=== PATIENT | male | born 1935 | race African-American/Black ===

== ENCOUNTER → 2022-08-26 | Outpatient (REF) | payer MEDICARE, MEDICAID, SELFPAY ==
[2022-08-26 10:24] LABS: Vitamin B12 > 2000 pg/mL (211-911); Vitamin D,25 Hydroxy 68.3 ng/mL
[2022-08-26 11:04] LABS: ALB/GLOB Ratio 0.7 RATIO (0.9-2.4); AST(SGOT) 34 U/L (15-37); Alanine Aminotransfer ALT/SGPT 33 U/L (16-61); Albumin, Serum 2.6 g/dL (3.2-5.0); Alkaline Phosphatase 76 U/L (45-117); Anion Gap 6 (5-15); BUN 31 mg/dL (7-18); BUN/Creat Ratio 28.4 RATIO (10-20); Chloride 106 mmol/L (98-107); Creatinine, Serum 1.09 mg/dL (0.70-1.30); EST Glomerular Filtration Rate 68 mL/min (>60); Est Glom Filt Rate - Afr Amer 83 mL/min (>60); Globulin 3.9 g/dL (2.2-4.2); Glucose 78 mg/dL (74-106); Potassium 4.2 mmol/L (3.5-5.1); Protein, Total 6.5 g/dL (6.4-8.2); Sodium Level 137 mmol/L (136-145); Thyroid Stim Hormone (TSH) 1.82 uIU/mL (0.358-3.74)
[2022-08-26 15:49] LABS: Hematocrit 36.8 % (40-54); Hemoglobin 11.5 g/dL (13.0-16.5); Mean Corp Hgb Conc 31.3 g/dL (32-36); Mean Corpuscular Hgb 27.1 pg (27.0-32.0); Mean Corpuscular Volume 86.6 fL (80-94); Platelet Count 177 K/mm3 (150-450); RBC Distribution Width CV 17.4 % (11.6-14.6); RBC Distribution Width SD 54.8 fl (35.1-43.9); Red Blood Count 4.25 M/mm3 (4.6-6.2); White Blood Count 6.6 K/mm3 (4.4-11.0)
== END ==
LOC: OLS.SANC 06:30
PROVIDERS: Visit Provider Internal Medicine
DX: D64.9 Anemia, unspecified (principal); N18.9 Chronic kidney disease, unspecified; E55.9 Vitamin D deficiency, unspecified
CPT/HCPCS: 36415; 80053; 82306; 82607; 82746; 84443; 85027

== ENCOUNTER → 2022-10-28 | Outpatient (REF) | payer MEDICARE, MEDICAID, SELFPAY ==
[2022-10-28 08:28] LABS: Hematocrit 37.6 % (40-54); Mean Corp Hgb Conc 31.9 g/dL (32-36); Mean Corpuscular Hgb 27.6 pg (27.0-32.0); Mean Corpuscular Volume 86.4 fL (80-94); Mean Platelet Vol. 11.9 fl (6.2-12.0); Platelet Count 219 K/mm3 (150-450); RBC Distribution Width CV 16.5 % (11.6-14.6); RBC Distribution Width SD 51.8 fl (35.1-43.9); Red Blood Count 4.35 M/mm3 (4.6-6.2); White Blood Count 7.5 K/mm3 (4.4-11.0)
[2022-10-28 08:39] LABS: Anion Gap 4 (5-15); BUN 36 mg/dL (7-18); BUN/Creat Ratio 33.6 RATIO (10-20); Calcium,Total 9.3 mg/dL (8.5-10.1); Chloride 105 mmol/L (98-107); Creatinine, Serum 1.07 mg/dL (0.70-1.30); EST Glomerular Filtration Rate 70 mL/min (>60); Est Glom Filt Rate - Afr Amer 84 mL/min (>60); Glucose 113 mg/dL (74-106); Potassium 4.5 mmol/L (3.5-5.1); Sodium Level 136 mmol/L (136-145)
== END ==
LOC: OLS.SANC 05:00
PROVIDERS: Visit Provider Internal Medicine
DX: D64.9 Anemia, unspecified (principal); F03.90 Unspecified dementia, unspecified severity, without behavioral disturbance, psychotic disturbance, mood disturbance, and anxiety; N18.9 Chronic kidney disease, unspecified; C16.9 Malignant neoplasm of stomach, unspecified; E44.0 Moderate protein-calorie malnutrition
CPT/HCPCS: 36415; 80048; 85027

== ENCOUNTER → 2022-11-22 | Outpatient (REF) | payer MEDICARE, MEDICAID, SELFPAY ==
[2022-11-22 08:10] LABS: Hematocrit 26.1 % (40-54); Hemoglobin 7.9 g/dL (13.0-16.5); Mean Corp Hgb Conc 30.3 g/dL (32-36); Mean Corpuscular Hgb 27.5 pg (27.0-32.0); Mean Corpuscular Volume 90.9 fL (80-94); Mean Platelet Vol. 10.8 fl (6.2-12.0); Platelet Count 281 K/mm3 (150-450); RBC Distribution Width CV 16.2 % (11.6-14.6); RBC Distribution Width SD 54.1 fl (35.1-43.9); Red Blood Count 2.87 M/mm3 (4.6-6.2); White Blood Count 6.3 K/mm3 (4.4-11.0)
[2022-11-22 08:18] LABS: Anion Gap 7 (5-15); BUN 44 mg/dL (7-18); BUN/Creat Ratio 40.4 RATIO (10-20); Calcium,Total 8.8 mg/dL (8.5-10.1); Chloride 107 mmol/L (98-107); Creatinine, Serum 1.09 mg/dL (0.70-1.30); EST Glomerular Filtration Rate 68 mL/min (>60); Est Glom Filt Rate - Afr Amer 83 mL/min (>60); Glucose 113 mg/dL (74-106); Potassium 4.4 mmol/L (3.5-5.1); Sodium Level 141 mmol/L (136-145)
== END ==
LOC: OLS.SANC 05:00
PROVIDERS: Visit Provider Internal Medicine
DX: D64.9 Anemia, unspecified (principal); I10 Essential (primary) hypertension
CPT/HCPCS: 36415; 80048; 85027

== ENCOUNTER → 2022-11-25 | Outpatient (REF) | payer MEDICARE, MEDICAID, SELFPAY ==
[2022-11-25 08:44] LABS: Hematocrit 24.4 % (40-54); Hemoglobin 7.5 g/dL (13.0-16.5); Mean Corp Hgb Conc 30.7 g/dL (32-36); Mean Corpuscular Hgb 27.9 pg (27.0-32.0); Mean Corpuscular Volume 90.7 fL (80-94); Mean Platelet Vol. 11.5 fl (6.2-12.0); Platelet Count 295 K/mm3 (150-450); RBC Distribution Width SD 53.1 fl (35.1-43.9); Red Blood Count 2.69 M/mm3 (4.6-6.2); White Blood Count 8.9 K/mm3 (4.4-11.0)
[2022-11-25 09:02] LABS: ALB/GLOB Ratio 0.6 RATIO (0.9-2.4); AST(SGOT) 23 U/L (15-37); Alanine Aminotransfer ALT/SGPT 23 U/L (16-61); Albumin, Serum 2.4 g/dL (3.2-5.0); Alkaline Phosphatase 72 U/L (45-117); Anion Gap 6 (5-15); BUN 40 mg/dL (7-18); BUN/Creat Ratio 33.6 RATIO (10-20); Chloride 105 mmol/L (98-107); Creatinine, Serum 1.19 mg/dL (0.70-1.30); EST Glomerular Filtration Rate 62 mL/min (>60); Est Glom Filt Rate - Afr Amer 75 mL/min (>60); Globulin 3.7 g/dL (2.2-4.2); Glucose 139 mg/dL (74-106); Potassium 4.5 mmol/L (3.5-5.1); Protein, Total 6.1 g/dL (6.4-8.2); Sodium Level 137 mmol/L (136-145)
== END ==
LOC: OLS.SANC 04:00
PROVIDERS: Referring Provider Internal Medicine; Visit Provider Internal Medicine
DX: D64.9 Anemia, unspecified (principal); I10 Essential (primary) hypertension
CPT/HCPCS: 36415; 80053; 85027

== ENCOUNTER → 2022-11-28 | Outpatient (REF) | payer MEDICARE, MEDICAID, SELFPAY ==
[2022-11-28 08:35] LABS: Hematocrit 26.4 % (40-54); Mean Corp Hgb Conc 30.3 g/dL (32-36); Mean Corpuscular Hgb 27.2 pg (27.0-32.0); Mean Corpuscular Volume 89.8 fL (80-94); Mean Platelet Vol. 10.7 fl (6.2-12.0); Platelet Count 328 K/mm3 (150-450); RBC Distribution Width CV 15.8 % (11.6-14.6); RBC Distribution Width SD 51.1 fl (35.1-43.9); Red Blood Count 2.94 M/mm3 (4.6-6.2); White Blood Count 7.7 K/mm3 (4.4-11.0)
[2022-11-28 08:54] LABS: Vitamin B12 > 2000 pg/mL (211-911)
[2022-11-28 09:25] LABS: Anion Gap 7 (5-15); BUN 37 mg/dL (7-18); BUN/Creat Ratio 33.9 RATIO (10-20); Calcium,Total 9.3 mg/dL (8.5-10.1); Chloride 104 mmol/L (98-107); Creatinine, Serum 1.09 mg/dL (0.70-1.30); EST Glomerular Filtration Rate 68 mL/min (>60); Est Glom Filt Rate - Afr Amer 83 mL/min (>60); Glucose 120 mg/dL (74-106); Iron 29 ug/dL (65-175); Iron Binding Capacity,Total 287 ug/dL (250-450); PERCENT IRON SATURATION 10.1 % (15.0-55.0); Potassium 4.5 mmol/L (3.5-5.1); Sodium Level 139 mmol/L (136-145)
== END ==
LOC: OLS.SANC 05:00
PROVIDERS: Visit Provider Internal Medicine
DX: D64.9 Anemia, unspecified (principal); I10 Essential (primary) hypertension
CPT/HCPCS: 36415; 80048; 82274; 82607; 82746; 83540; 83550; 85027

== ENCOUNTER → 2022-12-06 | Outpatient (REF) | payer MEDICARE, MEDICAID, SELFPAY ==
[2022-12-06 09:31] LABS: Hematocrit 27.2 % (40-54); Hemoglobin 8.5 g/dL (13.0-16.5); Mean Corp Hgb Conc 31.3 g/dL (32-36); Mean Corpuscular Hgb 27.3 pg (27.0-32.0); Mean Corpuscular Volume 87.5 fL (80-94); Mean Platelet Vol. 11.3 fl (6.2-12.0); Platelet Count 260 K/mm3 (150-450); RBC Distribution Width CV 15.9 % (11.6-14.6); RBC Distribution Width SD 50.4 fl (35.1-43.9); Red Blood Count 3.11 M/mm3 (4.6-6.2); White Blood Count 6.9 K/mm3 (4.4-11.0)
[2022-12-06 09:51] LABS: Anion Gap 6 (5-15); BUN 40 mg/dL (7-18); BUN/Creat Ratio 39.6 RATIO (10-20); Calcium,Total 9.1 mg/dL (8.5-10.1); Chloride 107 mmol/L (98-107); Creatinine, Serum 1.01 mg/dL (0.70-1.30); EST Glomerular Filtration Rate 75 mL/min (>60); Est Glom Filt Rate - Afr Amer 90 mL/min (>60); Glucose 123 mg/dL (74-106); Potassium 4.6 mmol/L (3.5-5.1); Sodium Level 140 mmol/L (136-145)
== END ==
LOC: OLS.SANC 05:00
PROVIDERS: Visit Provider Internal Medicine
DX: F03.90 Unspecified dementia, unspecified severity, without behavioral disturbance, psychotic disturbance, mood disturbance, and anxiety (principal); E86.0 Dehydration; D64.9 Anemia, unspecified; I10 Essential (primary) hypertension
CPT/HCPCS: 36415; 80048; 85027

== ENCOUNTER → 2022-12-13 | Outpatient (REF) | payer MEDICARE, MEDICAID, SELFPAY ==
[2022-12-13 07:54] LABS: Hematocrit 30.5 % (40-54); Hemoglobin 9.1 g/dL (13.0-16.5); Mean Corp Hgb Conc 29.8 g/dL (32-36); Mean Corpuscular Hgb 26.8 pg (27.0-32.0); Mean Platelet Vol. 11.8 fl (6.2-12.0); Platelet Count 226 K/mm3 (150-450); RBC Distribution Width CV 16.7 % (11.6-14.6); RBC Distribution Width SD 53.2 fl (35.1-43.9); Red Blood Count 3.39 M/mm3 (4.6-6.2); White Blood Count 7.2 K/mm3 (4.4-11.0)
[2022-12-13 08:05] LABS: Anion Gap 3 (5-15); BUN 38 mg/dL (7-18); BUN/Creat Ratio 35.2 RATIO (10-20); Calcium,Total 9.1 mg/dL (8.5-10.1); Chloride 108 mmol/L (98-107); Creatinine, Serum 1.08 mg/dL (0.70-1.30); EST Glomerular Filtration Rate 69 mL/min (>60); Est Glom Filt Rate - Afr Amer 83 mL/min (>60); Glucose 109 mg/dL (74-106); Potassium 4.5 mmol/L (3.5-5.1); Sodium Level 139 mmol/L (136-145)
== END ==
LOC: OLS.SANC 05:00
PROVIDERS: Visit Provider Internal Medicine
DX: F03.90 Unspecified dementia, unspecified severity, without behavioral disturbance, psychotic disturbance, mood disturbance, and anxiety (principal); E86.0 Dehydration; Z79.899 Other long term (current) drug therapy
CPT/HCPCS: 36415; 80048; 85027

== ENCOUNTER → 2022-12-20 | Outpatient (REF) | payer MEDICARE, MEDICAID, SELFPAY ==
[2022-12-20 08:10] LABS: Hematocrit 30.1 % (40-54); Hemoglobin 9.1 g/dL (13.0-16.5); Mean Corp Hgb Conc 30.2 g/dL (32-36); Mean Corpuscular Hgb 27.2 pg (27.0-32.0); Mean Corpuscular Volume 89.9 fL (80-94); Platelet Count 205 K/mm3 (150-450); RBC Distribution Width CV 17.2 % (11.6-14.6); RBC Distribution Width SD 55.3 fl (35.1-43.9); Red Blood Count 3.35 M/mm3 (4.6-6.2); White Blood Count 5.7 K/mm3 (4.4-11.0)
[2022-12-20 08:22] LABS: Anion Gap 5 (5-15); BUN 37 mg/dL (7-18); BUN/Creat Ratio 37.6 RATIO (10-20); Calcium,Total 8.8 mg/dL (8.5-10.1); Chloride 109 mmol/L (98-107); Creatinine, Serum 0.98 mg/dL (0.70-1.30); EST Glomerular Filtration Rate 77 mL/min (>60); Est Glom Filt Rate - Afr Amer 93 mL/min (>60); Glucose 125 mg/dL (74-106); Potassium 4.3 mmol/L (3.5-5.1); Sodium Level 139 mmol/L (136-145)
== END ==
LOC: OLS.SANC 05:00
PROVIDERS: Visit Provider Internal Medicine
DX: D64.9 Anemia, unspecified (principal); F03.90 Unspecified dementia, unspecified severity, without behavioral disturbance, psychotic disturbance, mood disturbance, and anxiety; I10 Essential (primary) hypertension
CPT/HCPCS: 36415; 80048; 85027

== ENCOUNTER → 2023-01-03 | Outpatient (REF) | payer MEDICARE, MEDICAID, SELFPAY ==
[2023-01-03 08:01] LABS: Hematocrit 29.6 % (40-54); Hemoglobin 9.3 g/dL (13.0-16.5); Mean Corp Hgb Conc 31.4 g/dL (32-36); Mean Corpuscular Hgb 27.8 pg (27.0-32.0); Mean Corpuscular Volume 88.6 fL (80-94); Mean Platelet Vol. 12.2 fl (6.2-12.0); Platelet Count 222 K/mm3 (150-450); RBC Distribution Width CV 18.1 % (11.6-14.6); RBC Distribution Width SD 58.4 fl (35.1-43.9); Red Blood Count 3.34 M/mm3 (4.6-6.2); White Blood Count 7.8 K/mm3 (4.4-11.0)
[2023-01-03 08:19] LABS: Anion Gap 4 (5-15); BUN 34 mg/dL (7-18); BUN/Creat Ratio 32.4 RATIO (10-20); Calcium,Total 9.3 mg/dL (8.5-10.1); Chloride 105 mmol/L (98-107); Creatinine, Serum 1.05 mg/dL (0.70-1.30); EST Glomerular Filtration Rate 71 mL/min (>60); Est Glom Filt Rate - Afr Amer 86 mL/min (>60); Glucose 119 mg/dL (74-106); Potassium 4.1 mmol/L (3.5-5.1); Sodium Level 136 mmol/L (136-145)
== END ==
LOC: OLS.SANC 05:00
PROVIDERS: Visit Provider Internal Medicine
DX: I10 Essential (primary) hypertension (principal)
CPT/HCPCS: 36415; 80048; 85027

== ENCOUNTER → 2023-02-17 05:00 | Outpatient (REF) | payer MEDICARE, MEDICAID, SELFPAY ==
[2023-02-17 09:48] LABS: Hemoglobin 10.9 g/dL (13.0-16.5); Mean Corp Hgb Conc 31.1 g/dL (32-36); Mean Corpuscular Hgb 27.6 pg (27.0-32.0); Mean Corpuscular Volume 88.6 fL (80-94); Mean Platelet Vol. 10.9 fl (6.2-12.0); Platelet Count 220 K/mm3 (150-450); RBC Distribution Width SD 54.7 fl (35.1-43.9); Red Blood Count 3.95 M/mm3 (4.6-6.2); White Blood Count 7.4 K/mm3 (4.4-11.0)
[2023-02-17 09:57] LABS: ALB/GLOB Ratio 0.7 RATIO (0.9-2.4); AST(SGOT) 28 U/L (15-37); Alanine Aminotransfer ALT/SGPT 32 U/L (16-61); Albumin, Serum 2.7 g/dL (3.2-5.0); Alkaline Phosphatase 91 U/L (45-117); Anion Gap 2 (5-15); BUN 30 mg/dL (7-18); BUN/Creat Ratio 30.8 RATIO (10-20); Calcium,Total 9.2 mg/dL (8.5-10.1); Chloride 106 mmol/L (98-107); Creatinine, Serum 0.97 mg/dL (0.70-1.30); EST Glomerular Filtration Rate 78 mL/min (>60); Est Glom Filt Rate - Afr Amer 94 mL/min (>60); Globulin 4.1 g/dL (2.2-4.2); Glucose 123 mg/dL (74-106); Potassium 4.5 mmol/L (3.5-5.1); Protein, Total 6.8 g/dL (6.4-8.2); Sodium Level 135 mmol/L (136-145)
== END ==
LOC: OLS.SANC 05:00
PROVIDERS: Visit Provider Internal Medicine
DX: I12.9 Hypertensive chronic kidney disease with stage 1 through stage 4 chronic kidney disease, or unspecified chronic kidney disease (principal); N18.9 Chronic kidney disease, unspecified; D63.1 Anemia in chronic kidney disease
CPT/HCPCS: 36415; 80053; 85027

== ENCOUNTER → 2023-03-03 | Outpatient (REF) | payer MEDICARE, MEDICAID, SELFPAY ==
[2023-03-03 09:39] LABS: Hematocrit 36.8 % (40-54); Hemoglobin 11.6 g/dL (13.0-16.5); Mean Corp Hgb Conc 31.5 g/dL (32-36); Mean Corpuscular Hgb 27.3 pg (27.0-32.0); Mean Corpuscular Volume 86.6 fL (80-94); Mean Platelet Vol. 11.5 fl (6.2-12.0); Platelet Count 217 K/mm3 (150-450); RBC Distribution Width CV 16.9 % (11.6-14.6); RBC Distribution Width SD 52.8 fl (35.1-43.9); Red Blood Count 4.25 M/mm3 (4.6-6.2); White Blood Count 5.8 K/mm3 (4.4-11.0)
[2023-03-03 10:15] LABS: Anion Gap 7 (5-15); BUN 32 mg/dL (7-18); BUN/Creat Ratio 30.2 RATIO (10-20); Calcium,Total 9.3 mg/dL (8.5-10.1); Chloride 107 mmol/L (98-107); Creatinine, Serum 1.06 mg/dL (0.70-1.30); EST Glomerular Filtration Rate 70 mL/min (>60); Est Glom Filt Rate - Afr Amer 85 mL/min (>60); Glucose 102 mg/dL (74-106); Potassium 4.4 mmol/L (3.5-5.1); Sodium Level 138 mmol/L (136-145)
[2023-03-04 09:00] LABS: Cholesterol 106 mg/dL (200); High Density Lipoprotein 48 mg/dL; Triglycerides 58 mg/dL; Very Low Density Lipoprotein 12 mg/dL (5-40)
== END ==
LOC: OLS.SANC 05:00
PROVIDERS: Visit Provider Internal Medicine
DX: I10 Essential (primary) hypertension (principal); D64.9 Anemia, unspecified
CPT/HCPCS: 36415; 80048; 80061; 85027

== ENCOUNTER → 2023-03-10 | Outpatient (REF) | payer MEDICARE, MEDICAID, SELFPAY ==
[2023-03-10 09:36] LABS: Cholesterol 121 mg/dL (200); High Density Lipoprotein 58 mg/dL; Triglycerides 63 mg/dL; Very Low Density Lipoprotein 13 mg/dL (5-40)
== END ==
LOC: OLS.SANC 04:00
PROVIDERS: Referring Provider Internal Medicine; Visit Provider Internal Medicine
DX: E11.9 Type 2 diabetes mellitus without complications (principal)
CPT/HCPCS: 36415; 80061

== ENCOUNTER → 2023-04-14 | Outpatient (REF) | payer MEDICARE, MEDICAID, SELFPAY ==
[2023-04-14 09:18] LABS: Hematocrit 36.7 % (40-54); Hemoglobin 11.6 g/dL (13.0-16.5); Mean Corp Hgb Conc 31.6 g/dL (32-36); Mean Corpuscular Hgb 27.4 pg (27.0-32.0); Mean Corpuscular Volume 86.6 fL (80-94); Mean Platelet Vol. 10.8 fl (6.2-12.0); Platelet Count 242 K/mm3 (150-450); RBC Distribution Width CV 16.6 % (11.6-14.6); RBC Distribution Width SD 51.8 fl (35.1-43.9); Red Blood Count 4.24 M/mm3 (4.6-6.2); White Blood Count 6.5 K/mm3 (4.4-11.0)
[2023-04-14 09:43] LABS: Anion Gap 4 (5-15); BUN 35 mg/dL (7-18); BUN/Creat Ratio 29.9 RATIO (10-20); Calcium,Total 9.2 mg/dL (8.5-10.1); Chloride 104 mmol/L (98-107); Creatinine, Serum 1.17 mg/dL (0.70-1.30); EST Glomerular Filtration Rate 63 mL/min (>60); Est Glom Filt Rate - Afr Amer 76 mL/min (>60); Glucose 101 mg/dL (74-106); Potassium 4.5 mmol/L (3.5-5.1); Sodium Level 136 mmol/L (136-145)
== END ==
LOC: OLS.SANC 04:00
PROVIDERS: Referring Provider Internal Medicine; Visit Provider Internal Medicine
DX: I10 Essential (primary) hypertension (principal); E78.5 Hyperlipidemia, unspecified; D64.9 Anemia, unspecified
CPT/HCPCS: 36415; 80048; 85027

== ENCOUNTER → 2023-07-07 | Outpatient (REF) | payer MEDICARE, MEDICAID, SELFPAY ==
[2023-07-07 09:01] LABS: Hematocrit 34.2 % (40-54); Hemoglobin 10.8 g/dL (13.0-16.5); Mean Corp Hgb Conc 31.6 g/dL (32-36); Mean Corpuscular Hgb 26.6 pg (27.0-32.0); Mean Corpuscular Volume 84.2 fL (80-94); Mean Platelet Vol. 11.6 fl (6.2-12.0); Platelet Count 249 K/mm3 (150-450); RBC Distribution Width CV 16.8 % (11.6-14.6); RBC Distribution Width SD 51.2 fl (35.1-43.9); Red Blood Count 4.06 M/mm3 (4.6-6.2); White Blood Count 7.5 K/mm3 (4.4-11.0)
[2023-07-07 09:12] LABS: Anion Gap 5 (5-15); BUN 38 mg/dL (7-18); BUN/Creat Ratio 34.5 RATIO (10-20); Chloride 107 mmol/L (98-107); EST Glomerular Filtration Rate 67 mL/min (>60); Est Glom Filt Rate - Afr Amer 82 mL/min (>60); Glucose 95 mg/dL (74-106); Potassium 4.1 mmol/L (3.5-5.1); Sodium Level 138 mmol/L (136-145)
== END ==
LOC: OLS.SANC 05:00
PROVIDERS: Visit Provider Internal Medicine
DX: D64.9 Anemia, unspecified (principal); I11.0 Hypertensive heart disease with heart failure; I50.9 Heart failure, unspecified; E78.5 Hyperlipidemia, unspecified
CPT/HCPCS: 36415; 80048; 85027

== ENCOUNTER → 2023-09-03 | Outpatient (REF) | payer MEDICARE, MEDICAID, SELFPAY ==
[2023-09-03 08:11] LABS: Hematocrit 30.5 % (40-54); Hemoglobin 9.3 g/dL (13.0-16.5); Mean Corp Hgb Conc 30.5 g/dL (32-36); Mean Corpuscular Hgb 25.2 pg (27.0-32.0); Mean Corpuscular Volume 82.7 fL (80-94); Mean Platelet Vol. 10.5 fl (6.2-12.0); Platelet Count 242 K/mm3 (150-450); RBC Distribution Width CV 16.9 % (11.6-14.6); RBC Distribution Width SD 51.2 fl (35.1-43.9); Red Blood Count 3.69 M/mm3 (4.6-6.2); White Blood Count 6.1 K/mm3 (4.4-11.0)
[2023-09-03 08:22] LABS: ALB/GLOB Ratio 0.7 RATIO (0.9-2.4); AST(SGOT) 22 U/L (15-37); Alanine Aminotransfer ALT/SGPT 21 U/L (16-61); Albumin, Serum 2.8 g/dL (3.2-5.0); Alkaline Phosphatase 75 U/L (45-117); Anion Gap 3 (5-15); BUN 36 mg/dL (7-18); Calcium,Total 9.1 mg/dL (8.5-10.1); Chloride 107 mmol/L (98-107); Cholesterol 103 mg/dL (200); Creatinine, Serum 1.16 mg/dL (0.70-1.30); EST Glomerular Filtration Rate 63 mL/min (>60); Est Glom Filt Rate - Afr Amer 77 mL/min (>60); Globulin 4.1 g/dL (2.2-4.2); Glucose 115 mg/dL (74-106); High Density Lipoprotein 53 mg/dL; Potassium 4.5 mmol/L (3.5-5.1); Protein, Total 6.9 g/dL (6.4-8.2); Sodium Level 137 mmol/L (136-145); Triglycerides 47 mg/dL; Very Low Density Lipoprotein 9 mg/dL (5-40)
== END ==
LOC: OLS.SANC 04:00
PROVIDERS: Referring Provider Internal Medicine; Visit Provider Internal Medicine
DX: D64.9 Anemia, unspecified (principal); I12.9 Hypertensive chronic kidney disease with stage 1 through stage 4 chronic kidney disease, or unspecified chronic kidney disease; E78.5 Hyperlipidemia, unspecified; N18.9 Chronic kidney disease, unspecified; C16.9 Malignant neoplasm of stomach, unspecified
CPT/HCPCS: 36415; 80053; 80061; 85027

== ENCOUNTER → 2023-10-08 | Outpatient (REF) | payer MEDICARE, MEDICAID, SELFPAY ==
--- OUTSIDE RECORDS SUMMARY | 2023-10-08 04:38 | XMS RPT_ITS | CCD ---
Author Name Unknown Address [address] [place] [address] Organization [facility] Care Team Providers Care Pallet Stone Inserter Name Role Phone System, Provider Not In Primary Care Provider 1( [phone] DENIS LOGAN Consulting Unavailable DOMINICK ROSALES Admitting Unavailable CHA MONTEMAYOR Attending Unavailable DARIUS BARROSO Admitting Unavailable THOMAS JOSE Consulting Unavailable JON LOPEZ Attending Unavailable DE GAMINO Admitting Unavailable LUPILLO VIZCARRA Attending Unavailable KELLY CABEZAS Consulting Unavailable EMILIO ALVAREZ Attending Unavailable EMILIO ALVAREZ Admitting Unavailable EMILIO ALVAREZ Attending Unavailable Medications Current Medications Medication Drug Class(es) Dates Sig (Normalized) Sig (Original) acetaminophen 21.7 mg/ml / HYDROcodone bitartrate 0.5 mg/ml oral solution (2 sources) Opioid Agonist Start: 05-13-2023 HYDROcodone-acetamin ophen (Hycet) 7.5-325 MG/15ML solution Indications: Contracture, left hand Take 10 mL (5 mg of hydrocodone) by mouth every 6 hours as needed for severe pain (7-10) for up to 20 doses. 120 mL 0 05/13/2023 Active albuterol 0.833 mg/ml / ipratropium bromide 0.167 mg/ml inhalation solution (5 sources) Anticholinergic, beta2-Adrenergic Agonist Start: 11-20-2022 End: 11-20-2023 ipratropium-albutero l (Duo-Neb) 0.5-2.5 mg/3 mL nebulizer solution Take 3 mL by nebulization in the morning and 3 mL at noon and 3 mL in the evening. 180 mL 11 11/20/2022 11/20/2023 Active bisacodyl (Dulcolax) 5 mg split suppository (5 sources) take 10 mg rectal route every twenty-four hours as needed bisacodyl (Dulcolax) 5 mg split suppository Insert 10 mg into the rectum Daily as needed. 0 Active ergocalciferol 1.25 mg oral capsule (2 sources) Provitamin D2 Compound take 1 capsule by mouth every week ergocalciferol (Vitamin D-2) 1.25 MG (92605 UT) capsule Take 1.25 mg by mouth 1 (one) time per week. On Mondays 0 Active ferrous sulfate 325 mg oral tablet (5 sources) take 1 tablet by mouth once daily at breakfast ferrous sulfate 325 (65 Fe) MG tablet Take 325 mg by mouth daily (with breakfast). 0 Active gabapentin 300 mg oral capsule (5 sources) Anti-epileptic Agent gabapentin (Neurontin) 300 MG capsule 300 mg by Per G Tube route 2 times daily. 0 Active hyoscyamine sulfate 0.125 mg/ml oral solution (5 sources) hyoscyamine (Lev sin) 0.125 MG/ML solution Take by mouth every 4 hours as needed (increased secretions). SUBLINGUALLY 0 Active Completed/Discontinued Medications Medication Drug Class(es) Dates Sig (Normalized) Sig (Original) Acetaminophen (7 sources) Start: 12-26-2022 End: 12-28-2022 take 1 tablet by mouth every six hours as needed for pain and fever acetaminophen (Tylenol) tablet 650 mg Problems Active Problems Problem Classification Problem Date Documented Da te Episodic/Chronic Chronic ulcer of skin (4 sources) Pressure ulcer of unspecified site, unspecified stage; Translations: [Pressure ulcer, unspecified site] Onset: 05-13-2023 05-13-2023 Chronic Other acquired deformities (3 sources) Contracture of joint of left hand; Translations: [Contracture, left hand] Onset: 05-13-2023 05-13-2023 Chronic Other acquired deformities (1 source) Contracture, left hand; Translations: [Contracture, left hand] Onset: 05-13-2023 Chronic Past or Other Problems Problem Classification Problem Date Documented Da te Episodic/Chronic Complications of surgical procedures or medical care (5 sources) Disorder of stoma; Translations: [Other complications of gastrostomy] Onset: 3 Episodic Gastrointestinal hemorrhage (5 sources) Gastrointestinal hemorrhage; Translations: [Gastrointestinal hemorrhage, unspecified] Onset: 3 02-01-2023 Episodic Other gastrointestinal disorders (9 sources) Constipation; Translations: [Constipation, unspecified] Onset: 3 Episodic Other gastrointestinal disorders (2 sources) Constipation, unspecified; Translations: [Constipation, unspecified] Onset: 3 Episodic Respiratory failure; insufficiency; arrest (adult) (7 sources) Acute hypoxemic respiratory failure; Translations: [Acute respiratory failure with hypoxia] Onset: 3 11-14-2022 Episodic Results Test Name Value Interpretation Reference Range Facil ity Vital Signs Date Time Vital Sign Value Performing Clinician Faci lity 05-13-2023 19:30-0400 Diastolic blood pressure 78 mm[Hg] Emilio Alvarez MD Work Phone: [employer] [facility] 05-13-2023 19:30-0400 Heart rate 59 /min Emilio Alvarez MD Work Phone: [employer] [facility] 05-13-2023 19:30-0400 Respiratory rate 21 /min Emilio Alvarez MD Work Phone: [employer] [facility] 05-13-2023 19:30-0400 SaO2% (BldA) [Mass fraction] 98 % Emilio Alvarez MD Work Phone: [employer] [facility] 05-13-2023 19:30-0400 Systolic blood pressure 160 mm[Hg] Emilio Alvarez MD Work Phone: [employer] [facility] 05-13-2023 15:03-0400 Body temperature 97 [degF] Emilio Alvarez MD Work Phone: [employer] [facility] 05-13-2023 09:57-0400 Body height 165.1 cm Emilio Alvarez MD Work Phone: [employer] [facility] 05-13-2023 09:57-0400 Body mass index (BMI) [Ratio] 26.96 kg/m2 Emilio Alvarez MD Work Phone: [employer] [facility] 05-13-2023 09:57-0400 Body weight 73.48 kg Emilio Alvarez MD Work Phone: [facility] 12-28-2022 14:41-0400 Body temperature 98.6 [degF] Anyi Murphyffey DO Work Phone: [facility] 12-28-2022 14:41-0400 Diastolic blood pressure 73 mm[Hg] [facility]ffe[facility] 12-28-2022 14:41-0400 Heart rate 64 /min [employer] [facility] 12-28-2022 14:41-0400 Respiratory rate 17 /min [employer] Work Phone: [facility] 12-28-2022 14:41-0400 SaO2% (BldA) [Mass fraction] 98 % [employer] Work Phone: [facility] 12-28-2022 14:41-0400 Systolic blood pressure 147 mm[Hg] Anyi Calderon DO Work Phone: [facility] 12-27-2022 14:40-0400 Body height 182.9 cm [employer] Work Phone: [facility] Encounters Encounter Date Encounter Type Care Provider Facility Start: 05-13-2023 End: 05-13-2023 ambulatory [facility] Start: 05-13-2023 End: 05-13-2023 Anesthesia consultation Isiah Sanchez MD Work Phone: [facility] Start: 05-13-2023 End: 05-13-2023 Subsequent hospital visit by physician Emilio Alvarez MD Work Phone: [facility] Procedures Date Procedure Procedure Detail Performing Clinician Start: 05-13-2023 Injection aa&/strd suprascapular nerve Tito Harrison FIBERGLASS AUTOBODY REPAIRER - BOWLING TEACHER Work Phone: Start: 05-13-2023 Ecg routine ecg w/le ast 12 lds trcg only w/o i&r Cody Simcox [employer]ERGLASS AUTOBODY REPAIRER - BOWLING TEACHER Work Phone: Start: 12-28-2022 SARS-CoV-2 (COVID-19 ) Ag [Presence] in Respiratory specimen by Rapid immunoassay Cha Montemayor FIBERGLASS AUTOBODY REPAIRER - CYBER THREAT ANALYST Work Phone: Start: 12-28-2022 End: 12-28-2022 SARS-CoV-2 (COVID-19) Ag [Presence] in Respiratory specimen by Rapid immunoassay Cha Montemayor [employer]IBERGLASS AUTOBODY REPAIRER - CYBER THREAT ANALYST Work Phone: Start: 12-26-2022 Basic metabolic pane l calcium total Medina Gray F[employer]ERGLASS AUTOBODY REPAIRER - CYBER THREAT ANALYST Work Phone: Start: 12-26-2022 Basic metabolic pane l calcium total Dominick Rosales MD Work Phone: Start: 12-26-2022 Comprehensive metabo lic panel Dominick Rosales MD Work Phone: Start: 12-25-2022 Urinalysis complete panel - Urine Flavio Meneses DO Work Phone: Start: 12-25-2022 Urnls dip stick/tabl et rgnt auto w/o microscopy Flavio Meneses DO Work Phone: Start: 12-25-2022 Ct abdomen & pelvis w/contrast material Flavio Meneses DO Work Phone: Start: 12-25-2022 Ecg routine ecg w/le ast 12 lds trcg only w/o i&r Flavio Meneses DO Work Phone: Start: 12-25-2022 C-reactive protein Jon Rosales MD Work Phone: Start: 12-25-2022 End: 12-25-2022 Comprehensive metabolic panel Flavio Meneses DO Work Phone: Plan of Treatment Date Care Activity Detail Author Start: 05-16-2026 DTaP/Tdap/Td Vaccine s (2 - Td or Tdap) DTaP/Tdap/Td Vaccines (2 - Td or Tdap) [facility] Start: 05-16-2023 Influenza vaccination [facility] Start: 06-15-2013 Pneumococcal Vaccine : 65+ Years (2 - PCV) Pneumococcal Vaccine: 65+ Years (2 - PCV) [facility] Start: 1987 Zoster Vaccines (1 of 2) Zoster Vacc judith (1 of 2) [facility] Start: 1949 Depression Screening Depression Scre ening [facility] Start: 1935 Hepatitis B Vaccines (1 of 3 - 3-dose series) Hepatitis B Vaccines (1 of 3 - 3-dose series) [facility] Start: 1935 Lipid panel Lipid Panel [facility] ECG 12 lead ECG 12 lead CV E CG Routine 05/13/2023 11:03 AM EDT [facility] Work Phone: Tissue exam Tissue exam Path ology and Cytology Timed Pressure ulcer of unspecified site, unspecified stage Contracture, left hand Release Upon Ordering for 1 Occurrences starting 05/13/2023 [facility] Work Phone: Immunizations Immunization Date Immunization Notes Care Provider Suraj oliveira 06-23-2015 influenza virus vacc ine, unspecified formulation Anyi Calderon DO Work Phone: [facility] Payers Date Payer Category Payer Medicaid [employer] [employer] [place] [id number] 2022-Present [phone] [address] [place] [address] Medicaid HMO [id number] 2018 Medicaid [id number] 2018 Medicare [id number] 2018 Medicare [id number] Social History Date Type Detail Facility Start: 12-25-2022 Tobacco smoking status NHIS To bacco smoking consumption unknown [facility] Start: 11-14-2022 History SDOH Alcohol Std Drinks 0 [facility] Start: 1935 Sex Assigned At Not on file [facility] Start: 12-15-2022 End: 12-25-2022 Exposure to SARS-CoV-2 (event) Unable to assess [facility] Start: 02-01-2023 History of Social function [facility] Start: 02-01-2023 Humiliation, Afraid, Rape, and Kick questionnaire [HARK] [facility] Within the last year , have you been afraid of your partner or ex-partner? No [facility] Are you now , , , , never or living with a partner? [facility] How often to you hav e a drink containing alcohol? Never [facility] How many standard dr inks containing alcohol do you have on a typical day? Patient does not drink [facility] (I/We) worried whe er (my/our) food would run out before (I/we) got money to buy more. Never true [facility] Start: 05-03-2023 End: 05-13-2023 Exposure to SARS-CoV-2 (event) Not sure [facility] Clinical Notes 03-07-2021 to 05-13-2023 Perioperative Nursing Note - Marie Mancini RN - 05/13/2023 8:59 PM EDTPerioperative Nursing Note - Marie Mancini RN - 05/13/2023 8:59 PM EDTOp Note - Emilio Alvarez MD - 05/13/2023 11:19 AM EDT Note Date & Type Note Facility 05-13-2023 Note Formatting of this n ote might be different from the original. 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 Patient changed and cleaned due to incontinence. Guest dinner tray delivered to room for patients daughter. Patients daughter is OK waiting on [employer] transportation for est pickling tank operator time of 1944. Recliner brought to room for her to rest in. Patient denies pain and is comfortable at this time. Guest tray ordered for patiens daughter. [place] instructions gone over with patients daughter, all questions answered at this time. Written script given to daughter so that she can have [facility] according to their policy. After reaching out to all of our transportation companies with zero availability secure chat message sent to doctor for admission order. However, [employer] called back with avail. For patient and his wheelchair. Spoke with social service manager Solange and she is aware of current circumstances Patient arrived on unit. Name and date verified. Attached to monitors. Vital signs stable. 1520 - paged Dr. Packer for orders 1530 - messaged Dr. Alvarez for discharge order 1535 - Dr. Packer called back and gave verbal order for [facility] order set [id number] - report given to Swathi in 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 He is unable to maintain hygiene and has a high risk of infection as his caregivers are unable to open his hand and monitor the status of his wounds. Furthermore, patient is minimally verbal communicative, thus making him unable to notify his caregivers of any additional changes including pain, drainage, discomfort in the hand. This procedure was necessary to be done as patient presented to clinic with wounds of the fingers already, and the need of further delay would have increased his risk for infection. Procedures All for the left upper extremity 1) FDS to FDP transfer x4 2) Sharp tenolysis and tenosynovectomy of FDS tendons x4 3) Sharp tenolysis and tenosynovitis me of FDP x4 4) neurolysis of median in the forearm 5) neurolysis ulnar nerve in the forearm 6) carpal tunnel release 7) Guyon's canal release 8) neurectomy of ulnar motor nerve 9) manipulation of index long ring and small finger joints under anesthesia. The MCP, PIP, DIP joints of all fingers 10) Debridement of ring finger DIP joint wound skin and subcutaneous tissue 1 x 2 cm Surgeons * Emilio Alvarez - Primary Procedure Summary Anesthesia: Monitor Anesthesia Care ASA: IV Estimated Blood Loss: Less than 10 cc Drains: Gastrostomy/Enterostomy LUQ (Active) Surrounding Skin Dry;Intact 05/13/23 1002 Drain Status Clamped 05/13/23 1002 Site Description Dry 05/13/23 1002 Dressing Status Clean, dry & intact 05/13/23 1002 Gastrostomy/Enterostomy LUQ (Active) [REMOVED] Gastrostomy/Enterostomy Umbilicus (Removed) Specimens ID Source Type Tests Collected By Collected At Frozen? Priority Lab ID 1 Hand, Left Tissue TISSUE EXAM Emilio Alvarez MD 05/13/23 1329 Routine Description: NERVE Staff: Customer Success Intern: De Alarcon RN Relief Customer Success Intern: Mike Rueda RN Scrub Person: Carmina Lucas LPN; Herrera Hagen Procedure Details: The patient was seen in the preoperative area. The site of surgery was properly noted/marked if necessary per policy. The patient has been actively warmed in preoperative area. Preoperative antibiotics have been ordered and given within 1 hours of incision. Initial attention was turned towards the left volar forearm. Patient also had spasticity in his shoulder and contracture of the pectoralis, thus the arm could only be extended and AB ducted approximately 30 degrees from his side. A longitudinal incision was made from the volar palm, a Jessica style zigzag was made in the wrist flexion crease to avoid future contractures, and then the incision was extended into the middle of the volar forearm. Once this was done, blunt dissection was taken until the palmaris longus was seen and then retracted for protection. Further dissection was taken until the FCR was also seen and retractor protection. Then, the volar muscular fascia was sharply incised and access to the volar compartment was made. It was noted that there was significant amount of tenosynovium and adhesions for all of the FDS as tendons immediately. Sharp tenolysis and tenosynovectomy was performed using a combination of the Littler scissors and #15 blade to allow for appropriate mobilization of all of the superficial flexor tendons. Once was done, each tendon was again checked to ensure that they function to have a distal pole in the fingers and this was noted. A vessel loop was placed around the sinus tract protection. Next, it was noted that the median nerve had significant adhesions around it as well in the forearm and a sharp neurolysis was performed using it again a combination of the #15 blade and Littler scissors. Once was done, the nerve was able to be adequately mobilized and fracture protection as well. Please note that during this dissection, it was noted that the patient had 2 slips of the FDS to the long finger. Next, attention was turned towards FDP. Sharp Tinel lysis of 10 7 ectomy was performed because again there was significant amounts of adhesions and tenosynovium to the FDP tendons for the index long ring and small finger. Once this was done and the tendons were adequately mobilized, they were again individually checked and sure that they powered finger motion and indeed this was seen. Next, a carpal tunnel release was performed. This was then able to visualize the most distal portions of the FDS as tendons. Within this region, the FDS tendons were all sutured together and the distal edge of this was marked with a marking pen. This was then sharply transected using the #15 blade. The FDS tendons were then able to be reflected and revealed FDP tendons. Next, the same procedure was applied to the proximal portion of all 4 FDP tendons where they were sutured together. Please note that the symptoms worsen together using 2-0 FiberWire. The FDP tendons were then transected at the musculotendinous junctions. This was then able to be reflected distally. The ulnar nerve was then also directly visualized along with the neurovascular bundle. There is also significant lesions of the ulnar nerve and a sharp neurolysis with the Littler scissors also performed to allow for adequate mobilization of the wrist and forearm. Manipulation of all the fingers was then performed to passively range all the fingers into maximal extension along with the wrist. And the maximum tension of the wrist and fingers, the FDS and FDP DP tendons were sutured together with FiberWire. Good passive range of motion was then able to be achieved. At this point, attention was turned towards the Guyon's canal. From the palmar incision, the hypothenar flap was elevated until these volar carpal ligament was seen. This was then sharply transected using the Littler scissors. Once the neurovascular bundle was visualized, this was retracted ulnarly for protection. The muscles from the hyperthenar were then swept away from the hook of hamate revealing the osseous bands overlying the motor branch of the ulnar nerve. These bands were then sharply released using a #15 blade under direct visualization. The ulnar motor branch was then able to be isolated and a sharp excisional neurectomy of 1 cm was then performed at this level. The purpose of this was to prevent future spasticity and hand contractures from the ulnar nerve and the intrinsics of the hand. At this point, attention was turned towards the ulceration on the ring finger DIP joint. Superficial tangential excision of subcutaneous tissue was performed and there is noted to be significant mount of good bleeding punctate granulation tissue, without any obvious exposure of bone. Thus, further debridement was deferred and patient will have wound care with the hopes that he can heal all of his ulcerations without amputation of the fingers. The tourniquet which was insufflated 250 mmHg. The case was then released after 90 minutes. The deep dermal layer was closed using 4-0 Monocryl suture. The skin was then closed using 4-0 Monocryl for subcuticular suture as well. The patient was then splinted with wrist in mild extension and fingers in extension as well. Findings: full passive range of motion after procedure Full mobilization of the wrist and fingers after tenolysis, tenosynovectomy, neurolysis and tendon transfers Disposition: PACU - hemodynamically stable. Condition: stable Spoke with Anne at [facility] to verify meds and NPO status documented in this encounter [facility] 05-13-2023 Note Formatting of this n ote might be different from the original. Report called to Pat at the [place], [place] instructions gone over and all questions answered at this time. Patient changed and cleaned due to incontinence. [facility] 05-13-2023 Note Formatting of this n ote might be different from the original. Report called to Pat at the [place], [place] instructions gone over and all questions answered at this time. Patient changed and cleaned due to incontinence. [facility] 05-13-2023 Note Formatting of this n ote might be different from the original. Guest dinner tray delivered to room for patients daughter. [facility] 05-13-2023 Note Formatting of this n ote might be different from the original. Guest dinner tray delivered to room for patients daughter. [facility] 05-13-2023 Note Formatting of this n ote might be different from the original. Patients daughter is OK waiting on [employer] for est pickling tank operator time of 1944. Recliner brought to room for her to rest in. Patient denies pain and is comfortable at this time. Guest tray ordered for patiens daughter. DC instructions gone over with patients daughter, all questions answered at this time. Written script given to daughter so that she can have [facility] [place] [facility] according to their policy. [facility] 05-13-2023 Note Formatting of this n ote might be different from the original. Patients daughter is OK waiting on [employer] transportation for est pickling tank operator time of 1944. Recliner brought to room for her to rest in. Patient denies pain and is comfortable at this time. Guest tray ordered for patiens daughter. DC instructions gone over with patients daughter, all questions answered at this time. Written script given to daughter so that she can have [facility] [place] [facility] according to their policy. [facility] 05-13-2023 Note Formatting of this n ote might be different from the original. After reaching out to all of our transportation companies with zero availability secure chat message sent to doctor for admission order. However, [employer] called back with avail. For patient and his wheelchair. Spoke with social service manager Solange and she is aware of current circumstances [facility] 05-13-2023 Note Formatting of this n ote might be different from the original. After reaching out to all of our transportation companies with zero availability secure chat message sent to doctor for admission order. However, [employer] called back with avail. For patient and his wheelchair. Spoke with social service manager Solange and she is aware of current circumstances [facility] 05-13-2023 Note Patient: Berto Ray Procedure Summary Date: 05/13/23 Room / Location: [facility] OR [address] [place] [address] Operating Room Anesthesia Start: 1119 Anesthesia Stop: 1511 Procedures: FLEXOR TENDON TRANSFER X4, NEUROLYSIS FOREARM NERVE X2, NEURECTOMY ULNAR NERVE AT THE WRIST LEFT, DEBRIDEMENT SKIN SUBCUTANEOUS MUSCLE LEFT HAND (Wrist) DEBRIDEMENT SKIN/MUSCLE, OPEN FRACTURE (Wrist) Diagnosis: Pressure ulcer of unspecified site, unspecified stage Contracture, left hand (Pressure ulcer of unspecified site, unspecified stage [L89.90]) (Contracture, left hand [M24.542]) Surgeons: Emilio Alvarez MD Responsible Provider: Isiah Sanchez MD Anesthesia Type: MAC, regional ASA Status: 4 Anesthesia Type: MAC, regional Vitals Value Taken Time BP 127/73 05/13/23 1513 Temp 97.0f 05/13/23 1513 Pulse 46 05/13/23 1512 Resp 20 05/13/23 1512 SpO2 100 % 05/13/23 151 Vitals shown include unvalidated device data. Anesthesia Post Evaluation Patient location during evaluation: PACU Patient participation: complete - patient participated Level of consciousness: awake and alert Pain management: satisfactory to patient Airway patency: patent Dental Injury: no Cardiovascular status: acceptable, blood pressure returned to baseline and hemodynamically stable Respiratory status: acceptable and spontaneous ventilation Hydration status: euvolemic Nausea/Vomiting: controlled No notable events documented. Patient can be discharged once all PACU criteria has been met. [facility] 05-13-2023 Note Patient: Berto Ray Procedure Summary Date: 05/13/23 Room / Location: [address] Operating Room Anesthesia Start: 1119 Anesthesia Stop: 1511 Procedures: FLEXOR TENDON TRANSFER X4, NEUROLYSIS FOREARM NERVE X2, NEURECTOMY ULNAR NERVE AT THE WRIST LEFT, DEBRIDEMENT SKIN SUBCUTANEOUS MUSCLE LEFT HAND (Wrist) DEBRIDEMENT SKIN/MUSCLE, OPEN FRACTURE (Wrist) Diagnosis: Pressure ulcer of unspecified site, unspecified stage Contracture, left hand (Pressure ulcer of unspecified site, unspecified stage [L89.90]) (Contracture, left hand [M24.542]) Surgeons: Emilio Alvarez MD Responsible Provider: Isiah Sanchez MD Anesthesia Type: MAC, regional ASA Status: 4 Anesthesia Type: MAC, regional Vitals Value Taken Time BP 127/73 05/13/23 1504 Temp 97.0f 05/13/23 1511 Pulse 47 05/13/23 1511 Resp 16 05/13/23 1511 SpO2 100 % 05/13/23 1511 Vitals shown include unvalidated device data. Anesthesia Post Evaluation Patient location during evaluation: PACU Patient participation: complete - patient participated Level of consciousness: awake and alert Pain management: satisfactory to patient Multimodal analgesia pain management approach Airway patency: patent Two or more strategies used to mitigate risk of obstructive sleep apnea Cardiovascular status: acceptable and hemodynamically stable Respiratory status: acceptable Hydration status: acceptable No notable events documented. MIPS #430 PONV Patient did not receive an inhalational anesthetic (XX430) MIPS # 424 Perioperative Temperature Management Anesthesia time was 60 minutes or longer (4255F) Anesthesai administered was General (inhalational or TIVA) or Neuraxial block (X0424) At least one body temperature greater than 95.8F/35.5C achieved within the 30 mins immediately prior to or the 15 minutes immediately following anesthesia end time (G9771) MIPS #477 Multimodal Pain Management Not emergent case Patient was not administered multimodal pain management (G2149) Patient reports no pain in PACU (G2149) MIPS #404 Anesthesiology Smoking Abstinence The patient is not a current smoker (e.g. cigarette, cigar, pipe, e-cigarette/vaping/marijuana) If no stop here (G9644) I completed my handoff to the receiving clinician during which we: 1. Identified the patient 2. Identified the responsible provider 3. Reviewed the pertinent medical history 4. Discussed the surgical course 5. Reviewed intra-op anesthesia management and issues during anesthesia 6. Set expectations for post-procedure period 7. Allowed opportunity for questions and acknowledgement of understanding. [facility] 05-13-2023 Hospital Discharg e instructions Jose R Royal MD - 05/13/2023 3:14 PM EDT Ortho Discharge Instructions: -Nonweightbearing to left upper extremity. -Keep splint/dressing on, clean, and dry until follow up appointment. -Ice to affected area. This will help with pain. -Elevate left upper extremity. This will help with swelling. -Take your medications as prescribed. -Follow-up outpatient with Dr. Alvarez in 2 week(s). documented in this encounter [facility] 05-13-2023 Note Formatting of this n ote is different from the original. Patient: Berto Ray Procedure Summary Date: 05/13/23 Room / Location: [facility] OR [address] [place] [address] Operating Room Anesthesia Start: 1118 Anesthesia Stop: 1510 Procedures: FLEXOR TENDON TRANSFER X4, NEUROLYSIS FOREARM NERVE X2, NEURECTOMY ULNAR NERVE AT THE WRIST LEFT, DEBRIDEMENT SKIN SUBCUTANEOUS MUSCLE LEFT HAND (Wrist) DEBRIDEMENT SKIN/MUSCLE, OPEN FRACTURE (Wrist) Diagnosis: Pressure ulcer of unspecified site, unspecified stage Contracture, left hand (Pressure ulcer of unspecified site, unspecified stage [L89.90]) (Contracture, left hand [M24.542]) Surgeons: Emilio Alvarez MD Responsible Provider: Isiah Sanchez MD Anesthesia Type: MAC, regional ASA Status: 4 Anesthesia Type: MAC, regional Vitals Value Taken Time BP 127/73 05/13/23 1513 Temp 97.0f 05/13/23 1513 Pulse 46 05/13/23 1512 Resp 20 05/13/23 1512 SpO2 100 % 05/13/23 151 Vitals shown include unvalidated device data. Anesthesia Post Evaluation Patient location during evaluation: PACU Patient participation: complete - patient participated Level of consciousness: awake and alert Pain management: satisfactory to patient Airway patency: patent Dental Injury: no Cardiovascular status: acceptable, blood pressure returned to baseline and hemodynamically stable Respiratory status: acceptable and spontaneous ventilation Hydration status: euvolemic Nausea/Vomiting: controlled No notable events documented. Patient can be discharged once all PACU criteria has been met. [facility] 05-13-2023 Miscellaneous Notes Patient: Berto Ray Procedure Summary Date: 05/13/23 Room / Location: [facility] OR [address] [place] [address] Operating Room Anesthesia Start: 1118 Anesthesia Stop: 1510 Procedures: FLEXOR TENDON TRANSFER X4, NEUROLYSIS FOREARM NERVE X2, NEURECTOMY ULNAR NERVE AT THE WRIST LEFT, DEBRIDEMENT SKIN SUBCUTANEOUS MUSCLE LEFT HAND (Wrist) DEBRIDEMENT SKIN/MUSCLE, OPEN FRACTURE (Wrist) Diagnosis: Pressure ulcer of unspecified site, unspecified stage Contracture, left hand (Pressure ulcer of unspecified site, unspecified stage [L89.90]) (Contracture, left hand [M24.542]) Surgeons: Emilio Alvarez MD Responsible Provider: Isiah Sanchez MD Anesthesia Type: MAC, regional ASA Status: 4 Anesthesia Type: MAC, regional Vitals Value Taken Time BP 127/73 05/13/23 1513 Temp 97.0f 05/13/23 1513 Pulse 46 05/13/23 1512 Resp 20 05/13/23 1512 SpO2 100 % 05/13/23 1512 Vitals shown include unvalidated device data. Anesthesia Post Evaluation Patient location during evaluation: PACU Patient participation: complete - patient participated Level of consciousness: awake and alert Pain management: satisfactory to patient Airway patency: patent Dental Injury: no Cardiovascular status: acceptable, blood pressure returned to baseline and hemodynamically stable Respiratory status: acceptable and spontaneous ventilation Hydration status: euvolemic Nausea/Vomiting: controlled No notable events documented. Patient can be discharged once all PACU criteria has been met. documented in this encounter [facility] 05-13-2023 Anesthesiology Postoperative evaluation and management note Patient: Berto Parkinson Procedure Summary Date: 05/13/23 Room / Location: [address] Operating Room Anesthesia Start: 1119 Anesthesia Stop: 1511 Procedures: FLEXOR TENDON TRANSFER X4, NEUROLYSIS FOREARM NERVE X2, NEURECTOMY ULNAR NERVE AT THE WRIST LEFT, DEBRIDEMENT SKIN SUBCUTANEOUS MUSCLE LEFT HAND (Wrist) DEBRIDEMENT SKIN/MUSCLE, OPEN FRACTURE (Wrist) Diagnosis: Pressure ulcer of unspecified site, unspecified stage Contracture, left hand (Pressure ulcer of unspecified site, unspecified stage [L89.90]) (Contracture, left hand [M24.542]) Surgeons: Emilio Alvarez MD Responsible Provider: Isiah Sanchez MD Anesthesia Type: MAC, regional ASA Status: 4 Anesthesia Type: MAC, regional Vitals Value Taken Time BP 127/73 05/13/23 1504 Temp 97.0f 05/13/23 1511 Pulse 47 05/13/23 1511 Resp 16 05/13/23 1511 SpO2 100 % 05/13/23 1511 Vitals shown include unvalidated device data. Anesthesia Post Evaluation Patient location during evaluation: PACU Patient participation: complete - patient participated Level of consciousness: awake and alert Pain management: satisfactory to patient Multimodal analgesia pain management approach Airway patency: patent Two or more strategies used to mitigate risk of obstructive sleep apnea Cardiovascular status: acceptable and hemodynamically stable Respiratory status: acceptable Hydration status: acceptable No notable events documented. MIPS #430 PONV Patient did not receive an inhalational anesthetic (XX430) MIPS # 424 Perioperative Temperature Management Anesthesia time was 60 minutes or longer (4255F) Anesthesai administered was General (inhalational or TIVA) or Neuraxial block (X0424) At least one body temperature greater than 95.8F/35.5C achieved within the 30 mins immediately prior to or the 15 minutes immediately following anesthesia end time (G9771) MIPS #477 Multimodal Pain Management Not emergent case Patient was not administered multimodal pain management (G2149) Patient reports no pain in PACU (G2149) MIPS #404 Anesthesiology Smoking Abstinence The patient is not a current smoker (e.g. cigarette, cigar, pipe, e-cigarette/vaping/marijuana) If no stop here (G9644) I completed my handoff to the receiving clinician during which we: 1. Identified the patient 2. Identified the responsible provider 3. Reviewed the pertinent medical history 4. Discussed the surgical course 5. Reviewed intra-op anesthesia management and issues during anesthesia 6. Set expectations for post-procedure period 7. Allowed opportunity for questions and acknowledgement of understanding. [place] Phone: 05-13-2023 Surgical operatio n note Patient: Berto Ray Procedure Summary Date: 05/13/23 Room / Location: [facility] Operating Room Anesthesia Start: 1119 Anesthesia Stop: 1511 Procedures: FLEXOR TENDON TRANSFER X4, NEUROLYSIS FOREARM NERVE X2, NEURECTOMY ULNAR NERVE AT THE WRIST LEFT, DEBRIDEMENT SKIN SUBCUTANEOUS MUSCLE LEFT HAND (Wrist) DEBRIDEMENT SKIN/MUSCLE, OPEN FRACTURE (Wrist) Diagnosis: Pressure ulcer of unspecified site, unspecified stage Contracture, left hand (Pressure ulcer of unspecified site, unspecified stage [L89.90]) (Contracture, left hand [M24.542]) Surgeons: Emilio Alvarez MD Responsible Provider: Isiah Sanchez MD Anesthesia Type: MAC, regional ASA Status: 4 Anesthesia Type: MAC, regional Vitals Value Taken Time BP 127/73 05/13/23 1504 Temp 97.0f 05/13/23 1511 Pulse 47 05/13/23 1511 Resp 16 05/13/23 1511 SpO2 100 % 05/13/23 1511 Vitals shown include unvalidated device data. Anesthesia Post Evaluation Patient location during evaluation: PACU Patient participation: complete - patient participated Level of consciousness: awake and alert Pain management: satisfactory to patient Multimodal analgesia pain management approach Airway patency: patent Two or more strategies used to mitigate risk of obstructive sleep apnea Cardiovascular status: acceptable and hemodynamically stable Respiratory status: acceptable Hydration status: acceptable No notable events documented. MIPS #430 PONV Patient did not receive an inhalational anesthetic (XX430) MIPS # 424 Perioperative Temperature Management Anesthesia time was 60 minutes or longer (4255F) Anesthesai administered was General (inhalational or TIVA) or Neuraxial block (X0424) At least one body temperature greater than 95.8F/35.5C achieved within the 30 mins immediately prior to or the 15 minutes immediately following anesthesia end time (G9771) MIPS #477 Multimodal Pain Management Not emergent case Patient was not administered multimodal pain management (G2149) Patient reports no pain in PACU (G2149) MIPS #404 Anesthesiology Smoking Abstinence The patient is not a current smoker (e.g. cigarette, cigar, pipe, e-cigarette/vaping/marijuana) If no stop here (G9644) I completed my handoff to the receiving clinician during which we: 1. Identified the patient 2. Identified the responsible provider 3. Reviewed the pertinent medical history 4. Discussed the surgical course 5. Reviewed intra-op anesthesia management and issues during anesthesia 6. Set expectations for post-procedure period 7. Allowed opportunity for questions and acknowledgement of understanding. Associated Order(s): Peripheral Block Peripheral Block Time Out: 05/13/2023 11:09 AM Patient location during procedure: Procedural Start time: 05/13/2023 11:10 AM End time: 05/13/2023 11:15 AM Reason for block: at surgeon's request and post-op pain management Staffing Performed: BOWLING TEACHER Resident/BOWLING TEACHER: Tito Harrison APRN - RIZWANA Preanesthetic Checklist Completed: patient identified, IV checked, site marked, risks and benefits discussed, surgical consent and timeout performed Region: Upper Extremities Primary: Supraclavicular Peripheral Block Patient position: supine Prep: ChloraPrep Patient monitoring: continuous pulse ox and heart rate O2: Nasal cannula Laterality: left Injection technique: single-shot Guidance: ultrasound guided -image retained in chart, tip of the needle identified by ultraound during injection. Local infiltration: lidocaine 2% Dose: 3 mL Needle Needle: 22G X 80 mm Additional Notes Patient Position - Supine w/head elevated Post Procedure - Patient tolerated procedure well. No complications noted05/13/2023 11:10 AM Assessment Injection assessment: negative aspiration for heme, no paresthesia on injection, incremental injection, local visualized surrounding nerve on ultrasound and transient paresthesias Heart rate change: no Slow fractionated injection: yes Required Documentation: Relevant anatomy identified (Nerves, Vessels, Muscles), Negative for blood on aspiration, Local anesthetic injected incrementally with intermittent aspiration every 5 mL, Normal resistance with injection, Local anesthetic spread visualized around nerves or plane., No EKG changes noted, No symptoms of toxicity and No paresthesias reported by patient during injectionMedications lccERQEZpadys-knogqimabyt-lxkuzdi rine (TAP) syringe - Injection 20 mL - 05/13/2023 11:10:00 AM lidocaine PF (Xylocaine) 2 % injection - Injection 200 mg - 05/13/2023 11:10:00 AM Patient: Berto Parkinson Procedure Information Date/Time: 05/13/23 1100 Procedures: FLEXOR TENDON TRANSFER X4, NEUROLYSIS FOREARM NERVE X2, NEURECTOMY ULNAR NERVE AT THE WRIST LEFT, DEBRIDEMENT SKIN SUBCUTANEOUS MUSCLE LEFT HAND (Wrist) - x4 DEBRIDEMENT SKIN/MUSCLE, OPEN FRACTURE (Wrist) Location: [facility] OR Operating Room Surgeons: Emilio Alvarez MD Relevant Problems No relevant active problems Past Medical History: Past Medical History: 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 No date: Alcohol abuse No date: Anemia No date: Anxiety No date: Cancer (CMS/HCC) (HCC) No date: Chronic kidney disease No date: Dementia (HCC) No date: Depression No date: Dysphagia No date: 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[facility]) Comment: Peg Tube No date: GERD (gastroesophageal reflux disease) No date: Hyperlipidemia No date: Hypertension No date: Muscle weakness No date: Personal history of COVID-19 No date: PVD (peripheral vascular disease) ([facility]) No date: Vitamin B deficiency Past Surgical History: Past Surgical History: No date: GASTROSTOMY TUBE PLACEMENT No date: OTHER SURGICAL HISTORY Comment: stomach surgery for cancer No date: OTHER SURGICAL HISTORY Comment: lung surgery for cancer Social History: TOBACCO: has no history on file for tobacco use. ETOH: has no history on file for alcohol use. Social History Substance and Sexual Activity Drug Use Not on file Family History: No family history on file. Screening: unknown Clinical information reviewed: Tobacco Allergies Meds Med Hx Surg Hx Fam Hx Soc Hx Physical Exam Airway Mallampati: unable to assess Cardiovascular Dental Comments: Per daughter pt has no teeth Unable to examine Pulmonary Abdominal Anesthesia Plan patient is NPO (per senior care pt had meds through peg tube this morning 0700 gabapentin, amlodipine, baclofen) appropriate Any family history or previous problems with anesthesia no ASA 4 MAC and regional Any family history or previous problems with anesthesia no (Dr sanchez cleared pt for regional/mac. ) The patient is not a current smoker. Anesthetic plan and risks discussed with patient and healthcare power of civil preparedness coordinator (i personally had conversation with POA/ daughter. discussed with pt and daughter risks of surgery. also made them aware that dnr status is rescinded during the anesthetic phase. Both still agree to proceed). Use of blood products discussed with who consented to blood products. [facility] Screening Labs: Lab Results Component Value Date WBC 6.1 02/06/2023 HGB 10.9 (L) 02/06/2023 HCT 33.9 (L) 02/06/2023 MCV 85.5 02/06/2023 PLT 206 02/06/2023 Lab Results Component Value Date NA 143 02/06/2023 K 3.9 02/06/2023 CL 112 (H) 02/06/2023 CO2 27 02/06/2023 BUN 34 (H) 02/06/2023 CREATININE 0.94 02/06/2023 GLUCOSE 136 (H) 02/06/2023 CALCIUM 8.6 02/06/2023 PROT 7.1 12/26/2022 ALKPHOS 111 12/26/2022 AST 43 12/26/2022 ALT 25 12/26/2022 EGFR 78.9 02/06/2023 No echocardiogram results found for the past 14 days 12/25/22 ECG 12-LEAD 12/26/2022 4:30 AM (Final) Impression SINUS RHYTHM LEFT ANTERIOR FASCICULAR BLOCK BASELINE WANDER IN LEAD(S) V6 Electronically Signed On 12-26-2022 4:30:50 EDT by Jose R Salomon Signed by: Jose R Salomon DO on 12/26/2022 4:30 AM documented in this encounter [facility] 05-13-2023 Note Formatting of this n ote might be different from the original. Patient arrived on unit. Name and date verified. Attached to monitors. Vital signs stable. 1520 - paged Dr. Packer for orders 1530 - messaged Dr. Alvarez for discharge order 1535 - Dr. Packer called back and gave verbal order for SDS order set 1620 - report given to Swathi in [facility] 05-13-2023 Note Formatting of this n ote might be different from the original. Patient arrived on unit. Name and date verified. Attached to monitors. Vital signs stable. 1520 - paged Dr. Packer for orders 1530 - messaged Dr. Alvarez for discharge order 1535 - Dr. Packer called back and gave verbal order for SDS order set 1620 - report given to Swathi in [facility] 05-13-2023 Note Peripheral Block Time Out: 05/13/2023 11:09 AM Patient location during procedure: Procedural Start time: 05/13/2023 11:10 AM End time: 05/13/2023 11:15 AM Reason for block: at surgeon's request and post-op pain management Staffing Performed: BOWLING TEACHER Resident/BOWLING TEACHER: JACINTO Song CRNA Preanesthetic Checklist Completed: patient identified, IV checked, site marked, risks and benefits discussed, surgical consent and timeout performed Region: Upper Extremities Primary: Supraclavicular Peripheral Block Patient position: supine Prep: ChloraPrep Patient monitoring: continuous pulse ox and heart rate O2: Nasal cannula Laterality: left Injection technique: single-shot Guidance: ultrasound guided -image retained in chart, tip of the needle identified by ultraound during injection. Local infiltration: lidocaine 2% Dose: 3 mL Needle Needle: 22G X 80 mm Additional Notes Patient Position - Supine w/head elevated Post Procedure - Patient tolerated procedure well. No complications noted05/13/2023 11:10 AM Assessment Injection assessment: negative aspiration for heme, no paresthesia on injection, incremental injection, local visualized surrounding nerve on ultrasound and transient paresthesias Heart rate change: no Slow fractionated injection: yes Required Documentation: Relevant anatomy identified (Nerves, Vessels, Muscles), Negative for blood on aspiration, Local anesthetic injected incrementally with intermittent aspiration every 5 mL, Normal resistance with injection, Local anesthetic spread visualized around nerves or plane., No EKG changes noted, No symptoms of toxicity and No paresthesias reported by patient during injectionMedications wucFLUMQvieoq-ngfkasbsqiv-riftodu rine (TAP) syringe - Injection 20 mL - 05/13/2023 11:10:00 AM lidocaine PF (Xylocaine) 2 % injection - Injection 200 mg - 05/13/2023 11:10:00 AM [facility] Events Date Time Event Comment 05/13/2023 0951 AN Preop Started 1054 1119 In Room 1119 An Start 1119 An Start Data 1131 An Induction The patient was reevaluated immediately before moderate or deep sedation use and before anesthesia induction. 1132 Anesthesia Ready 1158 Proc Start 1200 An Tourn Inflated 1331 An Tourn Deflated 1449 Proc Fin 1501 an stop data 1502 Out of Room 1511 An Stop Meds * Agents Name O2 Air * Blood No blood administrations on file. Lines, Drains, and Airways Type Details Placement Removal Gastrostomy/Enterostom y (pt arrived to facility with Gtube); LUQ 02/02/23 1009 by Leandra Payne RN Wound/Incision 11/16/22; 0745; Y; Traumatic (abrasion); Pretibial; Left; 6x2 open abrasion with small amounts red drainage 11/16/22 0745 by Juliana Miller RN Wound/Incision 11/16/22; 0745; Heel ; Right; soft pink but intact heel, heel protector intact 11/16/22 0745 by Juliana Miller RN Gastrostomy/Enterostom y (UKN); (UKN); 12/25/22; LUQ 12/25/22 0000 by Juan Ramon Ventura RN Wound/Incision 05/13/23; 1024; Y; Incision; Hand; left hand wound unable to visualize. gauze on palm and between fingers 05/13/23 1024 by Madelaine Still RN Wound/Incision 05/13/23; 1441; Incision; Forearm; Anterior, Left 05/13/23 1441 by De Alarcon RN Peripheral IV Placement Date: 05/13/23; Placement Time: 1003; Catheter Size: 20 G; Orientation: Right; Location: Hand; Site Prep: Alcohol; Inserted by: Kiki; Insertion Attempts: 1; Patient Tolerance: Tolerated well; Removal Date: 05/13/23; Removal Time: 2300 05/13/23 1003 by Madelaine Still RN 05/13/23 2300 by Automatic Discharge Provider documented [facility] this encounter [id number] NoteSubjective Patient is a 88 y.o. male with history of left spastic hemiplegia. Has had a clenched fist with deformity of the fingers, pressure wounds of the fingers and palm and unable to maintain hygiene. 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[facility]) Peg Tube GERD (gastroesophageal reflux disease) Hyperlipidemia Hypertension Muscle weakness Personal history of COVID-19 PVD (peripheral vascular disease) ([facility]) Vitamin B deficiency Past Surgical History: Procedure Laterality Date GASTROSTOMY TUBE PLACEMENT OTHER SURGICAL HISTORY stomach surgery for cancer OTHER SURGICAL HISTORY lung surgery for cancer sodium chloride 0.9%, 5-40 mL, IntraVENous, q12h lactated Ringer's, 50 mL/hr PRN medications: sodium chloride, sodium chloride 0.9% No Known Allergies Social History Socioeconomic History Marital status: Single Spouse name: Not on file Number of children: Not on file Years of education: Not on file Highest education level: Not on file Occupational History Not on file Tobacco Use Smoking status: Unknown Smokeless tobacco: Not on file Substance and Sexual Activity Alcohol use: Not on file Drug use: Not on file Sexual activity: Not on file Other Topics Concern Not on file Social History Narrative Not on file Social Determinants of Health Financial Resource Strain: Not on file Food Insecurity: No Food Insecurity (02/01/2023) Hunger Vital Sign Worried About Running Out of Food in the Last Year: Never true Ran Out of Food in the Last Year: Never true Transportation Needs: No Transportation Needs (02/01/2023) PRAPARE - Transportation Lack of Transportation (Medical): No Lack of Transportation (Non-Medical): No Physical Activity: Inactive (02/01/2023) Exercise Vital Sign Days of Exercise per Week: 0 days Minutes of Exercise per Session: 0 min Stress: Not on file Social Connections: Socially Isolated (02/01/2023) Social Connection and Isolation Panel [NHANES] Frequency of Communication with Friends and Family: Never Frequency of Social Gatherings with Friends and Family: Never Attends Sabianism Services: Never Active Member of Clubs or Organizations: No Attends Club or Organization Meetings: Never Marital Status: Intimate Partner Violence: Not At Risk (02/01/2023) Humiliation, Afraid, Rape, and Kick questionnaire Fear of Current or Ex-Partner: No Emotionally Abused: No Physically Abused: No Sexually Abused: No Housing Stability: Unknown (02/01/2023) Housing Stability Vital Sign Unable to Pay for Housing in the Last Year: No Number of Places Lived in the Last Year: Not on file Unstable Housing in the Last Year: No Fam hx Non contributory Objective Temp: [36.3 ?C (97.4 ?F)] 36.3 ?C (97.4 ?F) Heart Rate: [87] 87 Resp: [20] 20 BP: (132)/(67) 132/67 No intake/output data recorded. No intake/output data recorded. Physical Exam HENT: Head: Normocephalic. Nose: Nose normal. Mouth/Throat: Mouth: Mucous membranes are moist. Eyes: Conjunctiva/sclera: Conjunctivae normal. Cardiovascular: Rate and Rhythm: Normal rate and regular rhythm. Pulmonary: Effort: Pulmonary effort is normal. Breath sounds: Normal breath sounds. Abdominal: Palpations: Abdomen is soft. Musculoskeletal: Cervical back: Neck supple. Skin: Maceration of fingertips with ulceration on multiple digits as well as the palm. Obvious deformity with significant angulation at multiple DIP joints Assessment/Plan Patient is a 88-year-old male with left spastic hemiplegia and clenched fist with pressure wounds and inability to maintain hygiene. Multiple other medical comorbidities Plan *To the operating room for left FDS to FDP tendon transfer along with neurolysis of median ulnar nerve in the forearm. Possible tenolysis of all flexor tendons within the forearm. Ulnar motor neurectomy at the wrist to prevent future clawing. Debridement of hand and finger wounds skin subcutaneous tissue and possibly muscle and any other indicated procedures. *There is benefits alternatives discussed with the patient should and family as in clinic *Plan to follow-up in clinic in 1 to 2 weeks *For the facility, postoperatively maintain clean and dry dressings to the left upper extremity, okay to change if saturated or becomes soiled.[facility] [id number] NotePatient: Berto Ray Procedure Information Date/Time: 05/13/23 1100 Procedures: FLEXOR TENDON TRANSFER X4, NEUROLYSIS FOREARM NERVE X2, NEURECTOMY ULNAR NERVE AT THE WRIST LEFT, DEBRIDEMENT SKIN SUBCUTANEOUS MUSCLE LEFT HAND (Wrist) - x4 DEBRIDEMENT SKIN/MUSCLE, OPEN FRACTURE (Wrist) Location: [facility] OR [address] [place] [address] Operating Room Surgeons: Emilio Alvarez MD Relevant Problems No relevant active problems Past Medical History: Past Medical History: 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 No date: Alcohol abuse No date: Anemia No date: Anxiety No date: Cancer ([facility]) ([facility]) No date: Chronic kidney disease No date: Dementia ([facility]) No date: Depression No date: Dysphagia No date: 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[facility]) Comment: Peg Tube No date: GERD (gastroesophageal reflux disease) No date: Hyperlipidemia No date: Hypertension No date: Muscle weakness No date: Personal history of COVID-19 No date: PVD (peripheral vascular disease) ([facility]) No date: Vitamin B deficiency Past Surgical History: Past Surgical History: No date: GASTROSTOMY TUBE PLACEMENT No date: OTHER SURGICAL HISTORY Comment: stomach surgery for cancer No date: OTHER SURGICAL HISTORY Comment: lung surgery for cancer Social History: TOBACCO: has no history on file for tobacco use. ETOH: has no history on file for alcohol use. Social History Substance and Sexual Activity Drug Use Not on file Family History: No family history on file. Screening: unknown Clinical information reviewed: Tobacco Allergies Meds Med Hx Surg Hx Fam Hx Soc Hx Physical Exam Airway Mallampati: unable to assess Cardiovascular Dental Comments: Per daughter pt has no teeth Unable to examine Pulmonary Abdominal Anesthesia Plan patient is NPO (per senior care pt had meds through peg tube this morning 0700 gabapentin, amlodipine, baclofen) appropriate Any family history or previous problems with anesthesia no ASA 4 MAC and regional Any family history or previous problems with anesthesia no (Dr sanchez cleared pt for regional/mac. ) The patient is not a current smoker. Anesthetic plan and risks discussed with patient and healthcare power of civil preparedness coordinator (i personally had conversation with POA/ daughter. discussed with pt and daughter risks of surgery. also made them aware that dnr status is rescinded during the anesthetic phase. Both still agree to proceed). Use of blood products discussed with who consented to blood products. AMY Screening Labs: Lab Results Component Value Date WBC 6.1 02/06/2023 HGB 10.9 (L) 02/06/2023 HCT 33.9 (L) 02/06/2023 MCV 85.5 02/06/2023 PLT 206 02/06/2023 Lab Results Component Value Date NA 143 02/06/2023 K 3.9 02/06/2023 CL 112 (H) 02/06/2023 CO2 27 02/06/2023 BUN 34 (H) 02/06/2023 CREATININE 0.94 02/06/2023 GLUCOSE 136 (H) 02/06/2023 CALCIUM 8.6 02/06/2023 PROT 7.1 12/26/2022 ALKPHOS 111 12/26/2022 AST 43 12/26/2022 ALT 25 12/26/2022 EGFR 78.9 02/06/2023 No echocardiogram results found for the past 14 days 12/25/22 ECG 12-LEAD 12/26/2022 4:30 AM (Final) Impression SINUS RHYTHM LEFT ANTERIOR FASCICULAR BLOCK BASELINE WANDER IN LEAD(S) V6 Electronically Signed On 12-26-2022 4:30:50 EDT by Jose R Salomon Signed by: Jose R Salomon DO on 12/26/2022 4:30 [facility]08-29-2023 Anesthesiology procedure note* Anesthesia Procedure Notes - Tito Harrison APRN - BOWLING TEACHER - 05/13/2023 11:44 AM EDTAssociated Order(s): Peripheral Block Peripheral Block Time Out: 05/13/2023 11:09 AM Patient location during procedure: Procedural Start time: 05/13/2023 11:10 AM End time: 05/13/2023 11:15 AM Reason for block: at surgeon's request and post-op pain management Staffing Performed: BOWLING TEACHER Resident/BOWLING TEACHER: JACINTO Song CRNA Preanesthetic Checklist Completed: patient identified, IV checked, site marked, risks and benefits discussed, surgical consent and timeout performed Region: Upper Extremities Primary: Supraclavicular Peripheral Block Patient position: supine Prep: ChloraPrep Patient monitoring: continuous pulse ox and heart rate O2: Nasal cannula Laterality: left Injection technique: single-shot Guidance: ultrasound guided -image retained in chart, tip of the needle identified by ultraound during injection. Local infiltration: lidocaine 2% Dose: 3 mL Needle Needle: 22G X 80 mm Additional Notes Patient Position - Supine w/head elevated Post Procedure - Patient tolerated procedure well. No complications noted05/13/2023 11:10 AM Assessment Injection assessment: negative aspiration for heme, no paresthesia on injection, incremental injection, local visualized surrounding nerve on ultrasound and transient paresthesias Heart rate change: no Slow fractionated injection: yes Required Documentation: Relevant anatomy identified (Nerves, Vessels, Muscles), Negative for blood on aspiration, Local anesthetic injected incrementally with intermittent aspiration every 5 mL, Normal resistance with injection, Local anesthetic spread visualized around nerves or plane., No EKG changes noted, No symptoms of toxicity and No paresthesias reported by patient during injectionMedications yhaDYFKVxxlpo-rifbonetxdl-gnbvkfzbjww (TAP) syringe - Injection 20 mL - 05/13/2023 11:10:00 AM lidocaine PF (Xylocaine) 2 % injection - Injection 200 mg - 05/13/2023 11:10:00 AM [place] Phone: [phone] Note* Op Note - Emilio Alvarez MD - 05/13/2023 11:19 AM EDT +\Date: 05/13/2023 Location: [facility] OR Name: Berto Parkinson, : 1935, Diagnosis Pre-op Diagnosis * Pressure ulcer of unspecified site, unspecified stage [L89.90] * Contracture, left hand [M24.542] Post-op Diagnosis * Pressure ulcer of unspecified site, unspecified stage [L89.90] * Contracture, left hand [M24.542] *tendon adhesions of the FDS and FDP tendons *adhesions of the median and ulnar nerve int he forearm *tight joints of the hand (MCPJ, PIPJ, DIPJ) Indications for procedure Patient has a history of spastic contracture of the left hand. He has developed pressure necrosis use and ulcerations of his fingertips multiple times in the past. He is unable to maintain hygiene and has a high risk of infection as his caregivers are unable to open his hand and monitor the status of his wounds. Furthermore, patient is minimally verbal communicative, thus making him unable to notify his caregivers of any additional changes including pain, drainage, discomfort in the hand. This procedure was necessary to be done as patient presented to clinic with wounds of the fingers already, and the need of further delay would have increased his risk for infection. Procedures All for the left upper extremity 1) FDS to FDP transfer x4 2) Sharp tenolysis and tenosynovectomy of FDS tendons x4 3) Sharp tenolysis and tenosynovitis me of FDP x4 4) neurolysis of median in the forearm 5) neurolysis ulnar nerve in the forearm 6) carpal tunnel release 7) Guyon's canal release 8) neurectomy of ulnar motor nerve 9) manipulation of index long ring and small finger joints under anesthesia. The MCP, PIP, DIP joints of all fingers 10) Debridement of ring finger DIP joint wound skin and subcutaneous tissue 1 x 2 cm Surgeons * Emilio Alvarez - Primary Procedure Summary Anesthesia: Monitor Anesthesia Care ASA: IV Estimated Blood Loss: Less than 10 cc Drains: Gastrostomy/Enterostomy LUQ (Active) Surrounding Skin Dry;Intact 05/13/23 1002 Drain Status Clamped 05/13/23 1002 Site Description Dry 05/13/23 1002 Dressing Status Clean, dry & intact 05/13/23 1002 Gastrostomy/Enterostomy LUQ (Active) [REMOVED] Gastrostomy/Enterostomy Umbilicus (Removed) Specimens ID Source Type Tests Collected By Collected At Frozen? Priority Lab ID 1 Hand, Left Tissue TISSUE EXAM Emilio Alvarez MD 05/13/23 1789 Routine Description: NERVE Staff: Customer Success Intern: De Alarcon RN Relief Customer Success Intern: Mike Rueda RN Scrub Person: Carmina Lucas LPN; Herrera Hagen Procedure Details: The patient was seen in the preoperative area. The site of surgery was properly noted/marked if necessary per policy. The patient has been actively warmed in preoperative area. Preoperative antibiotics have been ordered and given within 1 hours of incision. Initial attention was turned towards the left volar forearm. Patient also had spasticity in his shoulder and contracture of the pectoralis, thus the arm could only be extended and AB ducted approximately 30 degrees from his side. A longitudinal incision was made from the volar palm, a Jessica style zigzag was made in the wrist flexion crease to avoid future contractures, and then the incision was extended into the middle of the volar forearm. Once this was done, blunt dissection was taken until the palmaris longus was seen and then retracted for protection. Further dissection was taken until the FCR was also seen and retractor protection. Then, the volar muscular fascia was sharply incised and access to the volar compartment was made. It was noted that there was significant amount of tenosynovium and adhesions for all of the FDS as tendons immediately. Sharp tenolysis and tenosynovectomywas performed using a combination of the Littler scissors and #15 blade to allow for appropriate mob ilization of all of the superficial flexor tendons. Once was done, each tendon was again checked toensure that they function to have a distal pole in the fingers and this was noted. A vessel loop was placed around the sinus tract protection. Next, it was noted that the median nerve had significantadhesions around it as well in the forearm and a sharp neurolysis was performed using it again a combination of the #15 blade and Littler scissors. Once was done, the nerve was able to be adequately mobilized and fracture protection as well. Please note that during this dissection, it was noted that the patient had 2 slips of the FDS to the long finger. Next, attention was turned towards FDP. Sharp Tinel lysis of 10 7 ectomy was performed because again there was significant amounts of adhesionsand tenosynovium to the FDP tendons for the index long ring and small finger. Once this was done and the tendons were adequately mobilized, they were again individually checked and sure that they powered finger motion and indeed this was seen. Next, a carpal tunnel release was performed. This was then able to visualize the most distal portions of the FDS as tendons. Within this region, the FDS tendons were all sutured together and the distal edge of this was marked with a marking pen. This was then sharply transected using the #15 blade. The FDS tendons were then able to be reflected and revealed FDP tendons. Next, the same procedure was applied to the proximal portion of all 4 FDP tendons where they were sutured together. Please note that the symptoms worsen together using 2-0 FiberWire.The FDP tendons were then transected at the musculotendinous junctions. This was then able to be reflected distally. The ulnar nerve was then also directly visualized along with the neurovascular bundle. There is also significant lesions of the ulnar nerve and a sharp neurolysis with the Littler scissors also performed to allow for adequate mobilization of the wrist and forearm. Manipulation of all the fingers was then performed to passively range all the fingers into maximal extension along with the wrist. And the maximum tension of the wrist and fingers, the FDS and FDP DP tendons were sutured together with FiberWire. Good passive range of motion was then able to be achieved. At this point, attention was turned towards the Guyon's canal. From the palmar incision, the hypothenar flap waselevated until these volar carpal ligament was seen. This was then sharply transected using the Littler scissors. Once the neurovascular bundle was visualized, this was retracted ulnarly for protection. The muscles from the hyperthenar were then swept away from the hook of hamate revealing the osseous bands overlying the motor branch of the ulnar nerve. These bands were then sharply released using a #15 blade under direct visualization. The ulnar motor branch was then able to be isolated and a sharp excisional neurectomy of 1 cm was then performed at this level. The purpose of this was to prevent future spasticity and hand contractures from the ulnar nerve and the intrinsics of the hand. Atthis point, attention was turned towards the ulceration on the ring finger DIP joint. Superficial tangential excision of subcutaneous tissue was performed and there is noted to be significant mount of good bleeding punctate granulation tissue, without any obvious exposure of bone. Thus, further debridement was deferred and patient will have wound care with the hopes that he can heal all of his ulc erations without amputation of the fingers. The tourniquet which was insufflated 250 mmHg. The casewas then released after 90 minutes. The deep dermal layer was closed using 4-0 Monocryl suture. Theskin was then closed using 4-0 Monocryl for subcuticular suture as well. The patient was then splinted with wrist in mild extension and fingers in extension as well. Findings: full passive range of motion after procedure Full mobilization of the wrist and fingers after tenolysis, tenosynovectomy, neurolysis and tendon transfers Disposition: PACU - hemodynamically stable. Condition: [id number]* Op Note - Emilio Alvarez MD - 05/13/2023 11:19 AM EDT +\Date: 05/13/2023 Location: [facility] OR Name: Berto Parkinson, : 1935, Diagnosis Pre-op Diagnosis * Pressure ulcer of unspecified site, unspecified stage [L89.90] * Contracture, left hand [M24.542] Post-op Diagnosis * Pressure ulcer of unspecified site, unspecified stage [L89.90] * Contracture, left hand [M24.542] *tendon adhesions of the FDS and FDP tendons *adhesions of the median and ulnar nerve int he forearm *tight joints of the hand (MCPJ, PIPJ, DIPJ) Indications for procedure Patient has a history of spastic contracture of the left hand. He has developed pressure necrosis use and ulcerations of his fingertips multiple times in the past. He is unable to maintain hygiene and has a high risk of infection as his caregivers are unable to open his hand and monitor the status of his wounds. Furthermore, patient is minimally verbal communicative, thus making him unable to notify his caregivers of any additional changes including pain, drainage, discomfort in the hand. This procedure was necessary to be done as patient presented to clinic with wounds of the fingers already, and the need of further delay would have increased his risk for infection. Procedures All for the left upper extremity 1) FDS to FDP transfer x4 2) Sharp tenolysis and tenosynovectomy of FDS tendons x4 3) Sharp tenolysis and tenosynovitis me of FDP x4 4) neurolysis of median in the forearm 5) neurolysis ulnar nerve in the forearm 6) carpal tunnel release 7) Guyon's canal release 8) neurectomy of ulnar motor nerve 9) manipulation of index long ring and small finger joints under anesthesia. The MCP, PIP, DIP joints of all fingers 10) Debridement of ring finger DIP joint wound skin and subcutaneous tissue 1 x 2 cm Surgeons * Emilio Alvarez - Primary Procedure Summary Anesthesia: Monitor Anesthesia Care ASA: IV Estimated Blood Loss: Less than 10 cc Drains: Gastrostomy/Enterostomy LUQ (Active) Surrounding Skin Dry;Intact 05/13/23 1002 Drain Status Clamped 05/13/23 1002 Site Description Dry 05/13/23 1002 Dressing Status Clean, dry & intact 05/13/23 1002 Gastrostomy/Enterostomy LUQ (Active) [REMOVED] Gastrostomy/Enterostomy Umbilicus (Removed) Specimens ID Source Type Tests Collected By Collected At Frozen? Priority Lab ID 1 Hand, Left Tissue TISSUE EXAM Emilio Alvarez MD 05/13/23 1329 Routine Description: NERVE Staff: Customer Success Intern: De Alarcon RN Relief Customer Success Intern: Mike Rueda RN Scrub Person: Carmina Lucas LPN; Herrera [facility] Procedure Details: The patient was seen in the preoperative area. The site of surgery was properly noted/marked if necessary per policy. The patient has been actively warmed in preoperative area. Preoperative antibiotics have been ordered and given within 1 hours of incision. Initial attention was turned towards the left volar forearm. Patient also had spasticity in his shoulder and contracture of the pectoralis, thus the arm could only be extended and AB ducted approximately 30 degrees from his side. A longitudinal incision was made from the volar palm, a Jessica style zigzag was made in the wrist flexion crease to avoid future contractures, and then the incision was extended into the middle of the volar forearm. Once this was done, blunt dissection was taken until the palmaris longus was seen and then retracted for protection. Further dissection was taken until the FCR was also seen and retractor protection. Then, the volar muscular fascia was sharply incised and access to the volar compartment was made. It was noted that there was significant amount of tenosynovium and adhesions for all of the FDS as tendons immediately. Sharp tenolysis and tenosynovectomywas performed using a combination of the Littler scissors and #15 blade to allow for appropriate mob ilization of all of the superficial flexor tendons. Once was done, each tendon was again checked toensure that they function to have a distal pole in the fingers and this was noted. A vessel loop was placed around the sinus tract protection. Next, it was noted that the median nerve had significantadhesions around it as well in the forearm and a sharp neurolysis was performed using it again a combination of the #15 blade and Littler scissors. Once was done, the nerve was able to be adequately mobilized and fracture protection as well. Please note that during this dissection, it was noted that the patient had 2 slips of the FDS to the long finger. Next, attention was turned towards FDP. Sharp Tinel lysis of 10 7 ectomy was performed because again there was significant amounts of adhesionsand tenosynovium to the FDP tendons for the index long ring and small finger. Once this was done and the tendons were adequately mobilized, they were again individually checked and sure that they powered finger motion and indeed this was seen. Next, a carpal tunnel release was performed. This was then able to visualize the most distal portions of the FDS as tendons. Within this region, the FDS tendons were all sutured together and the distal edge of this was marked with a marking pen. This was then sharply transected using the #15 blade. The FDS tendons were then able to be reflected and revealed FDP tendons. Next, the same procedure was applied to the proximal portion of all 4 FDP tendons where they were sutured together. Please note that the symptoms worsen together using 2-0 FiberWire.The FDP tendons were then transected at the musculotendinous junctions. This was then able to be reflected distally. The ulnar nerve was then also directly visualized along with the neurovascular bundle. There is also significant lesions of the ulnar nerve and a sharp neurolysis with the Littler scissors also performed to allow for adequate mobilization of the wrist and forearm. Manipulation of all the fingers was then performed to passively range all the fingers into maximal extension along with the wrist. And the maximum tension of the wrist and fingers, the FDS and FDP DP tendons were sutured together with FiberWire. Good passive range of motion was then able to be achieved. At this point, attention was turned towards the Guyon's canal. From the palmar incision, the hypothenar flap waselevated until these volar carpal ligament was seen. This was then sharply transected using the Littler scissors. Once the neurovascular bundle was visualized, this was retracted ulnarly for protection. The muscles from the hyperthenar were then swept away from the hook of hamate revealing the osseous bands overlying the motor branch of the ulnar nerve. These bands were then sharply released using a #15 blade under direct visualization. The ulnar motor branch was then able to be isolated and a sharp excisional neurectomy of 1 cm was then performed at this level. The purpose of this was to prevent future spasticity and hand contractures from the ulnar nerve and the intrinsics of the hand. Atthis point, attention was turned towards the ulceration on the ring finger DIP joint. Superficial tangential excision of subcutaneous tissue was performed and there is noted to be significant mount of good bleeding punctate granulation tissue, without any obvious exposure of bone. Thus, further debridement was deferred and patient will have wound care with the hopes that he can heal all of his ulc erations without amputation of the fingers. The tourniquet which was insufflated 250 mmHg. The casewas then released after 90 minutes. The deep dermal layer was closed using 4-0 Monocryl suture. Theskin was then closed using 4-0 Monocryl for subcuticular suture as well. The patient was then splinted with wrist in mild extension and fingers in extension as well. Findings: full passive range of motion after procedure Full mobilization of the wrist and fingers after tenolysis, tenosynovectomy, neurolysis and tendon transfers Disposition: PACU - hemodynamically stable. Condition: [id number] History and physical note* Emilio Alvarez MD - 05/13/2023 10:55 AM EDT Subjective Patient is a 88 y.o. male with history of left spastic hemiplegia. Has had a clenched fist with deformity of the fingers, pressure wounds of the fingers and palm and unable to maintain hygiene. Review of Systems Unable to obtain full review of system as patient is nonverbal communicative Past Medical History: Diagnosis Date Achalasia of cardia Alcohol abuse Anemia Anxiety Cancer (CMS/HCC) (HCC) Chronic kidney disease Dementia (HCC) Depression Dysphagia 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[facility]) Peg Tube GERD (gastroesophageal reflux disease) Hyperlipidemia Hypertension Muscle weakness Personal history of COVID-19 PVD (peripheral vascular disease) ([facility]) Vitamin B deficiency Past Surgical History: Procedure Laterality Date GASTROSTOMY TUBE PLACEMENT OTHER SURGICAL HISTORY stomach surgery for cancer OTHER SURGICAL HISTORY lung surgery for cancer sodium chloride 0.9%, 5-40 mL, IntraVENous, q12h lactated Ringer's, 50 mL/hr PRN medications: sodium chloride, sodium chloride 0.9% No Known Allergies Social History Socioeconomic History Marital status: Single Spouse name: Not on file Number of children: Not on file Years of education: Not on file Highest education level: Not on file Occupational History Not on file Tobacco Use Smoking status: Unknown Smokeless tobacco: Not on file Substance and Sexual Activity Alcohol use: Not on file Drug use: Not on file Sexual activity: Not on file Other Topics Concern Not on file Social History Narrative Not on file Social Determinants of Health Financial Resource Strain: Not on file Food Insecurity: No Food Insecurity (02/01/2023) Hunger Vital Sign Worried About Running Out of Food in the Last Year: Never true Ran Out of Food in the Last Year: Never true Transportation Needs: No Transportation Needs (02/01/2023) PRAPARE - Transportation Lack of Transportation (Medical): No Lack of Transportation (Non-Medical): No Physical Activity: Inactive (02/01/2023) Exercise Vital Sign Days of Exercise per Week: 0 days Minutes of Exercise per Session: 0 min Stress: Not on file Social Connections: Socially Isolated (02/01/2023) Social Connection and Isolation Panel [NHANES] Frequency of Communication with Friends and Family: Never Frequency of Social Gatherings with Friends and Family: Never Attends Sabianism Services: Never Active Member of Clubs or Organizations: No Attends Club or Organization Meetings: Never Marital Status: Intimate Partner Violence: Not At Risk (02/01/2023) Humiliation, Afraid, Rape, and Kick questionnaire Fear of Current or Ex-Partner: No Emotionally Abused: No Physically Abused: No Sexually Abused: No Housing Stability: Unknown (02/01/2023) Housing Stability Vital Sign Unable to Pay for Housing in the Last Year: No Number of Places Lived in the Last Year: Not on file Unstable Housing in the Last Year: No Fam hx Non contributory Objective Temp: [36.3 C (97.4 F)] 36.3 C (97.4 F) Heart Rate: [87] 87 Resp: [20] 20 BP: (132)/(67) 132/67 No intake/output data recorded. No intake/output data recorded. Physical Exam HENT: Head: Normocephalic. Nose: Nose normal. Mouth/Throat: Mouth: Mucous membranes are moist. Eyes: Conjunctiva/sclera: Conjunctivae normal. Cardiovascular: Rate and Rhythm: Normal rate and regular rhythm. Pulmonary: Effort: Pulmonary effort is normal. Breath sounds: Normal breath sounds. Abdominal: Palpations: Abdomen is soft. Musculoskeletal: Cervical back: Neck supple. Skin: Maceration of fingertips with ulceration on multiple digits as well as the palm. Obvious deformity with significant angulation at multiple DIP joints Assessment/Plan Patient is a 88-year-old male with left spastic hemiplegia and clenched fist with pressure wounds and inability to maintain hygiene. Multiple other medical comorbidities Plan *To the operating room for left FDS to FDP tendon transfer along with neurolysis of median ulnar nerve in the forearm. Possible tenolysis of all flexor tendons within the forearm. Ulnar motor neurectomy at the wrist to prevent future clawing. Debridement of hand and finger wounds skin subcutaneous tissue and possibly muscle and any other indicated procedures. *There is benefits alternatives discussed with the patient should and family as in clinic *Plan to follow-up in clinic in 1 to 2 weeks *For the facility, postoperatively maintain clean and dry dressings to the left upper extremity, okay to change if saturated or becomes soiled. [place] Phone: [phone]) 299-148308-29-2023 History and physical note* Emilio Alvarez MD - 05/13/2023 10:55 AM EDT Subjective Patient is a 88 y.o. male with history of left spastic hemiplegia. Has had a clenched fist with deformity of the fingers, pressure wounds of the fingers and palm and unable to maintain hygiene. Review of Systems Unable to obtain full review of system as patient is nonverbal communicative Past Medical History: Diagnosis Date Achalasia of cardia Alcohol abuse Anemia Anxiety Cancer (CMS/HCC) (HCC) Chronic kidney disease Dementia (HCC) Depression Dysphagia 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HCC) Peg Tube GERD (gastroesophageal reflux disease) Hyperlipidemia Hypertension Muscle weakness Personal history of COVID-19 PVD (peripheral vascular disease) (HCC) Vitamin B deficiency Past Surgical History: Procedure Laterality Date GASTROSTOMY TUBE PLACEMENT OTHER SURGICAL HISTORY stomach surgery for cancer OTHER SURGICAL HISTORY lung surgery for cancer sodium chloride 0.9%, 5-40 mL, IntraVENous, q12h lactated Ringer's, 50 mL/hr PRN medications: sodium chloride, sodium chloride 0.9% No Known Allergies Social History Socioeconomic History Marital status: Single Spouse name: Not on file Number of children: Not on file Years of education: Not on file Highest education level: Not on file Occupational History Not on file Tobacco Use Smoking status: Unknown Smokeless tobacco: Not on file Substance and Sexual Activity Alcohol use: Not on file Drug use: Not on file Sexual activity: Not on file Other Topics Concern Not on file Social History Narrative Not on file Social Determinants of Health Financial Resource Strain: Not on file Food Insecurity: No Food Insecurity (02/01/2023) Hunger Vital Sign Worried About Running Out of Food in the Last Year: Never true Ran Out of Food in the Last Year: Never true Transportation Needs: No Transportation Needs (02/01/2023) PRAPARE - Transportation Lack of Transportation (Medical): No Lack of Transportation (Non-Medical): No Physical Activity: Inactive (02/01/2023) Exercise Vital Sign Days of Exercise per Week: 0 days Minutes of Exercise per Session: 0 min Stress: Not on file Social Connections: Socially Isolated (02/01/2023) Social Connection and Isolation Panel [NHANES] Frequency of Communication with Friends and Family: Never Frequency of Social Gatherings with Friends and Family: Never Attends Sabianism Services: Never Active Member of Clubs or Organizations: No Attends Club or Organization Meetings: Never Marital Status: Intimate Partner Violence: Not At Risk (02/01/2023) Humiliation, Afraid, Rape, and Kick questionnaire Fear of Current or Ex-Partner: No Emotionally Abused: No Physically Abused: No Sexually Abused: No Housing Stability: Unknown (02/01/2023) Housing Stability Vital Sign Unable to Pay for Housing in the Last Year: No Number of Places Lived in the Last Year: Not on file Unstable Housing in the Last Year: No Fam hx Non contributory Objective Temp: [36.3 C (97.4 F)] 36.3 C (97.4 F) Heart Rate: [87] 87 Resp: [20] 20 BP: (132)/(67) 132/67 No intake/output data recorded. No intake/output data recorded. Physical Exam HENT: Head: Normocephalic. Nose: Nose normal. Mouth/Throat: Mouth: Mucous membranes are moist. Eyes: Conjunctiva/sclera: Conjunctivae normal. Cardiovascular: Rate and Rhythm: Normal rate and regular rhythm. Pulmonary: Effort: Pulmonary effort is normal. Breath sounds: Normal breath sounds. Abdominal: Palpations: Abdomen is soft. Musculoskeletal: Cervical back: Neck supple. Skin: Maceration of fingertips with ulceration on multiple digits as well as the palm. Obvious deformity with significant angulation at multiple DIP joints Assessment/Plan Patient is a 88-year-old male with left spastic hemiplegia and clenched fist with pressure wounds and inability to maintain hygiene. Multiple other medical comorbidities Plan *To the operating room for left FDS to FDP tendon transfer along with neurolysis of median ulnar nerve in the forearm. Possible tenolysis of all flexor tendons within the forearm. Ulnar motor neurectomy at the wrist to prevent future clawing. Debridement of hand and finger wounds skin subcutaneous tissue and possibly muscle and any other indicated procedures. *There is benefits alternatives discussed with the patient should and family as in clinic *Plan to follow-up in clinic in 1 to 2 weeks *For the facility, postoperatively maintain clean and dry dressings to the left upper extremity, okay to change if saturated or becomes soiled. documented in this [facility]08-29-2023 Anesthesiology Preoperative evaluation and management note* Anesthesia Preprocedure Evaluation - Cody Rivera APRN - BOWLING TEACHER - 05/13/2023 10:42 AM EDT Patient: Berto Parkinson Procedure Information Date/Time: 05/13/23 1100 Procedures: FLEXOR TENDON TRANSFER X4, NEUROLYSIS FOREARM NERVE X2, NEURECTOMY ULNAR NERVE AT THE WRIST LEFT, DEBRIDEMENT SKIN SUBCUTANEOUS MUSCLE LEFT HAND (Wrist) - x4 DEBRIDEMENT SKIN/MUSCLE, OPEN FRACTURE (Wrist) Location: [facility] Operating Room Surgeons: Emilio Alvarez MD Relevant Problems No relevant active problems Past Medical History: Past Medical History: 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 No date: Alcohol abuse No date: Anemia No date: Anxiety No date: Cancer (CMS/HCC) (FORM[facility]LY [facility]) No date: Chronic kidney disease No date: Dementia ([facility]) No date: Depression No date: Dysphagia No date: 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[facility]) Comment: Peg Tube No date: GERD (gastroesophageal reflux disease) No date: Hyperlipidemia No date: Hypertension No date: Muscle weakness No date: Personal history of COVID-19 No date: PVD (peripheral vascular disease) ([facility]) No date: Vitamin B deficiency Past Surgical History: Past Surgical History: No date: GASTROSTOMY TUBE PLACEMENT No date: OTHER SURGICAL HISTORY Comment: stomach surgery for cancer No date: OTHER SURGICAL HISTORY Comment: lung surgery for cancer Social History: TOBACCO: has no history on file for tobacco use. ETOH: has no history on file for alcohol use. Social History Substance and Sexual Activity Drug Use Not on file Family History: No family history on file. Screening: unknown Clinical information reviewed: Tobacco Allergies Meds Med Hx Surg Hx Fam Hx Soc Hx Physical Exam Airway Mallampati: unable to assess Cardiovascular Dental Comments: Per daughter pt has no teeth Unable to examine Pulmonary Abdominal Anesthesia Plan patient is NPO (per senior care pt had meds through peg tube this morning 0700 gabapentin, amlodipine, baclofen) appropriate Any family history or previous problems with anesthesia no ASA 4 MAC and regional Any family history or previous problems with anesthesia no (Dr sanchez cleared pt for regional/mac. ) The patient is not a current smoker. Anesthetic plan and risks discussed with patient and healthcare power of civil preparedness coordinator (i personally hadconversation with POA/ daughter. discussed with pt and daughter risks of surgery. also made them aware that dnr status is rescinded during the anesthetic phase. Both still agree to proceed). Use of blood products discussed with who consented to blood products. AMY Screening Labs: Lab Results Component Value Date WBC 6.1 02/06/2023 HGB 10.9 (L) 02/06/2023 HCT 33.9 (L) 02/06/2023 MCV 85.5 02/06/2023 PLT 206 02/06/2023 Lab Results Component Value Date NA 143 02/06/2023 K 3.9 02/06/2023 CL 112 (H) 02/06/2023 CO2 27 02/06/2023 BUN 34 (H) 02/06/2023 CREATININE 0.94 02/06/2023 GLUCOSE 136 (H) 02/06/2023 CALCIUM 8.6 02/06/2023 PROT 7.1 12/26/2022 ALKPHOS 111 12/26/2022 AST 43 12/26/2022 ALT 25 12/26/2022 EGFR 78.9 02/06/2023 No echocardiogram results found for the past 14 days 12/25/22 ECG 12-LEAD 12/26/2022 4:30 AM (Final) Impression SINUS RHYTHM LEFT ANTERIOR FASCICULAR BLOCK BASELINE WANDER IN LEAD(S) V6 Electronically Signed On 12-26-2022 4:30:50 EDT by Jose R Salomon Signed by: Jose R Salomon DO on 12/26/2022 4:30 AM [facility] Work Phone: [phone]) 847-757908-29-2023 Note* Perioperative Nursing Note - Madelaine Still RN - 05/13/2023 10:23 AM EDT Spoke with Anne at [facility] to verify meds and NPO status [id number] Note* Perioperative Nursing Note - Madelaine Still RN - 05/13/2023 10:23 AM EDT Spoke with Anne at [facility] to verify meds and NPO status [facility] [id number] NotePatient: Berto Ray Procedure Information Date/Time: 05/12/23 0900 Scheduled providers: Patience Hassan RN Procedure: PAT OPTIMIZATION CALL Location: [facility] Pre-Admit Testing Relevant Problems No relevant active problems Past Medical History: Past Medical History: No date: Alcohol abuse No date: Anxiety No date: Cancer (CMS/HCC) (HCC) No date: Chronic kidney disease No date: Dementia (HCC) No date: Depression No date: Dysphagia No date: Hypertension Past Surgical History: No past surgical history on file. Social History: TOBACCO: has no history on file for tobacco use. ETOH: has no history on file for alcohol use. Social History Substance and Sexual Activity Drug Use Not on file Family History: No family history on file. Screening: unknown Clinical information reviewed: Meds Physical Exam Airway Mallampati: unable to assess Cardiovascular Dental Pulmonary Abdominal Anesthesia Plan Any family history or previous problems with anesthesia ASA 4 general (Patient resides in nursing facility) ERAS Type ERAS not ordered. pepcid IV ordered Patient has PEG tube, pureed diet AMY Screening Labs: Lab Results Component Value Date WBC 6.1 02/06/2023 HGB 10.9 (L) 02/06/2023 HCT 33.9 (L) 02/06/2023 MCV 85.5 02/06/2023 PLT 206 02/06/2023 Lab Results Component Value Date NA 143 02/06/2023 K 3.9 02/06/2023 CL 112 (H) 02/06/2023 CO2 27 02/06/2023 BUN 34 (H) 02/06/2023 CREATININE 0.94 02/06/2023 GLUCOSE 136 (H) 02/06/2023 CALCIUM 8.6 02/06/2023 PROT 7.1 12/26/2022 ALKPHOS 111 12/26/2022 AST 43 12/26/2022 ALT 25 12/26/2022 EGFR 78.9 02/06/2023 No echocardiogram results found for the past 14 days 12/25/22 ECG 12-LEAD 12/26/2022 4:30 AM (Final) Impression SINUS RHYTHM LEFT ANTERIOR FASCICULAR BLOCK BASELINE WANDER IN LEAD(S) V6 Electronically Signed On 12-26-2022 4:30:50 EDT by Jose R Salomon Signed by: Jose R Salomon DO on 12/26/2022 4:30 [facility]05-25-2023 NoteHospitalist Discharge Summary Berto Parkinson : 1935 Admit date: 02/01/2023 Discharge date: 02/07/2023 Admitting Physician: Darius Barroso MD Primary Care Physician: Provider Not In System Visit Status: Inpatient Code Status: Prior Acute, acute on chronic, unstable/uncontrolled chronic problems/discharge diagnoses: Aspiration pneumonia-on IV unasyn for the last 4 days, afebrile, discussed with ID stewardship recommended to stop IV antibiotics hypernatremia- ?? From TF. 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#: [id number] Exam Date/Time: 02/03/2023 11:08 Procedure: FL MODIFIED BARIUM WITH VIDEO AND SPEECH Ordering Provider: KAHN VAMSI Reason For Exam: DYSPHAGIA MODIFIED BARIUM SWALLOW ( COOKIE SWALLOW): INDICATION: Dysphagia FLUOROSCOPY TIME: 1.51 minutes. Fluoroscopy dose: Ka,r = 32.8 mGy Barium mixtures of various consistencies were given under fluoroscopy with the patient sitting in the lateral position. FINDINGS: Preparatory phase showed decreased mastication and poor bolus formation. Oral phase showed no oral residue. There was no posterior bolus loss. Pharyngeal phase showed no residue in the valleculae and moderate in the pyriform sinuses. There was no laryngeal penetration. There was no airway aspiration. 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 Impression: No laryngeal penetration. No airway aspiration. Please refer to the speech pathologist's report for additional comments and recommendations. Report Dictated on Electronically Signed By: Yemi Campos Electronically Signed Date/Time: 02/03/2023 1:11 PM EDT XR abdomen 1 view Narrative: [facility] 1935 [id number] Exam Date/Time: 02/03/2023 10:30 Procedure: XR ABDOMEN 1 VIEW Ordering Provider: KAHN VAMSI Reason For Exam: PAIN INDICATION: Pain. VIEWS: Abdomen AP-2 images COMPARISON: CT abdomen and pelvis 02/01/2023 Impression: FINDINGS AND IMPRESSION: Gastric pull-through procedure with surgical clips. Contrast was placed per the patient's percutaneous gastric tube and is visualized within the stomach and proximal jejunum. Residual IV contrast is present in the region of the bladder. Fecal retention noted. Report Dictated on Electronically Signed By: Dai Chaves Electronically Signed Date/Time: 02/03/2023 12:33 PM EDT === 02/01/23 === CT ABDOMEN PELVIS ANGIOGRAM W AND/OR WO IV CONTRAST - Impression - 1. Possible mass involving the distal stomach versus collapsed adjacent small bowel from anastomosis. Follow-up endoscopy recommended. 2. Rectal impaction. 3. No evidence of active GI hemorrhage in the abdomen or pelvis. Given history of gastric pull-through procedure, and large amount of fluid and debris in the intrathoracic portion of the stomach on accompanying CT of the chest, more proximal source of hemorrhage in the stomach is a consideration. This area was scanned without IV contrast. Again, endoscopy recommended. Report Dictated on Electronically Signed By: Levon Mcqueen Electronically Signed Date/Time: 02/01/2023 6:11 PM EDT No results found for this or any previous visit from the past 365 days. Hospital Course: See discharge diagnoses list above and medication adjustments below in med rec.The patient is discharged in improved and stable condition. Admitted with concern for aspiration pneumonia, started on Unasyn and awaiting cultures. Modified barium swallow did not suggest any dysphagia or signs of aspiration and patient was cleared for pur?ed diet. General surgery was consulted and they cleared the patient to start and resume tube feeds and home meds per PEG tube -am labs, replace lytes prn 02/05-sodium was seen to be at 146 added more free water and recheck BMP in a.m. possible discharge plans in a.m. Consults: IP CONSULT TO PALLIATIVE CARE IP CONSULT TO GENERAL SURGERY Discharge Instructions: Diet: Regular diet but otherwise PEG tube feeding Activity: as tolerated Recommended Outpatient Tests: CBC and BMP in 3 days Disposition: Patient [facility] . Greater than 30 minutes s (more content not included)...[facility]05-25-2023 NoteCare Management Progress Note BMP pending for today. Anticipate probable return to [facility] today if medically stable. Discharge Milestones and Delays Expected Date/Time: 02/05/2023 Disposition: Shelter Facility Transport status: No current request Discharge Milestones Place discharge order Complete med reconciliation Case mgmt discharge readiness Clinical Stability Diagnsotic Workup Expected Discharge History Expected Date/Time Set By Reviewed At 02/05/2023 Jon Lopez MD 02/05/2023 3:15 PM 02/05/2023 Anyi Bartlett RN 02/05/2023 10:03 AM 02/05/2023 Anyi Bartlett RN 02/04/2023 10:17 AM 02/04/2023 JAMES Craig 02/03/2023 10:15 AM 02/03/2023 Amairani Mancini MD 02/01/2023 10:14 PM 02/03/2023 Amairani Mancini MD 02/01/2023 6:55 PM Length of Stay (Days): 5 GMLOS: 3.6 .. [facility]05-24-2023 Note.pd Hospitalist Progress Note 02/05/[id number]: Please page me ([phone]) for patient care issues. [phone]: Please page [facility] Hospitalist for any issues. Subjective: Admit Date: 02/01/2023 PCP: Provider Not In System Room#: B2-250/B2-250 B Interval History: Lying in bed, no acute complaints, not very verbal seems to be tolerating tube feeds okay Sodium seems to be at 146, will add more free water Denies chest pain, sob, abdominal pain, nausea, vomiting, diarrhea, constipation, fevers, or chills. Reviewed chart and his tube feeds have been initiated along with pleasure feeds Diet, tube feeding no tray PEG; Jevity 1.5 Ben; Continuous; Yes; 10; Q 8 Hours; 25; 55; 200; Q 4 Hours @[id number]@ 24HR INTAKE/OUTPUT: Intake/Output Summary (Last 24 hours) at 02/05/2023 1447 Last data filed at 02/05/2023 1300 Gross per 24 hour Intake 30 ml Output 300 ml Net -270 ml Past Medical History: Past Medical History: Diagnosis Date Alcohol abuse Anxiety Cancer (CMS/HCC) (HCC) Chronic kidney disease Dementia (HCC) Depression Dysphagia Hypertension LABS: CBC: Recent Labs 02/05/23 0815 WBC 7.8 RBC 3.70* HGB 10.5* HCT 31.4* MCV 84.7 RDW 19.0* PLT 200 BMP: Recent Labs 02/05/23 0815 NA 146* K 3.8 CL 114* CO2 27 BUN 47* CREATININE 1.12 GLUCOSE 109* CALCIUM 8.7 ANIONGAP 5 LIVER PROFILE:No results for input(s): AST, ALT, BILITOT, ALKPHOS, PROT in the last 72 hours. No lab exists for component: LABALBU PT/INR: No results for input(s): PROTIME, INR in the last 72 hours. CARDIAC ENZYMES: No results for input(s): TROPONINI in the last 72 hours. Procalcitonin: No results found for: PROCAL COVID-19 PCR: No results for input(s): COVID19 in the last 72 hours. Objective: Vitals: BP 114/69 (BP Location: Right arm, Patient Position: Lying) Pulse 69 Temp 36.3 ?C (97.4 ?F) (Temporal) Resp 17 Ht 5' 10.87 (1.8 m) Wt 155 lb 8 oz (70.5 kg) SpO2 99% BMI 21.77 kg/m? Pulse Ox: SpO2 Av.8 % Min: 94 % Max: 99 % Supplemental O2: General appearance: Appears calm, no distress, appears stated age and cooperative with exam HEENT: Normal cephalic, atraumatic without obvious deformity. Pupils equal, round, and reactive to light. Extra ocular muscles intact. Neck: Supple, with full range of motion. No jugular venous distention. Trachea midline. Respiratory: Diminished breath sounds, bilaterally with scattered wheeze and rhonchi cardiovascular: Regular rate and rhythm with normal S1/S2 without murmurs, rubs or gallops. Abdomen: Soft, positive PEG site without erythema .non-tender, non-distended with normal bowel sounds. No rebound or guarding. Musculoskeletal: No clubbing, cyanosis or edema bilaterally. Decreased range of motion in both bilateral lower extremities Skin: Skin color, texture, turgor normal. No rashes or lesions. Neurologic: Neurovascularly intact without any focal sensory/motor deficits. Cranial nerves: II-XII intact, grossly non-focal. Medications: amLODIPine, 2.5 mg, Per G Tube, Daily ampicillin-sulbactam, 3,000 mg, IntraVENous, q6h aspirin, 81 mg, Oral, Daily atorvastatin, 40 mg, Per G Tube, Daily baclofen, 10 mg, Per G Tube, BID diatrizoate meglumine-sodium, 30 mL, Oral, Once docusate, 100 mg, Oral, BID enoxaparin, 40 mg, SubCUTAneous, Daily gabapentin, 300 mg, Per G Tube, BID isosorbide dinitrate, 10 mg, Per G Tube, TID metoclopramide, 5 mg, Per G Tube, 4x daily pantoprazole, 40 mg, IntraVENous, Nightly Assessment Aspiration pneumonia-on IV unasyn for the last 4 days, afebrile, will transition to PO Augmentin at discharge for 5 more days Hypernatremia- ?? From TF. Will increase free water to 300 [place] 6 hrs Chronic PEG tube because of achalasia/dysphagia History of gastric cancer stage IIb status post antrectomy in 2013 Hypertension Hyperlipidemia Mild CKD stage II-avoid nephrotoxins and hypotension Medical Decision Making Admitted with concern for aspiration pneumonia, started on Unasyn and awaiting cultures. Modified barium swallow did not suggest any dysphagia or signs of aspiration and patient was cleared for pur?ed diet. General surgery was consulted and they cleared the patient to start and resume tube feeds and home meds per PEG tube -am labs, replace lytes prn 02/05-sodium was seen to be at 146 added more free water and recheck BMP in a.m. possible discharge plans in a.m. -increase activity -DVT prophylaxis: [x] Lovenox [] Heparin [] SCDs [x] Encourage ambulation [] Already on Anticoagulation Anticipated Discharge - Date - 02/06/2023 - Location - Skilled Facility, [facility] - Pending the following - Total time spent (which include face to face and non face to face encounters) : minutes Toxic drug monitoring/narrow therapeutic index drug monitoring : # Drug name : Unasyn and Lovenox # Route administered : Intravenous and subcutaneous # (more content not included)...[facility] [id number] NotePalliative Care Progress Note Chief Complaint: Berto Parkinson is a 88 y.o. male with chief complaint of PEG drainage, GIB, rhonchi. Palliative Care will follow peripherally, please contact on-call provider for urgent needs Assessment/Plan Goals of Care - Code status: DNR CCA, okay for intubation - NOK/HCPOA: Legal guardian is daughter Teresa ([phone] or [phone]) - Own decision maker: no - GOC conversation: Goals are focused on continuing current medical management and patient stabilizing and being able to return to facility. - daughter not currently ready for hospice care at this time -Messaged social work, recommend palliative care referral at facility for ongoing goals of care discussions GIB -Hgb 12.4 on admission --> 10.5 today -Bleed from PEG tube -General surgery consulted -per previous conversation, Daughter does not currently wish for scope evaluation; would consider if patient became unstable or symptomatic Dysphagia Aspiration Risk -Chronic PEG -concern for aspiration pneumonia; atbx: Unasyn -MBS 02/03: Swallow and oral holding, functional airway protection --> pur?ed/thin for pleasure -Daughter reports patient states. Day at facility; however, does not eat pur?ed foods due to oral holding -Previously discussed concern of ongoing aspiration and recurrent aspiration pneumonia Dementia -Non verbal -Bedbound at facility, occasionally gets up to chair with Megan lift Debility -Bedbound/chair bound -Resides at facility -Dependent for all ADLs Palliative Care Encounter -Consulted for goals of care - will continue to follow for ongoing monitoring of progression of Dyspnea and Pain as well as for appropriateness for hospice care due to Dysphagia - Ongoing counseling of patient and family regarding diagnoses of Dysphagia, Determining prognosis in serious illness of Dysphagia - will continue treatment including n/a Total of 25 minutes spent on this encounter including Chart review, Patient visit and exam, Documentation in EHR, Care coordination, Communicating with primary attending or other consultants, and Counseling and educating patient/family/caregiver. Discharge planning: Ready for discharge from Palliative Care perspective, outpatient/home/ECF follow-up arranged Patient meets criteria for general inpatient hospice care including the following: N/A - Palliative Care Patient Referrals to: Home/ECF Palliative Care Discussed patient and the plan of care with the other interdisciplinary team (IDT) members of Palliative Care Team, and with Patient and Floor Nurse I have discussed the patient's case and plan of care with my collaborating physician Dr. Pizano Subjective: Subjective/Events - No significant events overnight. Tube feeds restarted -Patient spitting up phlegm during visit today -Patient nonverbal, answers yes/no by nodding head - Patient denied pain, nausea, vomiting, diarrhea, constipation, SOB. GOC conversation: Unable to reach daughter today Historically: Mr Parkinson is a 88 yo M with PMH severe dysphagia and achalasia with PEG, dementia, gastric cancer s/p resection who presented to [place] [facility] 02/01/2023 from facility with concerns of bleeding/discharge around G-tube, bilateral rhonchi. PEG tube flushed in ED with bright red blood output that cleared to the point of clear fluid on flush. Concern for aspiration pneumonia vs aspiration pneumonitis (due to normal WBC). Patient admitted for endoscopic evaluation for GI bleed. Patient with debility, bed bound at baseline. Speech therapy evaluated patient and recommended MBS. MBS with oral holding --> recommended pur?ed diet palliative care consulted for goals of care discussion Goals of care:Live Longer and Continue Current Management Advance Directives: DNR-CCA Surrogate: Child and Guardian Prognosis: depends upon goals Spiritual assessment: No spiritual distress identified Bereavement and grief: Grief Issues Not Identified Review of Systems Respiratory: Negative for cough and shortness of breath. Cardiovascular: Negative for chest pain. Gastrointestinal: Negative for abdominal pain, constipation, diarrhea, nausea and vomiting. Musculoskeletal: Negative for back pain and neck pain. Neurological: Negative for headaches. ROS: See palliative care ROS/ESAS below; limited due to mental status Mcclave Symptom Assessment Score Mcclave Score Pain Score 0 Tiredness Score 5 Nausea Score 0 Depression Score 0 Anxiety Score 0 Drowsiness Score 0 Anorexia Score (0= eating well, 10= not eating) 9 Wellbeing Score (10= worst sense of well-being) 5 Constipation 0 Dyspnea Score (0= no shortness of breath) 0 FLACC Scale (For Pain Assessment of the Non-Verbal Patient) Patient denied pain Assessed by: patient and provider. Social history: status: no Marital status: single Living status: senior care Work history: n/a Family Meeting: (if discussi (more content not included)...[facility]05-23-2023 NoteHospitalist Progress Note 02/04/[id number]: Please page ma ([phone]) for patient care issues. [phone]: Please page [facility] Hospitalist for any issues. Subjective: Admit Date: 02/01/2023 PCP: Provider Not In System Room#: B2-250/B2-250 B Interval History: Patient was seen at bedside, alert holding a cup to spit into, he was cooperative but could not initiate any verbal responses, shook his head yes or no Denies chest pain, sob, abdominal pain, nausea, vomiting, diarrhea, constipation, fevers, or chills. Reviewed chart and his tube feeds have been initiated along with pleasure feeds Diet, tube feeding no tray PEG; Jevity 1.5 Ben; Continuous; Yes; 10; Q 8 Hours; 25; 55; 200; Q 4 Hours @[id number]@ 24HR INTAKE/OUTPUT: Intake/Output Summary (Last 24 hours) at 02/04/2023 1215 Last data filed at 02/04/2023 1156 Gross per 24 hour Intake 130 ml Output 700 ml Net -570 ml Past Medical History: Past Medical History: Diagnosis Date Alcohol abuse Anxiety Cancer (CMS/HCC) (HCC) Chronic kidney disease Dementia (HCC) Depression Dysphagia Hypertension LABS: CBC: Recent Labs 02/01/23 1536 WBC 8.9 RBC 4.53 HGB 12.4* HCT 37.9* MCV 83.5 RDW 19.0* PLT 253 BMP: Recent Labs 02/01/23 1536 NA 137 K 4.4 CL 102 CO2 25 BUN 36* CREATININE 1.08 GLUCOSE 93 CALCIUM 9.4 ANIONGAP 9 LIVER PROFILE:No results for input(s): AST, ALT, BILITOT, ALKPHOS, PROT in the last 72 hours. No lab exists for component: LABALBU PT/INR: Recent Labs 02/01/23 1536 PROTIME 10.9 INR 1.0 CARDIAC ENZYMES: No results for input(s): TROPONINI in the last 72 hours. Procalcitonin: No results found for: PROCAL COVID-19 PCR: No results for input(s): COVID19 in the last 72 hours. Objective: Vitals: BP (!) 158/86 (BP Location: Right arm, Patient Position: Sitting) Pulse 85 Temp (!) 35.9 ?C (96.7 ?F) (Temporal) Resp 16 Ht 5' 10.87 (1.8 m) Wt 155 lb 8 oz (70.5 kg) SpO2 99% BMI 21.77 kg/m? Pulse Ox: SpO2 Av.2 % Min: 96 % Max: 99 % Supplemental O2: General appearance: Appears agitated appears stated age and cooperative with exam HEENT: Normal cephalic, atraumatic without obvious deformity. Pupils equal, round, and reactive to light. Extra ocular muscles intact. Conjunctivae/corneas clear. Neck: Supple, with full range of motion. No jugular venous distention. Trachea midline. No lymphadenopathy. Respiratory: Diminished breath sounds, bilaterally with scattered wheeze and rhonchi cardiovascular: Regular rate and rhythm with normal S1/S2 without murmurs, rubs or gallops. Abdomen: Soft, positive PEG site without erythema .non-tender, non-distended with normal bowel sounds. No rebound or guarding. Musculoskeletal: No clubbing, cyanosis or edema bilaterally. Decreased range of motion in both bilateral lower extremities Skin: Skin color, texture, turgor normal. No rashes or lesions. Neurologic: Neurovascularly intact without any focal sensory/motor deficits. Cranial nerves: II-XII intact, grossly non-focal. Medications: amLODIPine, 2.5 mg, Per G Tube, Daily ampicillin-sulbactam, 3,000 mg, IntraVENous, q6h aspirin, 81 mg, Oral, Daily atorvastatin, 40 mg, Per G Tube, Daily baclofen, 10 mg, Per G Tube, BID diatrizoate meglumine-sodium, 30 mL, Oral, Once docusate, 100 mg, Oral, BID enoxaparin, 40 mg, SubCUTAneous, Daily gabapentin, 300 mg, Per G Tube, BID isosorbide dinitrate, 10 mg, Per G Tube, TID metoclopramide, 5 mg, Per G Tube, 4x daily pantoprazole, 40 mg, IntraVENous, Nightly Assessment Aspiration pneumonia-continue Unasyn Chronic PEG tube because of achalasia/dysphagia History of gastric cancer stage IIb status post antrectomy in 2012 Hypertension Hyperlipidemia Mild CKD stage II-avoid nephrotoxins and hypotension Medical Decision Making Admitted with concern for aspiration pneumonia, started on Unasyn and awaiting cultures. Modified barium swallow did not suggest any dysphagia or signs of aspiration and patient was cleared for pur?ed diet. General surgery was consulted and they cleared the patient to start and resume tube feeds and home meds per PEG tube -am labs, replace lytes prn -increase activity -DVT prophylaxis: [x] Lovenox [] Heparin [] SCDs [x] Encourage ambulation [] Already on Anticoagulation Anticipated Discharge - Date - 02/05/2023 - Location - Skilled Facility - Pending the following -improvement with pneumonia and clearance from the cultures Total time spent (which include face to face and non face to face encounters) : minutes Toxic drug monitoring/narrow therapeutic index drug monitoring : # Drug name : Unasyn and Lovenox # Route administered : Intravenous and subcutaneous # Method of monitoring : Daily labs Extended Emergency Contact Information Primary Emergency Contact: Teresa Olea Mobile Relation: Child Padm (more content not included)...[facility]05-23-2023 NoteGENERAL SURGERY Progress Note PATIENT NAME: Berto Parkinson TODAY'S DATE: 02/04/2023 SUBJECTIVE: Follow up on leaking PEG. NO acute events overnight. NO significant drainage from nursing around G-tube. TF's have not been initiated yet. No Emesis. Pain controlled Yes Other Complaints No Flatus/BM/or Ostomy function {Yes OBJECTIVE: VITALS: BP (!) 153/77 (BP Location: Right arm, Patient Position: Sitting) Pulse 74 Temp (!) 35.6 ?C (96 ?F) (Temporal) Resp 16 Ht 5' 10.87 (1.8 m) Wt 155 lb 8 oz (70.5 kg) SpO2 99% BMI 21.77 kg/m? INTAKE/OUTPUT: I/O last 3 completed shifts: In: 730 (10.3 mL/kg) [NG/GT:130; IV Piggyback:600] Out: - (0 mL/kg) Weight: 70.5 kg No intake/output data recorded. REVIEW OF SYSTEMS: Pertinent positives and negatives as per interval history section PHYSICAL EXAM: CONSTITUTIONAL: A&O x 1, difficult to assess as patient with minimal speech. LUNGS: Resp effort easy and unlabored, breath sounds normal CARDIOVASCULAR: RRR ABDOMEN: soft non tender. G-tube LUQ, scant drainage on gauze. Bilious. MUSCULOSKELETAL: Normal range of motion NEUROLOGIC: Level of Alertness: alert PSYCHIATRIC: Speech is normal SKIN: Warm, dry, and intact Data: CBC: Recent Labs 02/01/23 1536 WBC 8.9 HGB 12.4* HCT 37.9* PLT 253 BMP: Recent Labs 02/01/23 1536 NA 137 K 4.4 CL 102 CO2 25 BUN 36* CREATININE 1.08 GLUCOSE 93 Hepatic: No results for input(s): AST, ALT, BILITOT, ALKPHOS in the last 72 hours. No lab exists for component: ALB ASSESSMENT AND PLAN: 88 y.o. male with leaking around PEG tube Labs, notes and imaging reviewed CT scan with questionable changes in the stomach, possible mass PEG study demonstrates proper positioning without distal obstruction Okay to resume tube feedings via the PEG- RD recommendations noted and ordered The patient is not interested in endoscopy for further evaluation at this time No surgical intervention anticipated as long as he tolerates tube feeds Continue local wound care for small amount of leakage present Will evaluate this afternoon if tolerates TF's, General Surgery will sign off. Patient counseled on risks, benefits, and alternatives of treatment plan today. Patient states an understanding and willingness to proceed with plan. Emeka Ellis APRN - [facility] [id number] NoteCare Management Progress Note From [facility] with Gi bleed and concern for aspiration. On iv antibiotics. MBS yesterday and recommending dysphagia diet. Oxygen saturation is 99% on room air. No cultures ordered. Patient is fpc at [facility] and can return when medically stable. Discharge Milestones and Delays Expected Date/Time: 02/05/[address] discharge order Complete med reconciliation Case mgmt discharge readiness Clinical Stability Diagnsotic Workup Expected Discharge History Expected Date/Time Set By Reviewed At 02/05/2023 Anyi Bartlett RN 02/04/2023 10:17 AM 02/04/2023 JAMES Craig 02/03/2023 10:15 AM 02/03/2023 Amairani Mancini MD 02/01/2023 10:14 PM 02/03/2023 Amairani Mancini MD 02/01/2023 6:55 PM Length of Stay (Days): 3 GMLOS: 3.6 .. [facility]05-23-2023 NoteProblem: Potential for Compromised Skin Integrity Goal: Skin Integrity is Maintained or Improved Outcome: [facility]05-22-2023 NoteHospitalist Progress Note 02/03/2023 [id number]: Please secure chat me for patient care issues. [phone]: Please secure chat [facility] Hospitalist for any issues. Subjective: Admit Date: 02/01/2023 PCP: Provider Not In System Room#: B2-250/B2-250 B Interval History: Patient is lying on the bed, alert, hard to communicate. half-way resident, bedridden at his baseline. Today patient was a slightly more alert, nodding yes or no to my questions appropriately. Asking for ice cream. Diet, tube feeding no tray PEG; Glucerna 1.5 Ben; 100; Q 4 Hours @[id number]@ 24HR INTAKE/OUTPUT: Intake/Output Summary (Last 24 hours) at 02/03/2023 1542 Last data filed at 02/03/2023 0854 Gross per 24 hour Intake 600 ml Output -- Net 600 ml Past Medical History: Past Medical History: Diagnosis Date Alcohol abuse Anxiety Cancer (CMS/HCC) (HCC) Chronic kidney disease Dementia (HCC) Depression Dysphagia Hypertension LABS: CBC: Recent Labs 02/01/23 1536 WBC 8.9 RBC 4.53 HGB 12.4* HCT 37.9* MCV 83.5 RDW 19.0* PLT 253 BMP: Recent Labs 02/01/23 1536 NA 137 K 4.4 CL 102 CO2 25 BUN 36* CREATININE 1.08 GLUCOSE 93 CALCIUM 9.4 ANIONGAP 9 LIVER PROFILE:No results for input(s): AST, ALT, BILITOT, ALKPHOS, PROT in the last 72 hours. No lab exists for component: LABALBU PT/INR: Recent Labs 02/01/23 1536 PROTIME 10.9 INR 1.0 CARDIAC ENZYMES: No results for input(s): TROPONINI in the last 72 hours. Procalcitonin: No results found for: PROCAL COVID-19 PCR: No results for input(s): COVID19 in the last 72 hours. Objective: Vitals: BP 135/67 (BP Location: Right arm, Patient Position: Sitting) Pulse 76 Temp (!) 35.9 ?C (96.6 ?F) (Temporal) Resp 17 Ht 1.8 m (5' 10.87 ) Wt 70.5 kg (155 lb 8 oz) SpO2 97% BMI 21.77 kg/m? Pulse Ox: SpO2 Av.5 % Min: 97 % Max: 98 % Physical Exam Constitutional: Appearance: He is not ill-appearing, toxic-appearing or diaphoretic. HENT: Head: Normocephalic and atraumatic. Mouth/Throat: Mouth: Mucous membranes are moist. Pharynx: No oropharyngeal exudate or posterior oropharyngeal erythema. Eyes: Conjunctiva/sclera: Conjunctivae normal. Pupils: Pupils are equal, round, and reactive to light. Cardiovascular: Rate and Rhythm: Normal rate and regular rhythm. Pulses: Normal pulses. Heart sounds: Normal heart sounds. Pulmonary: Breath sounds: Rhonchi present. No wheezing. Abdominal: General: Abdomen is flat. Palpations: Abdomen is soft. Comments: PEG in place Skin: General: Skin is warm. Findings: No rash. Neurological: Mental Status: He is alert. At baseline patient is bedbound. Heart communicate, only answers yes or no. Medications: amLODIPine, 2.5 mg, Per G Tube, Daily ampicillin-sulbactam, 3,000 mg, IntraVENous, q6h aspirin, 81 mg, Oral, Daily atorvastatin, 40 mg, Per G Tube, Daily baclofen, 10 mg, Per G Tube, BID diatrizoate meglumine-sodium, 30 mL, Oral, Once docusate, 100 mg, Oral, BID enoxaparin, 40 mg, SubCUTAneous, Daily gabapentin, 300 mg, Per G Tube, BID isosorbide dinitrate, 10 mg, Per G Tube, TID metoclopramide, 5 mg, Per G Tube, 4x daily pantoprazole, 40 mg, IntraVENous, Nightly Assessment Aspiration pneumonia. Chronic PEG tube secondary to dysphagia/achalasia. Nutrition. History of: Stage IIb gastric cancer s/p antrectomy in 2013. Bedridden at his baseline. Hypertension. Hyperlipidemia. Neuropathy. Medical Decision Making As there is concern for aspiration, started on antibiotics with Unasyn. Awaiting cultures. Speech therapy evaluated the patient, patient had MBS-no signs of aspiration, as per speech therapy patient can have pur?ed diet. KUB reviewed, no signs of PEG tube malfunction, general surgery evaluated no leaking. Recommended to resume tube feeds and home medications per PEG tube. -am labs, replace lytes prn -increase activity -DVT prophylaxis: [x] Lovenox [] Heparin [] SCDs [] Encourage ambulation [] Already on Anticoagulation Anticipated Discharge - Date -2 to 3 days - Location - Skilled Facility - Pending the following -clinical improvement Total time spent (which include face to face and non face to face encounters) : 25 minutes Toxic drug monitoring/narrow therapeutic index drug monitoring : # Drug name : # Route administered : # Method of monitoring : Extended Emergency Contact Information Primary Emergency Contact: Teresa Olea Mobile Relation: Child Benja Kahn MD Division of Hospitalist Medicine Acute care [facility] PAGER: [facility]05-22-2023 NoteSPEECH LANGUAGE PATHOLOGY MODIFIED BARIUM SWALLOW STUDY Patient Name: Berto Parkinson : 1935 Today's Date: 02/03/2023 Visit Info / [facility] ADMISSION DATE: 02/01/2023 ADMITTING DIAGNOSIS: has Acute hypoxemic respiratory failure (HCC); Irritation around percutaneous endoscopic gastrostomy (PEG) tube site (HCC); Constipation, unspecified constipation type; and GI bleed on their problem list. General Information Radiologist: Dr. Yemi Campos Type of Study: Initial MBS Results of Prior Study: No h/o MBS in [facility]. Current Diet Solid Consistency: NPO Current Diet Liquid Consistency: NPO (Free water) Patient complaints: History of aspritation pneumonia. Concern for achalasia noted on chart. Pt has chronic PEG. Xray for placment piror to evaluation. H/o gastic CA Referring Diagnosis: Dysphagia, aspriation Consistencies Administered: Dysphagia Soft and Bite-Sized (Dysphagia III), Dysphagia Pureed (Dysphagia I), [place] teaspoon, [place] cup, Thin cup, Thin teaspoon, Thin straw Procedure Method: Feed by clinician, Cup, Straw, Spoon Patient Position: Lateral Patient was referred for a to assess the efficiency of his swallow function, rule out aspiration and make recommendations regarding safe dietary consistencies, effective compensatory strategies, and safe eating environment. Past Medical History: Diagnosis Date Alcohol abuse Anxiety Cancer (CMS/HCC) (HCC) Chronic kidney disease Dementia (HCC) Depression Dysphagia Hypertension History reviewed. No pertinent surgical history. Subjective General Chart Reviewed: Yes Subjective Subjective: Pt was alert. Limited conversation. Gesturing to mouth that he needs to spit. Spit out stingy thick mucous. Behavior/Cognition Behavior/Cognition: Alert, Cooperative Assessment Oral Preparation / Oral Phase: Oral Phase Oral Phase: Moderate oral holding after mastication of cracker. Delay in oral transit with lingual rocking with pudding and spillage to valleculae with nectar, pudding; thin of smaller bolus spill to vallecula and to piriform with larger bolus (cup or straw). Clearing is functional. Pharyngeal Phase: Pharyngeal Phase Pharyngeal: +functional laryngeal elevation and pharyngeal transit. Sluggish and delay in swallowing initiation. Mild to moderate piriform residuals after larger bolus of thin liquids that clear with a second swallow. No reisduals with controlled smaller bolus. Trace transient penetration without true laryngeal vestiuble staining. No airway compromise at all; good airway protection. Compensatory Swallowing Strategies Attempted: Small bites/sips, Upright as possible for all oral intake, Remain upright for 30-45 minutes after meals, Eat/Feed slowly (Cue reswallow as on occasion. Slow rate.) Cervical Esophageal Phase: Upper Esophageal Screen Esophageal Screen: Impaired Upper Esophageal Screen Upper Esophageal Screen: CP hypertrophy. +paltulous esophagus noted. No visualized below the UES and directly below. Large osteophytes throughout. (larger at 2-3, 4-5, 5-6) Slight anterior protrusion without contribution to deficits. Impression Delayed swallow and some oral holding. Functional airway protection for all textures tested. Suggest Puree/thin for pleasure. Pt is history of aspiration and achalasia. Oral pharyngeal functional swallow. REFLUX Precautions. Advanced trials with BOARDINGHOUSE KEEPER of soft bite sized as appropriate. Plan & Recommendations Recommendations/Treatment: Recommendations/Treat Requires BOARDINGHOUSE KEEPER Intervention: Yes Recommendations comment: Further investigation of GI function. concern for h/o of achalasia D/C Recommendations: Ongoing speech therapy is recommended during this hospitalization Solid consistency: Dysphagia Pureed (Dysphagia I) (pleasure feeds) Liquid consistency: Thin Liquid administration via: Cup Medication administration: Via NG/PEG Supervision: 1:1 Compensatory Swallowing Strategies : Alternate solids and liquids, Small bites/sips, Upright as possible for all oral intake, Remain upright for 30-45 minutes after meals Therapeutic Interventions: Patient/Family education, Therapeutic PO trials with BOARDINGHOUSE KEEPER Education Response: Needs reinforcement Prognosis: Prognosis Prognosis for safe diet advancement: fair Barriers to reach goals: cognitive deficits Barriers/Prognosis Comment: Delayed response. Individuals consulted Consulted and agree with results and recommendations: Patient The patient was educated regarding the general results and recommendations of this evaluation. Encounter Problems Encounter Problems (Active) Swallowing Patient will participate in instrumental assessment of swallowing as appropriate Start: 02/02/23 Therapy Time BOARDINGHOUSE KEEPER Individual Minutes Time In: 1021 Time Out: 1105 Minutes: 44 Ashly Castelan, [facility]05-21-2023 NoteReferral placed [facility]. . [facility]05-21-2023 NoteHospitalist Progress Note 02/02/2023 [phone]: Please secure chat ma for patient care issues. [phone]: Please secure chat [facility] Hospitalist for any issues. Subjective: Admit Date: 02/01/2023 PCP: Provider Not In System Room#: B2-110/B2-991 B Interval History: Patient is lying on the bed, alert, hard to communicate. half-way resident, bedridden at his baseline. Was sent from the senior care as there was concern for aspiration. No other significant overnight issues NPO diet @[id number]@ 24HR INTAKE/OUTPUT: Intake/Output Summary (Last 24 hours) at 02/02/2023 1357 Last data filed at 02/02/2023 1000 Gross per 24 hour Intake 100 ml Output -- Net 100 ml Past Medical History: Past Medical History: Diagnosis Date Alcohol abuse Anxiety Cancer (CMS/HCC) (HCC) Chronic kidney disease Dementia (HCC) Depression Dysphagia Hypertension LABS: CBC: Recent Labs 02/01/23 1536 WBC 8.9 RBC 4.53 HGB 12.4* HCT 37.9* MCV 83.5 RDW 19.0* PLT 253 BMP: Recent Labs 02/01/23 1536 NA 137 K 4.4 CL 102 CO2 25 BUN 36* CREATININE 1.08 GLUCOSE 93 CALCIUM 9.4 ANIONGAP 9 LIVER PROFILE:No results for input(s): AST, ALT, BILITOT, ALKPHOS, PROT in the last 72 hours. No lab exists for component: LABALBU PT/INR: Recent Labs 02/01/23 1536 PROTIME 10.9 INR 1.0 CARDIAC ENZYMES: No results for input(s): TROPONINI in the last 72 hours. Procalcitonin: No results found for: PROCAL COVID-19 PCR: No results for input(s): COVID19 in the last 72 hours. Objective: Vitals: BP 104/57 (BP Location: Left arm, Patient Position: Lying) Pulse 80 Temp 37.2 ?C (99 ?F) (Temporal) Resp 18 Ht 1.8 m (5' 10.87 ) Wt 70.5 kg (155 lb 8 oz) SpO2 96% BMI 21.77 kg/m? Pulse Ox: SpO2 Av.3 % Min: 95 % Max: 100 % Physical Exam Constitutional: Appearance: He is not ill-appearing, toxic-appearing or diaphoretic. HENT: Head: Normocephalic and atraumatic. Mouth/Throat: Mouth: Mucous membranes are moist. Pharynx: No oropharyngeal exudate or posterior oropharyngeal erythema. Eyes: Conjunctiva/sclera: Conjunctivae normal. Pupils: Pupils are equal, round, and reactive to light. Cardiovascular: Rate and Rhythm: Normal rate and regular rhythm. Pulses: Normal pulses. Heart sounds: Normal heart sounds. Pulmonary: Breath sounds: Rhonchi present. No wheezing. Abdominal: General: Abdomen is flat. Palpations: Abdomen is soft. Comments: PEG in place Skin: General: Skin is warm. Findings: No rash. Neurological: Mental Status: He is alert. At baseline patient is bedbound. Heart communicate, only answers yes or no. Medications: amLODIPine, 2.5 mg, Per G Tube, Daily ampicillin-sulbactam, 3,000 mg, IntraVENous, q6h aspirin, 81 mg, Oral, Daily atorvastatin, 40 mg, Per G Tube, Daily baclofen, 10 mg, Per G Tube, BID docusate, 100 mg, Oral, BID enoxaparin, 40 mg, SubCUTAneous, Daily gabapentin, 300 mg, Per G Tube, BID isosorbide dinitrate, 10 mg, Per G Tube, TID metoclopramide, 5 mg, Per G Tube, 4x daily pantoprazole, 40 mg, IntraVENous, Nightly Assessment Aspiration pneumonia. Chronic PEG tube secondary to dysphagia/achalasia. Nutrition. History of: Stage IIb gastric cancer s/p antrectomy in 2012. Bedridden at his baseline. Hypertension. Hyperlipidemia. Neuropathy. Medical Decision Making As there is concern for aspiration, started on antibiotics with Unasyn. Awaiting cultures. Patient has chronic dysphagia, speech therapy evaluated the patient, MBS ordered. Continue medications through PEG tube, will consider starting tube feeds tomorrow. Blood pressure fairly well controlled with current regimen. Mental status is close to baseline. -am labs, replace lytes prn -increase activity -DVT prophylaxis: [] Lovenox [] Heparin [] SCDs [x] Encourage ambulation [] Already on Anticoagulation Anticipated Discharge - Date -2 to 3 days - Location - Skilled Facility - Pending the following -clinical improvement Total time spent (which include face to face and non face to face encounters) : 25 minutes Toxic drug monitoring/narrow therapeutic index drug monitoring : # Drug name : # Route administered : # Method of monitoring : Extended Emergency Contact Information Primary Emergency Contact: Teresa Olea Mobile Relation: Child Benja Kahn MD Division of Hospitalist Medicine [facility] [employer] PAGER: Derceto [id number] NoteAttending History and Physical Admit Date: 02/01/2023 PCP: Provider Not In System CHIEF COMPLAINT: Concern for Aspiration Reason for Admission: Treatment of Aspiration History Obtained From: Family at bedside HISTORY OF PRESENT ILLNESS: Berto is a 88 y.o. male with past medical history gastric cancer post resection, achalasia, dysphagia with chronic PEG, hx aspiration PNA, Dementia who resides at a half-way and is bedbound at baseline presents with chief complaint that staff was concerned he aspirated. Lungs sound wet, he is nonverbal, has been suctioned multiple times in ED. Cannot perform ROS with patient due to baseline state. Past Medical History: Past Medical History: Diagnosis Date Alcohol abuse Anxiety Cancer (CMS/HCC) (HCC) Chronic kidney disease Dementia (HCC) Depression Dysphagia Hypertension Past Surgical History: History reviewed. No pertinent surgical history. Social History: Social History Socioeconomic History Marital status: Single Spouse name: Not on file Number of children: Not on file Years of education: Not on file Highest education level: Not on file Occupational History Not on file Tobacco Use Smoking status: Unknown Smokeless tobacco: Not on file Substance and Sexual Activity Alcohol use: Not on file Drug use: Not on file Sexual activity: Not on file Other Topics Concern Not on file Social History Narrative Not on file Social Determinants of Health Financial Resource Strain: Not on file Food Insecurity: Not on file Transportation Needs: Not on file Physical Activity: Not on file Stress: Not on file Social Connections: Not on file Intimate Partner Violence: Not on file Housing Stability: Not on file Family History: No family history on file. Medications Prior to Admission: No current facility-administered medications on file prior to encounter. Current Outpatient Medications on File Prior to Encounter Medication Sig Dispense Refill acetaminophen (Tylenol) 325 MG tablet 650 mg by Per G Tube route every 6 hours as needed for mild pain (1-3). amLODIPine (Norvasc) 2.5 MG tablet 2.5 mg by Per G Tube route daily. aspirin 81 MG chewable tablet 81 mg daily. atorvastatin (Lipitor) 40 MG tablet 40 mg by Per G Tube route daily. baclofen (Lioresal) 10 MG tablet 10 mg by Per G Tube route 2 times daily. bisacodyl (Dulcolax) 5 MG EC tablet Take 5 mg by mouth Daily as needed for constipation. Do not crush, chew, or split. bisacodyl (Dulcolax) 5 mg split suppository Insert 10 mg into the rectum Daily as needed. cyanocobalamin (Vitamin B-12) 1000 MCG tablet 1,000 mcg by Per G Tube route daily. docusate (Colace) 50 MG/5ML liquid Take 100 mg by mouth 2 times daily. ergocalciferol (Vitamin D-2) 1.25 MG (75659 UT) capsule Take 1.25 mg by mouth 1 (one) time per week. On Mondays ferrous sulfate 325 (65 Fe) MG tablet Take 325 mg by mouth daily (with breakfast). gabapentin (Neurontin) 300 MG capsule 300 mg by Per G Tube route 2 times daily. hyoscyamine (Levsin) 0.125 MG/ML solution by Per G Tube route every 4 hours as needed (increased secretions). ipratropium-albuterol (Duo-Neb) 0.5-2.5 mg/3 mL nebulizer solution Take 3 mL by nebulization in the morning and 3 mL at noon and 3 mL in the evening. 180 mL 11 isosorbide dinitrate (Isordil) 10 MG tablet 10 mg by Per G Tube route 3 times daily. magnesium hydroxide (Milk of Magnesia) 400 MG/5ML suspension 30 mL by Per G Tube route Nightly as needed for constipation. metoclopramide (Reglan) 5 MG/5ML solution 5 mg by Per G Tube route in the morning and 5 mg at noon and 5 mg in the evening and 5 mg before bedtime. nitroglycerin (Nitrostat) 0.[address] 0.4 mg under the tongue every 5 minutes as needed for chest pain. pantoprazole (ProtoNix) 40 MG EC tablet Take 1 tablet (40 mg) by mouth 2 times daily. Do not crush, chew, or split. 60 tablet 1 pyridoxine (B-6) 100 MG tablet 100 mg by Per G Tube route daily. sennosides (Senokot) 8.6 MG tablet 2 tablets by Per G Tube route daily. sertraline (Zoloft) 50 MG tablet 75 mg by Per G Tube route daily. Allergies: No Known Allergies REVIEW OF SYSTEMS: Constitutional: Negative for fever, chills, activity change and unexpected weight change. HEENT: Negative for congestion, postnasal drip and sneezing. Eyes: Negative for itching and visual disturbance. Respiratory: Negative for apnea, cough, choking, chest tightness, shortness of breath, wheezing and stridor. Cardiovascular: Negative for chest pain. Gastrointestinal: Negative for nausea, vomiting, abdominal pain, diarrhea and blood in stool. Genitourinary: Negative for dysuria, frequency and flank pain. Musculoskeletal: Negative for myalgias and joint swelling. Skin: Negative for rash. Neurological: Negative for dizziness, tremors, seizures, syncope, facial asymmetry, speech difficulty, weakness, numbness and headaches. Hematological: Negative for adeno (more content not included)...[facility]04-15-2023 History of Present illness Narrative* Leanna Prasad RN - 12/28/2022 6:00 PM EDT Second Attempt to call report to [facility]. No answer, left voicemail. * Leanna Prasad RN - 12/28/2022 5:50 PM EDT Attempted to call report at [facility]. Placed on hold for 16 minutes. Will try again later. * Leanna Prasad RN - 12/28/2022 4:57 PM EDT Attempted to call Daughter, Teresa Olea #[phone]. No answer, Voice mailbox is full. Wanted tonotify of discharge this evening back to [facility]. Teresa returned call. Daughter notified of discharge to facility tonight. * Cha Montemayor APRN - CYBER THREAT ANALYST - 12/28/2022 9:36 AM EDT Images from the original note were not included. Hospitalist Progress Note 12/28/2022 [phone]: Please page me ([phone]) for patient care issues. [phone]: Please page [facility] night Hospitalist for any issues. Subjective: Admit Date: 12/25/2022 PCP: Provider Not In System Room#: B1-152/B1-152 A Interval History: No overnight issues. Bowel regimen was held this morning as patient had 7-8 BM overnight. He he feels good and is not having any abdominal pain. He is tolerating TF and is taking PO with no issues. Denies chest pain, sob, abdominal pain, nausea, vomiting, diarrhea, constipation,fevers, or chills. Adult diet Dysphagia - Pureed; Mildly Thick ([place]) @[id number]@ 24HR INTAKE/OUTPUT: No intake or output data in the 24 hours ending 12/28/22 0936 Past Medical History: Past Medical History: Diagnosis Date Alcohol abuse Anxiety Cancer (CMS/HCC) (HCC) Chronic kidney disease Dementia (HCC) Depression Dysphagia Hypertension LABS: CBC: Recent Labs 12/25/22 1342 12/26/22 0651 WBC 6.6 5.9 RBC 4.19* 3.67* HGB 11.3* 10.0* HCT 35.2* 30.7* MCV 84.0 83.5 RDW 18.5* 18.5* PLT 240 201 BMP: Recent Labs 12/26/22 0432 12/26/22 0651 12/26/22 2320 NA 137 138 138 K 4.8 4.9 4.1 CL 106 109* 110* CO2 27 27 25 BUN 28* 27* 22* CREATININE 1.12 1.10 1.05 GLUCOSE 75 75 94 CALCIUM 9.0 9.0 9.0 ANIONGAP 4 1* 3 LIVER PROFILE: Recent Labs 12/25/22 1342 12/26/22 0432 AST 58* 43 ALT 26 25 BILITOT 0.8 0.6 ALKPHOS 107 111 PROT 8.3* 7.1 PT/INR: No results for input(s): PROTIME, INR in the last 72 hours. CARDIAC ENZYMES: No results for input(s): TROPONINI in the last 72 hours. Procalcitonin: Lab Results Component Value Date PROCAL 0.05 12/26/2022 COVID-19 PCR: No results for input(s): COVID19 in the last 72 hours. Objective: Vitals: BP 134/77 (BP Location: Left arm, Patient Position: Lying) Pulse 70 Temp 36.4 C (97.5 F) (Temporal) Resp 17 Ht 6' (1.829 m) SpO2 97% BMI 25.43 kg/m Pulse Ox: SpO2 Av.5 % Min: 97 % Max: 98 % Supplemental O2: General appearance: alert male patient lying in bed in NAD, cooperative HEENT: Normal cephalic, atraumatic without obvious deformity. Pupils equal, round, and reactive to light. Extra ocular muscles intact. Conjunctivae/corneas clear. Neck: Supple, with full range of motion. Trachea midline. No lymphadenopathy. Respiratory: Normal respiratory effort at rest . Mild scattered rhonchi throughout Cardiovascular: Regular rate and rhythm with normal S1/S2 without murmurs, rubs or gallops. Abdomen: Soft, non-tender, non-distended with normal bowel sounds. No rebound or guarding. PEG sitepatent without s/s of infection, no drainage no erythema around site Musculoskeletal: LIMA, weakness in BUE and BLE equal Skin: Skin color, texture, turgor normal. No rashes or lesions. Neurologic:patient with global weakness, grossly intact and non focal Medications: dextrose 5 % and sodium chloride 0.9 %, 75 mL/hr, Last Rate: 75 mL/hr (12/28/22 0414) amLODIPine, 2.5 mg, Per G Tube, Daily aspirin, 81 mg, Oral, Daily atorvastatin, 40 mg, Per G Tube, Daily baclofen, 10 mg, Per G Tube, BID docusate, 100 mg, Oral, BID enoxaparin, 30 mg, SubCUTAneous, Daily famotidine, 20 mg, Oral, Daily isosorbide dinitrate, 10 mg, Per G Tube, TID lactulose, 20 g, Per G Tube, Daily sennosides, 2 tablet, Per G Tube, Daily sertraline, 75 mg, Per G Tube, Daily Assessment Constipation- resolved PEG- CT confirmed in correct placement, ok to use , Isosource 55/hr w/ 200 ml free water Q4 Hx of stomach Ca- s/p antrectomy and PEG CKD ll- baseline Dementia - appears baseline Dysphagia- pureed /nectar thick HTN- continue amlodipine 2.5 daily, Medical Decision Making Patient having Bms, tolerating TF and PO, no complaints, surgery has signed off, patient is stable for discharge back to SNF -am labs, replace lytes prn -increase activity -DVT prophylaxis: [] Lovenox [] Heparin [] SCDs [x] Encourage ambulation [] Already on Anticoagulation Anticipated Discharge - Date - 12/28 - Location - Skilled Facility - Pending the following - stable for discharge Total time spent (which include face to face and non face to face encounters) : 35 minutes Orderingtreatments and interventions, ordering and review of laboratory studies, ordering and review of radiographic studies, pulse oximetry, re-evaluation of patient's condition, review of old charts, development of treatment plan with patient or surrogate, discussions with consultants, evaluation of patient's response to treatment and examination of patient Toxic drug monitoring/narrow therapeutic index drug monitoring : # Drug name : # Route administered : # Method of monitoring : Extended Emergency Contact Information Primary Emergency Contact: Teresa Olea Mobile Relation: Child JACINTO OLIVAS CNP [facility] In[facility] Services/[facility] PAGER: Kast chat * Nichole Coughlin RD - 12/27/2022 2:58 PM EDT Nutrition Assessment Type and Reason for Visit: Initial, RD Nutrition Re-Screen/LOS (Received call from RN regarding TF substitution (ordered Isosource)) Nutrition Recommendations/Plan: Pt on Adult diet Dysphagia - Pureed; Mildly Thick ([place]). Mostly for pleasure feeds. Pt will receive most of his nutrition via PEG tube feedings. Isosource is not available on the [employer] formulary. Recommended to substitute with Jevity 1.5 as alternative formula. Initiate TF Jevity 1.5 goal rate of 55 ml/hr. Would provide total of 1980 kcals, 84g protein, and 1003 ml free water. (~24 kcals, 1.04g protein per kg IBW of 81kg). Flush with 200 ml q 4 hrs. Monitor tube feed tolerance, weights, labs. RD will follow. Malnutrition Assessment: Malnutrition Status: At risk for malnutrition (Comment) (PEG tube feeds) Context: Chronic Illness Findings of the 6 clinical characteristics of malnutrition: Energy Intake: No significant decrease in energy intake (Pt meets calculated needs via PEG tube feedings) Weight Loss: No significant weight loss Body Fat Loss: Unable to assess Muscle Mass Loss: Unable to assess Fluid Accumulation: No significant fluid accumulation Wrist Liner Strength: Not Performed Nutrition Assessment: Pt was admitted from [facility] with complaints of constipation and bilious leakage around PEG site. CT abdomen/pelvis without acute abnormality. Mention of constipation, rectal fecal impaction- pt had large BM per nursing staff. General surgery cleared for PEG tube use, resumption of tube feeds. Provider ordered Isosource 1.5 start at 20m/hr, advance 10 ml q 4 hrs to goal of 55ml/hr per facility regimen. Received call from nurse regarding TF order. Isosource is not available on [employer]s formularly. RD recommended to substitute with Jevity 1.5. RN modified tube feed orders to provide Jevity 1.5 and initiated TF at this time. RD tried to weight the pt via bed scale, but was not working. Pt is on a Pureed diet with mildly thick liquids. RN reported that pt is a feed and PO intakes are negligible and expect to provide majority of pt's nutrient needs via PEG tube feeding. Pt remained asleep during RD visit, but reportedly mostly non verbal at baseline. Estimated Daily Nutrient Needs: Energy Requirements Based On: Kcal/kg Weight Used for Energy Requirements: [place] Weight for Energy Calculation (kg): 81 kg Total Energy Requirements (kcals/day): 3604-3911 kcals (25-30 kcals/kg) Weight Used for Protein Requirements: [place] Weight in Kg Used for Protein Requirements: 81 kg Estimated Total Protein (g/day): 81-97 (1-1.2 g/kg) Estimated Daily Total Fluid (ml/day): 2025 ml/day or per MD Nutrition Related Findings: no edema; Cl 110, BUN 22, Hgb 10, Hct 30.7 Wound Type: (BLE abrasions) Current Nutrition Therapies: Adult diet Dysphagia - Pureed; Mildly Thick ([place]) Current Oral Intake Average Meal Intake: (PO intakes negligible) Average Supplements Intake: None Ordered Additional Calorie Sources Additional Calorie Sources: PEG tube feeding Enteral Nutrition Feeding Route: PEG EN Formula: Jevity 1.5 Ben EN Schedule: Continuous EN Feeding Regimen: Start at 20 ml/hr, advance 10 ml q 4 hrs up to goal of 55 ml/hr Additives/Modulars: None Water Flushes: 200 ml q 4 hrs Current EN & Flush Order Provides: TF just initiated, at 20 ml/hr would provide 720 kcals, 30.5g protein, 364.5 ml free water from tube feeds. Additional 1200 ml free water from flushes Goal EN & Flush Order Provides: 1980 kcals, 84g protein, and 1003 ml free water plus 1200 ml free water flushes (total 2203 ml free water/day) Anthropometric Measures: Height: 182.9 cm (6') Current Body Weight: 84.8 kg (187 lb) Weight Source: Not Specified Admission Body Weight: 84.8 kg (187 lb) Usual Body Weight: 74.8 kg (165 lb) (previously noted baseline weight) % Weight Change (Calculated): 13.3 [place] Body Weight (lbs) (Calculated): 178 lbs [place] Body Weight (Kg) (Calculated): 81 kg % [place] Body Weight (Calculated): 105.1 % BMI (kg/m2) (Calculated): 25.4 Weight Adjustment For: No Adjustment BMI Categories: Overweight (BMI 25.0-29.9) Nutrition Diagnosis: Swallowing difficulty related to altered GI function as evidenced by nutrition support - enteral nutrition Nutrition Interventions: Nutrition Education/Counseling: No recommendation at this time Coordination of Nutrition Care: Continue to monitor while inpatient Plan of Care discussed with: RN Goals: Goals: Meet at least 75% of estimated needs, Initiate nutrition support, by next RD assessment Nutrition Monitoring and Evaluation: Behavioral-Environmental Outcomes: None Identified Food/Nutrient Intake Outcomes: Diet Advancement/Tolerance, Enteral Nutrition Intake/Tolerance, Foodand Nutrient Intake Physical Signs/Symptoms Outcomes: Biochemical Data, Chewing or Swallowing, GI Status, Nausea or Vomiting, Fluid Status or Edema, Nutrition Focused Physical Findings, Skin, Weight Discharge Planning: Continue current diet, Enteral Nutrition Nichole Coughlin RD Contact: *[phone] or via Secure Chat * Tia Crump PT - 12/27/2022 11:08 AM EDT Physical Therapy Facility/Department: [facility] 1E Physical Therapy Initial Evaluation NAME: Berto Parkinson : 1935 Date of Service: 12/27/2022 Discharge Recommendations: ECF without PT PT Equipment Recommendations Equipment Needed: No Assessment Assessment: Pt admitted 12/25 with PEG leaking and abdominal pain. Pt also found to have fecal impaction. On evaluation patient requires MaxA x2 for supine <> sit and MaxA x1-2 for rolling to R and L. Pt is limited by increased tone in LEs and LUE and poor cognition. Pt is bedbound at baselineand uses a megan to transfer to w/c. Pt is at baseline LOF and has no acute PT needs. Rec return to ECF without PT. Decision Making: Medium Complexity Exam: AM-PAC Requires PT Follow-Up: No No Skilled PT: At baseline function No Skilled PT: At baseline function Activity Tolerance Activity Tolerance: Patient limited by endurance, Patient limited by fatigue Patient Diagnosis(es): The encounter diagnosis was Constipation, unspecified constipation type. has a past medical history of Alcohol abuse, Anxiety, Cancer (CMS/HCC) ([facility]), Chronic kidney disease, Dementia (HCC), Depression, Dysphagia, and Hypertension. has no past surgical history on file. Restrictions Restrictions/Precautions Restrictions/Precautions: General Precautions, Fall Risk Required Braces or Orthoses?: No Vision/Hearing Vision: Within Functional Limits Hearing: Functional/adequate for paticipation in therapy Cognition/Orientation Overall Cognitive Status: Exceptions Arousal/Alertness: Delayed responses to stimuli Following Commands: Follows one step commands with repetition, Follows one step commands with increased time Attention Span: Attends with cues to redirect Memory: Decreased recall of recent events, Decreased short term memory, Decreased alf memory Safety Judgement: Decreased awareness of need for assistance, Decreased awareness of need for safety Problem Solving: Assistance required to implement solutions, Assistance required to generate solutions, Assistance required to identify errors made, Assistance required to correct errors made, Decreased awareness of errors Insights: Decreased awareness of deficits Initiation: Requires cues for all Sequencing: Requires cues for all Cognition Comment: h/o dementia Overall Orientation Status: Impaired Orientation Level: Disoriented to situation, Oriented to person, Disoriented to place, Disoriented to time Subjective General Chart Reviewed: Yes Patient Assessed for Rehabilitation Services: Yes Family / Caregiver Present: No Follows Commands: Impaired General Comment Comments: Per RN patient okay for therapy Subjective Subjective: Pt lying in bed and agreeable to therapy Social/Functional History Social/Functional History Lives With: Other (comment) Type of Home: Facility ([facility]) Home Layout: One level Home Access: Level entry Bathroom Shower/Tub: Shower chair with back, Walk-in shower Bathroom Toilet: Handicap height Bathroom Equipment: Grab bars in shower, Shower chair, Grab bars around toilet Bathroom Accessibility: Wheelchair accessible Receives Help From: Other (comment) ADL Assistance: Needs assistance Homemaking Responsibilities: No Ambulation Assistance: Non-ambulatory Transfer Assistance: Needs assistance (pt is a megan lift) Additional Comments: Spoke to pt, per pt ambulates with a fww independently, and is independent in ADLs. Spoke to dtr after eval, pt requires total A for ADLs, is mostly bed bound and is megan lift for transfers to/from chair. Objective Observation/Palpation Posture: Poor Observation: PIV intact, contractures to LUE and BLE; PEG sit clean, dry and intact Gross Assessment Gross Assessment: Yes AROM: Grossly decreased, non-functional PROM: Grossly decreased, non-functional Strength: Grossly decreased, non-functional Coordination: Grossly decreased, non-functional Tone: Abnormal (increased tone BLEs and LUE) Sensation: Intact Gross Assessment: Yes AROM: Grossly decreased, non-functional PROM: Grossly decreased, non-functional Strength: Grossly decreased, non-functional Coordination: Grossly decreased, non-functional Tone: Abnormal (increased tone BLEs and LUE) Sensation: Intact Bed mobility Rolling to Left: Maximum assistance Rolling to Right: Maximum assistance, 2 Person assistance Supine to Sit: Maximum assistance, 2 Person assistance Sit to Supine: Maximum assistance, 2 Person assistance Scooting: Maximal assistance, 2 Person assistance Comment: Pt required significant assist for all aspects of bed mobility with increased time and useof bed features. Pt completed rolling to L 2x with max and rolling to R 1x with max A x2 for doffing soiled brief/donning fresh brief and pericare. Pt required max A x2 for sup<>sit in regards to BLE and trunk management. Pt tolerated sitting ~2 min with max A for balance. Transfers Sit to Stand: Unable to assess Stand to sit: Unable to assess Comment: unable to attempt. Pt is bedbound at baseline Ambulation Ambulation: No (N/a) Balance Posture: Poor Sitting - Static: Poor Sitting - Dynamic: Poor, - Plan Times per Week: eval only Safety Safety Devices Safety Devices in Place: Yes Type of Devices: All fall risk precautions in place, Call light within reach, Left in bed, Nurse notified AM-PAC Score AM-PAC Inpatient Mobility Raw Score: 6 Mobility Inpatient CMS G-Code Modifier: CN Goals eval only Education Education Given To: Patient Education Provided: PT Role, Plan of Care Education Method: Verbal Barriers to Learning: Cognition Education Outcome: Unable to verbalize Therapy Time Individual Co-treatment Time In 0854 Time Out 0915 Minutes 21 Tia Crump PT * Mee Pizarro OT - 12/27/2022 10:23 AM EDT Occupational Therapy Facility/Department: Occupational Therapy Initial Evaluation NAME: Berto Parkinson : 1935 Date of Service: 12/27/2022 Discharge Recommendations: ECF without OT Assessment Performance deficits / Impairments: Decreased functional mobility , Decreased ADL status, Decreasedendurance, Decreased ROM, Decreased strength, Decreased cognition, Decreased safe awareness, Decreased balance, Decreased high-level IADLs, Decreased coordination, Decreased fine motor control, Decreased posture Assessment: Pt reports independence in ADLs, functional transfers and mobility with fww, however, after calling dtr, pt is total A for ADLs, is mostly bed bed and requires a megan lift for transfers.Pt continues to be at baseline and has no acute OT needs. Will complete current orders. Prognosis: Guarded Decision Making: Medium Complexity History: Pt admitted with abdominal pain and PEG tube leakage, found to have fecal impaction. PMH is listed above. Exam: [facility] Assistance / Modification: max-total A REQUIRES OT FOLLOW-UP: No Activity Tolerance Activity Tolerance: Patient limited by fatigue Patient Diagnosis(es): The encounter diagnosis was Constipation, unspecified constipation type. has a past medical history of Alcohol abuse, Anxiety, Cancer (CMS/HCC) (HCC), Chronic kidney disease, Dementia (HCC), Depression, Dysphagia, and Hypertension. has no past surgical history on file. Restrictions Restrictions/Precautions Restrictions/Precautions: General Precautions, Fall Risk Required Braces or Orthoses?: No Vision/Hearing Vision: Within Functional Limits Hearing: Functional/adequate for paticipation in therapy Cognition/Orientation Overall Cognitive Status: Exceptions Arousal/Alertness: Delayed responses to stimuli Following Commands: Follows one step commands with repetition, Follows one step commands with increased time Attention Span: Attends with cues to redirect Memory: Decreased recall of recent events, Decreased short term memory, Decreased alf memory Safety Judgement: Decreased awareness of need for assistance, Decreased awareness of need for safety Problem Solving: Assistance required to implement solutions, Assistance required to generate solutions, Assistance required to identify errors made, Assistance required to correct errors made, Decreased awareness of errors Insights: Decreased awareness of deficits Initiation: Requires cues for all Sequencing: Requires cues for all Cognition Comment: h/o dementia Overall Orientation Status: Impaired Orientation Level: Disoriented to situation, Oriented to person, Disoriented to place, Disoriented to time Subjective General Chart Reviewed: Yes Patient Assessed for Rehabilitation Services: Yes Family / Caregiver Present: No Subjective Subjective: Pt pleasantly confused. Mostly non-verbal. General Comments Comments: Per RN, ok for pt to participate in OT eval. Co-eval with PT as pt is 2-person assist to safely mobilize. Pain Assessment Pain Assessment: No/denies pain Social/Functional History Social/Functional History Lives With: Other (comment) Type of Home: Facility ([facility]) Home Layout: One level Home Access: Level entry Bathroom Shower/Tub: Shower chair with back, Walk-in shower Bathroom Toilet: Handicap height Bathroom Equipment: Grab bars in shower, Shower chair, Grab bars around toilet Bathroom Accessibility: Wheelchair accessible Receives Help From: Other (comment) ADL Assistance: Needs assistance Homemaking Responsibilities: No Ambulation Assistance: Non-ambulatory Transfer Assistance: Needs assistance (pt is a megan lift) Additional Comments: Spoke to pt, per pt pt ambulates with a fww independently, and is independent in ADLs. Spoke to dtr after eval, pt requires total A for ADLs, is mostly bed bound and is megan lift for transfers to/from chair. Objective Gross Assessment: Yes AROM: (Pt able to initiate L shld shrugs, no flex/ext, no AROM of distal LUE. R shld ~80, distal with slight flex/ext deficits) PROM: (R shld ~90) Strength: (R <3/5, LUE 2/5 at shld, distal 0/5) Tone: Abnormal (LUE contractures) Observation/Palpation Posture: Poor Observation: PIV intact, contractures to LUE and BLE Balance Sitting Balance: Maximum assistance (Pt with significant retrograde/R lateral lean- tolerated sitting at EOB ~2 min.) ADL Feeding: Maximum assistance Grooming: Maximum assistance (Pt able to initiate washing face/mouth, required significant assist for thoroughness.) UE Bathing: Dependent/Total LE Bathing: Dependent/Total UE Dressing: Dependent/Total LE Dressing: Dependent/Total (Pt required total A to doff soiled brief and don fresh brief.) Toileting: Dependent/Total (Total A to complete bladder hygiene/pericare.) Bed mobility Rolling to Left: Maximum assistance Rolling to Right: Maximum assistance, 2 Person assistance Supine to Sit: Maximum assistance, 2 Person assistance Sit to Supine: Maximum assistance, 2 Person assistance Scooting: Maximal assistance, 2 Person assistance Comment: Pt required significant assist for all aspects of bed mobility with increased time and useof bed features. Pt completed rolling to L 2x with max and rolling to R 1x with max A x2 for doffing soiled brief/donning fresh brief and pericare. Pt required max A x2 for sup<>sit in regards to BLE and trunk management. Pt tolerated sitting ~2 min with max A for balance. Plan Times per Week: eval only Plan Comment: POC was made in collaboration with the pt. Safety Safety Devices in place: Yes Type of devices: All fall risk precautions in place, Call light within reach, Patient at risk for falls, Left in bed, Nurse notified, No alarms engaged upon entry into room AM-PAC Score AM-PAC Inpatient Daily Activity Raw Score: 8 ADL Inpatient CMS G-Code Modifier: CM Education Education Given To: Patient Education Provided: OT Role, Plan of Care Education Method: Verbal Barriers to Learning: Cognition Education Outcome: Verbalized understanding, Continued education needed Therapy Time Individual Co-treatment Time In 0854 Time Out 0915 Minutes 21 Mee Pizarro OT * Denis Logan MD - 12/27/2022 9:30 AM EDT [facility] - Surgery [facility] Surgery Patient Name: Berto Parkinson Date: 12/27/2022 Patient seen and examined by myself and I agree with GINGER note below Patient resting in bed and appears comfortable he is nonverbal which is essentially baseline for him Abdomen soft nontender nondistended Rectal exam soft stool in vault Labs and imaging reviewed Assessment /Plan: Constipation resolving, continue with stool softeners and enemas PEG tube okay to use as CT confirms in proper location No acute surgical issues and none anticipated. Surgery will sign off, available if needed. Thanks Patient counseled on risks,benefits, and alternatives of treatement plan at length. Patient states an understanding and willingness to proceed with plan. I personally supervised my GINGER and/or resident in the evaluation and management of Berto Parkinson in thedevelopment of a treatment plan for this patient. I personally interviewed the patient and performed an individual physical examination. In addition, I discussed the patient's condition and treatment options with them. I have also reviewed and agree with the past medical, family and social history and care plan unless otherwise noted. All of the patient's questions were answered. This case represents moderate level care including chart review, care coordination and face to faceencounter was spent discussing/counseling the patient regarding the care plan for this patient. Thepatient was seen and examined independently and relevant data reviewed by myself. A full chart review was performed. Denis Logan MD FACS General Surgery 1:06 PM 12/27/2022 GENERAL SURGERY Progress Note PATIENT NAME: Berto Parkinson TODAY'S DATE: 12/27/2022 SUBJECTIVE: General Surgery follow up on constipation and leaking around G tube. Overall doing well. Large BM per nursing. NO acute events overnight. Scant drainage bilious around G -tube. Pain controlled Yes Other Complaints No Flatus/BM/or Ostomy function {Yes OBJECTIVE: VITALS: BP (!) 151/80 Pulse 76 Temp 37.1 C (98.7 F) (Temporal) Resp 22 SpO2 97% INTAKE/OUTPUT: No intake/output data recorded. No intake/output data recorded. REVIEW OF SYSTEMS: Pertinent positives and negatives as per interval history section PHYSICAL EXAM: CONSTITUTIONAL: A&O x 3, LUNGS: Resp effort easy and unlabored, breath sounds normal CARDIOVASCULAR: RRR ABDOMEN: soft non tender, non distended MUSCULOSKELETAL: Normal range of motion NEUROLOGIC: Level of Alertness: alert PSYCHIATRIC: Speech is normal SKIN: Warm, dry, and intact Data: CBC: Recent Labs 12/25/22 1342 12/26/22 0651 WBC 6.6 5.9 HGB 11.3* 10.0* HCT 35.2* 30.7* PLT 240 201 BMP: Recent Labs 12/26/22 0432 12/26/22 0651 12/26/22 2320 NA 137 138 138 K 4.8 4.9 4.1 CL 106 109* 110* CO2 27 27 25 BUN 28* 27* 22* CREATININE 1.12 1.10 1.05 GLUCOSE 75 75 94 Hepatic: Recent Labs 12/25/22 1342 12/26/22 0432 AST 58* 43 ALT 26 25 BILITOT 0.8 0.6 ALKPHOS 107 111 ASSESSMENT AND PLAN: Mr. Parkinson is an 87 y/o M who presents with abdominal pain. - CT abdomen/pelvis without acute abnormality. Mention of constipation, rectal fecal impaction. - G-tube- functioning well, minimal bilious drainage around tubing change dressing daily - Per nursing large BM - Recommend continuing daily bowel regimen - No acute surgical intervention needed at this time - General Surgery will sign off, okay to discharge from surgical standpoint Patient counseled on risks, benefits, and alternatives of treatment plan today. Patient states an understanding and willingness to proceed with plan. JACINTO Guerrier CNP * JACINTO Olivas CNP - 12/27/2022 9:28 AM EDT Images from the original note were not included. Hospitalist Progress Note 12/27/2022 [phone]: Please page me ([phone]) for patient care issues. [phone]: Please page [facility] Hospitalist for any issues. Subjective: Admit Date: 12/25/2022 PCP: Provider Not In System Room#: B1-152/B1-152 A Interval History: No overnight issues.Patient had BM last night and is currently getting bowel medications. PEG ok to use per surgery and ok to restart diet. Patient is denying any current pain. Denies chest pain, sob, abdominal pain, nausea, vomiting, diarrhea, constipation, fevers, or chills. The pt suspected malfunctioning Peg Tube with bilious drainage at the site. The pt has a PEG tube 2/2 h/o dysphagia, achalasia. He was seen in the ED with a CT of abd and pelvis completed showing no acute issues but was found to have significant fecal burden with impaction. A disimpaction was attempted but felt that fecal impaction was too high to reach. General surgery was consulted. NPO diet @[id number]@ 24HR INTAKE/OUTPUT: No intake or output data in the 24 hours ending 12/27/22927 Past Medical History: Past Medical History: Diagnosis Date Alcohol abuse Anxiety Cancer (CMS/HCC) (HCC) Chronic kidney disease Dementia (HCC) Depression Dysphagia Hypertension LABS: CBC: Recent Labs 12/25/22 1342 12/26/22 0651 WBC 6.6 5.9 RBC 4.19* 3.67* HGB 11.3* 10.0* HCT 35.2* 30.7* MCV 84.0 83.5 RDW 18.5* 18.5* PLT 240 201 BMP: Recent Labs 12/26/22 0432 12/26/22 0651 12/26/22 2320 NA 137 138 138 K 4.8 4.9 4.1 CL 106 109* 110* CO2 27 27 25 BUN 28* 27* 22* CREATININE 1.12 1.10 1.05 GLUCOSE 75 75 94 CALCIUM 9.0 9.0 9.0 ANIONGAP 4 1* 3 LIVER PROFILE: Recent Labs 12/25/22 1342 12/26/22 0432 AST 58* 43 ALT 26 25 BILITOT 0.8 0.6 ALKPHOS 107 111 PROT 8.3* 7.1 PT/INR: No results for input(s): PROTIME, INR in the last 72 hours. CARDIAC ENZYMES: No results for input(s): TROPONINI in the last 72 hours. Procalcitonin: Lab Results Component Value Date PROCAL 0.05 12/26/2022 COVID-19 PCR: No results for input(s): COVID19 in the last 72 hours. Objective: Vitals: BP (!) 151/80 Pulse 76 Temp 37.1 C (98.7 F) (Temporal) Resp 22 SpO2 97% Pulse Ox: SpO2 Av.8 % Min: 96 % Max: 98 % Supplemental O2: General appearance: Elderly male lying in bed in NAD, he is able to answer yes/no questions, speechis garbled HEENT: Normal cephalic, atraumatic without obvious deformity. Pupils equal, round, and reactive to light. Extra ocular muscles intact. Conjunctivae/corneas clear. Neck: Supple, with full range of motion. Trachea midline. No lymphadenopathy. Respiratory: Normal respiratory effort at rest . Mild scattered rhonchi throughout lung garcia Cardiovascular: Regular rate and rhythm with normal S1/S2 without murmurs, rubs or gallops. Abdomen: Soft, non-tender, mildly distended with normal bowel sounds. No rebound or guarding. PEG site WNL Musculoskeletal: LIMA, Weak in all extremities Skin: Skin color, texture, turgor normal. No rashes or lesions. Neurologic: Neurovascularly intact without any focal sensory/motor deficits. Cranial nerves: II-XIIintact, grossly non-focal. Medications: dextrose 5 % and sodium chloride 0.9 %, 125 mL/hr, Last Rate: 125 mL/hr (12/26/22 1804) amLODIPine, 2.5 mg, Per G Tube, Daily aspirin, 81 mg, Oral, Daily atorvastatin, 40 mg, Per G Tube, Daily baclofen, 10 mg, Per G Tube, BID docusate, 100 mg, Oral, BID enoxaparin, 30 mg, SubCUTAneous, Daily famotidine, 20 mg, Oral, Daily isosorbide dinitrate, 10 mg, Per G Tube, TID lactulose, 20 g, Per G Tube, Daily sennosides, 2 tablet, Per G Tube, Daily sertraline, 75 mg, Per G Tube, Daily Assessment Constipation- continue bowel regimen with daily suppository, general surgery following PEG- CT confirmed in correct placement, ok to use , Isosource 55/hr w/ 200 ml free water Q4 Hx of stomach Ca- s/p antrectomy and PEG CKD ll- baseline Dementia - appears baseline Dysphagia- pureed /nectar thick HTN- continue amlodipine 2.5 daily, Medical Decision Making Patient had bowel movement 12/26, cleared to resume diet and TF , will restart TF at 20 progressing to baseline of 55 ml/hr, will modify IVF to 75 -am labs, replace lytes prn -increase activity -DVT prophylaxis: [] Lovenox [] Heparin [] SCDs [x] Encourage ambulation [] Already on Anticoagulation Anticipated Discharge - Date - 12/28 - Location - Skilled Facility - Pending the following - tolerating diet and bowels continue to move normally Total time spent (which include face to face and non face to face encounters) : 35 minutes Orderingtreatments and interventions, ordering and review of laboratory studies, ordering and review of radiographic studies, pulse oximetry, re-evaluation of patient's condition, review of old charts, development of treatment plan with patient or surrogate, discussions with consultants, evaluation of patient's response to treatment and examination of patient # Method of monitoring : Extended Emergency Contact Information Primary Emergency Contact: Teresa Olea Mobile Relation: Child JACINTO OLIVAS CNP Division of Hospitalist Medicine Inpatient Medical Services/[facility] PAGER: Epic chat * Susie Xiong - 12/27/2022 8:23 AM EDT Nutrition rescreen completed. Patient assigned a level 1. * JACINTO Saucedo CNP - 12/26/2022 1:51 PM EDT Images from the original note were not included. Hospitalist Progress Note 12/26/2022 [phone]: Please page ma ([phone]) for patient care issues. [phone]: Please page [facility] Consulting Hospitalist for any issues. Subjective: Admit Date: 12/25/2022 PCP: Provider Not In System Room#: Interval History: Patient hospitalized to Hospital service on date noted above. Pt was brought in by his LTCF 2/2 not acting right; abd pain and N&V. The pt suspected malfunctioning Peg Tube withbilious drainage at the site. The pt has a PEG tube 2/2 h/o dysphagia, achalasia. He was seen in the ED with a CT of abd and pelvis completed showing no acute issues but was found to have significant fecal burden with impaction. A disimpaction was attempted but felt that fecal impaction was too high to reach. General surgery was consulted. 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 Currently the pt is in the ED. He is awake and follows simple commands. Verbal with muffled verbiage, able to carry on a brief conversation. Mostly yes and no answers. He asked where his shoes were. He is oriented to self did know he was in the hospital. Unable to tell me his , current month or year. Hypopigmented areas noted to BLE anterior tibial areas. Admits to abd pain. NPO diet @[id number]@ 24HR INTAKE/OUTPUT: Intake/Output Summary (Last 24 hours) at 12/26/2022 1351 Last data filed at 12/25/2022 1511 Gross per 24 hour Intake 1000 ml Output -- Net 1000 ml Past Medical History: Past Medical History: Diagnosis Date Alcohol abuse Anxiety Cancer (CMS/HCC) (HCC) Chronic kidney disease Dementia (HCC) Depression Dysphagia Hypertension LABS: CBC: Recent Labs 12/25/22 1342 12/26/22 0651 WBC 6.6 5.9 RBC 4.19* 3.67* HGB 11.3* 10.0* HCT 35.2* 30.7* MCV 84.0 83.5 RDW 18.5* 18.5* PLT 240 201 BMP: Recent Labs 12/25/22 1342 12/26/22 0432 12/26/22 0651 NA 136 137 138 K 4.8 4.8 4.9 CL 104 106 109* CO2 28 27 27 BUN 33* 28* 27* CREATININE 1.02 1.12 1.10 GLUCOSE 116* 75 75 CALCIUM 9.4 9.0 9.0 ANIONGAP 5 4 1* LIVER PROFILE: Recent Labs 12/25/22 1342 12/26/22 0432 AST 58* 43 ALT 26 25 BILITOT 0.8 0.6 ALKPHOS 107 111 PROT 8.3* 7.1 Component Latest Ref Rng & Units 11/14/2022 11/15/2022 11/16/2022 11/17/2022 11/18/2022 eGFR >60.0 mL/min/1.73m*2 59.3 (L) 61.7 65.1 72.0 72.9 Component Latest Ref Rng & Units 11/19/2022 11/20/2022 12/25/2022 12/26/2022 4:32 AM eGFR >60.0 mL/min/1.73m*2 72.9 70.4 72.0 64.4 Component Latest Ref Rng & Units 12/26/2022 6:51 AM eGFR >60.0 mL/min/1.73m*2 65.8 PT/INR: No results for input(s): PROTIME, INR in the last 72 hours. CARDIAC ENZYMES: No results for input(s): TROPONINI in the last 72 hours. Procalcitonin: Lab Results Component Value Date PROCAL 0.05 12/26/2022 COVID-19 PCR: No results for input(s): COVID19 in the last 72 hours. Objective: Vitals: BP (!) 141/73 Pulse 61 Temp 36.7 C (98 F) (Temporal) Resp 18 SpO2 96% Pulse Ox: SpO2 Av.3 % Min: 92 % Max: 100 % General: Chronically ill appearing, NAD, vital signs noted Cardiac: Regular heart rate and rhythm no murmurs appreciated on auscultation Pulmonary: Scattered rhonchi bilaterally, with poor cough. Abdomen: mild distension with hypoactive bs, PEG tube in place, no drain noted around insertion site Skin: W&D, hypopigmented areas on anterior aspect of BLE, no open wounds, BUE, BLE with muscle loss, generalized weakness of BUE, BLE. Very long fingernails Neurologic: Alert with no focal findings Psychiatric: Cooperative and appropriate exam otherwise unremarkable Medications: dextrose 5 % and sodium chloride 0.9 %, 125 mL/hr, Last Rate: 125 mL/hr (12/26/22 0540) amLODIPine, 2.5 mg, Per G Tube, Daily aspirin, 81 mg, Oral, Daily atorvastatin, 40 mg, Per G Tube, Daily baclofen, 10 mg, Per G Tube, BID bisacodyl, 10 mg, Rectal, Once docusate, 100 mg, Oral, BID enoxaparin, 30 mg, SubCUTAneous, Daily famotidine, 20 mg, Oral, Daily isosorbide dinitrate, 10 mg, Per G Tube, TID sennosides, 2 tablet, Per G Tube, Daily sertraline, 75 mg, Per G Tube, Daily Assessment Acute, acute on chronic, unstable/uncontrolled chronic problems/diagnoses: Abdominal pain Suspect malfunctioning Peg Tube Significant fecal burden Stable chronic problems affecting care, new non-acute diagnoses: H/o stomach cancer s/p 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 Soft mushy brown stool noted. Will continue bowel regiment. Hold Peg Tube feedings and oral feedings until BM occurs. Continue IV fluids. Monitor renal function. Continue home meds for HTN, HLD, Depression - labs as indicated, replace lytes prn - PT/OT/SW - delirium precautions: increase activity and limit nighttime disturbances -DVT prophylaxis: [x] Lovenox [] Heparin [] SCDs [x] Encourage ambulation [] Already on Anticoagulation Anticipated Discharge -Per primary team Total time spent (which include face to face and non face to face encounters) : 30 minutes Toxic drug monitoring/narrow therapeutic index drug monitoring :NA # Drug name : # Route administered : # Method of monitoring : Extended Emergency Contact Information Primary Emergency Contact: Teresa Olea Mobile Relation: Child JACINTO SAUCEDO CNP Division of Hospitalist Medicine Inpatient Medical Services/[facility] PAGER: Kast chat documented in this [facility]04-15-2023 NoteDischarge Summary Berto Ray : 1935 ADMIT DATE: 12/25/2022 DISCHARGE DATE: 12/28/2022 PRIMARY CARE PHYSICIAN: Provider Not In System VISIT STATUS: Admission CODE STATUS: DNR-CCA DISCHARGE DIAGNOSES: Principal Problem: Constipation, unspecified constipation type HOSPITAL COURSE: Pt was brought in by his LTCF 2/2 not acting right; abd pain and N&V. The pt suspected malfunctioning Peg Tube with bilious drainage at the site. The pt has a PEG tube 2/2 h/o dysphagia, achalasia. He was seen in the ED with a CT of abd and pelvis completed showing no acute issues but was found to have significant fecal burden with impaction. A disimpaction was attempted but felt that fecal impaction was too high to reach. General surgery was consulted. The pt is s/p stage IIb gastric cancer w s/p lab antrectomy by GI, 2012. Currently the pt is in the ED. He is awake and follows simple commands. Verbal with muffled verbiage, able to carry on a brief conversation. Mostly yes and no answers. He asked where his shoes were. He is oriented to self did know he was in the hospital. Unable to tell me his , current month or year. Hypopigmented areas noted to BLE anterior tibial areas. Admits to abd pain. Patient was followed by general surgery. He was placed on bowel regimen and did have results. He was restarted on TF 12/27 and has tolerated with no issues, also taking pureed diet. He is not having any abdominal pain today. SIGNIFICANT DIAGNOSTIC STUDIES: CT abdomen/ pelvis CONSULTANTS: General surgery RECOMMENDED NEXT STEPS: Follow up with PCP, continue bowel regimen DISCHARGE MEDICATIONS: Medication List CONTINUE taking these medications acetaminophen 325 MG tablet Commonly known as: Tylenol amLODIPine 2.5 MG tablet Commonly known as: Norvasc aspirin 81 MG chewable tablet atorvastatin 40 MG tablet Commonly known as: Lipitor baclofen 10 MG tablet Commonly known as: Lioresal * bisacodyl 5 mg split suppository Commonly known as: Dulcolax * bisacodyl 5 MG EC tablet Commonly known as: Dulcolax cyanocobalamin 1000 MCG tablet Commonly known as: Vitamin B-12 docusate 50 MG/5ML liquid Commonly known as: Colace ergocalciferol 1.25 MG (37177 UT) capsule Commonly known as: Vitamin D-2 ferrous sulfate 325 (65 Fe) MG tablet gabapentin 300 MG capsule Commonly known as: Neurontin hyoscyamine 0.125 MG/ML solution Commonly known as: Levsin ipratropium-albuterol 0.5-2.5 mg/3 mL nebulizer solution Commonly known as: Duo-Neb Take 3 mL by nebulization in the morning and 3 mL at noon and 3 mL in the evening. isosorbide dinitrate 10 MG tablet Commonly known as: Isordil magnesium hydroxide 400 MG/5ML suspension Commonly known as: Milk of Magnesia metoclopramide 5 MG/5ML solution Commonly known as: Reglan nitroglycerin 0.4 MG SL tablet Commonly known as: Nitrostat pantoprazole 40 MG EC tablet Commonly known as: ProtoNix Take 1 tablet (40 mg) by mouth 2 times daily. Do not crush, chew, or split. pyridoxine 100 MG tablet Commonly known as: B-6 sennosides 8.6 MG tablet Commonly known as: Senokot sertraline 50 MG tablet Commonly known as: Zoloft * This list has 2 medication(s) that are the same as other medications prescribed for you. Read the directions carefully, and ask your doctor or other care provider to review them with you. DIET: Adult diet Dysphagia - Pureed; Mildly Thick ([place]) ACTIVITY: No restriction. COMPLEXITY OF FOLLOW UP: [x] Moderate Complexity: follow up within 7-14 calendar days (15479) [] Severe Complexity: follow up within 7 calendar days (79116) FOLLOW UP TESTING, PENDING RESULTS OR REFERRALS AT TRANSITIONAL CARE VISIT: [] Yes [x] No PENDING STUDIES: NA DISPOSITION: Skilled Facility FACILITY/HOME CARE AGENCY NAME: [facility] Follow up with PCP INSTRUCTIONS TO MA/SW: Please call patient on day after discharge (must document patient contacted within 2 business days of discharge). FOLLOW UP QUESTIONS FOR MA/SW: 1. Did you get medications filled and taking them as instructed from discharge? 2. Are you following your discharge instructions from your hospital stay? 3. Please confirm patient is scheduled for a follow up appointment within the above time frame. DISCHARGE TIME: > 30 minutes SIGNED: JACINTO OLIVAS CNP 12/28/2022, 1:21 [facility]04-15-2023 Hospital course Narrative* JACINTO Olivas CNP - 12/28/2022 1:21 PM EDT Images from the original note were not included. Discharge Summary Berto Parkinson : 1935 ADMIT DATE: 12/25/2022 DISCHARGE DATE: 12/28/2022 PRIMARY CARE PHYSICIAN: Provider Not In System VISIT STATUS: Admission CODE STATUS: DNR-CCA DISCHARGE DIAGNOSES: Principal Problem: Constipation, unspecified constipation type HOSPITAL COURSE: Pt was brought in by his LTCF 2/2 not acting right; abd pain and N&V. The pt suspected malfunctioning Peg Tube with bilious drainage at the site. The pt has a PEG tube 2/2 h/o dysphagia, achalasia. He was seen in the ED with a CT of abd and pelvis completed showing no acute issues but was foundto have significant fecal burden with impaction. A disimpaction was attempted but felt that fecal im paction was too high to reach. General surgery was consulted. 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 Currently the pt is in the ED. He is awake and follows simple commands. Verbal with muffled verbiage, able to carry on a brief conversation. Mostly yes and no answers. He asked where his shoes were. He is oriented to self did know he was in the hospital. Unable to tell me his , current month or year. Hypopigmented areas noted to BLE anterior tibial areas. Admits to abd pain. Patient was followed by general surgery. He was placed on bowel regimen and did have results. He was restarted on TF 12/27 and has tolerated with no issues, also taking pureed diet. He is not having any abdominal pain today. SIGNIFICANT DIAGNOSTIC STUDIES: CT abdomen/ pelvis CONSULTANTS: General surgery RECOMMENDED NEXT STEPS: Follow up with PCP, continue bowel regimen DISCHARGE MEDICATIONS: Medication List CONTINUE taking these medications acetaminophen 325 MG tablet Commonly known as: Tylenol amLODIPine 2.5 MG tablet Commonly known as: Norvasc aspirin 81 MG chewable tablet atorvastatin 40 MG tablet Commonly known as: Lipitor baclofen 10 MG tablet Commonly known as: Lioresal * bisacodyl 5 mg split suppository Commonly known as: Dulcolax * bisacodyl 5 MG EC tablet Commonly known as: Dulcolax cyanocobalamin 1000 MCG tablet Commonly known as: Vitamin B-12 docusate 50 MG/5ML liquid Commonly known as: Colace ergocalciferol 1.25 MG (54907 UT) capsule Commonly known as: Vitamin D-2 ferrous sulfate 325 (65 Fe) MG tablet gabapentin 300 MG capsule Commonly known as: Neurontin hyoscyamine 0.125 MG/ML solution Commonly known as: Levsin ipratropium-albuterol 0.5-2.5 mg/3 mL nebulizer solution Commonly known as: Duo-Neb Take 3 mL by nebulization in the morning and 3 mL at noon and 3 mL in the evening. isosorbide dinitrate 10 MG tablet Commonly known as: Isordil magnesium hydroxide 400 MG/5ML suspension Commonly known as: Milk of Magnesia metoclopramide 5 MG/5ML solution Commonly known as: Reglan nitroglycerin 0.4 MG SL tablet Commonly known as: Nitrostat pantoprazole 40 MG EC tablet Commonly known as: ProtoNix Take 1 tablet (40 mg) by mouth 2 times daily. Do not crush, chew, or split. pyridoxine 100 MG tablet Commonly known as: B-6 sennosides 8.6 MG tablet Commonly known as: Senokot sertraline 50 MG tablet Commonly known as: Zoloft * This list has 2 medication(s) that are the same as other medications prescribed for you. Read thedirections carefully, and ask your doctor or other care provider to review them with you. DIET: Adult diet Dysphagia - Pureed; Mildly Thick ([place]) ACTIVITY: No restriction. COMPLEXITY OF FOLLOW UP: [x] Moderate Complexity: follow up within 7-14 calendar days (66848) [] Severe Complexity: follow up within 7 calendar days (09447) FOLLOW UP TESTING, PENDING RESULTS OR REFERRALS AT TRANSITIONAL CARE VISIT: [] Yes [x] No PENDING STUDIES: NA DISPOSITION: Skilled Facility FACILITY/HOME CARE AGENCY NAME: [facility] Follow up with PCP INSTRUCTIONS TO MA/SW: Please call patient on day after discharge (must document patient contacted within 2 business days of discharge). FOLLOW UP QUESTIONS FOR MA/SW: 1. Did you get medications filled and taking them as instructed from discharge? 2. Are you following your discharge instructions from your hospital stay? 3. Please confirm patient is scheduled for a follow up appointment within the above time frame. DISCHARGE TIME: > 30 minutes SIGNED: JACINTO OLIVAS CNP 12/28/2022, 1:21 PM documented in this [facility]04-15-2023 NoteHospitalist Progress Note 12/28/2022 [phone]: Please page me ([phone]) for patient care issues. [phone]: Please page [facility] Hospitalist for any issues. Subjective: Admit Date: 12/25/2022 PCP: Provider Not In System Room#: B1-152/B1-152 A Interval History: No overnight issues. Bowel regimen was held this morning as patient had 7-8 BM overnight. He he feels good and is not having any abdominal pain. He is tolerating TF and is taking PO with no issues. Denies chest pain, sob, abdominal pain, nausea, vomiting, diarrhea, constipation, fevers, or chills. Adult diet Dysphagia - Pureed; Mildly Thick ([place]) @[id number]@ 24HR INTAKE/OUTPUT: No intake or output data in the 24 hours ending 12/28/22 0936 Past Medical History: Past Medical History: Diagnosis Date Alcohol abuse Anxiety Cancer (CMS/HCC) (HCC) Chronic kidney disease Dementia (HCC) Depression Dysphagia Hypertension LABS: CBC: Recent Labs 12/25/22 1342 12/26/22 0651 WBC 6.6 5.9 RBC 4.19* 3.67* HGB 11.3* 10.0* HCT 35.2* 30.7* MCV 84.0 83.5 RDW 18.5* 18.5* PLT 240 201 BMP: Recent Labs 12/26/22 0432 12/26/22 0651 12/26/22 2320 NA 137 138 138 K 4.8 4.9 4.1 CL 106 109* 110* CO2 27 27 25 BUN 28* 27* 22* CREATININE 1.12 1.10 1.05 GLUCOSE 75 75 94 CALCIUM 9.0 9.0 9.0 ANIONGAP 4 1* 3 LIVER PROFILE: Recent Labs 12/25/22 1342 12/26/22 0432 AST 58* 43 ALT 26 25 BILITOT 0.8 0.6 ALKPHOS 107 111 PROT 8.3* 7.1 PT/INR: No results for input(s): PROTIME, INR in the last 72 hours. CARDIAC ENZYMES: No results for input(s): TROPONINI in the last 72 hours. Procalcitonin: Lab Results Component Value Date PROCAL 0.05 12/26/2022 COVID-19 PCR: No results for input(s): COVID19 in the last 72 hours. Objective: Vitals: BP 134/77 (BP Location: Left arm, Patient Position: Lying) Pulse 70 Temp 36.4 ?C (97.5 ?F) (Temporal) Resp 17 Ht 6' (1.829 m) SpO2 97% BMI 25.43 kg/m? Pulse Ox: SpO2 Av.5 % Min: 97 % Max: 98 % Supplemental O2: General appearance: alert male patient lying in bed in NAD, cooperative HEENT: Normal cephalic, atraumatic without obvious deformity. Pupils equal, round, and reactive to light. Extra ocular muscles intact. Conjunctivae/corneas clear. Neck: Supple, with full range of motion. Trachea midline. No lymphadenopathy. Respiratory: Normal respiratory effort at rest . Mild scattered rhonchi throughout Cardiovascular: Regular rate and rhythm with normal S1/S2 without murmurs, rubs or gallops. Abdomen: Soft, non-tender, non-distended with normal bowel sounds. No rebound or guarding. PEG site patent without s/s of infection, no drainage no erythema around site Musculoskeletal: LIMA, weakness in BUE and BLE equal Skin: Skin color, texture, turgor normal. No rashes or lesions. Neurologic:patient with global weakness, grossly intact and non focal Medications: dextrose 5 % and sodium chloride 0.9 %, 75 mL/hr, Last Rate: 75 mL/hr (12/28/22413) amLODIPine, 2.5 mg, Per G Tube, Daily aspirin, 81 mg, Oral, Daily atorvastatin, 40 mg, Per G Tube, Daily baclofen, 10 mg, Per G Tube, BID docusate, 100 mg, Oral, BID enoxaparin, 30 mg, SubCUTAneous, Daily famotidine, 20 mg, Oral, Daily isosorbide dinitrate, 10 mg, Per G Tube, TID lactulose, 20 g, Per G Tube, Daily sennosides, 2 tablet, Per G Tube, Daily sertraline, 75 mg, Per G Tube, Daily Assessment Constipation- resolved PEG- CT confirmed in correct placement, ok to use , Isosource 55/hr w/ 200 ml free water Q4 Hx of stomach Ca- s/p antrectomy and PEG CKD ll- baseline Dementia - appears baseline Dysphagia- pureed /nectar thick HTN- continue amlodipine 2.5 daily, Medical Decision Making Patient having Bms, tolerating TF and PO, no complaints, surgery has signed off, patient is stable for discharge back to SNF -am labs, replace lytes prn -increase activity -DVT prophylaxis: [] Lovenox [] Heparin [] SCDs [x] Encourage ambulation [] Already on Anticoagulation Anticipated Discharge - Date - 12/28 - Location - Skilled Facility - Pending the following - stable for discharge Total time spent (which include face to face and non face to face encounters) : 35 minutes Ordering treatments and interventions, ordering and review of laboratory studies, ordering and review of radiographic studies, pulse oximetry, re-evaluation of patient's condition, review of old charts, development of treatment plan with patient or surrogate, discussions with consultants, evaluation of patient's response to treatment and examination of patient Toxic drug monitoring/narrow therapeutic index drug monitoring : # Drug name : # Route administered : # Method of monitoring : Extended Emergency Contact Information Primary Emergency Contact: Teresa Olea Mobile Relation: Scott MONTEMAYOR APRN - CYBER THREAT ANALYST Division of Hospitalist (more content not included)...[facility] 12-28-2022 Note* Care Coordination - Anyi Bartlett RN - 12/28/2022 8:58 AM EDT Did update primary care nurse and attending that patient is bed hold and [facility] . [facility] [id number] Note* Care Coordination - Anyi Bartlett RN - 12/28/2022 8:58 AM EDT Did update primary care nurse and attending that patient is bed hold and can return to [facility] this weekend. . [place] [id number] Miscellaneous Notes* Care Coordination - Anyi Bartlett RN - 12/28/2022 8:58 AM EDT Did update primary care nurse and attending that patient is bed hold and can return to [facility] this weekend. . * Care Coordination - Anyi Bartlett RN - 12/28/2022 6:41 AM EDT Patient is bedhold at [facility] and can return to facility whenever medically stable. Will need dc order, laura completed, covid test, report called to [phone]. [place] [employer] to arranged transport. Nursing will need to notify patient and family of discharge and time of transport. Will update day shift later this morning. . * Care Plan - Huseyin Campo RN - 12/28/2022 2:18 AM EDT Problem: Potential for Compromised Skin Integrity Goal: Skin Integrity is Maintained or Improved Outcome: Progressing * Care Plan - Leanna Prasad RN - 12/27/2022 5:03 PM EDT Problem: Potential for Compromised Skin Integrity Goal: Skin Integrity is Maintained or Improved Outcome: Progressing Problem: Urinary Incontinence Goal: Perineal skin integrity is maintained or improved Outcome: Progressing Problem: Problem Interventions Goal: Promote nutritional intake Outcome: Progressing Problem: Problem Interventions Goal: Nutrition Support Outcome: Progressing * Care Coordination - Kaylee Bright RN - 12/27/2022 11:56 AM EDT Care Managment Initial Assessment Date: 12/27/2022 Patient Name: Berto Parkinson : 1935 Patient Information Source of Information: Patient Superintendent Pressure Name/Contact Information: [facility] staff Cognition/Language: Impaired (nonverbal) Permission given to speak with patient quality assurance representative/caregiver as indicated: Yes Confirmation of Payer with patient/family: Yes Payer Name: [place] : No Confirmation of Primary Care Physician: Confirmed PCP Name: Lexis Seen in last 2 years?: Yes (at facility) Primary Caregiver: Other (Comment) ([facility] staff) If assistance needed, confirmed caregiver ready, willing and able to care for patient at discharge:Yes Confirmed with: [facility] staff Living Arrangements Current Residence: ([facility]) Number of Floors Number of Entry Steps: Bed/Bath Levels: Facility: Halfway/Residental Care Facility Name: [facility] Plan to Return: Yes Lives with: Other (Comment) ([facility]) Support Systems: Children Activities of Daily Living Ambulation: Total Care Bathing/Dressing: Total Care Elimination/Continence/Toileting: Total Care Feeding: Assistance (CLD and PEG) Who Assists with Activities of Daily Living: [facility] staff Instrumental Activities of Daily Living Prescription Coverage: Yes Pharmacy Used: [facility] provides medications Medication Management: Transportation/Shopping: Assistance Provider Transportation Mode: Senior/disability transport service Needs Assistance with Transportation at Discharge: Yes (will arrange transportation) Meal Preparation: Assistance Provider Meal Prep Assistance Provider Name: [facility] Laundry/Cleaning: Assistance Provider Laundry/Cleaning Assistance Provider Name: [facility] Finances/Bill Paying: Assistance Provider Finances/Bill Payer Assistance Provider Name: [facility] Communication: Assistance (call light at facility) Types of Care Services/Equipment Utilized Care Services: (alf resident) Dialysis Type: Durable Medical Equipment: Wheelchair (standard or power), Megan Lift Patient's Goal/Discharge Plan Patient expects to be discharged to: [facility] Discharge Planning Actions: Continue to follow Patient's Choice Rights and [employer] and Collaborative Relationships Disclosed as Indicated for Post-Acute Care: NA Interdisciplinary Team Engagement: PT/OT Social Work Referral for: Additional Information: 87 yo male admitted to [address] [facility] for constipation and leakage around PEG tube.Gen surg following, pt successfully had a BM on 12/26/22. Pt is a bedhold at [facility], able to return when medically stable. Megan lift at baseline, follows a clear liquid diet and PEG tube feedings at facility. Weekend CM tasked to follow, weekend DC forms placed on chart. TCC to assist and followas needed. Kaylee Bright RN * Care Coordination - Hoda Flores - 12/27/2022 8:09 AM EDT Referral placed to [facility] per TCC request. Await review and response regarding ability to accept. TCC notified. 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 * Care Plan - Huseyin Campo RN - 12/27/2022 6:00 AM EDT Problem: Potential for Compromised Skin Integrity Goal: Skin Integrity is Maintained or Improved Outcome: Progressing documented in this [facility]04-15-2023 Note* Care Coordination - Anyi Bartlett RN - 12/28/2022 6:41 AM EDT Patient is bedhold at [facility] and can return to facility whenever medically stable. Will need dc order, laura completed, covid test, report called to [phone]. [place] to arranged transport. Nursing will need to notify patient and family of discharge and time of transport. Will update day shift later this morning. . [facility] [id number] Note* Care Coordination - Anyi Bartlett RN - 12/28/2022 6:41 AM EDT Patient is bedhold at [facility] and can return to facility whenever medically stable. Will need dc order, laura completed, covid test, report called to [phone]. [place] to arranged transport. Nursing will need to notify patient and family of discharge and time of transport. Will update day shift later this morning. . [facility] [id number] NoteProblem: Potential for Compromised Skin Integrity Goal: Skin Integrity is Maintained or Improved Outcome: [facility]04-15-2023 Plan of care note* Care Plan - Huseyin Campo RN - 12/28/2022 2:18 AM EDT Problem: Potential for Compromised Skin Integrity Goal: Skin Integrity is Maintained or Improved Outcome: Progressing [facility] [id number] Plan of care note* Care Plan - Leanna Prasad RN - 12/27/2022 5:03 PM EDT Problem: Potential for Compromised Skin Integrity Goal: Skin Integrity is Maintained or Improved Outcome: Progressing Problem: Urinary Incontinence Goal: Perineal skin integrity is maintained or improved Outcome: Progressing Problem: Problem Interventions Goal: Promote nutritional intake Outcome: Progressing Problem: Problem Interventions Goal: Nutrition Support Outcome: Progressing [facility] [id number] Hospital Discharge instructions* Discharge Instr - LAURA* Leanna Prasad RN - 12/27/2022 12:02 PM EDT Continuity of Care Form Patient Name: Berto Parkinson : 1935 Admit date: 12/25/2022 Discharge date: [id number] Code Status Order: DNR-CCA Advance Directives: N Admitting Physician: Dominick Rosales MD PCP: Provider Not In System Discharging Nurse: Leanna Discharging Hospital Unit/Room#: B1-152/B1-152 A Discharging Unit Emergency Contact: Extended Emergency Contact Information Primary Emergency Contact: Teresa Olea Mobile Relation: Child Past Surgical History: History reviewed. No pertinent surgical history. Immunization History: Immunization History Administered Date(s) Administered Covid-19, Pfizer Bivalent Booster, (Age 12y+), Im, 30 Mcg/0e 07/04/2022 Pfizer SARS-CoV-2 Vaccination 10/31/2020, 07/04/2021, 01/17/2022 Active Problems: Medical Problems Problem List * (Principal) Constipation, unspecified constipation type Acute hypoxemic respiratory failure (HCC) Irritation around percutaneous endoscopic gastrostomy (PEG) tube site (HCC) Isolation/Infection: No active isolations No active infections Nurse Assessment: Last Vital Signs: BP (!) 151/80 Pulse 76 Temp 37.1 C (98.7 F) (Temporal) Resp 22 SpO2 97% Last documented pain score (0-10 scale): Last Weight: Wt Readings from Last 1 Encounters: 11/14/22 85 kg (187 lb 8 oz) Mental Status: LAURA Patient Mental Status: alert and Disoriented at times, YASEMIN true cognition IV Access: LAURA IV Access: None Nursing Mobility/ADLs: Walking Total assistance Transfer Total assistance Bathing Total assistance Dressing Total assistance Toileting Total assistance Feeding Total assistance Pattern Clerk Total assistance Med Delivery yes Wound Care Documentation and Therapy: Wound/Incision 11/16/22 Traumatic Pretibial Left (Active) Number of days: 41 Wound/Incision 11/16/22 Heel Right (Active) Number of days: 41 Elimination: Continence: Bowel: no Bladder: no Urinary Catheter: None Colostomy/Ileostomy/Ileal Conduit: None Date of Last BM: 12/28/2022 No intake or output data in the 24 hours ending 12/27/22 1158 No intake/output data recorded. 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 (Isosource ordered but is unavailable here) Routes of Feeding: oral and gastrostomy tube Liquids: honey thick liquids Daily Fluid Restriction: no Last Modified Barium Swallow with Video (Video Swallowing Test): not done Treatments at the Time of Hospital Discharge: Respiratory Treatments: n/a Oxygen Therapy: is not on home oxygen therapy. Ventilator: No ventilator support Rehab Therapies: none Weight Bearing Status/Restrictions: Bedbound/megan lift Other Medical Equipment (for information only, NOT a DME order): Hospital Bed Other Treatments: yankeur suction as needed Patient's personal belongings (please select all that are sent with patient): none RN SIGNATURE: MANAGEMENT/SOCIAL WORK SECTION Inpatient Status Date: 12/25/2022 Readmission Risk Assessment Score: @READMISSIONRISKDETAILS@ Discharging to Facility/ Agency Name: [facility] Address: [address] [place] [address], [place] [address] Hours: Open 24 hours Dialysis Facility (if applicable) Name: Address: Dialysis Schedule: Phone: Fax: Handbook Writer/Patient Services Clerk signature: ICIAN SECTION Prognosis: fair Condition at Discharge: stable Rehab Potential (if transferring to Rehab): fair Recommended Labs or Other Treatments After Discharge: Physician Certification: I certify the above information and transfer of Berto Parkinson is necessary forthe continuing treatment of the diagnosis listed and that he requires [facility] for greater than 30 days. Update Admission H&P: No change in H&P PHYSICIAN SIGNATURE: documented in this [facility]04-14-2023 Note* Care Coordination - Kaylee Bright RN - 12/27/2022 11:56 AM EDT Care Managment Initial Assessment Date: 12/27/2022 Patient Name: Berto Parkinson : 1935 Patient Information Source of Information: Patient Superintendent Pressure Name/Contact Information: [facility] staff Cognition/Language: Impaired (nonverbal) Permission given to speak with patient quality assurance representative/caregiver as indicated: Yes Confirmation of Payer with patient/family: Yes Payer Name: [place]: No Confirmation of Primary Care Physician: Confirmed PCP Name: Lexis Seen in last 2 years?: Yes (at facility) Primary Caregiver: Other (Comment) ([facility] staff) If assistance needed, confirmed caregiver ready, willing and able to care for patient at discharge:Yes Confirmed with: [facility] staff Living Arrangements Current Residence: ([facility]) Number of Floors Number of Entry Steps: Bed/Bath Levels: Facility: Halfway/Residental Care Facility Name: [facility] Plan to Return: Yes Lives with: Other (Comment) ([facility]) Support Systems: Children Activities of Daily Living Ambulation: Total Care Bathing/Dressing: Total Care Elimination/Continence/Toileting: Total Care Feeding: Assistance (CLD and PEG) Who Assists with Activities of Daily Living: [facility] staff Instrumental Activities of Daily Living Prescription Coverage: Yes Pharmacy Used: [facility] provides medications Medication Management: Transportation/Shopping: Assistance Provider Transportation Mode: Senior/disability transport service Needs Assistance with Transportation at Discharge: Yes (will arrange transportation) Meal Preparation: Assistance Provider Meal Prep Assistance Provider Name: [facility] Laundry/Cleaning: Assistance Provider Laundry/Cleaning Assistance Provider Name: [facility] Finances/Bill Paying: Assistance Provider Finances/Bill Payer Assistance Provider Name: [facility] Communication: Assistance (call light at facility) Types of Care Services/Equipment Utilized Care Services: (terminal manager resident) Dialysis Type: Durable Medical Equipment: Wheelchair (standard or power), Megan Lift Patient's Goal/Discharge Plan Patient expects to be discharged to: [facility] Discharge Planning Actions: Continue to follow Patient's Choice Rights and [employer] and Collaborative Relationships Disclosed as Indicated for Post-Acute Care: NA Interdisciplinary Team Engagement: PT/OT Social Work Referral for: Additional Information: 87 yo male admitted to [address]E [address] [facility] for constipation and leakage around PEG tube.Gen surg following, pt successfully had a BM on 12/26/22. Pt is a bedhold at [facility], able to return when medically stable. Megan lift at baseline, follows a clear liquid diet and PEG tube feedings at facility. Weekend CM tasked to follow, weekend DC forms placed on chart. TCC to assist and followas needed. Kaylee Bright RN [facility] [id number] Note* Care Coordination - Kaylee Bright RN - 12/27/2022 11:56 AM EDT Care Managment Initial Assessment Date: 12/27/2022 Patient Name: Berto Parkinson : 1935 Patient Information Source of Information: Patient Superintendent Pressure Name/Contact Information: [facility] staff Cognition/Language: Impaired (nonverbal) Permission given to speak with patient quality assurance representative/caregiver as indicated: Yes Confirmation of Payer with patient/family: Yes Payer Name: Meli : No Confirmation of Primary Care Physician: Confirmed PCP Name: Lexis Seen in last 2 years?: Yes (at facility) Primary Caregiver: Other (Comment) ([facility] staff) If assistance needed, confirmed caregiver ready, willing and able to care for patient at discharge:Yes Confirmed with: [facility] staff Living Arrangements Current Residence: ([facility]) Number of Floors Number of Entry Steps: Bed/Bath Levels: Facility: Halfway/Residental Care Facility Name: [facility] Plan to Return: Yes Lives with: Other (Comment) ([facility]) Support Systems: Children Activities of Daily Living Ambulation: Total Care Bathing/Dressing: Total Care Elimination/Continence/Toileting: Total Care Feeding: Assistance (CLD and PEG) Who Assists with Activities of Daily Living: [facility] staff Instrumental Activities of Daily Living Prescription Coverage: Yes Pharmacy Used: [facility] provides medications Medication Management: Transportation/Shopping: Assistance Provider Transportation Mode: Senior/disability transport service Needs Assistance with Transportation at Discharge: Yes (will arrange transportation) Meal Preparation: Assistance Provider Meal Prep Assistance Provider Name: [facility] Laundry/Cleaning: Assistance Provider Laundry/Cleaning Assistance Provider Name: [facility] Finances/Bill Paying: Assistance Provider Finances/Bill Payer Assistance Provider Name: [facility] Communication: Assistance (call light at facility) Types of Care Services/Equipment Utilized Care Services: (terminal manager resident) Dialysis Type: Durable Medical Equipment: Wheelchair (standard or power), Megan Lift Patient's Goal/Discharge Plan Patient expects to be discharged to: [facility] Discharge Planning Actions: Continue to follow Patient's Choice Rights and [employer] and Collaborative Relationships Disclosed as Indicated for Post-Acute Care: NA Interdisciplinary Team Engagement: PT/OT Social Work Referral for: Additional Information: 87 yo male admitted to [address]E [address] [facility] for constipation and leakage around PEG tube.Gen surg following, pt successfully had a BM on 12/26/22. Pt is a bedhold at [facility], able to return when medically stable. Megan lift at baseline, follows a clear liquid diet and PEG tube feedings at facility. Weekend CM tasked to follow, weekend DC forms placed on chart. TCC to assist and followas needed. Kaylee Bright RN [facility] [id number] NoteHospitalist Progress Note 12/27/2022 [phone]: Please page me ([phone]) for patient care issues. [phone]: Please page [facility] night Hospitalist for any issues. Subjective: Admit Date: 12/25/2022 PCP: Provider Not In System Room#: B1-152/B1-152 A Interval History: No overnight issues.Patient had BM last night and is currently getting bowel medications. PEG ok to use per surgery and ok to restart diet. Patient is denying any current pain. Denies chest pain, sob, abdominal pain, nausea, vomiting, diarrhea, constipation, fevers, or chills. The pt suspected malfunctioning Peg Tube with bilious drainage at the site. The pt has a PEG tube 2/2 h/o dysphagia, achalasia. He was seen in the ED with a CT of abd and pelvis completed showing no acute issues but was found to have significant fecal burden with impaction. A disimpaction was attempted but felt that fecal impaction was too high to reach. General surgery was consulted. NPO diet @[id number]@ 24HR INTAKE/OUTPUT: No intake or output data in the 24 hours ending 12/27/22 0928 Past Medical History: Past Medical History: Diagnosis Date Alcohol abuse Anxiety Cancer (CMS/HCC) (HCC) Chronic kidney disease Dementia (HCC) Depression Dysphagia Hypertension LABS: CBC: Recent Labs 12/25/22 1342 12/26/22 0651 WBC 6.6 5.9 RBC 4.19* 3.67* HGB 11.3* 10.0* HCT 35.2* 30.7* MCV 84.0 83.5 RDW 18.5* 18.5* PLT 240 201 BMP: Recent Labs 12/26/22 0432 12/26/22 0651 12/26/22 2320 NA 137 138 138 K 4.8 4.9 4.1 CL 106 109* 110* CO2 27 27 25 BUN 28* 27* 22* CREATININE 1.12 1.10 1.05 GLUCOSE 75 75 94 CALCIUM 9.0 9.0 9.0 ANIONGAP 4 1* 3 LIVER PROFILE: Recent Labs 12/25/22 1342 12/26/22 0432 AST 58* 43 ALT 26 25 BILITOT 0.8 0.6 ALKPHOS 107 111 PROT 8.3* 7.1 PT/INR: No results for input(s): PROTIME, INR in the last 72 hours. CARDIAC ENZYMES: No results for input(s): TROPONINI in the last 72 hours. Procalcitonin: Lab Results Component Value Date PROCAL 0.05 12/26/2022 COVID-19 PCR: No results for input(s): COVID19 in the last 72 hours. Objective: Vitals: BP (!) 151/80 Pulse 76 Temp 37.1 ?C (98.7 ?F) (Temporal) Resp 22 SpO2 97% Pulse Ox: SpO2 Av.8 % Min: 96 % Max: 98 % Supplemental O2: General appearance: Elderly male lying in bed in NAD, he is able to answer yes/no questions, speech is garbled HEENT: Normal cephalic, atraumatic without obvious deformity. Pupils equal, round, and reactive to light. Extra ocular muscles intact. Conjunctivae/corneas clear. Neck: Supple, with full range of motion. Trachea midline. No lymphadenopathy. Respiratory: Normal respiratory effort at rest . Mild scattered rhonchi throughout lung garcia Cardiovascular: Regular rate and rhythm with normal S1/S2 without murmurs, rubs or gallops. Abdomen: Soft, non-tender, mildly distended with normal bowel sounds. No rebound or guarding. PEG site WNL Musculoskeletal: LIMA, Weak in all extremities Skin: Skin color, texture, turgor normal. No rashes or lesions. Neurologic: Neurovascularly intact without any focal sensory/motor deficits. Cranial nerves: II-XII intact, grossly non-focal. Medications: dextrose 5 % and sodium chloride 0.9 %, 125 mL/hr, Last Rate: 125 mL/hr (12/26/22 1804) amLODIPine, 2.5 mg, Per G Tube, Daily aspirin, 81 mg, Oral, Daily atorvastatin, 40 mg, Per G Tube, Daily baclofen, 10 mg, Per G Tube, BID docusate, 100 mg, Oral, BID enoxaparin, 30 mg, SubCUTAneous, Daily famotidine, 20 mg, Oral, Daily isosorbide dinitrate, 10 mg, Per G Tube, TID lactulose, 20 g, Per G Tube, Daily sennosides, 2 tablet, Per G Tube, Daily sertraline, 75 mg, Per G Tube, Daily Assessment Constipation- continue bowel regimen with daily suppository, general surgery following PEG- CT confirmed in correct placement, ok to use , Isosource 55/hr w/ 200 ml free water Q4 Hx of stomach Ca- s/p antrectomy and PEG CKD ll- baseline Dementia - appears baseline Dysphagia- pureed /nectar thick HTN- continue amlodipine 2.5 daily, Medical Decision Making Patient had bowel movement 12/26, cleared to resume diet and TF , will restart TF at 20 progressing to baseline of 55 ml/hr, will modify IVF to 75 -am labs, replace lytes prn -increase activity -DVT prophylaxis: [] Lovenox [] Heparin [] SCDs [x] Encourage ambulation [] Already on Anticoagulation Anticipated Discharge - Date - 12/28 - Location - Skilled Facility - Pending the following - tolerating diet and bowels continue to move normally Total time spent (which include face to face and non face to face encounters) : 35 minutes Ordering treatments and interventions, ordering and review of laboratory studies, ordering and review of radiographic studies, pulse oximetry, re-evaluation of patient's condition, review of old charts, development of treatment plan with patient or surrogate, discussions with consultants, evaluation (more content not included)...[facility]04-14-2023 Note Referral placed to return back to [facility] via [facility] per [facility] request. Await review and response regarding ability to accept. TCC notified. [facility]04-14-2023 NotePt is a alf resident at [facility]04-14-2023 Note* Care Coordination - Hoda Flores - 12/27/2022 8:09 AM EDT Referral placed to return back to [facility] via [facility] per [facility] request. Await review and response regarding ability to accept. TCC notified. [place] [id number] Note* Care Coordination - Hoda Flores - 12/27/2022 8:09 AM EDT Referral placed to return back to [facility] via [facility] per [facility] request. Await review and response regarding ability to accept. TCC notified. [place] [id number] NoteProblem: Potential for Compromised Skin Integrity Goal: Skin Integrity is Maintained or Improved Outcome: [facility]04-14-2023 Note* Care Coordination - Kaylee Bright RN - 12/27/2022 7:37 AM EDT Pt is a alf resident at [facility], [facility] tasked to send return referral in [facility]. [id number] Note* Care Coordination - Kaylee Bright RN - 12/27/2022 7:37 AM EDT Pt is a alf resident at [facility], [facility] tasked to send return referral in [facility]. [facility] [id number] Plan of care note* Care Plan - Huseyin Campo RN - 12/27/2022 6:00 AM EDT Problem: Potential for Compromised Skin Integrity Goal: Skin Integrity is Maintained or Improved Outcome: Progressing [facility] [id number] NoteHospitalist Progress Note 12/26/2022 [phone]: Please page me ([phone]) for patient care issues. [phone]: Please page [facility] Consulting Hospitalist for any issues. Subjective: Admit Date: 12/25/2022 PCP: Provider Not In System Room#: Interval History: Patient hospitalized to Hospital service on date noted above. Pt was brought in by his LTCF 2/2 not acting right; abd pain and N&V. The pt suspected malfunctioning Peg Tube with bilious drainage at the site. The pt has a PEG tube 2/2 h/o dysphagia, achalasia. He was seen in the ED with a CT of abd and pelvis completed showing no acute issues but was found to have significant fecal burden with impaction. A disimpaction was attempted but felt that fecal impaction was too high to reach. General surgery was consulted. 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 Currently the pt is in the ED. He is awake and follows simple commands. Verbal with muffled verbiage, able to carry on a brief conversation. Mostly yes and no answers. He asked where his shoes were. He is oriented to self did know he was in the hospital. Unable to tell me his , current month or year. Hypopigmented areas noted to BLE anterior tibial areas. Admits to abd pain. NPO diet @[id number]@ 24HR INTAKE/OUTPUT: Intake/Output Summary (Last 24 hours) at 12/26/2022 1351 Last data filed at 12/25/2022 1511 Gross per 24 hour Intake 1000 ml Output -- Net 1000 ml Past Medical History: Past Medical History: Diagnosis Date Alcohol abuse Anxiety Cancer (CMS/HCC) (HCC) Chronic kidney disease Dementia (HCC) Depression Dysphagia Hypertension LABS: CBC: Recent Labs 12/25/22 1342 12/26/22 0651 WBC 6.6 5.9 RBC 4.19* 3.67* HGB 11.3* 10.0* HCT 35.2* 30.7* MCV 84.0 83.5 RDW 18.5* 18.5* PLT 240 201 BMP: Recent Labs 12/25/22 1342 12/26/22 0432 12/26/22 0651 NA 136 137 138 K 4.8 4.8 4.9 CL 104 106 109* CO2 28 27 27 BUN 33* 28* 27* CREATININE 1.02 1.12 1.10 GLUCOSE 116* 75 75 CALCIUM 9.4 9.0 9.0 ANIONGAP 5 4 1* LIVER PROFILE: Recent Labs 12/25/222 12/26/22 0432 AST 58* 43 ALT 26 25 BILITOT 0.8 0.6 ALKPHOS 107 111 PROT 8.3* 7.1 Component Latest Ref Rng & Units 11/14/2022 11/15/2022 11/16/2022 11/17/2022 11/18/2022 eGFR >60.0 mL/min/1.73m*2 59.3 (L) 61.7 65.1 72.0 72.9 Component Latest Ref Rng & Units 11/19/2022 11/20/2022 12/25/2022 12/26/2022 4:32 AM eGFR >60.0 mL/min/1.73m*2 72.9 70.4 72.0 64.4 Component Latest Ref Rng & Units 12/26/2022 6:51 AM eGFR >60.0 mL/min/1.73m*2 65.8 PT/INR: No results for input(s): PROTIME, INR in the last 72 hours. CARDIAC ENZYMES: No results for input(s): TROPONINI in the last 72 hours. Procalcitonin: Lab Results Component Value Date PROCAL 0.05 12/26/2022 COVID-19 PCR: No results for input(s): COVID19 in the last 72 hours. Objective: Vitals: BP (!) 141/73 Pulse 61 Temp 36.7 ?C (98 ?F) (Temporal) Resp 18 SpO2 96% Pulse Ox: SpO2 Av.3 % Min: 92 % Max: 100 % General: Chronically ill appearing, NAD, vital signs noted Cardiac: Regular heart rate and rhythm no murmurs appreciated on auscultation Pulmonary: Scattered rhonchi bilaterally, with poor cough. Abdomen: mild distension with hypoactive bs, PEG tube in place, no drain noted around insertion site Skin: W&D, hypopigmented areas on anterior aspect of BLE, no open wounds, BUE, BLE with muscle loss, generalized weakness of BUE, BLE. Very long fingernails Neurologic: Alert with no focal findings Psychiatric: Cooperative and appropriate exam otherwise unremarkable Medications: dextrose 5 % and sodium chloride 0.9 %, 125 mL/hr, Last Rate: 125 mL/hr (12/26/22 0540) amLODIPine, 2.5 mg, Per G Tube, Daily aspirin, 81 mg, Oral, Daily atorvastatin, 40 mg, Per G Tube, Daily baclofen, 10 mg, Per G Tube, BID bisacodyl, 10 mg, Rectal, Once docusate, 100 mg, Oral, BID enoxaparin, 30 mg, SubCUTAneous, Daily famotidine, 20 mg, Oral, Daily isosorbide dinitrate, 10 mg, Per G Tube, TID sennosides, 2 tablet, Per G Tube, Daily sertraline, 75 mg, Per G Tube, Daily Assessment Acute, acute on chronic, unstable/uncontrolled chronic problems/diagnoses: Abdominal pain Suspect malfunctioning Peg Tube Significant fecal burden Stable chronic problems affecting care, new non-acute diagnoses: H/o stomach cancer s/p 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 Soft mushy brown stool noted. Will continue bowel regiment. Hold Peg Tube feedings and oral feedings until BM occurs. Continue IV fluids. Monit (more content not included)...[facility]04-13-2023 Emergency department Note* Dora Abrams RN - 12/26/2022 11:05 AM EDT Gen surgery on unit to see pt Dora Abrams RN 12/26/22 [address] [place] [id number] Emergency department Note* Dora Abrams RN - 12/26/2022 11:05 AM EDT Gen surgery on unit to see pt Dora Abrams RN 12/26/22 1105 * Dora Abrams RN - 12/26/2022 10:35 AM EDT Attending CUSHION ASSEMBLER her to assess pt Dora Abrams RN 12/26/22 1108 * Dora Abrams RN - 12/26/2022 9:15 AM EDT General surgery her to assess pt Dora Abrams RN 12/26/22 1106 * Natasha Fernandez RN - 12/25/2022 11:[address] Rosales notified and aware of rhochi heard with patient breathing, SPO2 94% RA. Per daughter, pt has difficult time swallowing sputum and senior care suctions secretions out with yankeur, update given to Steve Fernandez RN 12/25/22 8514 * Natasha Fernandez RN - 12/25/2022 11:[address] Rosales notified and aware of pt BP 154/104 at this time. Natasha Fernandez RN 12/25/22 0575 * Natasha Fernandez RN - 12/25/2022 11:13 PM EDT Report given to steve ROY at this time Natasha Fernandez RN 12/25/223 * Natasha Fernandez RN - 12/25/2022 10:02 PM EDT This RN changed dressing around peg tube at this time, this RN used cut gauze pads around site and paper tape, dated and timed for now, pt still has moderate amount of bile leakage from site, placement was confirmed by CT scan per dr tiana Fernandez RN 12/25/222202 * Natasha Fernandez RN - 12/25/2022 8:24 PM EDT Pt incontinent of urine at this time, this RN placed patient in new gown and changed bed with assistance from dimitri loyola., pt repositioned onto R side at this time with pillow in place Natasha Fernandez RN 12/25/222024 * Natasha Fernandez RN - 12/25/2022 4:58 PM EDT This RN and raul ROY attempted to complete soap suds enema on patient, enema would not flow intopatient's rectum, provider notified, provider attempted fecal disimpaction, this RN as the witness,no new orders at this time. Natasha Fernandez RN 12/25/22 1659 * HILDA Mae - 12/25/2022 4:23 PM EDT Guided family back HILDA Mae 12/25/22 1623 * Natasha Fernandez RN - 12/25/2022 3:02 PM EDT Pt resting in bed at this time, eyes closed, RR 18, pt appears to be more comfortable after zofran and fentanyl per daughter who is at bedside. Per daughter, she states pt is incontinent and unable to communicate the urge to urinate. Natasha Fernandez RN 12/25/22 1503 * Natasha Fernandez RN - 12/25/2022 1:24 PM EDT Upon assessment, PEG tube is leaking yellow bile like fluid, moderate amount, patient seems to be uncomfortable and nauseous, able to nod yes and no but patient is nonverbal. Unable to assess pain numerically and neurological status. Natasha Fernandez RN 12/25/22 1326 * Natasha Fernandez RN - 12/25/2022 1:10 PM EDT Pt presents with EMS, per facility, pt has PEG tube issues, recently replaced, facility states there is discharge around PEG tube site and patient is experiencing abdominal pain, pt is currently nonverbal but appears to be nauseous and in pain documented in this encounterSGeorgetown Behavioral [id number] Emergency department Note* Dora Abrams RN - 12/26/2022 10:35 AM EDT Attending CUSHION ASSEMBLER her to assess pt Dora Abrams RN 12/26/22 1101 [facility] [id number] Consult note* Denis Logan MD - 12/26/2022 9:44 AM EDTAssociated Order(s): IP CONSULT TO GENERAL SURGERY Images from the original note were not included. [facility] - Surgery [facility] Physicians Surgery Patient Name: Berto Parkinson Date: 12/26/2022 Patient seen and examined by myself and I agree with GINGER note below Patient resting in bed and appears comfortable he is nonverbal which is essentially baseline for him Abdomen soft nontender nondistended Rectal exam soft stool in vault Labs and imaging reviewed Assessment /Plan: Constipation continue with stool softeners and enemas PEG tube okay to use as CT confirms in proper location Patient counseled on risks,benefits, and alternatives of treatement plan at length. Patient states an understanding and willingness to proceed with plan. I personally supervised my GINGER and/or resident in the evaluation and management of Berto Parkinson in thedevelopment of a treatment plan for this patient. I personally interviewed the patient and performed an individual physical examination. In addition, I discussed the patient's condition and treatment options with them. I have also reviewed and agree with the past medical, family and social history and care plan unless otherwise noted. All of the patient's questions were answered. This case represents moderate level care including chart review, care coordination and face to faceencounter was spent discussing/counseling the patient regarding the care plan for this patient. Thepatient was seen and examined independently and relevant data reviewed by myself. A full chart review was performed. Denis Logan MD [facility] General Surgery 2:58 PM 12/26/2022 Department of General Surgery Consult PATIENT NAME: Berto Parkinson DATE OF : 1935 ADMISSION DATE: 12/25/2022 1:10 PM TODAY'S DATE: 12/26/2022 Reason for Consult: Leaking PEG tube, Constipation HISTORY OF PRESENT ILLNESS: The patient is a 87 y.o. male who presents from [facility] facility. Patient non verbal and unable to obtain HPI from patient. Majority of HPI obtained via chart and nursing. Patient sent in from Facility for abdominal pain and concern for malfunctioning PEG. Per notes reporting leaking around PEG site with bilious drainage. Noted abdominal pain, nausea and vomiting. When seeing patient he appeared comfortable resting in bed. CT abd/pelvis performed no abscess, obstruction or free air. Mention of constipation, rectal fecal impaction. MOM was given in ED. 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 Thoroughly reviewed the patient's medical history, family history, social history and review of systems with the patient today in the office. Please see medical record for pertinent positives. Past Medical History: Past Medical History: Diagnosis Date Alcohol abuse Anxiety Cancer (CMS/HCC) (HCC) Chronic kidney disease Dementia (HCC) Depression Dysphagia Hypertension Past Surgical History: History reviewed. No pertinent surgical history. Current Medications: Scheduled Meds:amLODIPine, 2.5 mg, Per G Tube, Daily aspirin, 81 mg, Oral, Daily atorvastatin, 40 mg, Per G Tube, Daily baclofen, 10 mg, Per G Tube, BID bisacodyl, 10 mg, Rectal, Once docusate, 100 mg, Oral, BID enoxaparin, 30 mg, SubCUTAneous, Daily famotidine, 20 mg, Oral, Daily isosorbide dinitrate, 10 mg, Per G Tube, TID sennosides, 2 tablet, Per G Tube, Daily sertraline, 75 mg, Per G Tube, Daily Continuous Infusions:dextrose 5 % and sodium chloride 0.9 %, 125 mL/hr, Last Rate: 125 mL/hr (12/26/22 0540) PRN Meds:.PRN medications: acetaminophen OR acetaminophen, bisacodyl, ondansetron ODT OR ondansetron, polyethylene glycol (PEG) 3350 Prior to Admission medications Medication Sig Start Date End Date Taking? Authorizing Provider acetaminophen (Tylenol) 325 MG tablet 650 mg by Per G Tube route every 6 hours as needed for mild pain (1-3). Historical Provider, amLODIPine (Norvasc) 2.5 MG tablet 2.5 mg by Per G Tube route daily. Historical Provider, aspirin 81 MG chewable tablet 81 mg daily. Historical Provider, atorvastatin (Lipitor) 40 MG tablet 40 mg by Per G Tube route daily. Historical Provider, baclofen (Lioresal) 10 MG tablet 10 mg by Per G Tube route 2 times daily. Historical Provider, bisacodyl (Dulcolax) 5 MG EC tablet Take 5 mg by mouth Daily as needed for constipation. Do not crush, chew, or split. Historical Provider, bisacodyl (Dulcolax) 5 mg split suppository Insert 10 mg into the rectum Daily as needed. Historical Provider, cyanocobalamin (Vitamin B-12) 1000 MCG tablet 1,000 mcg by Per G Tube route daily. Historical ProviderMD docusate (Colace) 50 MG/5ML liquid Take 100 mg by mouth 2 times daily. Ivory ProviderMD ergocalciferol (Vitamin D-2) 1.25 MG (60835 UT) capsule Take 1.25 mg by mouth 1 (one) time per week. On Mondays Ivory ProviderMD ferrous sulfate 325 (65 Fe) MG tablet Take 325 mg by mouth daily (with breakfast). Historical ProviderMD gabapentin (Neurontin) 300 MG capsule 300 mg by Per G Tube route 2 times daily. Historical ProviderMD hyoscyamine (Levsin) 0.125 MG/ML solution by Per G Tube route every 4 hours as needed (increased secretions). Historical ProviderMD ipratropium-albuterol (Duo-Neb) 0.5-2.5 mg/3 mL nebulizer solution Take 3 mL by nebulization in themorning and 3 mL at noon and 3 mL in the evening. 11/20/22 11/20/23 Lupillo Vizcarra MD isosorbide dinitrate (Isordil) 10 MG tablet 10 mg by Per G Tube route 3 times daily. Historical ProviderMD magnesium hydroxide (Milk of Magnesia) 400 MG/5ML suspension 30 mL by Per G Tube route Nightly as needed for constipation. Historical ProviderMD metoclopramide (Reglan) 5 MG/5ML solution 5 mg by Per G Tube route in the morning and 5 mg at noon and 5 mg in the evening and 5 mg before bedtime. Historical ProviderMD nitroglycerin (Nitrostat) 0.[address] 0.4 mg under the tongue every 5 minutes as needed for chest pain. Historical ProviderMD pantoprazole (ProtoNix) 40 MG EC tablet Take 1 tablet (40 mg) by mouth 2 times daily. Do not crush,chew, or split. 11/20/22 01/19/23 Lupillo Vizcarra MD pyridoxine (B-6) 100 MG tablet 100 mg by Per G Tube route daily. Historical ProviderMD sennosides (Senokot) 8.6 MG tablet 2 tablets by Per G Tube route daily. Historical ProviderMD sertraline (Zoloft) 50 MG tablet 75 mg by Per G Tube route daily. Historical Provider, Allergies: Patient has no known allergies. Social History: Social History Socioeconomic History Marital status: Single Spouse name: Not on file Number of children: Not on file Years of education: Not on file Highest education level: Not on file Occupational History Not on file Tobacco Use Smoking status: Unknown Smokeless tobacco: Not on file Substance and Sexual Activity Alcohol use: Not on file Drug use: Not on file Sexual activity: Not on file Other Topics Concern Not on file Social History Narrative Not on file Social Determinants of Health Financial Resource Strain: Not on file Food Insecurity: Not on file Transportation Needs: Not on file Physical Activity: Not on file Stress: Not on file Social Connections: Not on file Intimate Partner Violence: Not on file Housing Stability: Not on file Family History: No family history on file. REVIEW OF SYSTEMS: Unable to obtain has patient is non verbal. PHYSICAL EXAM: VITALS: BP (!) 143/79 (BP Location: Right arm, Patient Position: Lying) Pulse 65 Temp 37 C (98.6 F) (Oral) Resp 19 SpO2 99% 24HR INTAKE/OUTPUT: I/O last 3 completed shifts: In: 1000 [IV Piggyback:1000] Out: - No intake/output data recorded. CONSTITUTIONAL: Appears well nourished. No distress EYES: PERRL, conjunctiva normal ENT: Normocepalic,atraumatic, without obvious abnormality NECK: supple, symmetrical, trachea midline, no thyromegaly LUNGS: Resp effort easy and unlabored, breath sounds normal CARDIOVASCULAR: NO JVD, RRR, No murmur ABDOMEN: Soft, non distended, mildly tender, peritoneal signs absent, no hepatosplenomegaly and NO hernia present. G tube with loosened bumper. MUSCULOSKELETAL: Normal range of motion, no edema NEUROLOGIC: Mental Status Exam: Level of Alertness: Awake Sensation globally intact PSYCHIATRIC: Oriented to person, place, and time. Speech is normal, mood appears normal SKIN: Warm, dry, and intact Rectal exam without obvious abnormality. No mass felt. Soft brown mushy stool at rectal vault. DATA: CT abdomen pelvis w contrast Status: Final result Orders Requiring a Screening Form Procedure Order Status Form Status CT abdomen pelvis w contrast Completed Created PACS Images Show images for CT abdomen pelvis w contrast Study Result Narrative & Impression Patient Name: BERTO PARKINSON : [address] [facility]#: [id number] Exam Date/Time: 12/25/2022 14:54 Procedure: CT ABDOMEN PELVIS W CONTRAST Ordering Provider: CALDERON MARY Reason For Exam: Abdominal pain, acute, nonlocalized Study: CT abdomen pelvis. INDICATION:Abdominal pain COMPARISON:11/14/2022 FINDINGS: Dose reduction was employed with automated exposure control. Imaging of the abdomen and pelvis were performed with 75 cc isovue 370 imaging viewed in multiple planes. Additional imaging:None. Lung bases:Residual infiltrate-like density right lower lobe. Free air: No free air. Bowel: Limited by lack of oral contrast.. Increased stool compatible constipation, rectal fecal impaction. No convincing focal inflammation appendicitis diverticulitis pneumatosis. Percutaneous gastric tube. Distended esophagus similar to previous. Peritoneal cavity:No convincing acute process. Gallbladder:No definite acute process. Liver spleen pancreas kidneys adrenal glands urinary bladder: No convincing acute process or findings to explain symptoms. Extensive renal cystic change. Pelvic structures:No convincing acute process. Vascular:No definite acute process. Limited technique. Atherosclerosis. Retroperitoneum: No adenopathy or acute process. Spine:No convincing acute process of bone, paraspinous soft tissues. Abdominal wall:No convincing acute process. IMPRESSION: No abscess, obstruction or free air seen. The etiology of the symptoms is uncertain. Limited by lack of oral contrast. Constipation, rectal fecal impaction. Consider follow-up after bowel cleansing. Residual right lung infiltrate density. Report Dictated on Electronically Signed By: Levon Cesar Electronically Signed Date/Time: 12/25/2022 3:03 PM EDT Result History CT abdomen pelvis w contrast (Order #[id number]) on 12/25/2022 - Order Result History Report CT abdomen pelvis w contrast: Patient Communication Add Comments Not seen Breast Imaging Recommendations Berto Parkinson No recommendations exist for this order. Signed by Signed Time Phone Pager Levon Cesar MD 12/25/2022 15:03 Exam Information Status Exam Begun Exam Ended Final 12/25/2022 14:44 12/25/2022 14:53 External Results Report Open External Results Report Encounter View Encounter Screening Form Questions No questions have been answered for this form. Study Details Open Study Details Risk Scores No risk assessment data Order Transmittal Tracking CT abdomen pelvis w contrast (Order #[id number]) on 12/25/[address] abdomen pelvis w contrast (Order #[id number]) on 12/25/22 CBC: Recent Labs 12/25/22 1342 12/26/22 0651 WBC 6.6 5.9 HGB 11.3* 10.0* HCT 35.2* 30.7* PLT 240 201 BMP: Recent Labs 12/25/22 1342 12/26/22 0432 12/26/22 0651 NA 136 137 138 K 4.8 4.8 4.9 CL 104 106 109* CO2 28 27 27 BUN 33* 28* 27* CREATININE 1.02 1.12 1.10 GLUCOSE 116* 75 75 Hepatic: Recent Labs 12/25/22 1342 12/26/22 0432 AST 58* 43 ALT 26 25 BILITOT 0.8 0.6 ALKPHOS 107 111 Mag: Recent Labs 12/25/22 1342 MG 2.2 Phos: Recent Labs 12/25/22 1342 PHOS 4.1 INR: No results for input(s): INR in the last 72 hours. IMPRESSION/RECOMMENDATIONS: Mr. Parkinson is an 87 y/o M who presents with abdominal pain. - CT abdomen/pelvis without acute abnormality. Mention of constipation, rectal fecal impaction. - G-tube- functioning well, Bumper was tightened no noted leaking when flushed with water. Aspiration of bilious drainage - Rectal exam without rectal mass, soft mushy brown stool at rectal vault - Recommend daily bowel regimen including daily suppository to stimulate bowel function - No acute surgical intervention needed at this time - General Surgery will continue to follow Patient counseled on risks, benefits, and alternatives of treatment plan at length. Patient states an understanding and willingness to proceed with plan. Thank you for the opportunity to care for your patient, please don't hesitate to contact me for anyquestions or concerns you may have. Emeka Ellis APRN - CYBER THREAT ANALYST [facility]04-13-2023 Consult note* Denis Logan MD - 12/26/2022 9:44 AM EDTAssociated Order(s): IP CONSULT TO GENERAL SURGERY Images from the original note were not included. [facility] - Surgery [facility] Physicians Surgery Patient Name: Berto Parkinson Date: 12/26/2022 Patient seen and examined by myself and I agree with GINGER note below Patient resting in bed and appears comfortable he is nonverbal which is essentially baseline for him Abdomen soft nontender nondistended Rectal exam soft stool in vault Labs and imaging reviewed Assessment /Plan: Constipation continue with stool softeners and enemas PEG tube okay to use as CT confirms in proper location Patient counseled on risks,benefits, and alternatives of treatement plan at length. Patient states an understanding and willingness to proceed with plan. I personally supervised my GINGER and/or resident in the evaluation and management of Berto Parkinson in thedevelopment of a treatment plan for this patient. I personally interviewed the patient and performed an individual physical examination. In addition, I discussed the patient's condition and treatment options with them. I have also reviewed and agree with the past medical, family and social history and care plan unless otherwise noted. All of the patient's questions were answered. This case represents moderate level care including chart review, care coordination and face to faceencounter was spent discussing/counseling the patient regarding the care plan for this patient. Thepatient was seen and examined independently and relevant data reviewed by myself. A full chart review was performed. Denis Logan MD [facility] General Surgery 2:58 PM 12/26/2022 Department of General Surgery Consult PATIENT NAME: Berto Parkinson DATE OF : 1935 ADMISSION DATE: 12/25/2022 1:10 PM TODAY'S DATE: 12/26/2022 Reason for Consult: Leaking PEG tube, Constipation HISTORY OF PRESENT ILLNESS: The patient is a 87 y.o. male who presents from [facility] facility. Patient non verbal and unable to obtain HPI from patient. Majority of HPI obtained via chart and nursing. Patient sent in from Facility for abdominal pain and concern for malfunctioning PEG. Per notes reporting leaking around PEG site with bilious drainage. Noted abdominal pain, nausea and vomiting. When seeing patient he appeared comfortable resting in bed. CT abd/pelvis performed no abscess, obstruction or free air. Mention of constipation, rectal fecal impaction. MOM was given in ED. 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 Thoroughly reviewed the patient's medical history, family history, social history and review of systems with the patient today in the office. Please see medical record for pertinent positives. Past Medical History: Past Medical History: Diagnosis Date Alcohol abuse Anxiety Cancer (CMS/HCC) (HCC) Chronic kidney disease Dementia (HCC) Depression Dysphagia Hypertension Past Surgical History: History reviewed. No pertinent surgical history. Current Medications: Scheduled Meds:amLODIPine, 2.5 mg, Per G Tube, Daily aspirin, 81 mg, Oral, Daily atorvastatin, 40 mg, Per G Tube, Daily baclofen, 10 mg, Per G Tube, BID bisacodyl, 10 mg, Rectal, Once docusate, 100 mg, Oral, BID enoxaparin, 30 mg, SubCUTAneous, Daily famotidine, 20 mg, Oral, Daily isosorbide dinitrate, 10 mg, Per G Tube, TID sennosides, 2 tablet, Per G Tube, Daily sertraline, 75 mg, Per G Tube, Daily Continuous Infusions:dextrose 5 % and sodium chloride 0.9 %, 125 mL/hr, Last Rate: 125 mL/hr (12/26/22 0540) PRN Meds:.PRN medications: acetaminophen OR acetaminophen, bisacodyl, ondansetron ODT OR ondansetron, polyethylene glycol (PEG) 3350 Prior to Admission medications Medication Sig Start Date End Date Taking? Authorizing Provider acetaminophen (Tylenol) 325 MG tablet 650 mg by Per G Tube route every 6 hours as needed for mild pain (1-3). Historical Provider, amLODIPine (Norvasc) 2.5 MG tablet 2.5 mg by Per G Tube route daily. Historical Provider, aspirin 81 MG chewable tablet 81 mg daily. Historical Provider, atorvastatin (Lipitor) 40 MG tablet 40 mg by Per G Tube route daily. Historical Provider, baclofen (Lioresal) 10 MG tablet 10 mg by Per G Tube route 2 times daily. Historical Provider, bisacodyl (Dulcolax) 5 MG EC tablet Take 5 mg by mouth Daily as needed for constipation. Do not crush, chew, or split. Historical Provider, bisacodyl (Dulcolax) 5 mg split suppository Insert 10 mg into the rectum Daily as needed. Historical Provider, MD cyanocobalamin (Vitamin B-12) 1000 MCG tablet 1,000 mcg by Per G Tube route daily. Historical ProviderMD docusate (Colace) 50 MG/5ML liquid Take 100 mg by mouth 2 times daily. Ivory ProviderMD ergocalciferol (Vitamin D-2) 1.25 MG (33047 UT) capsule Take 1.25 mg by mouth 1 (one) time per week. On Mondays Ivory Sutton MD ferrous sulfate 325 (65 Fe) MG tablet Take 325 mg by mouth daily (with breakfast). Historical ProviderMD gabapentin (Neurontin) 300 MG capsule 300 mg by Per G Tube route 2 times daily. Historical ProviderMD hyoscyamine (Levsin) 0.125 MG/ML solution by Per G Tube route every 4 hours as needed (increased secretions). Historical ProviderMD ipratropium-albuterol (Duo-Neb) 0.5-2.5 mg/3 mL nebulizer solution Take 3 mL by nebulization in themorning and 3 mL at noon and 3 mL in the evening. 11/20/22 11/20/23 Lupillo Vizcarra MD isosorbide dinitrate (Isordil) 10 MG tablet 10 mg by Per G Tube route 3 times daily. Historical ProviderMD magnesium hydroxide (Milk of Magnesia) 400 MG/5ML suspension 30 mL by Per G Tube route Nightly as needed for constipation. Historical ProviderMD metoclopramide (Reglan) 5 MG/5ML solution 5 mg by Per G Tube route in the morning and 5 mg at noon and 5 mg in the evening and 5 mg before bedtime. Historical ProviderMD nitroglycerin (Nitrostat) 0.[address] 0.4 mg under the tongue every 5 minutes as needed for chest pain. Historical ProviderMD pantoprazole (ProtoNix) 40 MG EC tablet Take 1 tablet (40 mg) by mouth 2 times daily. Do not crush,chew, or split. 11/20/22 01/19/23 Lupillo Vizcarra MD pyridoxine (B-6) 100 MG tablet 100 mg by Per G Tube route daily. Historical ProviderMD sennosides (Senokot) 8.6 MG tablet 2 tablets by Per G Tube route daily. Historical ProviderMD sertraline (Zoloft) 50 MG tablet 75 mg by Per G Tube route daily. Historical Provider, Allergies: Patient has no known allergies. Social History: Social History Socioeconomic History Marital status: Single Spouse name: Not on file Number of children: Not on file Years of education: Not on file Highest education level: Not on file Occupational History Not on file Tobacco Use Smoking status: Unknown Smokeless tobacco: Not on file Substance and Sexual Activity Alcohol use: Not on file Drug use: Not on file Sexual activity: Not on file Other Topics Concern Not on file Social History Narrative Not on file Social Determinants of Health Financial Resource Strain: Not on file Food Insecurity: Not on file Transportation Needs: Not on file Physical Activity: Not on file Stress: Not on file Social Connections: Not on file Intimate Partner Violence: Not on file Housing Stability: Not on file Family History: No family history on file. REVIEW OF SYSTEMS: Unable to obtain has patient is non verbal. PHYSICAL EXAM: VITALS: BP (!) 143/79 (BP Location: Right arm, Patient Position: Lying) Pulse 65 Temp 37 C (98.6 F) (Oral) Resp 19 SpO2 99% 24HR INTAKE/OUTPUT: I/O last 3 completed shifts: In: 1000 [IV Piggyback:1000] Out: - No intake/output data recorded. CONSTITUTIONAL: Appears well nourished. No distress EYES: PERRL, conjunctiva normal ENT: Normocepalic,atraumatic, without obvious abnormality NECK: supple, symmetrical, trachea midline, no thyromegaly LUNGS: Resp effort easy and unlabored, breath sounds normal CARDIOVASCULAR: NO JVD, RRR, No murmur ABDOMEN: Soft, non distended, mildly tender, peritoneal signs absent, no hepatosplenomegaly and NO hernia present. G tube with loosened bumper. MUSCULOSKELETAL: Normal range of motion, no edema NEUROLOGIC: Mental Status Exam: Level of Alertness: Awake Sensation globally intact PSYCHIATRIC: Oriented to person, place, and time. Speech is normal, mood appears normal SKIN: Warm, dry, and intact Rectal exam without obvious abnormality. No mass felt. Soft brown mushy stool at rectal vault. DATA: CT abdomen pelvis w contrast Status: Final result Orders Requiring a Screening Form Procedure Order Status Form Status CT abdomen pelvis w contrast Completed Created PACS Images Show images for CT abdomen pelvis w contrast Study Result Narrative & Impression Patient Name: BERTO PARKINSON : [address] [facility]#: [id number] Exam Date/Time: 12/25/2022 14:54 Procedure: CT ABDOMEN PELVIS W CONTRAST Ordering Provider: CALDERON MARY Reason For Exam: Abdominal pain, acute, nonlocalized Study: CT abdomen pelvis. INDICATION:Abdominal pain COMPARISON:11/14/2022 FINDINGS: Dose reduction was employed with automated exposure control. Imaging of the abdomen and pelvis were performed with 75 cc isovue 370 imaging viewed in multiple planes. Additional imaging:None. Lung bases:Residual infiltrate-like density right lower lobe. Free air: No free air. Bowel: Limited by lack of oral contrast.. Increased stool compatible constipation, rectal fecal impaction. No convincing focal inflammation appendicitis diverticulitis pneumatosis. Percutaneous gastric tube. Distended esophagus similar to previous. Peritoneal cavity:No convincing acute process. Gallbladder:No definite acute process. Liver spleen pancreas kidneys adrenal glands urinary bladder: No convincing acute process or findings to explain symptoms. Extensive renal cystic change. Pelvic structures:No convincing acute process. Vascular:No definite acute process. Limited technique. Atherosclerosis. Retroperitoneum: No adenopathy or acute process. Spine:No convincing acute process of bone, paraspinous soft tissues. Abdominal wall:No convincing acute process. IMPRESSION: No abscess, obstruction or free air seen. The etiology of the symptoms is uncertain. Limited by lack of oral contrast. Constipation, rectal fecal impaction. Consider follow-up after bowel cleansing. Residual right lung infiltrate density. Report Dictated on Electronically Signed By: Levon Cesar Electronically Signed Date/Time: 12/25/2022 3:03 PM EDT Result History CT abdomen pelvis w contrast (Order #[id number]) on 12/25/2022 - Order Result History Report CT abdomen pelvis w contrast: Patient Communication Add Comments Not seen Breast Imaging Recommendations Berto Parkinson No recommendations exist for this order. Signed by Signed Time Phone Pager Levon Cesar MD 12/25/2022 15:03 Exam Information Status Exam Begun Exam Ended Final 12/25/2022 14:44 12/25/2022 14:53 External Results Report Open External Results Report Encounter View Encounter Screening Form Questions No questions have been answered for this form. Study Details Open Study Details Risk Scores No risk assessment data Order Transmittal Tracking CT abdomen pelvis w contrast (Order #[id number]) on 12/25/[address] abdomen pelvis w contrast (Order #[id number]) on 12/25/22 CBC: Recent Labs 12/25/22 1342 12/26/22 0651 WBC 6.6 5.9 HGB 11.3* 10.0* HCT 35.2* 30.7* PLT 240 201 BMP: Recent Labs 12/25/22 1342 12/26/22 0432 12/26/22 0651 NA 136 137 138 K 4.8 4.8 4.9 CL 104 106 109* CO2 28 27 27 BUN 33* 28* 27* CREATININE 1.02 1.12 1.10 GLUCOSE 116* 75 75 Hepatic: Recent Labs 12/25/22 1342 12/26/22 0432 AST 58* 43 ALT 26 25 BILITOT 0.8 0.6 ALKPHOS 107 111 Mag: Recent Labs 12/25/22 1342 MG 2.2 Phos: Recent Labs 12/25/22 1342 PHOS 4.1 INR: No results for input(s): INR in the last 72 hours. IMPRESSION/RECOMMENDATIONS: Mr. Parkinson is an 87 y/o M who presents with abdominal pain. - CT abdomen/pelvis without acute abnormality. Mention of constipation, rectal fecal impaction. - G-tube- functioning well, Bumper was tightened no noted leaking when flushed with water. Aspiration of bilious drainage - Rectal exam without rectal mass, soft mushy brown stool at rectal vault - Recommend daily bowel regimen including daily suppository to stimulate bowel function - No acute surgical intervention needed at this time - General Surgery will continue to follow Patient counseled on risks, benefits, and alternatives of treatment plan at length. Patient states an understanding and willingness to proceed with plan. Thank you for the opportunity to care for your patient, please don't hesitate to contact me for anyquestions or concerns you may have. Emeka Ellis APRN - CYBER THREAT ANALYST documented in this [facility]04-13-2023 Emergency department Note* Dora Abrams RN - 12/26/2022 9:15 AM EDT General surgery her to assess pt Dora Abrams RN 12/26/22 [address] [id number] NoteHistory and Physical [facility] Bertoabelino Parkinson : 1935 AGE 87 y.o. YEARS Note Date 12/25/2022 Primary Care Physician:Provider Not In System Fax None Current Providers as of 12/25/2022 PCP: Provider Not In System Referring Provider: not found, starting on FriDec 25, 2022 12:00 AM Admitting Provider: Dominick Rosales MD, (Active) Attending Provider: Anyi Calderon DO, starting on FriDec 25, 2022 1:35 PM (Active) Attending Provider: Dominick Rosales MD, starting on FriDec 25, 2022 7:52 PM (Active) Registered Nurse: Natasha Fernandez RN, starting on FriDec 25, 2022 1:27 PM (Active) Corporate Licensed Broker RES: Flavio Meneses DO, starting on FriDec 25, 2022 1:31 PM, ending on FriDec 25, 2022 9:58 PM (Inactive) Consulting Physician: Denis Logan MD, starting on FriDec 25, 2022 7:00 PM (Active) Registered Nurse: Meghan Ventura RN, starting on FriDec 25, 2022 8:12 PM, ending on FriDec 25, 2022 8:12 PM (Inactive) Registered Nurse: Steve Olivares RN, starting on FriDec 25, 2022 11:30 PM (Active) Chief Complaint: Abdominal Pain and Wound Check (PEG tube issues) HPI: He was sent over due to complaining of abd pain, tube recently has been changed per [facility] paperwork but was draining bilious material Diet of pureed nectar thick is listed also per [facility] paperwork marce with Isosource 55 ml hour with 200 ml flush tube feed He is not able provide much history to me is clear he is in some distress he is eyes are open he looks around the room he is holding an emesis bag and is moving around with his hand Below when I try to examine him he is guarding his abdomen and pushing me away Early in the emergency room patient was noted to have bilious drainage from the NG tube he underwent attempted E compaction but not a lot of stool was placed. An enema was placed in the emergency room Review of Systems: He is not able to provide me a lot of history he is having abdominal pain Bilious drainage per his PEG tube even after changing her senior care Past Medical History: Diagnosis Date Alcohol abuse Anxiety Cancer (CMS/HCC) (HCC) Chronic kidney disease Dementia (HCC) Depression Dysphagia Hypertension Achalasia pad History reviewed. No pertinent surgical history. No Known Allergies Medications Prior to Admission: Current Outpatient Medications Medication Instructions acetaminophen (TYLENOL) 650 mg, Per G Tube, Every 6 hours PRN amLODIPine (NORVASC) 2.5 mg, Per G Tube, Daily aspirin 81 mg, Daily atorvastatin (LIPITOR) 40 mg, Per G Tube, Daily baclofen (LIORESAL) 10 mg, Per G Tube, 2 times daily bisacodyl (DULCOLAX) 10 mg, Rectal, Daily PRN bisacodyl (DULCOLAX) 5 mg, Oral, Daily PRN, Do not crush, chew, or split. cyanocobalamin (VITAMIN B-12) 1,000 mcg, Per G Tube, Daily docusate (COLACE) 100 mg, Oral, 2 times daily ergocalciferol (VITAMIN D-2) 1.25 mg, Oral, Weekly, On Mondays ferrous sulfate 325 mg, Oral, Daily with breakfast gabapentin (NEURONTIN) 300 mg, Per G Tube, 2 times daily hyoscyamine (Levsin) 0.125 MG/ML solution Per G Tube, Every 4 hours PRN ipratropium-albuterol (Duo-Neb) 0.5-2.5 mg/3 mL nebulizer solution 3 mL, Nebulization, 3 times daily isosorbide dinitrate (ISORDIL) 10 mg, Per G Tube, 3 times daily magnesium hydroxide (Milk of Magnesia) 400 MG/5ML suspension 30 mL, Per G Tube, Nightly PRN metoclopramide (REGLAN) 5 mg, Per G Tube, 4 times daily nitroglycerin (NITROSTAT) 0.4 mg, SubLINGual, Every 5 min PRN pantoprazole (PROTONIX) 40 mg, Oral, 2 times daily, Do not crush, chew, or split. pyridoxine (B-6) 100 mg, Per G Tube, Daily sennosides (Senokot) 8.6 MG tablet 2 tablets, Per G Tube, Daily sertraline (ZOLOFT) 75 mg, Per G Tube, Daily Social History Social History Tobacco Use Smoking status: Unknown Smokeless tobacco: Not on file Substance Use Topics Alcohol use: Not on file Family History No family history on file. Physical Exam Temp (24hrs), Av.7 ?C (98 ?F), Min:36.7 ?C (98 ?F), Max:36.7 ?C (98 ?F) BP (!) 154/104 Pulse 75 Temp 36.7 ?C (98 ?F) (Axillary) Resp 18 SpO2 94% Pulse Ox: SpO2 Av.9 % Min: 92 % Max: 99 % Supplemental O2: General appearance: Eyes open appears to be in distress does not follow commands but does track me around the room HEENT: Normal cephalic, atraumatic without obvious deformity. Pupils equal, round, and reactive to light. Extra ocular muscles intact. Conjunctivae/corneas clear. Neck: Supple, with full range of motion. No jugular venous distention. Trachea midline. No lymphadenopathy. Respiratory: Normal respiratory effort. Clear to auscultation, bilaterally without Rales/Wheezes/Rhonchi. Cardiovascular: Regular rate and rhythm with normal S1/S2 without murmurs, rubs or gallops. Abdomen: Slightly distended patient pushes me away with his hands when I try and examine it. It is not significantly distended or tympanic and there i (more content not included)...[facility]04-12-2023 Emergency department Note* Natasha Fernandez RN - 12/25/2022 11:[address] Rosales notified and aware of rhochi heard with patient breathing, SPO2 94% RA. Per daughter, pt has difficult time swallowing sputum and senior care suctions secretions out with yankeur, update given to Steve Fernandez RN 12/25/22 [address] [facility] [id number] History and physical note* Dominick Rosales MD - 12/25/2022 11:43 PM EDT Images from the original note were not included. History and Physical [facility] Berto Ray : 1935 AGE 87 y.o. YEARS Note Date 12/25/2022 Primary Care Physician:Provider Not In System Fax None Current Providers as of 12/25/2022 PCP: Provider Not In System Referring Provider: not found, starting on FriDec 25, 2022 12:00 AM Admitting Provider: Dominick Rosales MD, (Active) Attending Provider: Anyi Calderon DO, starting on FriDec 25, 2022 1:35 PM (Active) Attending Provider: Dominick Rosales MD, starting on FriDec 25, 2022 7:52 PM (Active) Registered Nurse: Natasha Fernandez RN, starting on FriDec 25, 2022 1:27 PM (Active) Corporate Licensed Broker RES: Flavio Meneses DO, starting on FriDec 25, 2022 1:31 PM, ending on FriDec 25, 2022 9:58 PM (Inactive) Consulting Physician: Denis Logan MD, starting on FriDec 25, 2022 7:00 PM (Active) Registered Nurse: Meghan Ventura RN, starting on FriDec 25, 2022 8:12 PM, ending on FriDec 25, 2022 8:12 PM (Inactive) Registered Nurse: Steve Olivares RN, starting on FriDec 25, 2022 11:30 PM (Active) Chief Complaint: Abdominal Pain and Wound Check (PEG tube issues) HPI: He was sent over due to complaining of abd pain, tube recently has been changed per ecf paperwork but was draining bilious material Diet of pureed nectar thick is listed also per ecf paperwork marce with Isosource 55 ml hour with 200 ml flush tube feed He is not able provide much history to me is clear he is in some distress he is eyes are open he looks around the room he is holding an emesis bag and is moving around with his hand Below when I try to examine him he is guarding his abdomen and pushing me away Early in the emergency room patient was noted to have bilious drainage from the NG tube he underwent attempted E compaction but not a lot of stool was placed. An enema was placed in the emergency room Review of Systems: He is not able to provide me a lot of history he is having abdominal pain Bilious drainage per his PEG tube even after changing her senior care Past Medical History: Diagnosis Date Alcohol abuse Anxiety Cancer (CMS/HCC) (HCC) Chronic kidney disease Dementia (HCC) Depression Dysphagia Hypertension Achalasia pad History reviewed. No pertinent surgical history. No Known Allergies Medications Prior to Admission: Current Outpatient Medications Medication Instructions acetaminophen (TYLENOL) 650 mg, Per G Tube, Every 6 hours PRN amLODIPine (NORVASC) 2.5 mg, Per G Tube, Daily aspirin 81 mg, Daily atorvastatin (LIPITOR) 40 mg, Per G Tube, Daily baclofen (LIORESAL) 10 mg, Per G Tube, 2 times daily bisacodyl (DULCOLAX) 10 mg, Rectal, Daily PRN bisacodyl (DULCOLAX) 5 mg, Oral, Daily PRN, Do not crush, chew, or split. cyanocobalamin (VITAMIN B-12) 1,000 mcg, Per G Tube, Daily docusate (COLACE) 100 mg, Oral, 2 times daily ergocalciferol (VITAMIN D-2) 1.25 mg, Oral, Weekly, On Mondays ferrous sulfate 325 mg, Oral, Daily with breakfast gabapentin (NEURONTIN) 300 mg, Per G Tube, 2 times daily hyoscyamine (Levsin) 0.125 MG/ML solution Per G Tube, Every 4 hours PRN ipratropium-albuterol (Duo-Neb) 0.5-2.5 mg/3 mL nebulizer solution 3 mL, Nebulization, 3 times daily isosorbide dinitrate (ISORDIL) 10 mg, Per G Tube, 3 times daily magnesium hydroxide (Milk of Magnesia) 400 MG/5ML suspension 30 mL, Per G Tube, Nightly PRN metoclopramide (REGLAN) 5 mg, Per G Tube, 4 times daily nitroglycerin (NITROSTAT) 0.4 mg, SubLINGual, Every 5 min PRN pantoprazole (PROTONIX) 40 mg, Oral, 2 times daily, Do not crush, chew, or split. pyridoxine (B-6) 100 mg, Per G Tube, Daily sennosides (Senokot) 8.6 MG tablet 2 tablets, Per G Tube, Daily sertraline (ZOLOFT) 75 mg, Per G Tube, Daily Social History Social History Tobacco Use Smoking status: Unknown Smokeless tobacco: Not on file Substance Use Topics Alcohol use: Not on file Family History No family history on file. Physical Exam Temp (24hrs), Av.7 C (98 F), Min:36.7 C (98 F), Max:36.7 C (98 F) BP (!) 154/104 Pulse 75 Temp 36.7 C (98 F) (Axillary) Resp 18 SpO2 94% Pulse Ox: SpO2 Av.9 % Min: 92 % Max: 99 % Supplemental O2: General appearance: Eyes open appears to be in distress does not follow commands but does track me around the room HEENT: Normal cephalic, atraumatic without obvious deformity. Pupils equal, round, and reactive to light. Extra ocular muscles intact. Conjunctivae/corneas clear. Neck: Supple, with full range of motion. No jugular venous distention. Trachea midline. No lymphadenopathy. Respiratory: Normal respiratory effort. Clear to auscultation, bilaterally without Rales/Wheezes/Rhonchi. Cardiovascular: Regular rate and rhythm with normal S1/S2 without murmurs, rubs or gallops. Abdomen: Slightly distended patient pushes me away with his hands when I try and examine it. It is not significantly distended or tympanic and there is hypoactive bowel sounds it is apparent by his actions that it is uncomfortable for him Musculoskeletal: No clubbing, cyanosis or edema bilaterally. Full range of motion without deformity. Skin: Skin color, texture, turgor normal. No rashes or lesions. Neurologic: Nonverbal. Tracking around the room no sign of facial droop his hand is contractured Labs EKG Encounter Date: 12/25/22 ECG 12 lead Result Value Heart Rate 66 QRSD Interval 78 QT Interval 416 QTC Interval 436 P [place] 39 QRS [place] -42 T Wave [place] 80 AL Interval 164 Impression SINUS RHYTHM LEFT ANTERIOR FASCICULAR BLOCK CONSIDER ANTEROSEPTAL INFARCT BASELINE WANDER IN LEAD(S) V6 Compared to ECG 11/14/2022 16:59:46 Myocardial infarct finding now present Left-axis deviation no longer present T-wave abnormality no longer present Assessment/Plan and Medical Decision Making Acute, acute on chronic, unstable/uncontrolled chronic problems/diagnoses: Abdominal pain bilious drainage from his G-tube Patient underwent work-up in the emergency room CAT scan likely shows fecal impaction he had attempted decompression in the emergency room and enema was placed additionally senna was put down his G-tube I will follow-up with some milk of magnesia 60 mL as since admission he has not yet had a bowel movement Surgery was also consulted in the emergency room Laboratory work-up shows normal kidney function normal LFTs with the exception of slightly elevatedAST of 58 his lipase is normal His white blood cell count is 6.6 and normal hemoglobin slightly low at 11.3 CRP checked was 5.7 urinalysis was not indicative of infection At this time we will not provide him with any p.o. diet or tube feed diet as likely this would cause him more pain When patient's constipation resolved as mentioned above he was on a pur ed nectar thick diet by mouth as well as tube feeds which will need to be restarted CT abdomen pelvis showed lower lung garcia to appear to have infiltrates On reviewing the lower portion of his lung garcia which are visible on the CAT scan of his abdomen pelvis it does look like infiltrates are present however some of this was present on the old CAT scans in the computer and may be chronic Currently he is afebrile with a normal white blood cell count CRP is not elevated and a procalcitonin that is pending His oxygen saturation was normal on presentation Pneumonia and/or aspiration pneumonitis can be considered But after reviewing and comparing his old CAT scan to his current CAT scan we will not start antibiotics at this time as he is findings could be chronic unless he shows further signs of sepsis Home medications He is on a number of home medications I reviewed his ECF paperwork Many of these medications such as gabapentin amlodipine aspirin Lipitor Zoloft are unable to be given in IV form I would feel more comfortable after patient has a bowel movement his abdominal distention improves with restarting his p.o. medications then until then we will supplement him with IV fluids and IV pain and nausea control -PT/OT eval/increase activity -am labs, replace lytes prn -vitals per routine -home meds as ordered -DVT prophylaxis: [x] Lovenox [] Heparin [] SCDs [x] Encourage ambulation [] Already on Anticoagulation [] Pharmocologic prophylaxis on hold to due risk bleed/procedure 12/25/2022 [facility] [id number] Any scheduled follow up appointments No future appointments. Extended Emergency Contact Information Primary Emergency Contact: Teresa Olea Mobile Relation: Child Portions of this note may be electronically transcribed. Please forward a copy of this H&P to the primary care physician. [place] Phone: [phone] 715-925504-12-2023 History and physical note* Dominick Rosales MD - 12/25/2022 11:43 PM EDT Images from the original note were not included. History and Physical [facility] B[facility] Ray : 1935 AGE 87 y.o. YEARS Note Date 12/25/2022 Primary Care Physician:Provider Not In System Fax None Current Providers as of 12/25/2022 PCP: Provider Not In System Referring Provider: not found, starting on FriDec 25, 2022 12:00 AM Admitting Provider: Dominick Rosales MD, (Active) Attending Provider: Anyi Calderon DO, starting on FriDec 25, 2022 1:35 PM (Active) Attending Provider: Dominick Rosales MD, starting on FriDec 25, 2022 7:52 PM (Active) Registered Nurse: Natasha Fernandez RN, starting on FriDec 25, 2022 1:27 PM (Active) Corporate Licensed Broker RES: Flavio Meneses DO, starting on FriDec 25, 2022 1:31 PM, ending on FriDec 25, 2022 9:58 PM (Inactive) Consulting Physician: Denis Logan MD, starting on FriDec 25, 2022 7:00 PM (Active) Registered Nurse: Meghan Ventura RN, starting on FriDec 25, 2022 8:12 PM, ending on FriDec 25, 2022 8:12 PM (Inactive) Registered Nurse: Steve Olivares RN, starting on FriDec 25, 2022 11:30 PM (Active) Chief Complaint: Abdominal Pain and Wound Check (PEG tube issues) HPI: He was sent over due to complaining of abd pain, tube recently has been changed per f paperwork but was draining bilious material Diet of pureed nectar thick is listed also per [facility] paperwork marce with Isosource 55 ml hour with 200 ml flush tube feed He is not able provide much history to me is clear he is in some distress he is eyes are open he looks around the room he is holding an emesis bag and is moving around with his hand Below when I try to examine him he is guarding his abdomen and pushing me away Early in the emergency room patient was noted to have bilious drainage from the NG tube he underwent attempted E compaction but not a lot of stool was placed. An enema was placed in the emergency room Review of Systems: He is not able to provide me a lot of history he is having abdominal pain Bilious drainage per his PEG tube even after changing her senior care Past Medical History: Diagnosis Date Alcohol abuse Anxiety Cancer (CMS/HCC) (HCC) Chronic kidney disease Dementia (HCC) Depression Dysphagia Hypertension Achalasia pad History reviewed. No pertinent surgical history. No Known Allergies Medications Prior to Admission: Current Outpatient Medications Medication Instructions acetaminophen (TYLENOL) 650 mg, Per G Tube, Every 6 hours PRN amLODIPine (NORVASC) 2.5 mg, Per G Tube, Daily aspirin 81 mg, Daily atorvastatin (LIPITOR) 40 mg, Per G Tube, Daily baclofen (LIORESAL) 10 mg, Per G Tube, 2 times daily bisacodyl (DULCOLAX) 10 mg, Rectal, Daily PRN bisacodyl (DULCOLAX) 5 mg, Oral, Daily PRN, Do not crush, chew, or split. cyanocobalamin (VITAMIN B-12) 1,000 mcg, Per G Tube, Daily docusate (COLACE) 100 mg, Oral, 2 times daily ergocalciferol (VITAMIN D-2) 1.25 mg, Oral, Weekly, On Mondays ferrous sulfate 325 mg, Oral, Daily with breakfast gabapentin (NEURONTIN) 300 mg, Per G Tube, 2 times daily hyoscyamine (Levsin) 0.125 MG/ML solution Per G Tube, Every 4 hours PRN ipratropium-albuterol (Duo-Neb) 0.5-2.5 mg/3 mL nebulizer solution 3 mL, Nebulization, 3 times daily isosorbide dinitrate (ISORDIL) 10 mg, Per G Tube, 3 times daily magnesium hydroxide (Milk of Magnesia) 400 MG/5ML suspension 30 mL, Per G Tube, Nightly PRN metoclopramide (REGLAN) 5 mg, Per G Tube, 4 times daily nitroglycerin (NITROSTAT) 0.4 mg, SubLINGual, Every 5 min PRN pantoprazole (PROTONIX) 40 mg, Oral, 2 times daily, Do not crush, chew, or split. pyridoxine (B-6) 100 mg, Per G Tube, Daily sennosides (Senokot) 8.6 MG tablet 2 tablets, Per G Tube, Daily sertraline (ZOLOFT) 75 mg, Per G Tube, Daily Social History Social History Tobacco Use Smoking status: Unknown Smokeless tobacco: Not on file Substance Use Topics Alcohol use: Not on file Family History No family history on file. Physical Exam Temp (24hrs), Av.7 C (98 F), Min:36.7 C (98 F), Max:36.7 C (98 F) BP (!) 154/104 Pulse 75 Temp 36.7 C (98 F) (Axillary) Resp 18 SpO2 94% Pulse Ox: SpO2 Av.9 % Min: 92 % Max: 99 % Supplemental O2: General appearance: Eyes open appears to be in distress does not follow commands but does track me around the room HEENT: Normal cephalic, atraumatic without obvious deformity. Pupils equal, round, and reactive to light. Extra ocular muscles intact. Conjunctivae/corneas clear. Neck: Supple, with full range of motion. No jugular venous distention. Trachea midline. No lymphadenopathy. Respiratory: Normal respiratory effort. Clear to auscultation, bilaterally without Rales/Wheezes/Rhonchi. Cardiovascular: Regular rate and rhythm with normal S1/S2 without murmurs, rubs or gallops. Abdomen: Slightly distended patient pushes me away with his hands when I try and examine it. It is not significantly distended or tympanic and there is hypoactive bowel sounds it is apparent by his actions that it is uncomfortable for him Musculoskeletal: No clubbing, cyanosis or edema bilaterally. Full range of motion without deformity. Skin: Skin color, texture, turgor normal. No rashes or lesions. Neurologic: Nonverbal. Tracking around the room no sign of facial droop his hand is contractured Labs EKG Encounter Date: 12/25/22 ECG 12 lead Result Value Heart Rate 66 QRSD Interval 78 QT Interval 416 QTC Interval 436 P [place] 39 QRS [place] -42 T Wave [place] 80 AL Interval 164 Impression SINUS RHYTHM LEFT ANTERIOR FASCICULAR BLOCK CONSIDER ANTEROSEPTAL INFARCT BASELINE WANDER IN LEAD(S) V6 Compared to ECG 11/14/2022 16:59:46 Myocardial infarct finding now present Left-axis deviation no longer present T-wave abnormality no longer present Assessment/Plan and Medical Decision Making Acute, acute on chronic, unstable/uncontrolled chronic problems/diagnoses: Abdominal pain bilious drainage from his G-tube Patient underwent work-up in the emergency room CAT scan likely shows fecal impaction he had attempted decompression in the emergency room and enema was placed additionally senna was put down his G-tube I will follow-up with some milk of magnesia 60 mL as since admission he has not yet had a bowel movement Surgery was also consulted in the emergency room Laboratory work-up shows normal kidney function normal LFTs with the exception of slightly elevatedAST of 58 his lipase is normal His white blood cell count is 6.6 and normal hemoglobin slightly low at 11.3 CRP checked was 5.7 urinalysis was not indicative of infection At this time we will not provide him with any p.o. diet or tube feed diet as likely this would cause him more pain When patient's constipation resolved as mentioned above he was on a pur ed nectar thick diet by mouth as well as tube feeds which will need to be restarted CT abdomen pelvis showed lower lung garcia to appear to have infiltrates On reviewing the lower portion of his lung garcia which are visible on the CAT scan of his abdomen pelvis it does look like infiltrates are present however some of this was present on the old CAT scans in the computer and may be chronic Currently he is afebrile with a normal white blood cell count CRP is not elevated and a procalcitonin that is pending His oxygen saturation was normal on presentation Pneumonia and/or aspiration pneumonitis can be considered But after reviewing and comparing his old CAT scan to his current CAT scan we will not start antibiotics at this time as he is findings could be chronic unless he shows further signs of sepsis Home medications He is on a number of home medications I reviewed his ECF paperwork Many of these medications such as gabapentin amlodipine aspirin Lipitor Zoloft are unable to be given in IV form I would feel more comfortable after patient has a bowel movement his abdominal distention improves with restarting his p.o. medications then until then we will supplement him with IV fluids and IV pain and nausea control -PT/OT eval/increase activity -am labs, replace lytes prn -vitals per routine -home meds as ordered -DVT prophylaxis: [x] Lovenox [] Heparin [] SCDs [x] Encourage ambulation [] Already on Anticoagulation [] Pharmocologic prophylaxis on hold to due risk bleed/procedure 12/25/2022 [facility] Ray [id number] Any scheduled follow up appointments No future appointments. Extended Emergency Contact Information Primary Emergency Contact: Teresa Olea Mobile Relation: Child Portions of this note may be electronically transcribed. Please forward a copy of this H&P to the primary care physician. documented in this [facility]04-12-2023 Emergency department Note* Natasha Fernandez RN - 12/25/2022 11:[address] Rosales notified and aware of pt BP 154/104 at this time. Natasha Fernandez RN 12/25/22 [address] [facility] [id number] Emergency department Note* Natasha Fernandez RN - 12/25/2022 11:13 PM EDT Report given to steve ROY at this time Natasha Fernandez RN 12/25/22 [address]690 [id number] Emergency department Note* Natasha Fernandez RN - 12/25/2022 10:02 PM EDT This RN changed dressing around peg tube at this time, this RN used cut gauze pads around site and paper tape, dated and timed for now, pt still has moderate amount of bile leakage from site, placement was confirmed by CT scan per dr tiana Fernandez RN 12/25/222202 [id number] Emergency department Note* Natasha Fernandez RN - 12/25/2022 8:24 PM EDT Pt incontinent of urine at this time, this RN placed patient in new gown and changed bed with assistance from dimitri melissa, pt repositioned onto R side at this time with pillow in place Natasha Fernandez RN 12/25/222024 [id number] Emergency department Note* Natasha Fernandez RN - 12/25/2022 4:58 PM EDT This RN and raul RN attempted to complete soap suds enema on patient, enema would not flow intopatient's rectum, provider notified, provider attempted fecal disimpaction, this RN as the witness,no new orders at this time. Natasha Fernandez RN 12/25/229 [id number] Emergency department Note* HILDA Mae - 12/25/2022 4:23 PM EDT Guided family back HILDA Mae 12/25/22 1623 [id number] Emergency department Note* Natasha Fernandez RN - 12/25/2022 3:02 PM EDT Pt resting in bed at this time, eyes closed, RR 18, pt appears to be more comfortable after zofran and fentanyl per daughter who is at bedside. Per daughter, she states pt is incontinent and unable to communicate the urge to urinate. Natasha Fernandez RN 12/25/22 1503 [facility] [id number] Emergency department Note* Natasha Fernandez RN - 12/25/2022 1:24 PM EDT Upon assessment, PEG tube is leaking yellow bile like fluid, moderate amount, patient seems to be uncomfortable and nauseous, able to nod yes and no but patient is nonverbal. Unable to assess pain numerically and neurological status. Natasha Fernandez RN 12/25/22 1326 [facility] [id number] Emergency department Triage note* Natasha Fernandez RN - 12/25/2022 1:10 PM EDT Pt presents with EMS, per facility, pt has PEG tube issues, recently replaced, facility states there is discharge around PEG tube site and patient is experiencing abdominal pain, pt is currently nonverbal but appears to be nauseous and in pain [facility] [id number] NoteDischarge Summary Berto Parkinson : 1935 ADMIT DATE: 11/14/2022 DISCHARGE DATE: 11/20/2022 PRIMARY CARE PHYSICIAN: No primary care provider on file. VISIT STATUS: Admission CODE STATUS: [id number] DISCHARGE DIAGNOSES: Principal Problem: Acute hypoxemic respiratory failure (HCC) Active Problems: Irritation around percutaneous endoscopic gastrostomy (PEG) tube site (HCC) Pneumonia, strep/aspiration - positive streptococcus pneumonia urine antigen - completed antibiotics, discontinued on 11/20 - follow up CT chest to assess for resolution Acute respiratory failure - improved, on room air Sepsis, POA - improved. Metabolic encephalopathy - improved, able to communicate with nodding, non verbal at baseline Acute blood loss anemia - hemoglobin stable. - GI consulted, EGD deferred at present -PPI BID GJ tube bleed - improved, surgery evaluation appreciated, no intervention HTN Hyperlipidemia CAD CKD stage 2 Dysphagia Stomach cancer Lung nodules - follow up CT chest in 6-8 weeks, follow up with pulmonology Moderate malnutrition H/o gastric cancer s/p resection . HOSPITAL COURSE: 87 years male bedbound at SNF, dysphagia secondary to stomach cancer s/p GJ tube, hypertension, hyperlipidemia, coronary artery disease, prior EtOH abuse, peripheral artery disease presented to the ED with t PEG tube issues. Was admitted initially to ICU for acute respiratory failure and IV secondary to pneumonia. Started on antibiotics and has improved transferred to the floor. Concern about bleeding around the PEG tube site which resolved on its own. Surgery consulted and no further work-up or intervention recommended. For bloody drainage from the G-tube GI was consulted. Started on Protonix and monitor closely. Improved bleeding with H&H remaining stable. GI deferred any endoscopies for now. Discharged home on Protonix twice daily. Completed antibiotics for pneumonia before discharge. Streptococcal pneumonia urine antigen was positive. Blood cultures remain negative. Advised to get blood work in 3 days including CBC and BMP. CT scan of the chest with questionable nodules. With history of cancer, advised to repeat CT scan of the chest in 6 to 8 weeks to assess the resolution of pneumonia as well as lung nodules. Advised to follow-up with his cancer doctor as an outpatient. SIGNIFICANT DIAGNOSTIC STUDIES: Legionella and Streptococcus Urine Antigen [[id number]] (Abnormal) Urine, Clean Catch Final result Component Value Legionella pneumophila Ag Not Detected Streptococcus pneumoniae Ag Detected Abnormal CT abdomen IMPRESSION: Constipation. Rectal fecal impaction. Right lung base infiltrate densities suspicious for pneumonia. Postoperative changes. Renal cysts. Atherosclerosis. CT chest: IMPRESSION: Impression:No large central PE.. Infiltrates and adenopathy possibly reflect pneumonia. Nodular density left lung suspicious in this patient with a history of malignancy. Follow-up or further evaluation recommended. CONSULTANTS: General surgery, GI, palliative care RECOMMENDED NEXT STEPS: CBC/BMP in [address] chest in 6-8 weeks to assess the resolution of pneumonia and pulmonary nodules. Follow up with GI DR. Davis in 1 month. Exam: BP 139/68 Pulse 76 Temp 36.6 ?C (97.8 ?F) (Temporal) Resp 16 Ht 6' (1.829 m) Wt 187 lb 8 oz (85 kg) SpO2 100% BMI 25.43 kg/m? General: no verbal, but awake and responds with nodding and able to follow command. Chest: b/l equal air entry, decreased on lung bases. PA: soft, NT< PEG tube in situ, no bleeding around PEG tube site. [place] in situ Ext: no edema Neuro: alert, awake, non verbal, strength on LUE0-1/5,RUE_ 4/5, b/l LE 3=-4/5( baseline) DISCHARGE MEDICATIONS: Medication List START taking these medications pantoprazole 40 MG EC tablet Commonly known as: ProtoNix Take 1 tablet (40 mg) by mouth 2 times daily. Do not crush, chew, or split. CONTINUE taking these medications acetaminophen 325 MG tablet Commonly known as: Tylenol amLODIPine 2.5 MG tablet Commonly known as: Norvasc aspirin 81 MG chewable tablet atorvastatin 40 MG tablet Commonly known as: Lipitor baclofen 10 MG tablet Commonly known as: Lioresal * bisacodyl 5 mg split suppository Commonly known as: Dulcolax * bisacodyl 5 MG EC tablet Commonly known as: Dulcolax cyanocobalamin 1000 MCG tablet Commonly known as: Vitamin B-12 docusate 50 MG/5ML liquid Commonly known as: Colace ergocalciferol 1.25 MG (24686 UT) capsule Commonly known as: Vitamin D-2 gabapentin 300 MG capsule Commonly known as: Neurontin hyoscyamine 0.125 MG/ML solution Commonly known as: Levsin isosorbide dinitrate 10 MG tablet Commonly known as: Isordil magnesium hydroxide 400 MG/5ML suspension Commonly known as: Milk of Magnesia metoclopramide 5 MG/5ML solution Commonly known as: Reglan nitroglycerin 0.4 MG SL tablet Co (more content not included)...[facility]03-07-2023 Note Palliative Progress Note Chief Complaint: Berto Parkinson is a 87 y.o. male with chief complaint of hypoxia, PEG issues Palliative Care is actively following. Assessment/Plan Goals of Care Pt is not able to verbalize with words - he does nod head yes and no to some questions DNR-CCA, OK intubation - previously established NOK/HCPOA: daughter Teresa Olea [phone] Goals are for continued current tx's - I am unable to reach daughter yet today. Messages left. Pneumonia aspiration pna vs hcap Anbx course completed today Acute Respiratory Failure, resolved L lung nodule - stated in ml note 3-3 not be a candidate for further work up 2/2 functional status Room air - sats in mid to high 90's Metabolic encephalopathy - resolving CT head--> Atrophy and chronic ischemic change. No acute intracranial process pt is non-verbal, nods head yes and no to some questions, follows some commands Dysphagia s/p GJ tube No further bleeding from G-tube site TF resumed Risk for Constipation last BM 3-6 Palliative Care Encounter consulted for goals of care - have not reached daughter will continue to follow for ongoing monitoring of progression of bleeding and sob Total of 35 minutes spent on this encounter including Chart review, Patient visit and exam, Documentation in EHR, Care coordination, and Communicating with primary attending or other consultants. Discharge planning: Not ready for discharge due to ongoing goals of care discussion Patient meets criteria for general inpatient hospice care including the following: N/A - Palliative Care Patient Referrals to: None Discussed patient and the plan of care with the other interdisciplinary team (IDT) members of Palliative Care Team, and with Primary Attending, Patient, and Floor Nurse I have discussed the patient's case and plan of care with my collaborating physician Dr. Pizano Subjective: Hospital days prior to consult: 1 Brief history Bertoabelino Parkinson is an 87 year old male with PMH CAD, dysphagia 2/2 stomach cancer s/p GJ tube, hx ETOH abuse, HTN, HLD, PAD, former tobacco use. He presented to ED from [facility] for hypoxia and shallow breathing. He was 87% on room air and placed on NIV upon arrival to ED. Imaging concerning for RLL pneumonia. Also, there were concerns from facility for PEG issues, although was not specific. Palliative care consulted for goals of care. 3-7 Chart reviewed - Continued attempt to reach daughter. Messages have been left. Pt is nonverbal. Nods head yes and no to some questions. Does not nod yes to pain, sob or anxiety. No further bleeding at g-tube site. Pain Assessment (If Pain Scale >0) Pt shook head no when asked if having pain Goals of care:Continue Current Management and To Be Determined Advance Directives: DNR-CCA Surrogate: Child Prognosis: depends upon goals and unknown Spiritual assessment: No spiritual distress identified Bereavement and grief: Grief Issues Not Identified History reviewed. No pertinent past medical history. No past surgical history on file. No family history on file. Unable to obtain family history due to pt is non-verbal No Known Allergies Review of Systems Unable to perform ROS: Patient nonverbal ROS: See palliative care ROS/ESAS below; see HPI, unable to perform full ROS due to non-verbal Mcclave Symptom Assessment Score Mcclave Score Pain Score 0 Tiredness Score 4 Nausea Score 0 Depression Score 0 Anxiety Score 0 Drowsiness Score 2 Anorexia Score (0= eating well, 10= not eating) 9 Wellbeing Score (10= worst sense of well-being) 4 Constipation 0 Dyspnea Score (0= no shortness of breath) 0 FLACC Scale (For Pain Assessment of the Non-Verbal Patient) Pt shook head no when asked if having pain Assessed by: patient and provider. Social history: [place] status: no Marital status: single Living status: senior care Work history: unknown Advance Care Planning: The patient has capacity to make healthcare and advanced care planning decisions No The patient's identified surrogate decision maker is Child. Discussion participants: n/a We discussed goals of care related to the patient's current health as documented below: Unable to have conversation today We discussed [id number] concerns identified by the patient/surrogate, including Unable to have conversation today Interventions reviewed: N/a Advance Care Planning Documents: Healthcare Power of Retail Event Assistant: Completed Financial Power of Retail Event Assistant: Other unknown Living Will: Other unknown Code Status: DNR-CCA In addition to the time spent evaluating and managing the patient's medical diagnoses above, 0 minutes of this encounter was spent discussing advanced care planning documented above. Family Meeting: Participants: none held Family meeting was held to discuss:N/A Objective: Physical Exam BP (!) 141/78 (BP Location: Right arm, Patient Position: Lying) P (more content not included)...[facility] [id number] NoteCare Management Progress Note - Discharge Expected Date/Time: 11/19/[address] discharge order Enter post-discharge transportation status Complete med reconciliation Request transport Case mgmt discharge readiness Expected Discharge History Expected Date/Time Set By Reviewed At 11/19/2022 Kaylee Bright RN 11/19/2022 9:15 AM TCC estimate 11/19/2022 JAMES Null 11/19/2022 9:11 AM 11/19/2022 Kaylee Bright RN 11/18/2022 8:39 AM 11/16/2022 De Elaine APRN - LANCE 11/14/2022 9:20 PM 11/16/2022 JACINTO George CNP 11/14/2022 7:40 PM Length of Stay (Days): 5 GMLOS: No GMLOS Documented Pt remains on 1E, gen surg and GI following. On IV rocephin, room air, and schedule duonebs. Hgb 8.4, sterling in place. Pt is a alf resident at [facility] and will return once medically stable. No insurance auth is needed. TCC to assist and follow as needed. [facility] [id number] NoteHospitalist Progress Note 11/19/2022 [phone]: Please message me for patient care issues. [phone]: Please message [facility] Hospitalist for any issues. Subjective: Admit Date: 11/14/2022 PCP: No primary care provider on file. Room#: B1-144/B1-144 A Interval History: Seen and examined . Nonverbal to me answers by nodding. Afebrile overnight no new complaints. Discussed with ID stewardship, discontinue antibiotics today. Hemoglobin and hematocrit stable. Diet, tube feeding no tray PEG/J; Vital 1.5 Ben; Continuous; Yes; 0; 55; 55 @[id number]@ 24HR INTAKE/OUTPUT: Intake/Output Summary (Last 24 hours) at 11/19/2022 0722 Last data filed at 11/19/2022 0600 Gross per 24 hour Intake 130 ml Output 900 ml Net -770 ml Past Medical History: History reviewed. No pertinent past medical history. LABS: CBC: Recent Labs 11/17/22 0347 11/18/22 0109 11/19/22 0113 WBC 8.7 7.4 7.1 RBC 2.91* 2.90* 3.00* HGB 8.1* 8.1* 8.4* HCT 24.9* 24.9* 25.6* MCV 85.5 85.7 85.4 RDW 17.4* 17.8* 17.5* PLT 183 214 227 BMP: Recent Labs 11/17/22 0347 11/18/22 0109 11/19/22 0113 NA 143 143 143 K 4.0 4.2 4.2 CL 113* 114* 114* CO2 24 25 24 BUN 33* 29* 30* CREATININE 1.02 1.01 1.01 GLUCOSE 116* 106* 133* CALCIUM 8.7 8.9 8.9 ANIONGAP 6 5 5 LIVER PROFILE: Recent Labs 11/18/22 01011/19/22 011 AST 33 36 ALT 25 28 BILITOT 0.2 0.2 ALKPHOS 70 67 PROT 6.4 6.1* PT/INR: No results for input(s): PROTIME, INR in the last 72 hours. CARDIAC ENZYMES: No results for input(s): TROPONINI in the last 72 hours. Procalcitonin: No results found for: PROCAL COVID-19 PCR: No results for input(s): COVID19 in the last 72 hours. Objective: Vitals: BP (!) 152/68 Pulse 74 Temp 37.2 ?C (99 ?F) (Temporal) Resp 17 Ht 6' (1.829 m) Wt 187 lb 8 oz (85 kg) SpO2 98% BMI 25.43 kg/m? Pulse Ox: SpO2 Av.7 % Min: 98 % Max: 99 % EXAM: Physical Exam Vitals reviewed. Cardiovascular: Rate and Rhythm: Normal rate and regular rhythm. Heart sounds: Normal heart sounds. Pulmonary: Effort: Pulmonary effort is normal. Breath sounds: Normal breath sounds. Abdominal: General: Abdomen is flat. Palpations: Abdomen is soft. Musculoskeletal: Cervical back: Neck supple. Skin: General: Skin is warm. Neurological: Mental Status: He is alert. Motor: Weakness present. Medications: atorvastatin, 40 mg, Per G Tube, Daily baclofen, 10 mg, Per G Tube, BID bisacodyl, 10 mg, Rectal, Daily cefTRIAXone, 2,000 mg, IntraVENous, q24h cyanocobalamin, 1,000 mcg, Per G Tube, Daily [Held by provider] enoxaparin, 40 mg, SubCUTAneous, Daily gabapentin, 300 mg, Per G Tube, BID ipratropium-albuterol, 3 mL, Nebulization, TID metoclopramide, 5 mg, Per G Tube, TID pantoprazole, 40 mg, IntraVENous, 2 times per day pyridoxine, 100 mg, Per G Tube, Daily sertraline, 75 mg, Per G Tube, Daily Assessment Pneumonia, strep/aspiration - discussed with ID stewardship, DC antibiotics today. Acute respiratory failure - improved, on room air Sepsis, POA - improved. Metabolic encephalopathy Acute blood loss anemia - hemoglobin stable. - no plan for EGD by GI GJ tube bleed - improved, surgery evaluation appreciated,signed off. HTN Hyperlipidemia CAD CKD stage 2 Dysphagia Stomach cancer Lung nodules - follow up CT chest in 6-8 weeks, follow up with pulmonology Moderate malnutrition H/o gastric cancer s/p resection . Medical Decision Making - discontinue antibiotics as per ID stewardship. Completed course. Discussed with DR. Villa, ID - labs in am. - GI and surgery consult appreciated. , no intervention. - if stable, plan to DC in am. - non verbal to me, has left upper extremity weakness. Moves right upper extremity and b/l LE -am labs, replace lytes prn -increase activity -DVT prophylaxis: [] Lovenox [] Heparin [x] SCDs [] Encourage ambulation [] Already on Anticoagulation Anticipated Discharge - Date - 11/20 - Location - Shelter care facility - Pending the following - clinical stability and when OK with consultants Total time spent (which include face to face and non face to face encounters) : 45 minutes Toxic drug monitoring/narrow therapeutic index drug monitoring : # Drug name : # Route administered : # Method of monitoring : Extended Emergency Contact Information Primary Emergency Contact: Teresa Olea Mobile Relation: Scott Vizcarra MD Division of Hospitalist Medicine [facility] PAGER: [employer] [phone] NoteHospitalist Progress Note 11/18/2022 [phone]: Please message me for patient care issues. [phone]: Please message [facility] Hospitalist for any issues. Subjective: Admit Date: 11/14/2022 PCP: No primary care provider on file. Room#: B1-144/B1-144 A Interval History: Tolerating tube feeds. Weak. No SOB, cough, cp, n/v, f/c. Still with some bleeding. D/w RN and CM separately. Diet, tube feeding no tray PEG/J; Vital 1.5 Ben; Continuous; Yes; 0; 55; 55 @[id number]@ 24HR INTAKE/OUTPUT: Intake/Output Summary (Last 24 hours) at 11/18/2022 0954 Last data filed at 11/18/2022 0628 Gross per 24 hour Intake -- Output 650 ml Net -650 ml Past Medical History: History reviewed. No pertinent past medical history. LABS: CBC: Recent Labs 11/16/2252011/17/2234611/18/22108 WBC 9.8 8.7 7.4 RBC 2.84* 2.91* 2.90* HGB 8.0* 8.1* 8.1* HCT 24.1* 24.9* 24.9* MCV 84.8 85.5 85.7 RDW 17.4* 17.4* 17.8* PLT 168 183 214 BMP: Recent Labs 11/16/22 0511/17/2234611/18/22108 NA 141 143 143 K 3.9 4.0 4.2 CL 113* 113* 114* CO2 25 24 25 BUN 39* 33* 29* CREATININE 1.11 1.02 1.01 GLUCOSE 75 116* 106* CALCIUM 8.8 8.7 8.9 ANIONGAP 3 6 5 LIVER PROFILE: Recent Labs 11/18/22108 AST 33 ALT 25 BILITOT 0.2 ALKPHOS 70 PROT 6.4 PT/INR: No results for input(s): PROTIME, INR in the last 72 hours. CARDIAC ENZYMES: No results for input(s): TROPONINI in the last 72 hours. Procalcitonin: No results found for: PROCAL COVID-19 PCR: No results for input(s): COVID19 in the last 72 hours. Objective: Vitals: BP (!) 140/72 Pulse 70 Temp 37 ?C (98.6 ?F) (Temporal) Resp 18 Ht 6' (1.829 m) Wt 187 lb 8 oz (85 kg) SpO2 99% BMI 25.43 kg/m? Pulse Ox: SpO2 Av % Min: 98 % Max: 100 % Physical Exam Constitutional: Appearance: He is ill-appearing. HENT: Head: Normocephalic. Mouth/Throat: Mouth: Mucous membranes are moist. Cardiovascular: Rate and Rhythm: Normal rate and regular rhythm. Pulses: Normal pulses. Pulmonary: Effort: Pulmonary effort is normal. Breath sounds: No wheezing or rales. Abdominal: General: Bowel sounds are normal. There is no distension. Tenderness: There is no abdominal tenderness. There is no guarding. Musculoskeletal: Cervical back: Normal range of motion. Right lower leg: No edema. Left lower leg: No edema. Skin: General: Skin is warm. Findings: No rash. Neurological: Mental Status: He is disoriented. Motor: Weakness present. Medications: atorvastatin, 40 mg, Per G Tube, Daily baclofen, 10 mg, Per G Tube, BID bisacodyl, 10 mg, Rectal, Daily cefTRIAXone, 2,000 mg, IntraVENous, q24h cyanocobalamin, 1,000 mcg, Per G Tube, Daily [Held by provider] enoxaparin, 40 mg, SubCUTAneous, Daily gabapentin, 300 mg, Per G Tube, BID ipratropium-albuterol, 3 mL, Nebulization, TID metoclopramide, 5 mg, Per G Tube, TID pantoprazole, 40 mg, IntraVENous, 2 times per day pyridoxine, 100 mg, Per G Tube, Daily sertraline, 75 mg, Per G Tube, Daily Assessment Pneumonia, strep/aspiration Acute respiratory failure Sepsis, POA Metabolic encephalopathy Acute blood loss anemia GJ tube bleed HTN Hyperlipidemia CAD CKD stage 2 Dysphagia Stomach cancer Lung nodule Moderate malnutrition Medical Decision Making Continue IV antibiotics (seven day total course), continue tube feeds, follow up labs, continue to hold AC, GS, GI and Palliative Care following, GI to discuss EGD with DPOA, continue PT/OT, continue reglan and IV PPI, discharge planning, see orders. -am labs, replace lytes prn -increase activity -DVT prophylaxis: [] Lovenox [] Heparin [x] SCDs [] Encourage ambulation [] Already on Anticoagulation Anticipated Discharge - Date - 11/19 or 11/20 - Location - Shelter care facility - Pending the following - clinical stability and when OK with consultants Total time spent (which include face to face and non face to face encounters) : 41 minutes Toxic drug monitoring/narrow therapeutic index drug monitoring : # Drug name : # Route administered : # Method of monitoring : Extended Emergency Contact Information Primary Emergency Contact: Teresa Olea Mobile Relation: Child LISBET ALAS MD Division of Hospitalist Medicine [facility] PAGER: [employer] [facility] [id number] NoteHospitalist Progress Note 11/17/[id number]: Please message me for patient care issues. : Please message [facility] [facility] Hospitalist for any issues. Subjective: Admit Date: 11/14/2022 PCP: No primary care provider on file. Room#: B1-144/B1-144 A Interval History: Asked to assume care out of ICU. No bleeding. No drainage around PEG site. Appears to be tolerating tube feeds. Weak. No SOB, cough, cp, n/v, f/c. Weak. D/w RN separately. Diet, tube feeding no tray PEG/J; Vital 1.5 Ben; Continuous; Yes; 0; 55; 55 @[id number]@ 24HR INTAKE/OUTPUT: Intake/Output Summary (Last 24 hours) at 11/17/2022 1227 Last data filed at 11/16/2022 1330 Gross per 24 hour Intake 293 ml Output 200 ml Net 93 ml Past Medical History: History reviewed. No pertinent past medical history. LABS: CBC: Recent Labs 11/15/22 0510 11/16/2252011/17/22346 WBC 17.9* 9.8 8.7 RBC 3.13* 2.84* 2.91* HGB 8.6* 8.0* 8.1* HCT 26.6* 24.1* 24.9* MCV 84.8 84.8 85.5 RDW 16.9* 17.4* 17.4* PLT 191 168 183 BMP: Recent Labs 11/15/22 0510 11/16/2252011/17/22346 NA 135 141 143 K 4.8 3.9 4.0 CL 108* 113* 113* CO2 27 25 24 BUN 50* 39* 33* CREATININE 1.16 1.11 1.02 GLUCOSE 113* 75 116* CALCIUM 8.3* 8.8 8.7 ANIONGAP 0* 3 6 LIVER PROFILE: Recent Labs 11/14/22 1623 AST 36 ALT 24 BILITOT 0.4 ALKPHOS 99 PROT 7.0 PT/INR: No results for input(s): PROTIME, INR in the last 72 hours. CARDIAC ENZYMES: No results for input(s): TROPONINI in the last 72 hours. Procalcitonin: Lab Results Component Value Date PROCAL 0.33 (H) 11/14/2022 COVID-19 PCR: No results for input(s): COVID19 in the last 72 hours. Objective: Vitals: BP (!) 149/108 (BP Location: Right arm, Patient Position: Lying) Pulse 85 Temp 37.6 ?C (99.6 ?F) (Temporal) Resp 18 Ht 6' (1.829 m) Wt 187 lb 8 oz (85 kg) SpO2 100% BMI 25.43 kg/m? Pulse Ox: SpO2 Av % Min: 95 % Max: 100 % Physical Exam Constitutional: General: He is not in acute distress. Appearance: He is ill-appearing. HENT: Head: Normocephalic. Mouth/Throat: Mouth: Mucous membranes are moist. Cardiovascular: Rate and Rhythm: Normal rate. Pulses: Normal pulses. Heart sounds: No murmur heard. Pulmonary: Effort: Pulmonary effort is normal. Breath sounds: No wheezing. Comments: Coarse breath sounds bilaterally Abdominal: General: Bowel sounds are normal. There is no distension. Tenderness: There is no abdominal tenderness. There is no guarding. Musculoskeletal: Cervical back: Normal range of motion. Right lower leg: No edema. Left lower leg: No edema. Skin: General: Skin is warm. Coloration: Skin is not jaundiced. Neurological: Mental Status: He is disoriented. Motor: Weakness present. Medications: atorvastatin, 40 mg, Per G Tube, Daily baclofen, 10 mg, Per G Tube, BID bisacodyl, 10 mg, Rectal, Daily cefTRIAXone, 2,000 mg, IntraVENous, q24h cyanocobalamin, 1,000 mcg, Per G Tube, Daily [Held by provider] enoxaparin, 40 mg, SubCUTAneous, Daily gabapentin, 300 mg, Per G Tube, BID ipratropium-albuterol, 3 mL, Nebulization, TID metoclopramide, 5 mg, Per G Tube, TID pantoprazole, 40 mg, IntraVENous, 2 times per day pyridoxine, 100 mg, Per G Tube, Daily sertraline, 75 mg, Per G Tube, Daily Assessment Pneumonia, strep/aspiration Acute respiratory failure Sepsis, POA Metabolic encephalopathy Acute blood loss anemia GJ tube bleed HTN Hyperlipidemia CAD CKD stage 2 Dysphagia Stomach cancer Lung nodule Moderate malnutrition Medical Decision Making Continue IV antibiotics, continue tube feeds, follow up labs, hold AC, GS, GI and Palliative Care following, PT/OT, continue reglan and IV PPI, discharge planning, see orders. -am labs, replace lytes prn -increase activity -DVT prophylaxis: [] Lovenox [] Heparin [x] SCDs [] Encourage ambulation [] Already on Anticoagulation Anticipated Discharge - Date - 11/19 or 11/20 - Location - Shelter care facility - Pending the following - clinical stability and when OK with consultants Total time spent (which include face to face and non face to face encounters) : 43 minutes Toxic drug monitoring/narrow therapeutic index drug monitoring : # Drug name : # Route administered : # Method of monitoring : Extended Emergency Contact Information Primary Emergency Contact: Teresa Olea Mobile Relation: Child LISBET ALAS MD Division of Hospitalist Medicine [facility] PAGER: [facility] [phone] NoteGI CONSULTATION Patient: Berto Parkinson : 1935 Primary Care Physician: No primary care provider on file. Inpatient consult to Gastroenterology Consult performed by: Kelly Davis MD Consult ordered by: Iglesia Mcconnell MD REASON FOR CONSULTATION: Bloody drainage from G-tube HISTORY OF PRESENT ILLNESS: Berto Parkinson is a 87 y.o. male with PMH below who presented [facility] the ER from SNF for hypoxia. Patient is a poor historian therefore much of the history was from chart review and discussion with staff. Patient was having shallow breathing and only satting 87% on room air and was placed on NIV arrival. Also having some hypotension with SBP in the 90s. In the ER labs showed: Sodium 133, potassium 4.6, BUN 48, creatinine 1.2, normal hepatic function panel, normal lactic acid, WBC 11.6, hemoglobin 11.1, platelets 237. CT abdomen/pelvis showed: Constipation. Rectal fecal impaction. Right lung base infiltration density suspicious for pneumonia. Postoperative changes. Renal cysts. Atherosclerosis. Patient was also noted to have some serosanguineous drainage and residual blood from the G-tube. Patient was admitted for further evaluation and management. PAST MEDICAL HISTORY: History reviewed. No pertinent past medical history. PAST SURGICAL HISTORY: No past surgical history on file. FAMILY HISTORY: No family history on file. SOCIAL HISTORY: TOBACCO: has no history on file for tobacco use. ETOH: has no history on file for alcohol use. DRUGS: has no history on file for drug use. Medications: Prior to Admission medications Medication Sig Start Date End Date Taking? Authorizing Provider acetaminophen (Tylenol) 325 MG tablet 650 mg by Per G Tube route every 6 hours as needed for mild pain (1-3). Historical Provider, amLODIPine (Norvasc) 2.5 MG tablet 2.5 mg by Per G Tube route daily. Historical Provider, aspirin 81 MG chewable tablet 81 mg daily. Historical Provider, atorvastatin (Lipitor) 40 MG tablet 40 mg by Per G Tube route daily. Historical Provider, baclofen (Lioresal) 10 MG tablet 10 mg by Per G Tube route 2 times daily. Historical Provider, bisacodyl (Dulcolax) 5 MG EC tablet Take 5 mg by mouth Daily as needed for constipation. Do not crush, chew, or split. Historical Provider, bisacodyl (Dulcolax) 5 mg split suppository Insert 10 mg into the rectum Daily as needed. Historical Provider, cyanocobalamin (Vitamin B-12) 1000 MCG tablet 1,000 mcg by Per G Tube route daily. Historical Provider, docusate (Colace) 50 MG/5ML liquid Take 100 mg by mouth 2 times daily. Historical Provider, ergocalciferol (Vitamin D-2) 1.25 MG (42883 UT) capsule Take 1.25 mg by mouth 1 (one) time per week. On Mondays Historical ProviderMD gabapentin (Neurontin) 300 MG capsule 300 mg by Per G Tube route 2 times daily. Historical ProviderMD hyoscyamine (Levsin) 0.125 MG/ML solution by Per G Tube route every 4 hours as needed (increased secretions). Historical Provider, isosorbide dinitrate (Isordil) 10 MG tablet 10 mg by Per G Tube route 3 times daily. Historical Provider, magnesium hydroxide (Milk of Magnesia) 400 MG/5ML suspension 30 mL by Per G Tube route Nightly as needed for constipation. Historical Provider, metoclopramide (Reglan) 5 MG/5ML solution 5 mg by Per G Tube route in the morning and 5 mg at noon and 5 mg in the evening and 5 mg before bedtime. Historical Provider, nitroglycerin (Nitrostat) 0.[address] 0.4 mg under the tongue every 5 minutes as needed for chest pain. Historical Provider, pyridoxine (B-6) 100 MG tablet 100 mg by Per G Tube route daily. Historical Provider, sennosides (Senokot) 8.6 MG tablet 2 tablets by Per G Tube route daily. Historical Provider, sertraline (Zoloft) 50 MG tablet 75 mg by Per G Tube route daily. Historical Provider, @[email or web address]@ ALLERGIES: No Known Allergies REVIEW OF SYSTEMS: No fever, chills, or sweats. Normal appetite and weight. No HOWARD, visual disturbance, eye pain, jaundice, sore throat or mouth ulcers. No skin rash or itching. No CP, SOB, STANLEY, cough or wheeze. No urinary frequency, urgency, hematuria, or dysuria. No myalgia, arthralgia, or joint swelling. No weakness, numbness, or confusion. GI per HPI. No polyuria, polydipsia, heat or cold intolerance. PHYSICAL EXAM: VS: BP (!) 121/46 Pulse 93 Temp 37.7 ?C (99.8 ?F) (Axillary) Resp 18 Ht 6' (1.829 m) Wt 187 lb 8 oz (85 kg) SpO2 100% BMI 25.43 kg/m? Body mass index is 25.43 kg/m?. GENERAL: Pleasant and NAD. HEENT: NCAT, PERRLA, EOMI, Scleral anicteric. Oropharhynx clear with no erythema or exudate. Neck supple, no cervical LAD or thyromegaly. CV: RRR, NL S1/S2, no murmurs. Distal pulses palpable and equal b/l. LUNGS: CTA b/l. Normal percussion and palpation. No W/R/R. Abdomen: + BS, soft, non-tender and non-distended. No hepatosplenomegaly. No mass felt. No rebound or guarding. No h (more content not included)...[facility] [id number] NoteICU Progress Note Name: Berto Parkinson : 1935(87 y.o.) Date: 11/16/22 Team: MICU Attending: Enedina Subjective: Hospital Summary: Patient is a 87 year old male with PMH former tobacco use, debility - bed bound from SNF, dysphagia 2/2 stomach cancer s/p GJ tube, HTN/HLD, CAD, prior etoh abuse, PAD, who presented to [facility] ED from SNF on 11/14/2022 for hypoxia (87% on RA) and shallow breathing, placed on NIV on arrival. Soft Bps in 90s, given 1.5L IVF with improvement. Imaging concerning for RLL pna. Also concerns from SNF for PEG issues although this wasn't very specific. GJ tube site appears to have small tear on skin with bleeding, bandage with serosanguinous drainage and residual blood from GJ tube. ICU consulted for acute hypoxic resp failure on NIV. Upon arrival to ICU weaned off NIV. Now weaned to RA. Found to have strep PNA urine antigen. Surgery evaluated PEG, no intervention. GI consult pending. BP meds and ASA on hold. Interval Events: Surgery note appreciated. Patient has no complaints this AM, no further bleeding from PEG tube. BP imporved overnight. Scheduled Meds:atorvastatin, 40 mg, Per G Tube, Daily baclofen, 10 mg, Per G Tube, BID bisacodyl, 10 mg, Rectal, Daily cefTRIAXone, 2,000 mg, IntraVENous, q24h cyanocobalamin, 1,000 mcg, Per G Tube, Daily [Held by provider] enoxaparin, 40 mg, SubCUTAneous, Daily gabapentin, 300 mg, Per G Tube, BID ipratropium-albuterol, 3 mL, Nebulization, TID metoclopramide, 5 mg, Per G Tube, TID pantoprazole, 40 mg, IntraVENous, 2 times per day pyridoxine, 100 mg, Per G Tube, Daily sertraline, 75 mg, Per G Tube, Daily Continuous Infusions: Objective: Last Vitals: BP MAP 123/84 (11/16/22714) 91 (11/16/22714) Arterial BP MAP Temp 36.9 ?C (98.5 ?F) (11/15/221944) Pulse 86 (11/16/22714) Resp 24 (11/16/22714) SpO2 96 % (11/16/22714) Weight 85 kg (187 lb 8 oz) (11/14/22 1601) BMI Body mass index is 25.43 kg/m?. I/O: 11/15 699 - 11/16 658 In: 1441.3 [I.V.:1441.3] Out: 1150 [Urine:1150] Ventilator: Resp Rate (Set): 12 FiO2 (%): 30 % Inspiratory Time (sec): 0.9 sec Oxygen Delivery: O2 Flow Rate (L/min): 2 L/min Invasive Lines / Tubes / Drains: Peripheral IV 11/14/22 Left;Posterior Forearm (Active) Number of days: 0 Peripheral IV 11/14/22 Right Antecubital (Active) Number of days: 0 Urethral Catheter 16 Fr. (Active) Number of days: 0 Central Line Indication: NA - patient does not have a central line [place] Indications: Comfort for end-of-life care, if needed Restraints: NA - patient is not restrained. Wounds: Constitutional: General Appearance []WDWN []Obese [x]Cachectic [x]Thin [x]Ill Eyes: Inspection of Pupils/Irises Pupils round and react: [x]Yes []No Sclera: []Icteric [x]Non-Icteric Inspection of Conjunctiva/Lids Conjunctiva: []Injected [x]Non-Injected Lids: [x]Intact []Lesion Present ENT/Mouth: External Inspection of ears/nose [x] Normal [] Scar/Lesion/Mass Inspection of teeth/lips/gums Dentition: [x][place] Teeth []Dentures Lips/Gums: []Intact []Lesion Present Mucosa: [][place] []Moist [x]Dry Neck: External Appearance Overall Appearance: [x]Normal []Lesion/Mass/Crepitus Present Trachea midline: [x]Yes []No Thyroid [x]Normal []Enlarged []Tender []Mass []Absent Respiratory: Respiratory effort [x]Labored []Non-Labored [] Mechanically-Ventilated Auscultation []Clear []Crackles []Wheezes [x]Rhonchi Cardiovascular: Auscultation Rate: [x]Regular []Irregular []Tachycardia []Bradycardia Rhythm: [x]Regular []Irregular Murmur: [x]Present []Absent Extremities Peripheral Edema: []Present [x]Absent Varicosities: []Present [x]Absent Gastrointestinal: Abdomen Palpation: [x]Soft []Firm []Tender [x]Non-Tender +PEG, no obvious bleeding. []Distended [x]Non-distended Mass: [x]Present []Absent Bowel Sounds: [x]Present [x]Absent Hernia: []Present [x]Absent Liver/Spleen: []Hepatosplenomegaly []Organomegaly Absent Musculoskeletal: Inspection of Digits and Nails Cyanosis: []Present [x]Absent Clubbing: []Present [x]Absent Ischemia: []Present [x]Absent Infection: []Present [x]Absent Extremities ++contractures and muscle wasting. Skin: Inspection [x]Normal []Rash [x]Lesion []Ulcer Palpation []Warm []Cool [x]Dry []Clammy []Nodules []Induration []Skin-tightening Cap-Refill: [x] <3 sec [] >3 seconds (delayed) Neurologic: GCS EYE: 4 - Opens spontaneously GCS MOTOR: 6 - Obeys commands for movement GCS VERBAL: 4 - Confused Total GCS: 14 [x] Sensation grossly intact Psych: Mental Status Alert: [x]Yes [] No Oriented: []x0 [x]X1 []X2 []x3 Mood/Affect []Normal []Flat []Agitated []Depressed []Anxious [x]Calm []Sedated []NAD Select Labs within last 24 hours- BMP: Recent Labs 11/14/22 1623 11/15/22 0510 11/16/22 0521 NA 133* 135 141 K 4.6 4.8 3.9 CL 100 108* 113* CO2 27 27 25 BUN 48* 50* 39* (more content not included)...[facility] [id number] [facility] Respiratory Care Department Progress Note As part of the Respiratory Assessment Program (RAP), the following Respiratory Therapist evaluation has been completed, including a chart review and clinical/physical assessment. Respiratory Therapist RAP Evaluation Guideline Points 0 1 2 3 4 Points Strongly Consider History Factor No Pulmonary conditions Stable Pulmonary condition(s) Surgery or Intervention that may impact Pulmonary system (at risk) Surgery or Intervention that is impacting Pulmonary system Active Exacerbation of Pulmonary Condition 1 Respiratory Pattern Regular, RR= 12-18 STANLEY or Increased RR= 19-24 Irregular, or RR= 25-30 SOB, talk in short sentences, or RR= 31-35 Severe SOB, accessory muscle use, one word answers, or RR>35 0 Aerosol Med(s), High Flow O2 Breath Sounds Clear Diminished in 1 lobe Diminished in ? 2 lobes Adventitious breath sounds Coarse crackles, Wheezes, or Diminished in >2 lobes 2 Aerosol Med(s), Bronchial Hygiene, Hyperinflation Cough & Sputum Strong cough, no secretion retention or production Weak cough, no secretion retention or production Weak cough, w/ production (less often than Q2hr), or secretion retention No cough, w/ secretion retention or production (less often than Q2hr) Significant secretion production (more often than Q2hr) or mucus plug 0 Aerosol Med(s), Bronchial Hygiene, Hyperinflation Level of Activity Ambulatory Ambulatory with Assist Up in chair or edge of bed (dangle) Non-ambulatory, bedridden with active ROM Completely paralyzed or without active ROM 1 Triage 5 0-2 Triage 4 3-5 Triage 3 6-10 Triage 2 11-14 Triage 1 ?15 Total 4 Triage Score = 4 TRIAGE SCORING - SUGGESTED FREQUENCIES Aerosol Therapy Bronchial Hygiene Hyperinflation Triage Score Q4h & PRN 1 Q4hWA (QID) & PRN 2 TID & PRN 3 BID & PRN 4 PRN 5 Therapy(s) Indicated Yes/No Aerosol Medication yes Hyperinflation Bronchial Hygiene High Flow Oxygen Flow Rates PEF (L/Sec) IVC FVC FEV1 FEV1/FVC Patient instructed and returned demonstration on use of MDI (with spacer, as appropriate) None RT to enter/modify frequency of treatment order in EMR/EHR to match this RAP evaluation. Based on this RAP evaluation the following therapy is being initiated: Duoneb At the following frequency: TID Comments: Thank you for involving Respiratory in the care of this patient, [facility]03-03-2023 NoteICU Progress Note Name: Berto Parkinson : 1935(87 y.o.) Date: 11/15/22 Team: MICU Attending: Enedina Subjective: Hospital Summary: Patient is a 87 year old male with PMH former tobacco use, debility - bed bound from SNF, dysphagia 2/2 stomach cancer s/p GJ tube, HTN/HLD, CAD, prior etoh abuse, PAD, who presented to [facility] ED from SNF on 11/14/2022 for hypoxia (87% on RA) and shallow breathing, placed on NIV on arrival. Soft Bps in 90s, given 1.5L IVF with improvement. Imaging concerning for RLL pna. Also concerns from SNF for PEG issues although this wasn't very specific. GJ tube site appears to have small tear on skin with bleeding, bandage with serosanguinous drainage and residual blood from GJ tube. ICU consulted for acute hypoxic resp failure on NIV. Interval Events: Weaned off the NIV overnight. Soft BP this AM. Scheduled Meds:bisacodyl, 10 mg, Rectal, Daily cefTRIAXone, 2,000 mg, IntraVENous, q24h [Held by provider] enoxaparin, 40 mg, SubCUTAneous, Daily ipratropium-albuterol, 3 mL, Nebulization, 4x daily lactated ringers, 500 mL, IntraVENous, Once pantoprazole, 40 mg, IntraVENous, 2 times per day Continuous Infusions: Objective: Last Vitals: BP MAP (!) 107/49 (11/15/22 06) 64 (11/15/22601) Arterial BP MAP Temp 37.8 ?C (100.1 ?F) (11/15/22 0715) Pulse 73 (11/15/22 0804) Resp 22 (11/15/22 06) SpO2 98 % (11/15/22 0715) Weight 85 kg (187 lb 8 oz) (11/14/22 1601) BMI Body mass index is 25.43 kg/m?. I/O: 11/14 07 - 11/15 0659 In: - Out: 400 [Urine:400] Ventilator: Resp Rate (Set): 12 FiO2 (%): 30 % Inspiratory Time (sec): 0.9 sec Oxygen Delivery: O2 Flow Rate (L/min): 2 L/min Invasive Lines / Tubes / Drains: Peripheral IV 11/14/22 Left;Posterior Forearm (Active) Number of days: 0 Peripheral IV 11/14/22 Right Antecubital (Active) Number of days: 0 Urethral Catheter 16 Fr. (Active) Number of days: 0 Central Line Indication: NA - patient does not have a central line [place] Indications: Comfort for end-of-life care, if needed Restraints: NA - patient is not restrained. Wounds: Constitutional: General Appearance []WDWN []Obese [x]Cachectic [x]Thin [x]Ill Eyes: Inspection of Pupils/Irises Pupils round and react: [x]Yes []No Sclera: []Icteric [x]Non-Icteric Inspection of Conjunctiva/Lids Conjunctiva: []Injected [x]Non-Injected Lids: [x]Intact []Lesion Present ENT/Mouth: External Inspection of ears/nose [x] Normal [] Scar/Lesion/Mass Inspection of teeth/lips/gums Dentition: [x][place] Teeth []Dentures Lips/Gums: []Intact []Lesion Present Mucosa: [][place] []Moist [x]Dry Neck: External Appearance Overall Appearance: [x]Normal []Lesion/Mass/Crepitus Present Trachea midline: [x]Yes []No Thyroid [x]Normal []Enlarged []Tender []Mass []Absent Respiratory: Respiratory effort [x]Labored []Non-Labored [] Mechanically-Ventilated Auscultation []Clear []Crackles []Wheezes [x]Rhonchi Cardiovascular: Auscultation Rate: [x]Regular []Irregular []Tachycardia []Bradycardia Rhythm: [x]Regular []Irregular Murmur: [x]Present []Absent Extremities Peripheral Edema: []Present [x]Absent Varicosities: []Present [x]Absent Gastrointestinal: Abdomen Palpation: [x]Soft []Firm []Tender [x]Non-Tender +PEG []Distended [x]Non-distended Mass: [x]Present []Absent Bowel Sounds: [x]Present [x]Absent Hernia: []Present [x]Absent Liver/Spleen: []Hepatosplenomegaly []Organomegaly Absent Musculoskeletal: Inspection of Digits and Nails Cyanosis: []Present [x]Absent Clubbing: []Present [x]Absent Ischemia: []Present [x]Absent Infection: []Present [x]Absent Extremities ++contractures and muscle wasting. Skin: Inspection [x]Normal []Rash [x]Lesion []Ulcer Palpation []Warm []Cool [x]Dry []Clammy []Nodules []Induration []Skin-tightening Cap-Refill: [x] <3 sec [] >3 seconds (delayed) Neurologic: GCS EYE: 4 - Opens spontaneously GCS MOTOR: 6 - Obeys commands for movement GCS VERBAL: 4 - Confused Total GCS: 14 [x] Sensation grossly intact Psych: Mental Status Alert: [x]Yes [] No Oriented: []x0 []X1 []X2 []x3 Mood/Affect []Normal []Flat []Agitated []Depressed []Anxious [x]Calm []Sedated []NAD Select Labs within last 24 hours- BMP: Recent Labs 11/14/22 1623 11/15/22 0510 NA 133* 135 K 4.6 4.8 CL 100 108* CO2 27 27 BUN 48* 50* CREATININE 1.20 1.16 CALCIUM 9.2 8.3* MG -- 1.9 PHOS -- 3.1 LFTs: Recent Labs 11/14/22 1623 11/14/22 2307 AST 36 -- ALT 24 -- PROT 7.0 -- ALBUMIN 3.6 -- BILITOT 0.4 -- BILIRUBINU -- Negative ALKPHOS 99 -- Glucose: Recent Labs 11/14/22 1623 11/15/22 0510 GLUCOSE 145* 113* Procal: Recent Labs 11/14/220 PROCAL 0.33* CBC: Recent Labs 11/14/22 1623 11/14/22 23211/15/22 0510 WBC 11.6* 17.0* 17.9* HGB 11.1* 9.5* 8.6* HCT 33.5* 29.2* 26.6* PLT 237 191 191 MCV 84.0 84.6 84.8 RDW 1 (more content not included)...[facility] [id number] NoteICU Initial History and Physical Berto Ray : 1935(87 y.o.) Date: November 14, 2022 Attending: Dr. aGmino Subjective: Chief Complaint: Hypoxia and peg issues HPI: Patient is a 87 year old male with PMH former tobacco use, debility - bed bound from SNF, dysphagia 2/2 stomach cancer s/p GJ tube, HTN/HLD, CAD, prior etoh abuse, PAD, who presented to [facility] ED from SNF on 11/14/2022 for hypoxia (87% on RA) and shallow breathing, placed on NIV on arrival. Soft Bps in 90s, given 1.5L IVF with improvement. Imaging concerning for RLL pna. Also concerns from SNF for PEG issues although this wasn't very specific. GJ tube site appears to have small tear on skin with bleeding, bandage with serosanguinous drainage and residual blood from GJ tube. ICU consulted for acute hypoxic resp failure on NIV. On my exam, pt is able to answer some yes/no questions and following commands. Has contractures in all 4 limbs, but does have some movement of RUE. Pt continuously trying to spit out secretions from mouth, looks clear. Tachypneic ~30s on NIV, 10/5 FiO2 30%. VS: 99.3F, HR 99, RR 24 on NIV, SpO2 100% on 60%. Labs: Na 133, K 4.6, Cl 100, serum bicarb 27, AG 5, BUN 48, Scr 1.20, lactic 1.5, WBC 11.6, hgb 11.1, plt 237, COVID/Flu/RSV neg. PAST MEDICAL HISTORY Diagnosis Date Acid reflux CAD (coronary artery disease) Chest pain, unspecified Dislodged gastrostomy tube 04/28/2015 Dysphagia 03/15/2015 Esophageal dysmotility Falls frequently Gastric ulcer, unspecified as acute or chronic, without mention of hemorrhage, perforation, or obstruction History of ETOH abuse HTN (hypertension) Inguinal hernia PAD (peripheral artery disease) (HCC) S/P gastrostomy tube (G tube) placement, follow-up exam 03/23/2015 Stomach cancer (HCC) 2011 Thyroid nodule 01/2015 PAST SURGICAL HISTORY Procedure Laterality Date CARDIAC CATH 03/2012 GASTROSTOMY-JEJEUNOSTOMY TUBE CHANGE/PLACEMENT HX 03/23/2015 and Diagnostic laparoscopy, PAST SURGICAL HISTORY OF 09/2012 Bilateral truncal vagotomy with antrectomy, gastrojejunostomy REPAIR ING HERNIA,5+Y/O,REDUCIBL 2012 Hernia repair, inguinal No family history on file. Social History Socioeconomic History Marital status: Single Spouse name: Not on file Number of children: Not on file Years of education: Not on file Highest education level: Not on file Occupational History Not on file Tobacco Use Smoking status: Not on file Smokeless tobacco: Not on file Substance and Sexual Activity Alcohol use: Not on file Drug use: Not on file Sexual activity: Not on file Other Topics Concern Not on file Social History Narrative Not on file Social Determinants of Health Financial Resource Strain: Not on file Food Insecurity: Not on file Transportation Needs: Not on file Physical Activity: Not on file Stress: Not on file Social Connections: Not on file Intimate Partner Violence: Not on file Housing Stability: Not on file No Known Allergies Prior to Admission medications Not on File Objective: Oxygen Delivery - O2 Flow Rate (L/min): 15 L/min VITALS: BP 120/56 (BP Location: Left arm, Patient Position: Sitting) Pulse 87 Temp 37.4 ?C (99.3 ?F) (Oral) Resp 24 Ht 1.829 m (6') Wt 85 kg (187 lb 8 oz) SpO2 100% BMI 25.43 kg/m? CURRENT PULSE OXIMETRY: SpO2: 100 % Review of Systems Unable to perform ROS: Patient nonverbal Physical Exam Vitals and nursing note reviewed. Constitutional: General: He is awake. He is not in acute distress. Appearance: He is obese. He is not toxic-appearing or diaphoretic. Interventions: Face mask in place. HENT: Mouth/Throat: Mouth: Mucous membranes are dry. Pharynx: Oropharynx is clear. Eyes: Extraocular Movements: Extraocular movements intact. Conjunctiva/sclera: Conjunctivae normal. Pupils: Pupils are equal, round, and reactive to light. Cardiovascular: Rate and Rhythm: Normal rate and regular rhythm. Pulses: Normal pulses. Heart sounds: Normal heart sounds. Pulmonary: Effort: Tachypnea present. No accessory muscle usage or respiratory distress. Breath sounds: Normal air entry. Rhonchi present. Abdominal: General: Bowel sounds are normal. There is distension. Palpations: Abdomen is soft. Tenderness: There is no abdominal tenderness. Comments: GJ tube in place with small tear around insertion site leaking serosanguinous drainage. Dark blood in tubing. Musculoskeletal: Right lower leg: No edema. Left lower leg: No edema. Skin: General: Skin is warm and dry. Capillary Refill: Capillary refill takes less than 2 seconds. Comments: Scabs noted to bilateral lower extremity, no erythema or drainage. No wounds noted to sacrum or heels. Heels are soft bilaterally Neurological: Mental Status: He is alert and easily aroused. Comments: Follows commands intermittently. Contracted throughout, but does have movement of LUE. Psychiatric: Mood an (more content not included)...[facility]10-11-2021 Note Patient Outreach (QAINDP) BERTO PARKINSON ([id number]) 1935 M Date Time Provider Department 06/25/21 ENRICO CARCAMO During your visit today, we recorded the following information about you: Enrico Carcamo RN 06/25/2021 7:56 AM Signed TRANSITION CARE MANAGEMENT (TCM) INITIAL CONTACT Call Summary: Mr. Parkinson transitioned to non-short stay at facility, per [facility]. No further monitoring for SNF TCM. Enrico Carcamo RN June 25, 2021 7:56 AM Allergies As of Date: 06/25/2021 (No Known Allergies) Date Reviewed: 03/16/2021 Reviewed by: Elizabeth Madera RN - Fully Assessed Reason for Visit: Pressure Washer- Other [2353] Prescriptions as of 06/25/2021 - ciprofloxacin HCl (CIPRO) 500 mg tablet Take 1 tablet by mouth once daily for 5 doses. - scopolamine (TRANSDERM-SCOP) patch 1.5 mg/72 hr (1 mg over 3 days) Apply 1 Patch as directed every 72 hours. - lidocaine (LIDODERM) 5 % Apply 1 Patch as directed every 24 hours. Bilateral knees - docusate Take 50 mg by mouth twice daily. - bisacodyl (DULCOLAX) 10 mg supp 10 mg by RECTAL route once daily as needed for constipation. - citalopram hydrobromide (CELEXA) 10 mg tablet Take 10 mg by mouth once daily. - sodium phosphate-sodium bisphosphate (FLEET) enema 1 Enema by RECTAL route once daily as needed. - isosorbide dinitrate (ISORDIL) 10 mg tablet Take 10 mg by mouth three times daily. - mirtazapine (REMERON) 15 mg tablet Take 7.5 mg by mouth daily at bedtime. - cyanocobalamin (VITAMIN B-12) 1,000 mcg tab Take 1,000 mcg by mouth once daily. - ergocalciferol, vitamin D2, (DRISDOL) 50,000 unit capsule Take 1 capsule by mouth once each week for 11 doses. - aspirin, enteric coated (ASPIRIN, ENTERIC COATED) 81 mg EC tablet Take 81 mg by mouth once daily. - baclofen (LIORESAL) 10 mg tablet Take 10 mg by mouth twice daily. - pyridoxine, vitamin B6, (VITAMIN B-6) 100 mg tablet Take 100 mg by mouth once daily. - atorvastatin (LIPITOR) 40 mg tablet Take 1 tablet by mouth daily at bedtime. - amLODIPine (NORVASC) 2.5 mg tablet Take 1 tablet by mouth once daily. - Omeprazole 40 mg capsule Take 40 mg by mouth once daily. - acetaminophen (TYLENOL) 325 mg tablet Take 650 mg by mouth every 4 hours as needed. - ammonium lactate (LAC-HYDRIN) 12 % lotion Apply to affected area as needed. - gabapentin (NEURONTIN) 300 mg capsule Take 1 capsule by mouth every 12 hours. - nitroglycerin sublingual 0.4 mg SL tablet Dissolve 1 tablet under the tongue as needed for Chest Pain. If no pain relief call 911. Meds Comments as of 06/03/2016: Pt unable to remember medications. RN checked all meds in home. unable to locate nitroglycerin tabs. TLE Problem List As Of Date 06/25/2021 Noted Resolved SUMMARY [V999.95] 03/30/2012 Chest pain [R07.9] 03/30/2012 Essential hypertension [I10] 03/30/2012 Alcohol abuse [F10.10] 03/30/2012 Smoker [F17.200] 03/30/2012 Hypoglycemia [E16.2] 03/30/2012 Gastric cancer (HCC) [C16.9] 10/17/2012 Thyroid nodule [E04.1] 01/18/2015 Dysphagia [R13.10] 03/15/2015 Achalasia [K22.0] 03/15/2015 Dislodged gastrostomy tube (HCC) [T85.528A] 04/28/2015 Fall [W19.XXXA] 05/17/2016 Elevated troponin [R77.8] 05/17/2016 Incomplete tear of left rotator cuff [M75.112] 05/17/2016 Hypotension due to drugs [I95.2] 12/15/2016 Persistent sinus bradycardia [R00.1] 12/15/2016 Gait instability [R26.81] 12/15/2016 Recurrent falls while walking [R29.6] 12/15/2016 Hypertensive heart disease without heart failur*12/15/2016 Esophageal dysphagia [R13.19] 07/28/2017 Frequent falls [R29.6] 03/10/2018 Severe protein-calorie malnutrition (HCC) [E43] 03/11/2018 Delirium [R41.0] 03/13/2018 Vitamin D deficiency [E55.9] 03/14/2018 Acute kidney injury (HCC) [N17.9] 03/16/2018 Discharge planning issues [Z02.9] 07/07/2018 CAD (coronary artery disease) [I25.10] 07/07/2018 Elevated serum creatinine [R79.89] 07/09/2018 present on admission stage II [Z91.89] 07/10/2018 Pressure injury of buttock, stage 1 [L89.301] 07/13/2018 Feeding tube dysfunction [T85.598A] 03/07/2021 Acute on chronic renal insufficiency [N28.9, N1*03/10/2021 03/16/2021 Altered mental status [R41.82] 03/10/2021 Hypernatremia [E87.0] 03/10/2021 03/16/2021 Chronic anemia [D64.9] 03/10/2021 Acute kidney injury superimposed on CKD (HCC) [*03/10/2021 03/16/2021 Moderate protein-calorie malnutrition (HCC) [E4*03/11/2021 Encounter Status:Closed by ENRICO CARCAMO on 06/25/21[facility]10-11-2021 NoteHNO ID: [id number] Author: Enrico Carcamo RN Service: ? Author Type: Registered Nurse Type: Progress Notes Filed: 06/25/2021 7:56 AM Note Text: TRANSITION CARE MANAGEMENT (TCM) INITIAL CONTACT Call Summary: Mr. Parkinson transitioned to non-short stay at facility, per [facility]. No further monitoring for SNF TCM. Enrico Carcamo RN June 25, 2021 7:56 [facility]10-08-2021 NotePatient Outreach (QAINDP) BERTO PARKINSON ([id number]) 1935 M Date Time Provider Department 06/22/21 ENRICO CARCAMO QASEPIDEH During your visit today, we recorded the following information about you: Enrico Carcamo RN 06/22/2021 8:19 AM Signed TRANSITION CARE MANAGEMENT (TCM) INITIAL CONTACT Call Summary: Per Berto Nichole Iggy still present at facility with skilled care. Will continue to monitor for SNF discharge and will contact patient as appropriate for SNF TCM. Enrico Carcamo RN June 22, 2021 8:18 AM Allergies As of Date: 06/22/2021 (No Known Allergies) Date Reviewed: 03/16/2021 Reviewed by: Elizabeth Madera RN - Fully Assessed Reason for Visit: Pressure Washer- Other [7036] Prescriptions as of 06/22/2021 - ciprofloxacin HCl (CIPRO) 500 mg tablet Take 1 tablet by mouth once daily for 5 doses. - scopolamine (TRANSDERM-SCOP) patch 1.5 mg/72 hr (1 mg over 3 days) Apply 1 Patch as directed every 72 hours. - lidocaine (LIDODERM) 5 % Apply 1 Patch as directed every 24 hours. Bilateral knees - docusate Take 50 mg by mouth twice daily. - bisacodyl (DULCOLAX) 10 mg supp 10 mg by RECTAL route once daily as needed for constipation. - citalopram hydrobromide (CELEXA) 10 mg tablet Take 10 mg by mouth once daily. - sodium phosphate-sodium bisphosphate (FLEET) enema 1 Enema by RECTAL route once daily as needed. - isosorbide dinitrate (ISORDIL) 10 mg tablet Take 10 mg by mouth three times daily. - mirtazapine (REMERON) 15 mg tablet Take 7.5 mg by mouth daily at bedtime. - cyanocobalamin (VITAMIN B-12) 1,000 mcg tab Take 1,000 mcg by mouth once daily. - ergocalciferol, vitamin D2, (DRISDOL) 50,000 unit capsule Take 1 capsule by mouth once each week for 11 doses. - aspirin, enteric coated (ASPIRIN, ENTERIC COATED) 81 mg EC tablet Take 81 mg by mouth once daily. - baclofen (LIORESAL) 10 mg tablet Take 10 mg by mouth twice daily. - pyridoxine, vitamin B6, (VITAMIN B-6) 100 mg tablet Take 100 mg by mouth once daily. - atorvastatin (LIPITOR) 40 mg tablet Take 1 tablet by mouth daily at bedtime. - amLODIPine (NORVASC) 2.5 mg tablet Take 1 tablet by mouth once daily. - Omeprazole 40 mg capsule Take 40 mg by mouth once daily. - acetaminophen (TYLENOL) 325 mg tablet Take 650 mg by mouth every 4 hours as needed. - ammonium lactate (LAC-HYDRIN) 12 % lotion Apply to affected area as needed. - gabapentin (NEURONTIN) 300 mg capsule Take 1 capsule by mouth every 12 hours. - nitroglycerin sublingual 0.4 mg SL tablet Dissolve 1 tablet under the tongue as needed for Chest Pain. If no pain relief call 911. Meds Comments as of 06/03/2016: Pt unable to remember medications. RN checked all meds in home. unable to locate nitroglycerin tabs. TLE Problem List As Of Date 06/22/2021 Noted Resolved SUMMARY [V999.95] 03/30/2012 Chest pain [R07.9] 03/30/2012 Essential hypertension [I10] 03/30/2012 Alcohol abuse [F10.10] 03/30/2012 Smoker [F17.200] 03/30/2012 Hypoglycemia [E16.2] 03/30/2012 Gastric cancer (HCC) [C16.9] 10/17/2012 Thyroid nodule [E04.1] 01/18/2015 Dysphagia [R13.10] 03/15/2015 Achalasia [K22.0] 03/15/2015 Dislodged gastrostomy tube (HCC) [T85.528A] 04/28/2015 Fall [W19.XXXA] 05/17/2016 Elevated troponin [R77.8] 05/17/2016 Incomplete tear of left rotator cuff [M75.112] 05/17/2016 Hypotension due to drugs [I95.2] 12/15/2016 Persistent sinus bradycardia [R00.1] 12/15/2016 Gait instability [R26.81] 12/15/2016 Recurrent falls while walking [R29.6] 12/15/2016 Hypertensive heart disease without heart failur*12/15/2016 Esophageal dysphagia [R13.19] 07/28/2017 Frequent falls [R29.6] 03/10/2018 Severe protein-calorie malnutrition (HCC) [E43] 03/11/2018 Delirium [R41.0] 03/13/2018 Vitamin D deficiency [E55.9] 03/14/2018 Acute kidney injury (HCC) [N17.9] 03/16/2018 Discharge planning issues [Z02.9] 07/07/2018 CAD (coronary artery disease) [I25.10] 07/07/2018 Elevated serum creatinine [R79.89] 07/09/2018 present on admission stage II [Z91.89] 07/10/2018 Pressure injury of buttock, stage 1 [L89.301] 07/13/2018 Feeding tube dysfunction [T85.598A] 03/07/2021 Acute on chronic renal insufficiency [N28.9, N1*03/10/2021 03/16/2021 Altered mental status [R41.82] 03/10/2021 Hypernatremia [E87.0] 03/10/2021 03/16/2021 Chronic anemia [D64.9] 03/10/2021 Acute kidney injury superimposed on CKD (HCC) [*03/10/2021 03/16/2021 Moderate protein-calorie malnutrition (HCC) [E4*03/11/2021 Encounter Status:Closed by ENRICO CARCAMO on 06/22/21[facility]10-08-2021 NoteHNO ID: [id number] Author: Enrico Carcamo RN Service: ? Author Type: Registered Nurse Type: Progress Notes Filed: 06/22/2021 8:19 AM Note Text: TRANSITION CARE MANAGEMENT (TCM) INITIAL CONTACT Call Summary: Per Berto Nichole still present at facility with skilled care. Will continue to monitor for SNF discharge and will contact patient as appropriate for SNF TCM. Enrico Carcamo RN June 22, 2021 8:18 [facility]09-09-2021 NotePatient Outreach (QAINDP) BERTO PARKINSON ([id number]) 1935 M Date Time Provider Department 05/24/21 ENRICO CARCAMO During your visit today, we recorded the following information about you: Enrico Carcamo RN 05/24/2021 7:45 AM Signed TRANSITION CARE MANAGEMENT (TCM) INITIAL CONTACT Call Summary: Per Berto Nichole still present at facility with skilled care. Will continue to monitor for SNF discharge and will contact patient as appropriate for SNF TCM. Enrico Carcamo RN May 24, 2021 7:45 AM Allergies As of Date: 05/24/2021 (No Known Allergies) Date Reviewed: 03/16/2021 Reviewed by: Elizabeth Madera RN - Fully Assessed Reason for Visit: Pressure Washer- Other [5953] Prescriptions as of 05/24/2021 - ciprofloxacin HCl (CIPRO) 500 mg tablet Take 1 tablet by mouth once daily for 5 doses. - scopolamine (TRANSDERM-SCOP) patch 1.5 mg/72 hr (1 mg over 3 days) Apply 1 Patch as directed every 72 hours. - lidocaine (LIDODERM) 5 % Apply 1 Patch as directed every 24 hours. Bilateral knees - docusate Take 50 mg by mouth twice daily. - bisacodyl (DULCOLAX) 10 mg supp 10 mg by RECTAL route once daily as needed for constipation. - citalopram hydrobromide (CELEXA) 10 mg tablet Take 10 mg by mouth once daily. - sodium phosphate-sodium bisphosphate (FLEET) enema 1 Enema by RECTAL route once daily as needed. - isosorbide dinitrate (ISORDIL) 10 mg tablet Take 10 mg by mouth three times daily. - mirtazapine (REMERON) 15 mg tablet Take 7.5 mg by mouth daily at bedtime. - cyanocobalamin (VITAMIN B-12) 1,000 mcg tab Take 1,000 mcg by mouth once daily. - ergocalciferol, vitamin D2, (DRISDOL) 50,000 unit capsule Take 1 capsule by mouth once each week for 11 doses. - aspirin, enteric coated (ASPIRIN, ENTERIC COATED) 81 mg EC tablet Take 81 mg by mouth once daily. - baclofen (LIORESAL) 10 mg tablet Take 10 mg by mouth twice daily. - pyridoxine, vitamin B6, (VITAMIN B-6) 100 mg tablet Take 100 mg by mouth once daily. - atorvastatin (LIPITOR) 40 mg tablet Take 1 tablet by mouth daily at bedtime. - amLODIPine (NORVASC) 2.5 mg tablet Take 1 tablet by mouth once daily. - Omeprazole 40 mg capsule Take 40 mg by mouth once daily. - acetaminophen (TYLENOL) 325 mg tablet Take 650 mg by mouth every 4 hours as needed. - ammonium lactate (LAC-HYDRIN) 12 % lotion Apply to affected area as needed. - gabapentin (NEURONTIN) 300 mg capsule Take 1 capsule by mouth every 12 hours. - nitroglycerin sublingual 0.4 mg SL tablet Dissolve 1 tablet under the tongue as needed for Chest Pain. If no pain relief call 911. Meds Comments as of 06/03/2016: Pt unable to remember medications. RN checked all meds in home. unable to locate nitroglycerin tabs. TLE Problem List As Of Date 05/24/2021 Noted Resolved SUMMARY [V999.95] 03/30/2012 Chest pain [R07.9] 03/30/2012 Essential hypertension [I10] 03/30/2012 Alcohol abuse [F10.10] 03/30/2012 Smoker [F17.200] 03/30/2012 Hypoglycemia [E16.2] 03/30/2012 Gastric cancer (HCC) [C16.9] 10/17/2012 Thyroid nodule [E04.1] 01/18/2015 Dysphagia [R13.10] 03/15/2015 Achalasia [K22.0] 03/15/2015 Dislodged gastrostomy tube (HCC) [T85.528A] 04/28/2015 Fall [W19.XXXA] 05/17/2016 Elevated troponin [R77.8] 05/17/2016 Incomplete tear of left rotator cuff [M75.112] 05/17/2016 Hypotension due to drugs [I95.2] 12/15/2016 Persistent sinus bradycardia [R00.1] 12/15/2016 Gait instability [R26.81] 12/15/2016 Recurrent falls while walking [R29.6] 12/15/2016 Hypertensive heart disease without heart failur*12/15/2016 Esophageal dysphagia [R13.19] 07/28/2017 Frequent falls [R29.6] 03/10/2018 Severe protein-calorie malnutrition (HCC) [E43] 03/11/2018 Delirium [R41.0] 03/13/2018 Vitamin D deficiency [E55.9] 03/14/2018 Acute kidney injury (HCC) [N17.9] 03/16/2018 Discharge planning issues [Z02.9] 07/07/2018 CAD (coronary artery disease) [I25.10] 07/07/2018 Elevated serum creatinine [R79.89] 07/09/2018 present on admission stage II [Z91.89] 07/10/2018 Pressure injury of buttock, stage 1 [L89.301] 07/13/2018 Feeding tube dysfunction [T85.598A] 03/07/2021 Acute on chronic renal insufficiency [N28.9, N1*03/10/2021 03/16/2021 Altered mental status [R41.82] 03/10/2021 Hypernatremia [E87.0] 03/10/2021 03/16/2021 Chronic anemia [D64.9] 03/10/2021 Acute kidney injury superimposed on CKD (HCC) [*03/10/2021 03/16/2021 Moderate protein-calorie malnutrition (HCC) [E4*03/11/2021 Encounter Status:Closed by ENRICO CARCAMO on 05/24/21[facility]09-09-2021 NoteHNO ID: [id number] Author: Enrico Carcamo RN Service: ? Author Type: Registered Nurse Type: Progress Notes Filed: 05/24/2021 7:45 AM Note Text: TRANSITION CARE MANAGEMENT (TCM) INITIAL CONTACT Call Summary: Per Berto Nichole still present at facility with skilled care. Will continue to monitor for SNF discharge and will contact patient as appropriate for SNF TCM. Enrico Carcamo RN May 24, 2021 7:45 [facility]08-10-2021 NoteHNO ID: [id number] Author: Enrico Carcamo RN Service: ? Author Type: Registered Nurse Type: Progress Notes Filed: 04/24/2021 3:44 PM Note Text: TRANSITION CARE MANAGEMENT (TCM) INITIAL CONTACT Call Summary: Per Berto Nichole still present at facility with skilled care. Will continue to monitor for SNF discharge and will contact patient as appropriate for SNF TCM. Ernico Carcamo RN April 24, 2021 3:43 [facility]08-10-2021 NotePatient Outreach (QAINDP) BERTO PARKINSON ([id number]) 1935 M Date Time Provider Department 04/24/21 ENRICO CARCAMO QAINDP During your visit today, we recorded the following information about you: Enrico Carcamo RN 04/24/2021 3:44 PM Signed TRANSITION CARE MANAGEMENT (TCM) INITIAL CONTACT Call Summary: Berto Looney still present at facility with skilled care. Will continue to monitor for SNF discharge and will contact patient as appropriate for SNF TCM. Enrico Carcamo RN April 24, 2021 3:43 PM Allergies As of Date: 04/24/2021 (No Known Allergies) Date Reviewed: 03/16/2021 Reviewed by: Elizabeth Madera RN - Fully Assessed Reason for Visit: Pressure Washer- Other [3613] Prescriptions as of 05/16/2021 - ciprofloxacin HCl (CIPRO) 500 mg tablet Take 1 tablet by mouth once daily for 5 doses. - scopolamine (TRANSDERM-SCOP) patch 1.5 mg/72 hr (1 mg over 3 days) Apply 1 Patch as directed every 72 hours. - lidocaine (LIDODERM) 5 % Apply 1 Patch as directed every 24 hours. Bilateral knees - docusate Take 50 mg by mouth twice daily. - bisacodyl (DULCOLAX) 10 mg supp 10 mg by RECTAL route once daily as needed for constipation. - citalopram hydrobromide (CELEXA) 10 mg tablet Take 10 mg by mouth once daily. - sodium phosphate-sodium bisphosphate (FLEET) enema 1 Enema by RECTAL route once daily as needed. - isosorbide dinitrate (ISORDIL) 10 mg tablet Take 10 mg by mouth three times daily. - mirtazapine (REMERON) 15 mg tablet Take 7.5 mg by mouth daily at bedtime. - cyanocobalamin (VITAMIN B-12) 1,000 mcg tab Take 1,000 mcg by mouth once daily. - ergocalciferol, vitamin D2, (DRISDOL) 50,000 unit capsule Take 1 capsule by mouth once each week for 11 doses. - aspirin, enteric coated (ASPIRIN, ENTERIC COATED) 81 mg EC tablet Take 81 mg by mouth once daily. - baclofen (LIORESAL) 10 mg tablet Take 10 mg by mouth twice daily. - pyridoxine, vitamin B6, (VITAMIN B-6) 100 mg tablet Take 100 mg by mouth once daily. - atorvastatin (LIPITOR) 40 mg tablet Take 1 tablet by mouth daily at bedtime. - amLODIPine (NORVASC) 2.5 mg tablet Take 1 tablet by mouth once daily. - Omeprazole 40 mg capsule Take 40 mg by mouth once daily. - acetaminophen (TYLENOL) 325 mg tablet Take 650 mg by mouth every 4 hours as needed. - ammonium lactate (LAC-HYDRIN) 12 % lotion Apply to affected area as needed. - gabapentin (NEURONTIN) 300 mg capsule Take 1 capsule by mouth every 12 hours. - nitroglycerin sublingual 0.4 mg SL tablet Dissolve 1 tablet under the tongue as needed for Chest Pain. If no pain relief call 911. Meds Comments as of 06/03/2016: Pt unable to remember medications. RN checked all meds in home. unable to locate nitroglycerin tabs. TLE Problem List As Of Date 04/24/2021 Noted Resolved SUMMARY [V999.95] 03/30/2012 Chest pain [R07.9] 03/30/2012 Essential hypertension [I10] 03/30/2012 Alcohol abuse [F10.10] 03/30/2012 Smoker [F17.200] 03/30/2012 Hypoglycemia [E16.2] 03/30/2012 Gastric cancer (HCC) [C16.9] 10/17/2012 Thyroid nodule [E04.1] 01/18/2015 Dysphagia [R13.10] 03/15/2015 Achalasia [K22.0] 03/15/2015 Dislodged gastrostomy tube (HCC) [T85.528A] 04/28/2015 Fall [W19.XXXA] 05/17/2016 Elevated troponin [R77.8] 05/17/2016 Incomplete tear of left rotator cuff [M75.112] 05/17/2016 Hypotension due to drugs [I95.2] 12/15/2016 Persistent sinus bradycardia [R00.1] 12/15/2016 Gait instability [R26.81] 12/15/2016 Recurrent falls while walking [R29.6] 12/15/2016 Hypertensive heart disease without heart failur*12/15/2016 Esophageal dysphagia [R13.19] 07/28/2017 Frequent falls [R29.6] 03/10/2018 Severe protein-calorie malnutrition (HCC) [E43] 03/11/2018 Delirium [R41.0] 03/13/2018 Vitamin D deficiency [E55.9] 03/14/2018 Acute kidney injury (HCC) [N17.9] 03/16/2018 Discharge planning issues [Z02.9] 07/07/2018 CAD (coronary artery disease) [I25.10] 07/07/2018 Elevated serum creatinine [R79.89] 07/09/2018 present on admission stage II [Z91.89] 07/10/2018 Pressure injury of buttock, stage 1 [L89.301] 07/13/2018 Feeding tube dysfunction [T85.598A] 03/07/2021 Acute on chronic renal insufficiency [N28.9, N1*03/10/2021 03/16/2021 Altered mental status [R41.82] 03/10/2021 Hypernatremia [E87.0] 03/10/2021 03/16/2021 Chronic anemia [D64.9] 03/10/2021 Acute kidney injury superimposed on CKD (HCC) [*03/10/2021 03/16/2021 Moderate protein-calorie malnutrition (HCC) [E4*03/11/2021 Encounter Status:Closed by ENRICO CARCAMO on 04/24/21[facility]07-06-2021 NotePatient Outreach (QAINDP) BERTO PARKINSON ([id number]) 1935 M Date Time Provider Department 03/20/21 ENRICO CARCAMO During your visit today, we recorded the following information about you: Enrico Carcamo RN 03/20/2021 7:59 AM Signed TRANSITION CARE MANAGEMENT (TCM) INITIAL CONTACT Call Summary: Berto Iggy discharged from [facility] on 03/16/2021. No TCM calls at this time as patient discharged to SNF. Will monitor for patient discharge home from facility and will contact as appropriate. Enrico Carcamo RN March 20, 2021 7:59 AM Allergies As of Date: 03/20/2021 (No Known Allergies) Date Reviewed: 03/16/2021 Reviewed by: Elizabeth Madera RN - Fully Assessed Reason for Visit: Pressure Washer Hospital Follow Up [0570] Cmt: TCM Prescriptions as of 03/20/2021 - ciprofloxacin HCl (CIPRO) 500 mg tablet Take 1 tablet by mouth once daily for 5 doses. - scopolamine (TRANSDERM-SCOP) patch 1.5 mg/72 hr (1 mg over 3 days) Apply 1 Patch as directed every 72 hours. - lidocaine (LIDODERM) 5 % Apply 1 Patch as directed every 24 hours. Bilateral knees - docusate Take 50 mg by mouth twice daily. - bisacodyl (DULCOLAX) 10 mg supp 10 mg by RECTAL route once daily as needed for constipation. - citalopram hydrobromide (CELEXA) 10 mg tablet Take 10 mg by mouth once daily. - sodium phosphate-sodium bisphosphate (FLEET) enema 1 Enema by RECTAL route once daily as needed. - isosorbide dinitrate (ISORDIL) 10 mg tablet Take 10 mg by mouth three times daily. - mirtazapine (REMERON) 15 mg tablet Take 7.5 mg by mouth daily at bedtime. - cyanocobalamin (VITAMIN B-12) 1,000 mcg tab Take 1,000 mcg by mouth once daily. - ergocalciferol, vitamin D2, (DRISDOL) 50,000 unit capsule Take 1 capsule by mouth once each week for 11 doses. - aspirin, enteric coated (ASPIRIN, ENTERIC COATED) 81 mg EC tablet Take 81 mg by mouth once daily. - baclofen (LIORESAL) 10 mg tablet Take 10 mg by mouth twice daily. - pyridoxine, vitamin B6, (VITAMIN B-6) 100 mg tablet Take 100 mg by mouth once daily. - atorvastatin (LIPITOR) 40 mg tablet Take 1 tablet by mouth daily at bedtime. - amLODIPine (NORVASC) 2.5 mg tablet Take 1 tablet by mouth once daily. - Omeprazole 40 mg capsule Take 40 mg by mouth once daily. - acetaminophen (TYLENOL) 325 mg tablet Take 650 mg by mouth every 4 hours as needed. - ammonium lactate (LAC-HYDRIN) 12 % lotion Apply to affected area as needed. - gabapentin (NEURONTIN) 300 mg capsule Take 1 capsule by mouth every 12 hours. - nitroglycerin sublingual 0.4 mg SL tablet Dissolve 1 tablet under the tongue as needed for Chest Pain. If no pain relief call 911. Meds Comments as of 06/03/2016: Pt unable to remember medications. RN checked all meds in home. unable to locate nitroglycerin tabs. TLE Problem List As Of Date 03/20/2021 Noted Resolved SUMMARY [V999.95] 03/30/2012 Chest pain [R07.9] 03/30/2012 Essential hypertension [I10] 03/30/2012 Alcohol abuse [F10.10] 03/30/2012 Smoker [F17.200] 03/30/2012 Hypoglycemia [E16.2] 03/30/2012 Gastric cancer (HCC) [C16.9] 10/17/2012 Thyroid nodule [E04.1] 01/18/2015 Dysphagia [R13.10] 03/15/2015 Achalasia [K22.0] 03/15/2015 Dislodged gastrostomy tube (HCC) [T85.528A] 04/28/2015 Fall [W19.XXXA] 05/17/2016 Elevated troponin [R77.8] 05/17/2016 Incomplete tear of left rotator cuff [M75.112] 05/17/2016 Hypotension due to drugs [I95.2] 12/15/2016 Persistent sinus bradycardia [R00.1] 12/15/2016 Gait instability [R26.81] 12/15/2016 Recurrent falls while walking [R29.6] 12/15/2016 Hypertensive heart disease without heart failur*12/15/2016 Esophageal dysphagia [R13.10] 07/28/2017 Frequent falls [R29.6] 03/10/2018 Severe protein-calorie malnutrition (HCC) [E43] 03/11/2018 Delirium [R41.0] 03/13/2018 Vitamin D deficiency [E55.9] 03/14/2018 Acute kidney injury (HCC) [N17.9] 03/16/2018 Discharge planning issues [Z02.9] 07/07/2018 CAD (coronary artery disease) [I25.10] 07/07/2018 Elevated serum creatinine [R79.89] 07/09/2018 present on admission stage II [Z91.89] 07/10/2018 Pressure injury of buttock, stage 1 [L89.301] 07/13/2018 Feeding tube dysfunction [T85.598A] 03/07/2021 Acute on chronic renal insufficiency [N28.9, N1*03/10/2021 03/16/2021 Altered mental status [R41.82] 03/10/2021 Hypernatremia [E87.0] 03/10/2021 03/16/2021 Chronic anemia [D64.9] 03/10/2021 Acute kidney injury superimposed on CKD (HCC) [*03/10/2021 03/16/2021 Moderate protein-calorie malnutrition (HCC) [E4*03/11/2021 Encounter Status:Closed by ENRICO CARCAMO on 03/20/21[facility]07-06-2021 NoteHNO ID: [id number] Author: Enrico Carcamo RN Service: ? Author Type: Registered Nurse Type: Progress Notes Filed: 03/20/2021 7:59 AM Note Text: TRANSITION CARE MANAGEMENT (TCM) INITIAL CONTACT Call Summary: Berto Parkinson discharged from [facility] on 03/16/2021. No TCM calls at this time as patient discharged to SNF. Will monitor for patient discharge home from facility and will contact as appropriate. Enrico Carcamo RN March 20, 2021 7:59 [facility]06-23-2021 NoteHNO ID: [id number] Author: Marquita Villavicencio MD Service: ? Author Type: Physician Type: Progress Notes Filed: 03/07/2021 1:30 PM Note Text: Assessment IMPRESSION AND PLAN: 86 year old AAM needing PEG replacement - incorrect size tube was sent. Instructions for 22Fr or 24 Fr tube sent, will reschedule HPI: Berto Parkinson is a 86 year old -[place] male,He presents for the evaluation of PEG replacement. Tube present since at least 2017, last placed a 20Fr tube. C/o is tube has broken off multiple times leaving it very short and there is leakage around it. Pt with caregiver. Unable to provide much hx. 18 fr replacement sent from snf PAST MEDICAL HISTORY Diagnosis Date - Acid reflux - CAD (coronary artery disease) - Chest pain, unspecified - Dislodged gastrostomy tube 04/28/2015 - Dysphagia 03/15/2015 - Esophageal dysmotility - Falls frequently - Gastric ulcer, unspecified as acute or chronic, without mention of hemorrhage, perforation, or obstruction - History of ETOH abuse - HTN (hypertension) - Inguinal hernia - PAD (peripheral artery disease) (HCC) - S/P gastrostomy tube (G tube) placement, follow-up exam 03/23/2015 - Stomach cancer (HCC) 2011 - Thyroid nodule 01/2015 PAST SURGICAL HISTORY Procedure Laterality Date - CARDIAC CATH 03/2012 - GASTROSTOMY-JEJEUNOSTOMY TUBE CHANGE/PLACEMENT HX 03/23/2015 and Diagnostic laparoscopy, - PAST SURGICAL HISTORY OF 09/2012 Bilateral truncal vagotomy with antrectomy, gastrojejunostomy - REPAIR ING HERNIA,5+Y/O,REDUCIBL 2011 Hernia repair, inguinal FAMILY HISTORY Problem Relation Age of Onset - Diabetes Paternal Grandmother - Cancer Brother GI - Cancer Sister GI - Cancer Sister GI CURRENT MEDICATIONS: isosorbide dinitrate (ISORDIL) 10 mg tablet Take 10 mg by mouth three times daily. mirtazapine (REMERON) 15 mg tablet Take 7.5 mg by mouth daily at bedtime. cyanocobalamin (VITAMIN B-12) 1,000 mcg tab Take 1,000 mcg by mouth once daily. aspirin, enteric coated (ASPIRIN, ENTERIC COATED) 81 mg EC tablet Take 81 mg by mouth once daily. baclofen (LIORESAL) 10 mg tablet Take 10 mg by mouth twice daily. pyridoxine, vitamin B6, (VITAMIN B-6) 100 mg tablet Take 100 mg by mouth once daily. atorvastatin (LIPITOR) 40 mg tablet Take 1 tablet by mouth daily at bedtime. amLODIPine (NORVASC) 2.5 mg tablet Take 1 tablet by mouth once daily. Omeprazole 40 mg capsule Take 40 mg by mouth once daily. acetaminophen (TYLENOL) 325 mg tablet Take 650 mg by mouth every 4 hours as needed. ammonium lactate (LAC-HYDRIN) 12 % lotion Apply to affected area as needed. gabapentin (NEURONTIN) 300 mg capsule Take 1 capsule by mouth every 12 hours. nitroglycerin sublingual 0.4 mg SL tablet Dissolve 1 tablet under the tongue as needed for Chest Pain. If no pain relief call 911. ergocalciferol, vitamin D2, (DRISDOL) 50,000 unit capsule Take 1 capsule by mouth once each week for 11 doses. CURRENT ALLERGIES: ALLERGIES No Known Allergies Social History Tobacco Use - Smoking status: Former Smoker Packs/day: 1.00 Years: 66.00 Pack years: 66.00 Types: Cigarettes Start date: [birth year]/30/1946 - Smokeless tobacco: Former User Types: Chew Substance Use Topics - Alcohol use: Yes Comment: 4-5 drinks weekly - Drug use: No Ros: As above Pt unable to provide EXAM: There were no vitals taken for this visit. There were no vitals taken for this visit. There is no height or weight on file to calculate BMI. General appearance: alert, in no acute distress In wheelchair Head: Normocephalic, atraumatic Eyes: Anicteric sclera , Pupils are equally round and reactive Abdomen: Abdomen soft, non-tender. Non distended. No masses, organomegaly, luq with PEG in place, small volume leakage, no skin breakdown - dressing sponge applied . Neuro: Alert Marquita Villavicencio MD 03/07/2021 1:26 [facility] note* Diagnosis Constipation, unspecified constipation type- Primary Constipation, unspecified constipation type [facility] in this encounter [facility] Diagnosis Pressure ulcer of unspecified site, unspecified stage Contracture, left hand documented in this encounter [facility] Summary Purpose Family History No Family History Records FoundNo Family History Records FoundNo Family History Records FoundNo Family History Records FoundNo Family History Records FoundNo Family History Records Found Advance Directives No Advanced Directives Records FoundLatest Code Status on File Code Status Date Activated Date Inactivated Comments DNR-CCA 12/26/2022 5:37 AM 12/28/2022 8:25 PM Question Answer Comments ICU transfer: No Code Status History Code Status Date Activated Date Inactivated Comments DNR-CCA 11/14/2022 10:10 PM 11/20/2022 4:06 PM Question Answer Comments ICU transfer: Yes Intubation: Yes DNR-CCA 11/14/2022 8:22 PM 11/14/2022 10:10 PM Question Answer Comments ICU transfer: Yes Intubation: Yes Latest Code Status on File Code Status Date Activated Date Inactivated Comments DNR-CCA 02/03/2023 1:57 PM 02/06/2023 9:03 PM Question Answer Comments ICU transfer: Yes Intubation: Yes Code Status History Code Status Date Activated Date Inactivated Comments Full Code 02/01/2023 11:42 PM 02/03/2023 1:57 PM DNR-CCA 12/26/2022 5:37 AM 12/28/2022 8:25 PM Question Answer Comments ICU transfer: No DNR-CCA 11/14/2022 10:10 PM 11/20/2022 4:06 PM Question Answer Comments ICU transfer: Yes Intubation: Yes DNR-CCA 11/14/2022 8:22 PM 11/14/2022 10:10 PM Question Answer Comments ICU transfer: Yes Intubation: Yes Additional Source Comments (unrecognized sect ion and content) No Status Records FoundNo Status Records FoundNo Status Records FoundNo Status Records FoundNo Status Records FoundNo Status Records Found INFORMATION SOURCE (unrecogn ized section and content) DATE CREATED AUTHOR AUTHOR'S ORGANIZ ATION 06/27/2019 [facility] DATE CREATED AUTHOR AUTHOR'S ORGANIZ ATION 06/07/2021 [facility] DATE CREATED AUTHOR AUTHOR'S ORGANIZ ATION 10/22/2021 [facility] DATE CREATED AUTHOR AUTHOR'S ORGANIZ ATION 05/07/2022 [facility] DATE CREATED AUTHOR AUTHOR'S ORGANIZ ATION 05/16/2023 [facility] Reason for Visit (unrecogniz ed section and content) Specialty Diagnoses / Procedures Referred By Contac t Referred To Contact Diagnoses Constipation, unspecified constipation type Procedures . Dominick Rosales MD [address] [address] [facility] Emergency Dept [address] [place] [address] Referral ID Status Reason Start Date Expiration Date Visits Re quested Visits Authorized [id number] 1 1 Specialty Diagnoses / Procedures Referred By Contac t Referred To Contact Diagnoses Pressure ulcer of unspecified site, unspecified stage Contracture, left hand Pressure ulcer of unspecified site, unspecified stage [L89.90] Contracture, left hand [M24.542] Procedures AL TDN TRNSPLJ/TR FLXR/XTNSR F/ARM&/WRST 1 EA TDN AL NEURP MAJOR PRPH NRV ARM/LEG OPN OTH/THN SPEC AL EXC NEUROMA HAND/FOOT XCP DIGITAL NERVE AL DBRDMT W/RMVL FM FX&/DISLC SKN SUBQ T/M/F MUSC FLEXOR TENDON TRANSFER X4, NEUROLYSIS FOREARM NERVE X2, NEURECTOMY ULNAR NERVE AT THE WRIST LEFT, DEBRIDEMENT SKIN SUBCUTANEOUS MUSCLE LEFT HAND DEBRIDEMENT SKIN/MUSCLE, OPEN FRACTURE Emilio Alvarez MD [address] [place] [address] [facility] Or [address] [place] [address] Referral ID Status Reason Start Date Expiration Date Visits Re quested Visits Authorized [id number] 1 1 Scheduled Active and Recently Administ ered Medications (unrecognized section and content) Continuous Medication Order 12/26/2022 12/27/2022 12/28/2022 dextrose 5 % and sodium chloride 0.9 % infusion 75 mL/hr, IntraVENous, Continuous, Starting on Evelin 12/26/22 at 0540 0540 (New Bag - Provider: Steve Olivares, RN)1804 (New Bag - Provider: Juan Ramon Ventura, RN) 1447 (Rate/Dose Change - Provider: Leanna Prasad RN) 0414 (New Bag - Provider: Huseyin Campo RN) PRN Medication Order 12/26/2022 12/27/2022 12/28/2022 acetaminophen (Tylenol) suppository 650 mg(Linked Group 1) 650 mg, Rectal, Every 6 hours PRN, mild pain (1-3), fever, For temp greater than 100.4 F (38 C), Starting on Evelin 12/26/22 at 0531, Administer if oral route cannot be used. Maximum dose of acetaminophen is 4000 mg from all sources in 24 hours. acetaminophen (Tylenol) tablet 650 mg(Linked Group 1) 650 mg, Oral, Every 6 hours PRN, mild pain (1-3), fever, For temp greater than 100.4 F (38 C), Starting on Evelin 12/26/22 at 0531, Maximum dose of acetaminophen is 4000 mg from all sources in 24 hours. bisacodyl (Dulcolax) EC tablet 5 mg 5 mg, Oral, Daily PRN, constipation, Starting on Evelin 12/26/22 at 0538, Do not give within 1 hour of antacids, milk, or dairy products. Do not crush, chew, or split. LORazepam (Ativan) injection 0.5 mg 0.5 mg, IntraVENous, Every 4 hours PRN, agitation, anxiety, Starting on Evelin 12/26/22 at 1220, For IV doses dilute dose with 1ml NS. morphine sulfate (PF) injection 1 mg 1 mg, IntraVENous, Every 2 hour PRN, moderate pain (4-6), Starting on Evelin 12/26/22 at 1220, If oral and IV narcotics ordered, use oral first and only use IV if oral is ineffective or cannot take oral. Do Not give oral and IV within 1 hour of each other unless specifically ordered. ondansetron (Zofran) injection 4 mg(Linked Group 2) 4 mg, IntraVENous, Every 6 hours PRN, nausea, vomiting, Starting on Evelin 12/26/22 at 0531, 1st Line. Give IV if patient is unable to take orally. If inadequate response within 60 minutes, proceed to next-line agent or contact provider if no further options ordered. ondansetron ODT (Zofran-ODT) disintegrating tablet 4 mg(Linked Group 2) 4 mg, Oral, Every 8 hours PRN, nausea, vomiting, Starting on Evelin 12/26/22 at 0531, 1st Line. If inadequate response within 60 minutes, proceed to next-line agent or contact provider if no further options ordered. Patient should allow tablet to dissolve on tongue. Do not remove from blister pack until just before administering. polyethylene glycol (PEG) 3350 (Miralax) packet 17 g 17 g, Oral, Daily PRN, constipation, Starting on Evelin 12/26/22 at 0531, 1st line for treatment of constipation - give scheduled if no bowel movement in past 24 hours. Linked Groups Order Group 1: acetaminophen (Tylenol) tablet 650 mgJump to med 650 mg, Oral, Every 6 hours PRN, mild pain (1-3), fever, For temp greater than 100.4 F (38 C), Starting on Evelin 12/26/22 at 0531
Maximum dose of acetaminophen is 4000 mg from all sources in 24 hours.
Or acetaminophen (Tylenol) suppository 650 mgJump to med 650 mg, Rectal, Every 6 hours PRN, mild pain (1-3), fever, For temp greater than 100.4 F (38 C), Starting on Evelin 12/26/22 at 0531
Administer if oral route cannot be used. Maximum dose of acetaminophen is 4000 mg from all sources in 24 hours.
Group 2: ondansetron ODT (Zofran-ODT) disintegrating tablet 4 mgJump to med 4 mg, Oral, Every 8 hours PRN, nausea, vomiting, Starting on Evelin 12/26/22 at 0531
1st Line. If inadequate response within 60 minutes, proceed to next-line agent or contact provider if no further options ordered. Patient should allow tablet to dissolve on tongue. Do not remove from blister pack until just before administering.
Or ondansetron (Zofran) injection 4 mgJump to med 4 mg, IntraVENous, Every 6 hours PRN, nausea, vomiting, Starting on Evelin 12/26/22 at 0531
1st Line. Give IV if patient is unable to take orally. If inadequate response within 60 minutes, proceed to next-line agent or contact provider if no further options ordered.
Scheduled Medication Order 05/11/2023 05/12/2023 05/13/2023 famotidine (Pepcid) 20 mg in sodium chloride (PF) 0.9 % 10 mL injection (COMPLETED) 20 mg, IntraVENous, Administer over 2 Minutes, Once, On Fri05/13/23 at 1000, For 1 dose, Preprocedure 1047 (Given - Provid er: Madelaine Still RN) sodium chloride 0.9% (NS) flush 5-40 mL 5-40 mL, IntraVENous, Every 12 hours, First dose on Fri05/13/23 at 1000, Preprocedure, For Line Patency: Peripheral IV = 5 mL; Midline or Central Line = 10 mL/lumen. If following IV push medication, administer flush at same rate as the IV push. Flush volume is determined by type of infusion therapy being given. For non-viscous solutions use: Peripheral IV = 5 mL Midline or Central Line = 10 mL/lumen For viscous solutions (i.e. blood components, parenteral nutrition, contrast media, or after obtaining blood sample) use: Peripheral IV = 10 mL Midline or Central Line = 20 mL/lumen 1000 (Canceled Entry - Provider: Automatic Discharge Provider - Comment: Automatically canceled at discontinue of medication order)2200 (Canceled Entry - Provider: Automatic Discharge Provider - Comment: Automatically canceled at discontinue of medication order) Continuous Medication Order 05/11/2023 05/12/2023 05/13/2023 lactated Ringer's (LR) infusion 50 mL/hr, IntraVENous, Continuous, Starting on Fri05/13/23 at 1000, Preprocedure, Upon admission to sameday - please start iv if patient does not have iv access. Use 500ml NS for patients on dialysis. 1000 (Canceled Entry - Provider: Automatic Discharge Provider - Comment: Automatically canceled at discontinue of medication order) PRN Medication Order 05/11/2023 05/12/2023 05/13/2023 fentaNYL (Sublimaze) injection 25 mcg (CANCELED) 25 mcg, IntraVENous, Every 5 min PRN, moderate pain (4-6), Starting on Fri05/13/23 at 1542, For 3 doses, Recovery (only), Phase I and Phase II- Initial therapy for moderate pain (4-6). Restricted to a 90 minute time frame starting when the patient can verbally state their pain score. If after 2 doses the pain score does not decrease by more than one point, then call the provider. If oral meds are utilized, do not return to initial therapy medications. 1546 (Given - Provid er: Marie Mancini RN) sodium chloride 0.9 % infusion 5-250 mL/hr, IntraVENous, PRN, if patient receiving piggyback infusions and maintenance fluids are not ordered OR KVO fluids to protect IV site / prevent frequent line interruptions / long duration, Starting on Fri05/13/23 at 0951, Preprocedure, For piggyback infusion, administer at same rate as piggyback for a total of 25 mL. Enter 25 mL into dose field and piggyback rate into rate field of order. If piggyback is infusing at a rate less than 100 mL/hr, enter 25 mL into dose field and 100 mL/hr into rate field of order. For KVO fluids, enter rate of 20 mL/hr or less into rate field of order. 1119 (New Bag - Prov ider: Iglesia Morataya CRNA)1432 (New Bag - Provider: Iglesia Morataya CRNA)1511 (Anesthesia Volume Adjustment - Provider: Iglesia Morataya CRNA) sodium chloride 0.9 % irrigation solution (CANCELED) As needed, Starting on Fri05/13/23 at 1252, Intraprocedure 1252 (Given - Provid er: Emilio Alvarez MD) sodium chloride 0.9% (NS) flush 5-40 mL 5-40 mL, IntraVENous, PRN, line care, After every IV line use, Starting on Fri05/13/23 at 0951, Preprocedure, For Line Patency: Peripheral IV = 5 mL; Midline or Central Line = 10 mL/lumen. If following IV push medication, administer flush at same rate as the IV push. Flush volume is determined by type of infusion therapy being given. For non-viscous solutions use: Peripheral IV = 5 mL Midline or Central Line = 10 mL/lumen For viscous solutions (i.e. 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 This clinical summary was aggregated from multiple sources. Caution should be exercised in using it in the provision of clinical care. This summary normalizes information from multiple sources, and as a consequence, information in this document may materially change the coding, format and clinical context of patient data. In addition, data may be omitted in some cases. CLINICAL DECISIONS SHOULD BE BASED ON THE PRIMARY CLINICAL RECORDS. [email or web address] provides no warranty or guarantee of the accuracy or completeness of information in this document.
[2023-10-08 09:15] LABS: Hematocrit 32.4 % (40-54); Hemoglobin 10.1 g/dL (13.0-16.5); Mean Corp Hgb Conc 31.2 g/dL (32-36); Mean Corpuscular Hgb 24.8 pg (27.0-32.0); Mean Corpuscular Volume 79.6 fL (80-94); Platelet Count 182 K/mm3 (150-450); RBC Distribution Width CV 17.9 % (11.6-14.6); RBC Distribution Width SD 50.8 fl (35.1-43.9); Red Blood Count 4.07 M/mm3 (4.6-6.2); White Blood Count 5.1 K/mm3 (4.4-11.0)
[2023-10-08 09:27] LABS: Anion Gap 2 (5-15); BUN 32 mg/dL (7-18); BUN/Creat Ratio 27.8 RATIO (10-20); Calcium,Total 9.5 mg/dL (8.5-10.1); Chloride 107 mmol/L (98-107); Creatinine, Serum 1.15 mg/dL (0.70-1.30); EST Glomerular Filtration Rate 64 mL/min (>60); Est Glom Filt Rate - Afr Amer 77 mL/min (>60); Glucose 90 mg/dL (74-106); Potassium 3.9 mmol/L (3.5-5.1); Sodium Level 135 mmol/L (136-145)
== END ==
LOC: OLS.SANC 04:00
PROVIDERS: Referring Provider Internal Medicine; Visit Provider Internal Medicine
DX: F03.90 Unspecified dementia, unspecified severity, without behavioral disturbance, psychotic disturbance, mood disturbance, and anxiety (principal); Z79.899 Other long term (current) drug therapy
CPT/HCPCS: 36415; 80048; 85027

== ENCOUNTER → 2023-11-19 | Outpatient (REF) | payer MEDICARE, MEDICAID, SELFPAY ==
--- OUTSIDE RECORDS SUMMARY | 2023-11-19 04:17 | XMS RPT_ITS | CCD ---
Author Name Unknown Address [address] [place] [address] Organization [facility] Care Team Providers Care Forest Fire Specialist Supervisor Name Role Phone System, Provider Not In Primary Care Provider DENIS LOGAN Consulting Unavailable DOMINICK ROSALES Admitting [...] every week ergocalciferol (Vitamin D-2) 1.25 MG (16332 UT) capsule Take 1.25 mg by mouth [...] 78 mm[Hg] Emilio Alvarez MD Work Phone: [employer] [facility] 05-13-2023 19:30-0400 Heart rate 59 /min Emilio Alvarez MD Work Phone: [employer] [facility] 05-13-2023 19:30-0400 Respiratory rate 21 /min Emilio Alvarez MD Work Phone: [employer] [facility] 05-13-2023 19:30-0400 SaO2% (BldA) [Mass fraction] 98 % Emilio Alvarez MD Work Phone: [employer] [facility] 05-13-2023 19:30-0400 Systolic blood pressure 160 mm[Hg] Emilio Alvarez MD Work Phone: [employer] [facility] 05-13-2023 15:03-0400 Body temperature 97 [degF] Emilio Alvarez MD Work Phone: [employer] [facility] 05-13-2023 09:57-0400 Body height 165.1 cm Emilio Alvarez MD Work Phone: [employer] [facility] 05-13-2023 09:57-0400 Body mass index (BMI) [Ratio] 26.96 kg/m2 Emilio Alvarez MD Work Phone: [employer] [facility] 05-13-2023 09:57-0400 Body weight 73.48 kg Emilio Alvarez MD Work Phone: [facility] 12-28-2022 14:41-0400 Body temperature 98.6 [degF] Anyi Murphyffey DO Work Phone: [facility] 12-28-2022 14:41-0400 Diastolic blood pressure 73 mm[Hg] Any[facility]ffey [facility]-28-[facility] 14:41-0400 Heart rate 64 /min [facility] 12-28-2022 14:41-0400 Respiratory rate 17 /min [employer] Work Phone: [facility] 12-28-2022 14:41-0400 SaO2% (BldA) [Mass fraction] 98 % [facility] Work Phone: [facility] 12-28-2022 14:41-0400 Systolic blood pressure 147 mm[Hg] Anyi Calderon DO Work Phone: [facility] 12-27-2022 14:40-0400 Body height 182.9 cm [employer] Work Phone: [facility] Encounters Encounter Date Encounter Type Care Provider Facility Start: 05-13-2023 End: 05-13-2023 ambulatory [facility] Start: 05-13-2023 End: 05-13-2023 Anesthesia consultation Isiah Sanchez MD Work Phone: [facility] Start: 05-13-2023 End: 05-13-2023 Subsequent hospital visit by physician Emilio Alvarez MD Work Phone: [facility] Procedures Date Procedure Procedure Detail Performing Clinician Start: 05-13-2023 Injection aa&/strd suprascapular nerve Tito Harrison TOOL ROOM MACHINIST - SENIOR MEDICAL BILLING SPECIALIST Work Phone: Start: 05-13-2023 Ecg routine ecg w/le ast 12 lds trcg only w/o i&r Cody Simcox TOOL ROOM MACHINIST - SENIOR MEDICAL BILLING SPECIALIST Work Phone: Start: 12-28-2022 SARS-CoV-2 (COVID-19 ) Ag [Presence] in Respiratory specimen by Rapid immunoassay Cha Montemayor TOOL ROOM MACHINIST - PRODUCE RUNNER Work Phone: Start: 12-28-2022 End: 12-28-2022 SARS-CoV-2 (COVID-19) Ag [Presence] in Respiratory specimen by Rapid immunoassay Cha Montemayor TOOL ROOM MACHINIST - PRODUCE RUNNER Work Phone: Start: 12-26-2022 Basic metabolic pane l calcium total Medina Gray TOOL ROOM MACHINIST - PRODUCE RUNNER Work Phone: Start: 12-26-2022 Basic metabolic pane [...] DTaP/Tdap/Td Vaccines (2 - Td or Tdap) [facility] Start: 05-16-2023 Influenza vaccination [facility] Start: 06-15-2013 Pneumococcal Vaccine : 65+ Years (2 - PCV) Pneumococcal Vaccine: 65+ Years (2 - PCV) [facility] Start: 1987 Zoster Vaccines (1 of 2) Zoster Vacc judith (1 of 2) [facility] Start: 1949 Depression Screening Depression Scre ening [facility] Start: 1935 Hepatitis B Vaccines (1 of 3 - 3-dose series) Hepatitis B Vaccines (1 of 3 - 3-dose series) [facility] Start: 1935 Lipid panel Lipid Panel [facility] ECG 12 lead ECG 12 lead CV E CG Routine 05/13/2023 11:03 AM EDT [facility] Work Phone: Tissue exam Tissue exam Path ology and Cytology Timed Pressure ulcer of unspecified site, unspecified stage Contracture, left hand Release Upon Ordering for 1 Occurrences starting 05/13/2023 [facility] Work Phone: Immunizations Immunization Date Immunization Notes Care Provider Suraj oliveira 06-23-2015 influenza virus vacc ine, unspecified formulation Anyi Calderon DO Work Phone: [facility] Payers Date Payer Category Payer Medicaid [employer] [employer] [place] [employer] [place] [id number] 2022-Present [phone] [address] [place] [address] Medicaid HMO [id number] 2018 Medicaid [id number] 2018 Medicare [id number] 2018 Medicare [id number] Social History Date Type Detail Facility Start: 12-25-2022 Tobacco smoking status NHIS To bacco smoking consumption unknown [facility] Start: 11-14-2022 History SDOH Alcohol Std Drinks 0 [facility] Start: 1935 Sex Assigned At Not on file [facility] Start: 12-15-2022 End: 12-25-2022 Exposure to SARS-CoV-2 (event) Unable to assess [facility] Start: 02-01-2023 History of Social function [facility] Start: 02-01-2023 Humiliation, Afraid, Rape, and Kick questionnaire [HARK] [facility] Within the last year , have you been afraid of your partner or ex-partner? No [facility] Are you now , , , , never or living with a partner? [facility] How often to you hav e a drink containing alcohol? Never [facility] How many standard dr inks containing alcohol do you have on a typical day? Patient does not drink [facility] (I/We) worried whe er (my/our) food would run out before (I/we) got money to buy more. Never true [facility] Start: 05-03-2023 End: 05-13-2023 Exposure to SARS-CoV-2 (event) Not sure [facility] Clinical Notes 03-07-2021 to 05-13-2023 Perioperative Nursing Note - Marie Mancini RN - 05/13/2023 8:59 PM EDTPerioperative Nursing Note - Marie Mancini RN - 05/13/2023 8:59 PM EDTOp Note - Emilio Alvarez MD - 05/13/2023 11:19 AM EDT Note Date & Type Note Facility 05-13-2023 Note Formatting of this n ote might be different from the original. Ambulance company arrived to medicinal plant picker pt and return him to his facility [facility] 05-13-2023 Note Formatting of this n ote might be different from the original. Ambulance company arrived to medicinal plant picker pt and return him to his facility [facility] 05-13-2023 Miscellaneous Notes Ambulance company arrived to medicinal plant picker pt and return him to his facility Report called to Pat at the [facility] [place], [place] instructions gone over and all questions answered at this time. Patient changed and cleaned due to incontinence. Guest dinner tray delivered to room for patients daughter. Patients daughter is OK waiting on [employer] transportation for est medicinal plant picker time of 1944. Recliner brought to room for her to rest in. Patient denies pain and is comfortable at this time. Guest tray ordered for patiens daughter. DC instructions gone over with patients daughter, all questions answered at this time. Written script given to daughter so that she can have [facility] according to their policy. After reaching out to all of our transportation companies with zero availability secure chat message sent to doctor for admission order. However, [employer] called back with avail. For patient and his wheelchair. Spoke with executive secretary social welfare Solange and she is aware of current circumstances Patient arrived on unit. Name and date verified. Attached to monitors. Vital signs stable. 1520 - paged Dr. Packer for orders 1530 - messaged Dr. Alvarez for discharge order 1535 - Dr. Packer called back and gave verbal order for [facility] order set 1620 - report given to Swathi in [facility] +\Date: 05/13/2023 Location: [facility] OR Name: [...] MD 05/13/23 1329 Routine Description: NERVE Staff: Rubber Goods Inspector: De Alarcon RN Relief Rubber Goods Inspector: Mike Rueda RN Scrub Person: Carmina Lucas [...] stable. Condition: stable Spoke with Anne at [facility] to verify meds and NPO status documented in this encounter [facility] 05-13-2023 Note Formatting of this n ote might be different from the original. Report called to Pat at the [place], [place] instructions gone over and all questions answered at this time. Patient changed and cleaned due to incontinence. [facility] 05-13-2023 Note Formatting of this n ote might be different from the original. Report called to Pat at the [employer] [place], [place] instructions gone over and all questions answered at this time. Patient changed and cleaned due to incontinence. [facility] 05-13-2023 Note Formatting of this n ote might be different from the original. Guest dinner tray delivered to room for patients daughter. [facility] 05-13-2023 Note Formatting of this n ote might be different from the original. Guest dinner tray delivered to room for patients daughter. [facility] 05-13-2023 Note Formatting of this n ote might be different from the original. Patients daughter is OK waiting on [employer] for est medicinal plant picker time of 1944. Recliner brought to room for her to rest in. Patient denies pain and is comfortable at this time. Guest tray ordered for patiens daughter. DC instructions gone over with patients daughter, all questions answered at this time. Written script given to daughter so that she can have [facility] [place] fill according to their policy. [facility] 05-13-2023 Note Formatting of this n ote might be different from the original. Patients daughter is OK waiting on [employer] transportation for est medicinal plant picker time of 1944. Recliner brought to room for her to rest in. Patient denies pain and is comfortable at this time. Guest tray ordered for patiens daughter. DC instructions gone over with patients daughter, all questions answered at this time. Written script given to daughter so that she can have [facility] [place] fill according to their policy. [facility] 05-13-2023 Note Formatting of this n ote might be different from the original. After reaching out to all of our transportation companies with zero availability secure chat message sent to doctor for admission order. However, [employer] called back with avail. For patient and his wheelchair. Spoke with executive secretary social welfare Solange and she is aware of current circumstances [facility] 05-13-2023 Note Formatting of this n ote might be different from the original. After reaching out to all of our transportation companies with zero availability secure chat message sent to doctor for admission order. However, [employer] called back with avail. For patient and his wheelchair. Spoke with executive secretary social welfare Solange and she is aware of current circumstances [facility] 05-13-2023 Note Patient: Berto Ray Procedure Summary Date: 05/13/23 Room / Location: [facility] OR [address] [place] [address] Operating Room Anesthesia Start: 1119 Anesthesia Stop: [...] once all PACU criteria has been met. [facility] 05-13-2023 Note Patient: Berto Ray Procedure Summary Date: 05/13/23 Room / Location: [address] Operating Room Anesthesia Start: 1119 Anesthesia [...] opportunity for questions and acknowledgement of understanding. [facility] 05-13-2023 Hospital Discharg e instructions Jose R [...] in 2 week(s). documented in this encounter [facility] 05-13-2023 Note Formatting of this n ote is different from the original. Patient: Berto Ray Procedure Summary Date: 05/13/23 Room / Location: [facility] OR [address] [place] [address] Operating Room Anesthesia Start: 1118 Anesthesia Stop: [...] once all PACU criteria has been met. [facility] 05-13-2023 Miscellaneous Notes Patient: Berto Ray Procedure Summary Date: 05/13/23 Room / Location: [facility] OR [address] [place] [address] Operating Room Anesthesia Start: 1118 Anesthesia Stop: [...] has been met. documented in this encounter [facility] 05-13-2023 Anesthesiology Postoperative evaluation and management note Patient: Berto Parkinson Procedure Summary Date: 05/13/23 Room / Location: [address] Operating Room Anesthesia Start: 1119 Anesthesia [...] opportunity for questions and acknowledgement of understanding. [employer] Phone: 05-13-2023 Surgical operatio n note Patient: Berto Ray Procedure Summary Date: 05/13/23 Room / Location: [facility] Operating Room Anesthesia Start: 1119 Anesthesia [...] request and post-op pain management Staffing Performed: SENIOR MEDICAL BILLING SPECIALIST Resident/SENIOR MEDICAL BILLING SPECIALIST: Tito Harrison APRN - RIZWANA Preanesthetic Checklist [...] No paresthesias reported by patient during injectionMedications jwdGVPUMbiqmi-hfzyndlqpfn-hetfxdn rine (TAP) syringe - Injection 20 mL [...] x4 DEBRIDEMENT SKIN/MUSCLE, OPEN FRACTURE (Wrist) Location: [facility] OR Operating Room Surgeons: Emilio Alvarez MD Relevant Problems No relevant active problems Past Medical History: Past Medical History: 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 No date: Alcohol abuse No date: Anemia No date: Anxiety No date: Cancer (CMS/HCC) (HCC) No date: Chronic kidney disease No date: Dementia (HCC) No date: Depression No date: Dysphagia No date: 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 Tube No date: GERD (gastroesophageal reflux disease) No date: Hyperlipidemia No date: Hypertension No date: Muscle weakness No date: Personal history of COVID-19 No date: PVD (peripheral vascular disease) ([facility]) No date: Vitamin B deficiency Past Surgical [...] Abdominal Anesthesia Plan patient is NPO ([facility] pt had meds through peg tube this morning 0700 gabapentin, amlodipine, baclofen) appropriate Any family history or previous problems with anesthesia no ASA 4 MAC and regional Any family history or previous problems with anesthesia no (Dr sanchez cleared pt for regional/mac. ) The patient is not a current smoker. Anesthetic plan and risks discussed with patient and healthcare power of insurance defense attorney (i personally had conversation with POA/ daughter. [...] 12/26/2022 4:30 AM documented in this encounter [facility] 05-13-2023 Note Formatting of this [...] 1620 - report given to Swathi in [facility] 05-13-2023 Note Formatting of this [...] 1620 - report given to Swathi in [facility] 05-13-2023 Note Peripheral Block Time Out: 05/13/2023 11:09 AM Patient location during procedure: Procedural Start time: 05/13/2023 11:10 AM End time: 05/13/2023 11:15 AM Reason for block: at surgeon's request and post-op pain management Staffing Performed: SENIOR MEDICAL BILLING SPECIALIST Resident/SENIOR MEDICAL BILLING SPECIALIST: JACINTO Song CRNA Preanesthetic Checklist Completed: patient [...] No paresthesias reported by patient during injectionMedications ovyKOBYYuutvt-bjcfhwrnnwr-viwpooi rine (TAP) syringe - Injection 20 mL - 05/13/2023 11:10:00 AM lidocaine PF (Xylocaine) 2 % injection - Injection 200 mg - 05/13/2023 11:10:00 AM [facility] Events Date Time Event Comment [...] Automatic Discharge Provider documented in this encounter [id number] NoteSubjective Patient is a 88 y.o. male [...] cardia Alcohol abuse Anemia Anxiety Cancer (CMS/HCC) ([facility]) Chronic kidney disease Dementia ([facility]) Depression Dysphagia 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[facility]) Peg Tube GERD (gastroesophageal reflux disease) Hyperlipidemia Hypertension Muscle weakness Personal history of COVID-19 PVD (peripheral vascular disease) ([facility]) Vitamin B deficiency Past Surgical History: Procedure [...] Gatherings with Friends and Family: Never Attends Zoroastrian Services: Never Active Member of Clubs or [...] okay to change if saturated or becomes soiled.[facility] [id number] NotePatient: Berto Ray Procedure Information Date/Time: 05/13/23 1100 Procedures: FLEXOR TENDON TRANSFER X4, NEUROLYSIS FOREARM NERVE X2, NEURECTOMY ULNAR NERVE AT THE WRIST LEFT, DEBRIDEMENT SKIN SUBCUTANEOUS MUSCLE LEFT HAND (Wrist) - x4 DEBRIDEMENT SKIN/MUSCLE, OPEN FRACTURE (Wrist) Location: [facility] OR [address] [place] [address] Operating Room Surgeons: Emilio Alvarez MD Relevant Problems No relevant active problems Past Medical History: Past Medical History: 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 No date: Alcohol abuse No date: Anemia No date: Anxiety No date: Cancer ([facility]/HCC) ([facility]) No date: Chronic kidney disease No date: Dementia ([facility]) No date: Depression No date: Dysphagia No date: 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 Tube No date: GERD (gastroesophageal reflux disease) No date: Hyperlipidemia No date: Hypertension No date: Muscle weakness No date: Personal history of COVID-19 No date: PVD (peripheral vascular disease) ([facility]) No date: Vitamin B deficiency Past Surgical [...] Abdominal Anesthesia Plan patient is NPO ([facility] [place] [facility] pt had meds through peg tube this morning 0700 gabapentin, amlodipine, baclofen) appropriate Any family history or previous problems with anesthesia no ASA 4 MAC and regional Any family history or previous problems with anesthesia no (Dr sanchez cleared pt for regional/mac. ) The patient is not a current smoker. Anesthetic plan and risks discussed with patient and healthcare power of insurance defense attorney (i personally had conversation with POA/ daughter. [...] Jose R Salomon DO on 12/26/2022 4:30 [facility]08-29-2023 Anesthesiology procedure note* Anesthesia Procedure Notes - Tito Harrison APRN - SENIOR MEDICAL BILLING SPECIALIST - 05/13/2023 11:44 AM EDTAssociated Order(s): Peripheral Block Peripheral Block Time Out: 05/13/2023 11:09 AM Patient location during procedure: Procedural Start time: 05/13/2023 11:10 AM End time: 05/13/2023 11:15 AM Reason for block: at surgeon's request and post-op pain management Staffing Performed: SENIOR MEDICAL BILLING SPECIALIST Resident/SENIOR MEDICAL BILLING SPECIALIST: JACINTO Song CRNA Preanesthetic Checklist Completed: patient [...] No paresthesias reported by patient during injectionMedications tyuVORJXmekth-axecmtumecq-sdbecvckeui (TAP) syringe - Injection 20 mL - 05/13/2023 11:10:00 AM lidocaine PF (Xylocaine) 2 % injection - Injection 200 mg - 05/13/2023 11:10:00 AM [employer] Phone: 1(154) 501-314208-29-2023 Note* Op Note - Emilio Alvarez MD [...] Tissue TISSUE EXAM Emilio Alvarez MD 05/13/23 8324 Routine Description: NERVE Staff: Rubber Goods Inspector: De Alarcon RN Relief Rubber Goods Inspector: Mike Rueda RN Scrub Person: Carmina Lucas [...] Disposition: PACU - hemodynamically stable. Condition: stable [id number] [facility]* Op Note - Emilio Alvarez MD [...] MD 05/13/23 1329 Routine Description: NERVE Staff: Rubber Goods Inspector: De Alarcon RN Relief Rubber Goods Inspector: Mike Rueda RN Scrub Person: Carmina Lucas LPN; [facility] Procedure Details: The patient was seen [...] Disposition: PACU - hemodynamically stable. 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 [employer] Phone: 1(172) 776-301008-29-2023 History and physical note* Emilio Alvarez MD [...] Gatherings with Friends and Family: Never Attends Zoroastrian Services: Never Active Member of Clubs or [...] saturated or becomes soiled. documented in this [facility]08-29-2023 Anesthesiology Preoperative evaluation and management note* Anesthesia Preprocedure Evaluation - Cody Rivera APRN - SENIOR MEDICAL BILLING SPECIALIST - 05/13/2023 10:42 AM EDT Patient: Berto Parkinson Procedure Information Date/Time: 05/13/23 1100 Procedures: FLEXOR TENDON TRANSFER X4, NEUROLYSIS FOREARM NERVE X2, NEURECTOMY ULNAR NERVE AT THE WRIST LEFT, DEBRIDEMENT SKIN SUBCUTANEOUS MUSCLE LEFT HAND (Wrist) - x4 DEBRIDEMENT SKIN/MUSCLE, OPEN FRACTURE (Wrist) Location: [facility] OR Operating Room Surgeons: Emilio Alvarez MD Relevant Problems No relevant active problems Past Medical History: Past Medical History: 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 No date: Alcohol abuse No date: Anemia No date: Anxiety No date: Cancer (CMS/HCC) ([facility]) No date: Chronic kidney disease No date: Dementia ([facility]) No date: Depression No date: Dysphagia No date: 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 Tube No date: GERD (gastroesophageal reflux disease) No date: Hyperlipidemia No date: Hypertension No date: Muscle weakness No date: Personal history of COVID-19 No date: PVD (peripheral vascular disease) ([facility]) No date: Vitamin B deficiency Past Surgical [...] Abdominal Anesthesia Plan patient is NPO ([facility] [place] [facility] pt had meds through peg tube this morning 0700 gabapentin, amlodipine, baclofen) appropriate Any family history or previous problems with anesthesia no ASA 4 MAC and regional Any family history or previous problems with anesthesia no (Dr sanchez cleared pt for regional/mac. ) The patient is not a current smoker. Anesthetic plan and risks discussed with patient and healthcare power of insurance defense attorney (i personally hadconversation with POA/ daughter. discussed [...] R Salomon DO on 12/26/2022 4:30 AM [facility] Work Phone: 1(607) 771-914308-29-2023 Note* Perioperative Nursing Note - Madelaine Still RN - 05/13/2023 10:23 AM EDT Spoke with Anne at [facility] to verify meds and NPO status [id number] Note* Perioperative Nursing Note - Madelaine Still RN - 05/13/2023 10:23 AM EDT Spoke with Anne at [facility] to verify meds and NPO status [id number] NotePatient: Berto Ray Procedure Information Date/Time: 05/12/23 0900 Scheduled providers: Patience Hassan RN Procedure: PAT OPTIMIZATION CALL Location: [facility] Pre-Admit Testing Relevant Problems No relevant [...] Jose R Salomon DO on 12/26/2022 4:30 [facility]05-25-2023 NoteHospitalist Discharge Summary Berto Parkinson : 1935 [...] Narrative: Patient Name: BERTO PARKINSON : 1935 [facility]#: [id number] Exam Date/Time: 02/03/2023 11:08 Procedure: [place] MODIFIED [...] Narrative: [facility] 1935 [id number] Exam Date/Time: 02/03/2023 10:30 Procedure: XR ABDOMEN [...] Disposition: Patient [facility] [place] [facility] Greater than 30 minutes s (more content not included)...[facility]05-25-2023 NoteCare Management Progress Note BMP pending for today. Anticipate probable return to [facility] today if medically stable. Discharge Milestones and Delays Expected Date/Time: 02/05/2023 Disposition: Group Home Facility Transport status: No current request Discharge [...] of Stay (Days): 5 GMLOS: 3.6 .. [facility]05-24-2023 Note.pd Hospitalist Progress Note 02/05/[id number]: Please page me ([phone]) for patient care issues. [phone]: Please page [facility] Hospitalist for any issues. Subjective: Admit Date: [...] Hours; 25; 55; 200; Q 4 Hours @CHUS2YGJPWB@ 24HR INTAKE/OUTPUT: Intake/Output Summary (Last 24 hours) [...] - 02/06/2023 - Location - Skilled Facility, [facility] - Pending the following - Total time spent (which include face to face and non face to face encounters) : minutes Toxic drug monitoring/narrow therapeutic index drug monitoring : # Drug name : Unasyn and Lovenox # Route administered : Intravenous and subcutaneous # (more content not included)...[facility] [id number] NotePalliative Care Progress Note Chief Complaint: Berto Parkinson is a 88 y.o. male with chief complaint of PEG drainage, GIB, rhonchi. Palliative Care will follow peripherally, please contact on-call provider for urgent needs Assessment/Plan Goals of Care - Code status: DNR CCA, okay for intubation - NOK/HCPOA: Legal guardian is daughter Teresa ([phone] or [phone]) - Own decision maker: no - GOC [...] gastric cancer s/p resection who presented to [facility] 02/01/2023 from facility with concerns of [...] ROS/ESAS below; limited due to mental status [place] Symptom Assessment Score [place] Score Pain Score 0 Tiredness Score 5 [...] status: no Marital status: single [facility] Work history: n/a Family Meeting: (if discussi (more content not included)...[facility]05-23-2023 NoteHospitalist Progress Note 02/04/[id number]: Please page in ([phone]) for patient care issues. [phone]: Please page [facility] Hospitalist for any issues. Subjective: Admit Date: [...] Hours; 25; 55; 200; Q 4 Hours @[id number]@ 24HR INTAKE/OUTPUT: Intake/Output Summary (Last 24 hours) [...] Mobile Relation: Child Padm (more content not included)...[facility]05-23-2023 NoteGENERAL SURGERY Progress Note PATIENT NAME: Berto [...] proceed with plan. Emeka Ellis APRN - [facility] [id number] NoteCare Management Progress Note From [facility] with Gi bleed and concern for aspiration. On iv antibiotics. MBS yesterday and recommending dysphagia diet. Oxygen saturation is 99% on room air. No cultures ordered. Patient is half-way at [facility] and can return when medically stable. Discharge [...] of Stay (Days): 3 GMLOS: 3.6 .. [facility]05-23-2023 NoteProblem: Potential for Compromised Skin Integrity Goal: Skin Integrity is Maintained or Improved Outcome: [facility]05-22-2023 NoteHospitalist Progress Note 02/03/2023 [phone]: Please secure chat me for patient care issues. [phone]: Please secure chat [facility] Hospitalist for any issues. Subjective: Admit Date: 02/01/2023 PCP: Provider Not In System Room#: B2-250/B2-250 B Interval History: Patient is lying on the bed, alert, hard to communicate. halfway resident, bedridden at his baseline. Today patient was a slightly more alert, nodding yes or no to my questions appropriately. Asking for ice cream. Diet, tube feeding no tray PEG; Glucerna 1.5 Ben; 100; Q 4 Hours @[id number]@ 24HR INTAKE/OUTPUT: Intake/Output Summary (Last 24 hours) [...] MD Division of Hospitalist Medicine Acute care [facility] PAGER: [facility]05-22-2023 NoteSPEECH LANGUAGE PATHOLOGY MODIFIED BARIUM SWALLOW STUDY Patient Name: Berto Parkinson : 1935 Today's Date: 02/03/2023 Visit Info / [facility] ADMISSION DATE: 02/01/2023 ADMITTING DIAGNOSIS: has Acute hypoxemic respiratory failure (HCC); Irritation around percutaneous endoscopic gastrostomy (PEG) tube site (HCC); Constipation, unspecified constipation type; and GI bleed on their problem list. General Information Radiologist: Dr. Yemi Campos Type of Study: Initial MBS Results of Prior Study: No h/o MBS in [facility]. Current Diet Solid Consistency: NPO Current Diet Liquid Consistency: NPO (Free water) Patient complaints: History of aspritation pneumonia. Concern for achalasia noted on chart. Pt has chronic PEG. Xray for placment piror to evaluation. H/o gastic CA Referring Diagnosis: Dysphagia, aspriation Consistencies Administered: Dysphagia Soft and Bite-Sized (Dysphagia III), Dysphagia Pureed (Dysphagia I), Corazon teaspoon, Corazon cup, Thin cup, Thin teaspoon, Thin straw [...] functional swallow. REFLUX Precautions. Advanced trials with WORK STATION SUPPORT SPECIALIST of soft bite sized as appropriate. Plan & Recommendations Recommendations/Treatment: Recommendations/Treat Requires WORK STATION SUPPORT SPECIALIST Intervention: Yes Recommendations comment: Further investigation of [...] Interventions: Patient/Family education, Therapeutic PO trials with WORK STATION SUPPORT SPECIALIST Education Response: Needs reinforcement Prognosis: Prognosis Prognosis [...] swallowing as appropriate Start: 02/02/23 Therapy Time WORK STATION SUPPORT SPECIALIST Individual Minutes Time In: 1021 Time Out: 1105 Minutes: 44 Ashly Castelan, [facility]05-21-2023 NoteReferral placed in [facility] for [facility]. . [facility]05-21-2023 NoteHospitalist Progress Note 02/02/2023 [phone]: Please secure chat in for patient care issues. [phone]: Please secure chat [facility] Hospitalist for any issues. Subjective: Admit Date: 02/01/2023 PCP: Provider Not In System Room#: B2-834/B2-058 B Interval History: Patient is lying on the bed, alert, hard to communicate. halfway resident, bedridden at his baseline. [facility] [place] [facility] as there was concern for aspiration. No other significant overnight issues NPO diet @LENN2WCETGM@ 24HR INTAKE/OUTPUT: Intake/Output Summary (Last 24 hours) [...] Benja Kahn MD Division of Hospitalist Medicine [facility] [place] PAGER: [facility] [id number] NoteAttending History and Physical Admit Date: 02/01/2023 PCP: Provider Not In System CHIEF COMPLAINT: Concern for Aspiration Reason for Admission: Treatment of Aspiration History Obtained From: Family at bedside HISTORY OF PRESENT ILLNESS: Berto is a 88 y.o. male with past medical history gastric cancer post resection, achalasia, dysphagia with chronic PEG, hx aspiration PNA, Dementia who resides at a halfway and is bedbound at baseline presents with [...] times daily. ergocalciferol (Vitamin D-2) 1.25 MG (09687 UT) capsule Take 1.25 mg by mouth [...] Hematological: Negative for adeno (more content not included)...[facility]04-15-2023 History of Present illness Narrative* Leanna Prasad RN - 12/28/2022 6:00 PM EDT Second Attempt to call report to [facility]. No answer, left voicemail. * Leanna Prasad RN - 12/28/2022 5:50 PM EDT Attempted to call report at [facility]. Placed on hold for 16 minutes. Will try again later. * Leanna Prasad RN - 12/28/2022 4:57 PM EDT Attempted to call Daughter, Teresa Olea #[phone]. No answer, Voice mailbox is full. Wanted tonotify of discharge this evening back to [facility]. Teresa returned call. Daughter notified of discharge to facility tonight. * Cha Montemayor APRN - [employer]ODUCE [employer]NER - 12/28/2022 9:36 AM EDT Images from the original note were not included. Hospitalist Progress Note 12/28/2022 [phone]: Please page me ([phone]) for patient care issues. [phone]: Please page [facility] night Hospitalist for any issues. Subjective: Admit [...] Adult diet Dysphagia - Pureed; Mildly Thick (Corazon) @[id number]@ 24HR INTAKE/OUTPUT: No intake or output data [...] Relation: Child JACINTO OLIVAS CNP [facility] Medicine Inpatient Medical Services/[facility] PAGER: [employer] chat * Nichole Coughlin RD - 12/27/2022 2:58 PM EDT Nutrition Assessment Type and Reason for Visit: Initial, RD Nutrition Re-Screen/LOS (Received call from RN regarding TF substitution (ordered Isosource)) Nutrition Recommendations/Plan: Pt on Adult diet Dysphagia - Pureed; Mildly Thick (Corazon). Mostly for pleasure feeds. Pt will receive [...] assess Fluid Accumulation: No significant fluid accumulation Pneumatic Tube Fitter Strength: Not Performed Nutrition Assessment: Pt was admitted from [facility] with complaints of constipation and bilious leakage [...] TF order. Isosource is not available on [employer]'s formularly. RD recommended to substitute with Jevity [...] On: Kcal/kg Weight Used for Energy Requirements: [place] Weight for Energy Calculation (kg): 81 kg Total Energy Requirements (kcals/day): 7571-8690 kcals (25-30 kcals/kg) Weight Used for Protein Requirements: [place] Weight in Kg Used for Protein Requirements: 81 kg Estimated Total Protein (g/day): 81-97 (1-1.2 g/kg) Estimated Daily Total Fluid (ml/day): 2025 ml/day or per MD Nutrition Related Findings: no edema; Cl 110, BUN 22, Hgb 10, Hct 30.7 Wound Type: (BLE abrasions) Current Nutrition Therapies: Adult diet Dysphagia - Pureed; Mildly Thick (Corazon) Current Oral Intake Average Meal Intake: (PO [...] baseline weight) % Weight Change (Calculated): 13.3 [place] Body Weight (lbs) (Calculated): 178 lbs [place] Body Weight (Kg) (Calculated): 81 kg % [place] Body Weight (Calculated): 105.1 % BMI (kg/m2) [...] diet, Enteral Nutrition Nichole Coughlin RD Contact: *[phone] or via Secure Chat * Tia Crump PT - 12/27/2022 11:08 AM EDT Physical Therapy Facility/Department: [facility] 1E Physical Therapy Initial Evaluation NAME: Berto [...] history of Alcohol abuse, Anxiety, Cancer (CMS/HCC) ([facility]), Chronic kidney disease, Dementia (HCC), Depression, Dysphagia, [...] recent events, Decreased short term memory, Decreased longterm memory Safety Judgement: Decreased awareness of need [...] With: Other (comment) Type of Home: Facility ([facility]) Home Layout: One level Home Access: Level [...] fecal impaction. PMH is listed above. Exam: [facility] Assistance / Modification: max-total A REQUIRES OT [...] recent events, Decreased short term memory, Decreased longterm memory Safety Judgement: Decreased awareness of need [...] With: Other (comment) Type of Home: Facility ([facility]) Home Layout: One level Home Access: Level [...] Logan MD - 12/27/2022 9:30 AM EDT [employer] - Surgery [facility] Physicians Surgery Patient Name: Berto Parkinson Date: [...] 12/27/2022 GENERAL SURGERY Progress Note PATIENT NAME: eBrto Parkinson TODAY'S DATE: 12/27/2022 SUBJECTIVE: General Surgery [...] were not included. Hospitalist Progress Note 12/27/2022 [phone]: Please page me ([phone]) for patient care issues. [phone]: Please page [facility] Hospitalist for any issues. Subjective: Admit Date: [...] reach. General surgery was consulted. NPO diet @TLYD1EVXCKR@ 24HR INTAKE/OUTPUT: No intake or output data [...] CNP Division of Hospitalist Medicine Inpatient Medical Services/[facility] PAGER: Epic chat * Susie Xiong - 12/27/2022 8:23 AM EDT Nutrition rescreen completed. Patient assigned a level 1. * JACINTO Saucedo CNP - 12/26/2022 1:51 PM EDT Images from the original note were not included. Hospitalist Progress Note 12/26/2022 [phone]: Please page in ([phone]) for patient care issues. [phone]: Please page [facility] Consulting Hospitalist for any issues. Subjective: Admit [...] areas. Admits to abd pain. NPO diet @[id number]@ 24HR INTAKE/OUTPUT: Intake/Output Summary (Last 24 hours) [...] CNP Division of Hospitalist Medicine Inpatient Medical Services/[facility] PAGER: [employer] chat documented in this [facility]04-15-2023 NoteDischarge Summary Berto Ray : 1935 [...] Commonly known as: Colace ergocalciferol 1.25 MG (88558 UT) capsule Commonly known as: Vitamin D-2 [...] Adult diet Dysphagia - Pureed; Mildly Thick (Corazon) ACTIVITY: No restriction. COMPLEXITY OF FOLLOW UP: [x] Moderate Complexity: follow up within 7-14 calendar days (18132) [] Severe Complexity: follow up within 7 calendar days (71661) FOLLOW UP TESTING, PENDING RESULTS OR REFERRALS AT TRANSITIONAL CARE VISIT: [] Yes [x] No PENDING STUDIES: NA DISPOSITION: Skilled Facility FACILITY/HOME CARE AGENCY NAME: [facility] Follow up with PCP INSTRUCTIONS TO MA/SW: [...] minutes SIGNED: JACINTO OLIVAS CNP 12/28/2022, 1:21 [facility]04-15-2023 Hospital course Narrative* JACINTO Olivas CNP - 12/28/2022 1:21 PM EDT Images from the original note were not included. Discharge Summary Berto Pariknson : 1935 ADMIT DATE: 12/25/2022 DISCHARGE DATE: [...] Commonly known as: Colace ergocalciferol 1.25 MG (88371 UT) capsule Commonly known as: Vitamin D-2 [...] Adult diet Dysphagia - Pureed; Mildly Thick (Corazon) ACTIVITY: No restriction. COMPLEXITY OF FOLLOW UP: [x] Moderate Complexity: follow up within 7-14 calendar days (43391) [] Severe Complexity: follow up within 7 calendar days (78267) FOLLOW UP TESTING, PENDING RESULTS OR REFERRALS AT TRANSITIONAL CARE VISIT: [] Yes [x] No PENDING STUDIES: NA DISPOSITION: Skilled Facility FACILITY/HOME CARE AGENCY NAME: [facility] Follow up with PCP INSTRUCTIONS TO MA/SW: [...] CNP 12/28/2022, 1:21 PM documented in this [facility]04-15-2023 NoteHospitalist Progress Note 12/28/2022 [phone]: Please page me ([phone]) for patient care issues. [phone]: Please page [facility] Hospitalist for any issues. Subjective: Admit Date: [...] Adult diet Dysphagia - Pureed; Mildly Thick (Corazon) @[id number]@ 24HR INTAKE/OUTPUT: No intake or output data [...] Olea Mobile Relation: Scott MONTEMAYOR APRN - PRODUCE RUNNER Division of Hospitalist (more content not included)...[facility] 12-28-2022 Note* Care Coordination - Anyi Bartlett RN - 12/28/2022 8:58 AM EDT Did update primary care nurse and attending that patient is bed hold and [facility]. . [id number] Note* Care Coordination - Anyi Bartlett RN - 12/28/2022 8:58 AM EDT Did update primary care nurse and attending that patient is bed hold and can return to [facility] this weekend. . [place] [id number] Miscellaneous Notes* Care Coordination - Anyi Bartlett RN - 12/28/2022 8:58 AM EDT Did update primary care nurse and attending that patient is bed hold and can return to [facility] this weekend. . * Care Coordination - Anyi Bartlett RN - 12/28/2022 6:41 AM EDT Patient is bedhold at [facility] and can return to facility whenever medically stable. Will need dc order, laura completed, covid test, report called to [phone]. Consulting Hr Professional to arranged transport. Nursing will need to [...] Outcome: Progressing * Care Coordination - Kaylee Brgiht RN - 12/27/2022 11:56 AM EDT Care Managment Initial Assessment Date: 12/27/2022 Patient Name: Berto Parkinson : 1935 Patient Information Source of Information: Patient Senior Grant Writer Name/Contact Information: [facility] staff Cognition/Language: Impaired (nonverbal) Permission given to speak with patient account representative/caregiver as indicated: Yes Confirmation of Payer with patient/family: Yes Payer Name: Erie Arnold: No Confirmation of Primary Care Physician: Confirmed PCP Name: Lexis Seen in last 2 years?: Yes (at facility) Primary Caregiver: Other (Comment) ([facility] staff) If assistance needed, confirmed caregiver ready, willing and able to care for patient at discharge:Yes Confirmed with: [facility] staff Living Arrangements Current Residence: ([facility]) Number of Floors Number of Entry Steps: Bed/Bath Levels: Facility: [facility] Facility Name: [facility] Plan to Return: Yes Lives with: Other (Comment) ([facility]) Support Systems: Children Activities of Daily Living Ambulation: Total Care Bathing/Dressing: Total Care Elimination/Continence/Toileting: Total Care Feeding: Assistance (CLD and PEG) Who Assists with Activities of Daily Living: [facility] staff Instrumental Activities of Daily Living Prescription Coverage: Yes Pharmacy Used: [facility] provides medications Medication Management: Transportation/Shopping: Assistance Provider Transportation Mode: Senior/disability transport service Needs Assistance with Transportation at Discharge: Yes (will arrange transportation) Meal Preparation: Assistance Provider Meal Prep Assistance Provider Name: [facility] Laundry/Cleaning: Assistance Provider Laundry/Cleaning Assistance Provider Name: [facility] Finances/Bill Paying: Assistance Provider Finances/Bill Payer Assistance Provider Name: [facility] Communication: Assistance (call light at facility) Types of Care Services/Equipment Utilized Care Services: (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 resident) Dialysis Type: Durable Medical Equipment: Wheelchair (standard or power), Megan Lift Patient's Goal/Discharge Plan Patient expects to be discharged to: [facility] Discharge Planning Actions: Continue to follow Patient's Choice Rights and [employer] and Collaborative Relationships Disclosed as Indicated for Post-Acute Care: NA Interdisciplinary Team Engagement: PT/OT Social Work Referral for: Additional Information: 87 yo male admitted to 1E from [facility] for constipation and leakage around PEG tube.Gen surg following, pt successfully had a BM on 12/26/22. Pt is a bedhold at [facility], able to return when medically stable. Megan lift at baseline, follows a clear liquid diet and PEG tube feedings at facility. Weekend CM tasked to follow, weekend DC forms placed on chart. TCC to assist and followas needed. Kaylee Bright RN * Care Coordination - Hoda Flores - 12/27/2022 8:09 AM EDT Referral placed to [facility] per TCC request. Await review and response regarding ability to accept. TCC notified. * Care Coordination - Kaylee Bright RN - 12/27/2022 7:37 AM EDT Pt is a longterm resident at [facility], REGIONAL EXTENSION SERVICE SPECIALIST tasked to send return referral in careport. * Care Plan - Huseyin Campo RN - 12/27/2022 6:00 AM EDT Problem: Potential for Compromised Skin Integrity Goal: Skin Integrity is Maintained or Improved Outcome: Progressing documented in this [facility]04-15-2023 Note* Care Coordination - Anyi Bartlett RN - 12/28/2022 6:41 AM EDT Patient is bedhold at [facility] and can return to facility whenever medically stable. Will need dc order, laura completed, covid test, report called to [phone]. [facility] to arranged transport. Nursing will need to notify patient and family of discharge and time of transport. Will update day shift later this morning. . [facility] [id number] Note* Care Coordination - Anyi Bartlett RN - 12/28/2022 6:41 AM EDT Patient is bedhold at [facility] and can return to facility whenever medically stable. Will need dc order, laura completed, covid test, report called to [phone]. [employer] to arranged transport. Nursing will need to notify patient and family of discharge and time of transport. Will update day shift later this morning. . [facility] [id number] NoteProblem: Potential for Compromised Skin Integrity Goal: Skin Integrity is Maintained or Improved Outcome: [facility]04-15-2023 Plan of care note* Care Plan - Huseyin Campo RN - 12/28/2022 2:18 AM EDT Problem: Potential for Compromised Skin Integrity Goal: Skin Integrity is Maintained or Improved Outcome: Progressing [facility] [id number] Plan of care note* Care Plan - Leanna Prasad RN - 12/27/2022 5:03 PM EDT Problem: Potential for Compromised Skin Integrity Goal: Skin Integrity is Maintained or Improved Outcome: Progressing Problem: Urinary Incontinence Goal: Perineal skin integrity is maintained or improved Outcome: Progressing Problem: Problem Interventions Goal: Promote nutritional intake Outcome: Progressing Problem: Problem Interventions Goal: Nutrition Support Outcome: Progressing [facility] [id number] Hospital Discharge instructions* Discharge Instr - LAURA* Leanna Prasad RN - 12/27/2022 12:02 PM EDT Continuity of Care Form Patient Name: Berto Parkinson : 1935 Admit date: 12/25/2022 Discharge date: [id number] Code Status Order: DNR-CCA Advance Directives: N [...] assistance Toileting Total assistance Feeding Total assistance Foundry Patternmaker Total assistance Med Delivery yes Wound Care [...] support Rehab Therapies: none Weight Bearing Status/Restrictions: Bedbound/meagn lift Other Medical Equipment (for information only, NOT a DME order): Hospital Bed Other Treatments: yankeur suction as needed Patient's personal belongings (please select all that are sent with patient): none RN SIGNATURE: MANAGEMENT/SOCIAL WORK SECTION Inpatient Status Date: 12/25/2022 Readmission Risk Assessment Score: @READMISSIONRISKDETAILS@ Discharging to Facility/ Agency Name: [facility] Address: [address] [place] [address], [place] [address] Hours: Open 24 hours Dialysis Facility (if applicable) Name: Address: Dialysis Schedule: Phone: Fax: Bulk Station Operator/Milk Deliverer signature: ICIAN SECTION Prognosis: fair Condition at Discharge: stable Rehab Potential (if transferring to Rehab): fair Recommended Labs or Other Treatments After Discharge: Physician Certification: I certify the above information and transfer of Berto Parkinson is necessary forthe continuing treatment of the diagnosis listed and that he requires penitentiary facility for greater than 30 days. Update Admission H&P: No change in H&P PHYSICIAN SIGNATURE: documented in this [facility]04-14-2023 Note* Care Coordination - Kaylee Bright RN - 12/27/2022 11:56 AM EDT Care Managment Initial Assessment Date: 12/27/2022 Patient Name: Berto Parkinson : 1935 Patient Information Source of Information: Patient Senior Grant Writer Name/Contact Information: [facility] staff Cognition/Language: Impaired (nonverbal) Permission given to speak with patient account representative/caregiver as indicated: Yes Confirmation of Payer with patient/family: Yes Payer Name: Meli : No Confirmation of Primary Care Physician: Confirmed PCP Name: Lexis Seen in last 2 years?: Yes (at facility) Primary Caregiver: Other (Comment) ([facility] staff) If assistance needed, confirmed caregiver ready, willing and able to care for patient at discharge:Yes Confirmed with: [facility] staff Living Arrangements Current Residence: ([facility]) Number of Floors Number of Entry Steps: Bed/Bath Levels: Facility: [facility] Facility Name: [facility] Plan to Return: Yes Lives with: Other (Comment) ([facility]) Support Systems: Children Activities of Daily Living Ambulation: Total Care Bathing/Dressing: Total Care Elimination/Continence/Toileting: Total Care Feeding: Assistance (CLD and PEG) Who Assists with Activities of Daily Living: [facility] staff Instrumental Activities of Daily Living Prescription Coverage: Yes Pharmacy Used: [facility] provides medications Medication Management: Transportation/Shopping: Assistance Provider Transportation Mode: Senior/disability transport service Needs Assistance with Transportation at Discharge: Yes (will arrange transportation) Meal Preparation: Assistance Provider Meal Prep Assistance Provider Name: [facility] Laundry/Cleaning: Assistance Provider Laundry/Cleaning Assistance Provider Name: [facility] Finances/Bill Paying: Assistance Provider Finances/Bill Payer Assistance Provider Name: [facility] Communication: Assistance (call light at facility) Types of Care Services/Equipment Utilized Care Services: (longterm resident) Dialysis Type: Durable Medical Equipment: Wheelchair (standard or power), Megan Lift Patient's Goal/Discharge Plan Patient expects to be discharged to: [facility] Discharge Planning Actions: Continue to follow Patient's Choice Rights and [employer] and Collaborative Relationships Disclosed as Indicated for Post-Acute Care: NA Interdisciplinary Team Engagement: PT/OT Social Work Referral for: Additional Information: 87 yo male admitted to 1E from [facility] for constipation and leakage around PEG tube.Gen surg following, pt successfully had a BM on 12/26/22. Pt is a bedhold at [facility], able to return when medically stable. Megan lift at baseline, follows a clear liquid diet and PEG tube feedings at facility. Weekend CM tasked to follow, weekend DC forms placed on chart. TCC to assist and followas needed. Kaylee Bright RN [facility]Xdjjsa88-12-7979 Note* Care Coordination - Kaylee Bright RN - 12/27/2022 11:56 AM EDT Care Managment Initial Assessment Date: 12/27/2022 Patient Name: Berto Parkinson : 1935 Patient Information Source of Information: Patient Senior Grant Writer Name/Contact Information: [facility] staff Cognition/Language: Impaired (nonverbal) Permission given to speak with patient account representative/caregiver as indicated: Yes Confirmation of Payer with patient/family: Yes Payer Name: Meli : No Confirmation of Primary Care Physician: Confirmed PCP Name: Lexis Seen in last 2 years?: Yes (at facility) Primary Caregiver: Other (Comment) ([facility] staff) If assistance needed, confirmed caregiver ready, willing and able to care for patient at discharge:Yes Confirmed with: [facility] staff Living Arrangements Current Residence: ([facility]) Number of Floors Number of Entry Steps: Bed/Bath Levels: Facility: Jail[facility] Facility Name: [facility] Plan to Return: Yes Lives with: Other (Comment) ([facility]) Support Systems: Children Activities of Daily Living Ambulation: Total Care Bathing/Dressing: Total Care Elimination/Continence/Toileting: Total Care Feeding: Assistance (CLD and PEG) Who Assists with Activities of Daily Living: [facility] staff Instrumental Activities of Daily Living Prescription Coverage: Yes Pharmacy Used: [facility] provides medications Medication Management: Transportation/Shopping: Assistance Provider Transportation Mode: Senior/disability transport service Needs Assistance with Transportation at Discharge: Yes (will arrange transportation) Meal Preparation: Assistance Provider Meal Prep Assistance Provider Name: [facility] Laundry/Cleaning: Assistance Provider Laundry/Cleaning Assistance Provider Name: [facility] Finances/Bill Paying: Assistance Provider Finances/Bill Payer Assistance Provider Name: [facility] Communication: Assistance (call light at facility) Types of Care Services/Equipment Utilized Care Services: (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 resident) Dialysis Type: Durable Medical Equipment: Wheelchair (standard or power), Megan Lift Patient's Goal/Discharge Plan Patient expects to be discharged to: [facility] Discharge Planning Actions: Continue to follow Patient's Choice Rights and [employer] and Collaborative Relationships Disclosed as Indicated for Post-Acute Care: NA Interdisciplinary Team Engagement: PT/OT Social Work Referral for: Additional Information: 87 yo male admitted to 1E from [facility] for constipation and leakage around PEG tube.Gen surg following, pt successfully had a BM on 12/26/22. Pt is a bedhold at [facility], able to return when medically stable. Megan lift at baseline, follows a clear liquid diet and PEG tube feedings at facility. Weekend CM tasked to follow, weekend DC forms placed on chart. TCC to assist and followas needed. Kaylee Bright RN [facility] HospitalCpwcpl82-69-4655 NoteHospitalist Progress Note 12/27/2022 [phone]: Please page me ([phone]) for patient care issues. [phone]: Please page [facility] night Hospitalist for any issues. Subjective: Admit [...] reach. General surgery was consulted. NPO diet @[id number]@ 24HR INTAKE/OUTPUT: No intake or output data [...] discussions with consultants, evaluation (more content not included)...[facility]04-14-2023 Note Referral placed to return back to [facility] via [facility] per [facility] request. Await review and response regarding ability to accept. TCC notified. 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04-14-2023 Note* Care Coordination - Hoda Flores - 12/27/2022 8:09 AM EDT Referral placed to return back to [facility] via [facility] per TCC request. Await review and response regarding ability to accept. TCC notified. [place] [id number] Note* Care Coordination - Hoda Flores - 12/27/2022 8:09 AM EDT Referral placed to return back to [facility] via [facility] per TCC request. Await review and response regarding ability to accept. TCC notified. [place] [id number] NoteProblem: Potential for Compromised Skin Integrity Goal: Skin Integrity is Maintained or Improved Outcome: [facility]04-14-2023 Note* Care Coordination - Kaylee Bright RN - 12/27/2022 7:37 AM EDT Pt is a longterm resident at [facility], [facility] tasked to send return referral in careport. 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 [facility] [id number] Plan of care note* Care Plan - Huseyin Campo RN - 12/27/2022 6:00 AM EDT Problem: Potential for Compromised Skin Integrity Goal: Skin Integrity is Maintained or Improved Outcome: Progressing [facility] [id number] NoteHospitalist Progress Note 12/26/2022 [phone]: Please page me ([phone]) for patient care issues. [phone]: Please page [facility] Consulting Hospitalist for any issues. Subjective: Admit [...] areas. Admits to abd pain. NPO diet @[id number]@ 24HR INTAKE/OUTPUT: Intake/Output Summary (Last 24 hours) [...] Continue IV fluids. Monit (more content not included)...[facility]04-13-2023 Emergency department Note* Dora Abrams RN - 12/26/2022 11:05 AM EDT Gen surgery on unit to see pt Dora Abrams RN 12/26/22 1105 [place] [id number] Emergency department Note* Dora Abrams RN - 12/26/2022 11:05 AM EDT Gen surgery on unit to see pt Dora Abrams RN 12/26/22 1105 * Dora Abrams RN - 12/26/2022 10:35 AM EDT Attending MATERIAL HANDLING EQUIPMENT STEVEDORE her to assess pt Dora Abrams RN 12/26/22 1108 * Dora Abrams RN - 12/26/2022 9:15 AM EDT General surgery her to assess pt Dora Abrams RN 12/26/22 1106 * Natasha Fernandez RN - 12/25/2022 11:[address] Rosales notified and aware of rhochi heard with patient breathing, SPO2 94% RA. Per daughter, pt has difficult time swallowing sputum and [facility] suctions secretions out with yankeur, update given to Steve Fernandez RN 12/25/22 0253 * Natasha Fernandez RN - 12/25/2022 11:[address] Rosales notified and aware of pt BP 154/104 at this time. Natasha Fernandez RN 12/25/22 6281 * Natasha Fernandez RN - 12/25/2022 11:13 [...] nauseous and in pain documented in this encounterSParkview Health Bryan HospitalDuofoe66-13-6418 Emergency department Note* Dora Abrams RN - 12/26/2022 10:35 AM EDT Attending MATERIAL HANDLING EQUIPMENT STEVEDORE her to assess pt Dora Abrams RN 12/26/22 1104 [facility] HospitalKyyoie95-29-5464 Consult note* Denis Logan MD - 12/26/2022 9:44 AM EDTAssociated Order(s): IP CONSULT TO GENERAL SURGERY Images from the original note were not included. [employer] - Surgery [facility] Physicians Surgery Patient Name: Berto Parkinson Date: [...] chart review was performed. Denis Logan MD [facility] General Surgery 2:58 PM 12/26/2022 Department of General Surgery Consult PATIENT NAME: Berto Parkinson DATE OF : 1935 ADMISSION DATE: 12/25/2022 1:10 PM TODAY'S DATE: 12/26/2022 Reason for Consult: Leaking PEG tube, Constipation HISTORY OF PRESENT ILLNESS: The patient is a 87 y.o. male who presents from [facility] facility. Patient non verbal and unable to [...] Ivory ProviderMD ergocalciferol (Vitamin D-2) 1.25 MG (68883 UT) capsule Take 1.25 mg by mouth [...] Impression Patient Name: BERTO PARKINSON : 1935 [facility]#: [id number] Exam Date/Time: 12/25/2022 14:54 Procedure: CT ABDOMEN [...] History CT abdomen pelvis w contrast (Order #[id number]) on 12/25/2022 - Order Result History Report [...] Tracking CT abdomen pelvis w contrast (Order #[id number]) on 12/25/[address] abdomen pelvis w contrast (Order #[id number]) on 12/25/22 CBC: Recent Labs 12/25/22 1342 [...] you may have. Emeka Ellis APRN - PRODUCE RUNNER [facility]04-13-2023 Consult note* Denis Logan MD - 12/26/2022 9:44 AM EDTAssociated Order(s): IP CONSULT TO GENERAL SURGERY Images from the original note were not included. [employer] - Surgery [facility] Physicians Surgery Patient Name: Berto Parkinson Date: [...] chart review was performed. Denis Logan MD [facility] General Surgery 2:58 PM 12/26/2022 Department of General Surgery Consult PATIENT NAME: Berto Parkinson DATE OF : 1935 ADMISSION DATE: 12/25/2022 1:10 PM TODAY'S DATE: 12/26/2022 Reason for Consult: Leaking PEG tube, Constipation HISTORY OF PRESENT ILLNESS: The patient is a 87 y.o. male who presents from [facility] facility. Patient non verbal and unable to [...] Ivory ProviderMD ergocalciferol (Vitamin D-2) 1.25 MG (18826 UT) capsule Take 1.25 mg by mouth [...] Impression Patient Name: BERTO PARKINSON : 1935 [facility]#: [id number] Exam Date/Time: 12/25/2022 14:54 Procedure: CT ABDOMEN [...] History CT abdomen pelvis w contrast (Order #[id number]) on 12/25/2022 - Order Result History Report [...] Tracking CT abdomen pelvis w contrast (Order #[id number]) on 12/25/[address] abdomen pelvis w contrast (Order #[id number]) on 12/25/22 CBC: Recent Labs 12/25/22 1342 [...] you may have. Emeka Ellis APRN - PRODUCE RUNNER documented in this [facility]04-13-2023 Emergency department Note* Dora Abrams RN - 12/26/2022 9:15 AM EDT General surgery her to assess pt Dora Abrams RN 12/26/22 1106 [facility] HospitalCikpjo28-21-8166 NoteHistory and Physical [facility] Bertoabelino Parkinson : 1935 AGE 87 y.o. [...] on FriDec 25, 2022 1:27 PM (Active) Hse Manager RES: Flavio Meneses DO, starting on FriDec [...] his PEG tube even after changing her [place] [facility] Past Medical History: Diagnosis Date Alcohol abuse [...] tympanic and there i (more content not included)...[facility]04-12-2023 Emergency department Note* Natasha Fernandez RN - 12/25/2022 11:[address] Rosales notified and aware of rhochi heard with patient breathing, SPO2 94% RA. Per daughter, pt has difficult time swallowing sputum and [facility] suctions secretions out with yankeur, update given to Steve Fernandez RN 12/25/22 7188 [facility] HospitalBzgpap46-42-5842 History and physical note* Dominick Rosales MD - 12/25/2022 11:43 PM EDT Images from the original note were not included. History and Physical [facility] Berto Ray : 1935 AGE 87 y.o. [...] on FriDec 25, 2022 1:27 PM (Active) Hse Manager RES: Flavio Meneses DO, starting on FriDec [...] his PEG tube even after changing her [place] [facility] Past Medical History: Diagnosis Date Alcohol abuse [...] QT Interval 416 QTC Interval 436 P [place] 39 QRS [place] -42 T Wave [place] 80 ID Interval 164 Impression SINUS RHYTHM LEFT ANTERIOR [...] to due risk bleed/procedure 12/25/2022 Berto Ray [id number] Any scheduled follow up appointments No future appointments. Extended Emergency Contact Information Primary Emergency Contact: Teresa Olea Mobile Relation: Child Portions of this note may be electronically transcribed. Please forward a copy of this H&P to the primary care physician. [employer] Phone: 1(113) 664-573304-12-2023 History and physical note* Dominick Rosales MD - 12/25/2022 11:43 PM EDT Images from the original note were not included. History and Physical [facility] Berto Ray : 1935 AGE 87 y.o. [...] on FriDec 25, 2022 1:27 PM (Active) Hse Manager RES: Flavio Meneses DO, starting on FriDec 25, 2022 1:31 PM, ending on FriDec 25, 2022 9:58 PM (Inactive) Consulting Physician: Denis Logan MD, starting on FriDec 25, 2022 7:00 PM (Active) Registered Nurse: Meghan Ventura RN, starting on FriDec 25, 2022 8:12 PM, ending on FriDec 25, 2022 8:12 PM (Inactive) Registered Nurse: tSeve Olivares RN, starting on FriDec 25, 2022 11:30 PM (Active) Chief Complaint: Abdominal Pain and Wound Check (PEG tube issues) HPI: He was sent over due to complaining of abd pain, tube recently has been changed per f paperwork but was draining bilious material Diet of pureed nectar thick is listed also per [facility] paperwork marce with Isosource 55 ml hour [...] his PEG tube even after changing her [place] [facility] Past Medical History: Diagnosis Date Alcohol abuse [...] QT Interval 416 QTC Interval 436 P [place] 39 QRS [place] -42 T Wave [place] 80 ID Interval 164 Impression SINUS RHYTHM LEFT ANTERIOR [...] to due risk bleed/procedure 12/25/2022 Berto Ray [id number] Any scheduled follow up appointments No future appointments. Extended Emergency Contact Information Primary Emergency Contact: Teresa Olea Mobile Relation: Child Portions of this note may be electronically transcribed. Please forward a copy of this H&P to the primary care physician. documented in this [facility]04-12-2023 Emergency department Note* Natasha Fernandez RN - 12/25/2022 11:[address] Rosales notified and aware of pt BP 154/104 at this time. Natasha Fernandez RN 12/25/22 8124 [facility] HospitalSvuwhl42-29-0580 Emergency department Note* Natasha Fernandez RN - 12/25/2022 11:13 PM EDT Report given to steve ROY at this time Natasha Fernandez RN 12/25/22 5236 [address]Lagaks00-31-0219 Emergency department Note* Natasha Fernandez RN - 12/25/2022 10:02 PM EDT This RN changed dressing around peg tube at this time, this RN used cut gauze pads around site and paper tape, dated and timed for now, pt still has moderate amount of bile leakage from site, placement was confirmed by CT scan per dr tiana Fernandez RN 12/25/222202 [address]Kdnzoi13-04-0443 Emergency department Note* Natasha Fernandez RN - 12/25/2022 8:24 PM EDT Pt incontinent of urine at this time, this RN placed patient in new gown and changed bed with assistance from dimitri melissa, pt repositioned onto R side at this time with pillow in place Natasha Fernandez RN 12/25/222024 [address]Wugbkp89-57-1906 Emergency department Note* Natasha Fernandez RN - 12/25/2022 4:58 PM EDT This RN and raul RN attempted to complete soap suds enema on patient, enema would not flow intopatient's rectum, provider notified, provider attempted fecal disimpaction, this RN as the witness,no new orders at this time. Natasha Fernandez RN 12/25/229 [address]Rkpsfc30-48-4555 Emergency department Note* HILDA Mae - 12/25/2022 4:23 PM EDT Guided family back HILDA Mae 12/25/22 1623 [address]Dbtjds33-12-1363 Emergency department Note* Natasha Fernandez RN - 12/25/2022 3:02 PM EDT Pt resting in bed at this time, eyes closed, RR 18, pt appears to be more comfortable after zofran and fentanyl per daughter who is at bedside. Per daughter, she states pt is incontinent and unable to communicate the urge to urinate. Natasha Fernandez RN 12/25/22 1503 [facility] HospitalBsvjyq86-66-8937 Emergency department Note* Natasha Fernandez RN - 12/25/2022 1:24 PM EDT Upon assessment, PEG tube is leaking yellow bile like fluid, moderate amount, patient seems to be uncomfortable and nauseous, able to nod yes and no but patient is nonverbal. Unable to assess pain numerically and neurological status. Natasha Fernandez RN 12/25/22 1326 [facility] HospitalVskrhb47-22-2373 Emergency department Triage note* Natasha Fernandez RN - 12/25/2022 1:10 PM EDT Pt presents with EMS, per facility, pt has PEG tube issues, recently replaced, facility states there is discharge around PEG tube site and patient is experiencing abdominal pain, pt is currently nonverbal but appears to be nauseous and in pain [facility] HospitalLnihzt87-73-7894 NoteDischarge Summary Berto Parkinson : 1935 ADMIT [...] DIAGNOSTIC STUDIES: Legionella and Streptococcus Urine Antigen [[id number]] (Abnormal) Urine, Clean Catch Final result Component [...] Commonly known as: Colace ergocalciferol 1.25 MG (59400 UT) capsule Commonly known as: Vitamin D-2 gabapentin 300 MG capsule Commonly known as: Neurontin hyoscyamine 0.125 MG/ML solution Commonly known as: Levsin isosorbide dinitrate 10 MG tablet Commonly known as: Isordil magnesium hydroxide 400 MG/5ML suspension Commonly known as: Milk of Magnesia metoclopramide 5 MG/5ML solution Commonly known as: Reglan nitroglycerin 0.4 MG SL tablet Co (more content not included)...[facility]03-07-2023 Note Palliative Progress Note Chief Complaint: Berto Parkinson is a 87 y.o. male with chief complaint of hypoxia, PEG issues Palliative Care is actively following. Assessment/Plan Goals of Care Pt is not able to verbalize with words - he does nod head yes and no to some questions DNR-CCA, OK intubation - previously established NOK/HCPOA: daughter Teresa Olea [phone] Goals are for continued current tx's - [...] tobacco use. He presented to ED from [facility] for hypoxia and shallow breathing. He was [...] to perform full ROS due to non-verbal [place] Symptom Assessment Score [place] Score Pain Score 0 Tiredness Score 4 [...] Assessed by: patient and provider. Social history: Arnold status: no Marital status: single Living status: [facility] Work history: unknown Advance Care Planning: The patient has capacity to make healthcare and advanced care planning decisions No The patient's identified surrogate decision maker is Child. Discussion participants: n/a We discussed goals of care related to the patient's current health as documented below: Unable to have conversation today We discussed lhwtwgl-pj-jart concerns identified by the patient/surrogate, including Unable to have conversation today Interventions reviewed: N/a Advance Care Planning Documents: Healthcare Power of Training Representative: Completed Financial Power of Training Representative: Other unknown Living Will: Other unknown Code [...] Patient Position: Lying) P (more content not included)...[facility] [id number] NoteCare Management Progress Note - Discharge Expected [...] 8.4, sterling in place. 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 No insurance auth is needed. TCC to assist and follow as needed. [facility] [id number] NoteHospitalist Progress Note 11/19/2022 [phone]: Please message me for patient care issues. [phone]: Please message [facility] Hospitalist for any issues. Subjective: Admit Date: 11/14/2022 PCP: No primary care provider on file. Room#: B1-144/B1-144 A Interval History: Seen and examined . Nonverbal to me answers by nodding. Afebrile overnight no new complaints. Discussed with ID stewardship, discontinue antibiotics today. Hemoglobin and hematocrit stable. Diet, tube feeding no tray PEG/J; Vital 1.5 Ben; Continuous; Yes; 0; 55; 55 @EWCZ8ALZRMP@ 24HR INTAKE/OUTPUT: Intake/Output Summary (Last 24 hours) [...] - Date - 11/20 - Location - [facility] - Pending the following - [...] Scott Vizcarra MD Division of Hospitalist Medicine [facility] PAGER: Molecular Detection [id number] NoteHospitalist Progress Note 11/18/2022 [phone]: Please message me for patient care issues. [phone]: Please message [facility] Hospitalist for any issues. Subjective: Admit Date: 11/14/2022 PCP: No primary care provider on file. Room#: B1-144/B1-144 A Interval History: Tolerating tube feeds. Weak. No SOB, cough, cp, n/v, f/c. Still with some bleeding. D/w RN and CM separately. Diet, tube feeding no tray PEG/J; Vital 1.5 Ben; Continuous; Yes; 0; 55; 55 @XEKE3ZCXJRI@ 24HR INTAKE/OUTPUT: Intake/Output Summary (Last 24 hours) [...] - 11/19 or 11/20 - Location - [facility] - Pending the following - [...] LISBET ALAS MD Division of Hospitalist Medicine [facility] PAGER: [employer] [facility] [phone] NoteHospitalist Progress Note 11/17/20226997499-1356: Please message me for patient care issues. : Please message [facility] night Hospitalist for any issues. Subjective: Admit [...] 1.5 Ben; Continuous; Yes; 0; 55; 55 @JMXY0LNIFJW@ 24HR INTAKE/OUTPUT: Intake/Output Summary (Last 24 hours) [...] - 11/19 or 11/20 - Location - [facility] - Pending the following - [...] LISBET ALAS MD Division of Hospitalist Medicine [facility] PAGER: [facility] [phone] NoteGI CONSULTATION Patient: Berto Parkinson : 1935 [...] Historical Provider, ergocalciferol (Vitamin D-2) 1.25 MG (77587 UT) capsule Take 1.25 mg by mouth [...] or guarding. No h (more content not included)...[facility] [id number] NoteICU Progress Note Name: Berto Parkinson : 1935(87 y.o.) Date: 11/16/22 Team: MICU Attending: Enedina Subjective: Hospital Summary: Patient is a 87 year old male with PMH former tobacco use, debility - bed bound from SNF, dysphagia 2/2 stomach cancer s/p GJ tube, HTN/HLD, CAD, prior etoh abuse, PAD, who presented to [facility] ED from SNF on 11/14/2022 for hypoxia [...] Normal [] Scar/Lesion/Mass Inspection of teeth/lips/gums Dentition: [x][place] Teeth []Dentures Lips/Gums: []Intact []Lesion Present Mucosa: [][place] []Moist [x]Dry Neck: External Appearance Overall Appearance: [...] BUN 48* 50* 39* (more content not included)...[facility] [id number] [facility] Respiratory Care Department Progress Note [...] Respiratory in the care of this patient, [facility]03-03-2023 NoteICU Progress Note Name: Berto Parkinson : 1935(87 y.o.) Date: 11/15/22 Team: MICU Attending: Enedina Subjective: Hospital Summary: Patient is a 87 year old male with PMH former tobacco use, debility - bed bound from SNF, dysphagia 2/2 stomach cancer s/p GJ tube, HTN/HLD, CAD, prior etoh abuse, PAD, who presented to [facility] ED from SNF on 11/14/2022 for hypoxia [...] Normal [] Scar/Lesion/Mass Inspection of teeth/lips/gums Dentition: [x][place]eth []Dentures Lips/Gums: []Intact []Lesion Present Mucosa: [][place] []Moist [x]Dry Neck: External Appearance Overall Appearance: [...] 84.6 84.8 RDW 1 (more content not included)...[facility] [id number] NoteICU Initial History and Physical Berto Ray : 1935(87 y.o.) Date: November 14, 2022 Attending: Dr. Gamino Subjective: Chief Complaint: Hypoxia and peg issues HPI: Patient is a 87 year old male with PMH former tobacco use, debility - bed bound from SNF, dysphagia 2/2 stomach cancer s/p GJ tube, HTN/HLD, CAD, prior etoh abuse, PAD, who presented to [facility] ED from SNF on 11/14/2022 for hypoxia [...] LUE. Psychiatric: Mood an (more content not included)...[facility]10-11-2021 Note Patient Outreach (QAINDP) BERTO PARKINSON ([id number]) 1935 M Date Time Provider Department 06/25/21 [...] RN - Fully Assessed Reason for Visit: Registered Dental Assistant- Other [3273] Prescriptions as of 06/25/2021 - ciprofloxacin HCl [...] [E4*03/11/2021 Encounter Status:Closed by ENRICO CARCAMO on 06/25/21[facility] [place]10-11-2021 NoteHNO ID: [id number] Author: Enrico Carcamo RN Service: ? Author Type: Registered Nurse Type: Progress Notes Filed: 06/25/2021 7:56 AM Note Text: TRANSITION CARE MANAGEMENT (TCM) INITIAL CONTACT Call Summary: Mr. Parkinson transitioned to non-short stay at facility, per [facility]. No further monitoring for SNF TCM. Enrico Carcamo RN June 25, 2021 7:56 [facility]10-08-2021 NotePatient Outreach (QAINDP) BERTO PARKINSON ([id number]) 1935 M Date Time Provider Department 06/22/21 [...] RN - Fully Assessed Reason for Visit: Registered Dental Assistant- Other [4138] Prescriptions as of 06/22/2021 - ciprofloxacin HCl [...] [E4*03/11/2021 Encounter Status:Closed by ENRICO CARCAMO on 06/22/21[facility]10-08-2021 NoteHNO ID: [id number] Author: Enrico Carcamo RN Service: ? Author Type: Registered Nurse Type: Progress Notes Filed: 06/22/2021 8:19 AM Note Text: TRANSITION CARE MANAGEMENT (TCM) INITIAL CONTACT Call Summary: Per Berto Nichole still present at facility with skilled care. Will continue to monitor for SNF discharge and will contact patient as appropriate for SNF TCM. Enrico Carcamo RN June 22, 2021 8:18 [facility]09-09-2021 NotePatient Outreach (QAINDP) BERTO PARKINSON ([id number]) 1935 M Date Time Provider Department 05/24/21 [...] RN - Fully Assessed Reason for Visit: Registered Dental Assistant- Other [8243] Prescriptions as of 05/24/2021 - ciprofloxacin HCl [...] [E4*03/11/2021 Encounter Status:Closed by ENRICO CARCAMO on 05/24/21[facility] [place]09-09-2021 NoteHNO ID: [id number] Author: Enrico Carcamo RN Service: ? Author Type: Registered Nurse Type: Progress Notes Filed: 05/24/2021 7:45 AM Note Text: TRANSITION CARE MANAGEMENT (TCM) INITIAL CONTACT Call Summary: Per Berto Nichole still present at facility with skilled care. Will continue to monitor for SNF discharge and will contact patient as appropriate for SNF TCM. Enrico Carcamo RN May 24, 2021 7:45 [facility]08-10-2021 NoteHNO ID: [id number] Author: Enrico Carcamo RN Service: ? Author Type: Registered Nurse Type: Progress Notes Filed: 04/24/2021 3:44 PM Note Text: TRANSITION CARE MANAGEMENT (TCM) INITIAL CONTACT Call Summary: Per Berto Nichole still present at facility with skilled care. Will continue to monitor for SNF discharge and will contact patient as appropriate for SNF TCM. Enrico Carcamo RN April 24, 2021 3:43 [facility]08-10-2021 NotePatient Outreach (QAINDP) BERTO PARKINSON ([id number]) 1935 M Date Time Provider Department 04/24/21 [...] RN - Fully Assessed Reason for Visit: Registered Dental Assistant- Other [3613] Prescriptions as of 05/16/2021 - [...] [E4*03/11/2021 Encounter Status:Closed by ENRICO CARCAMO on 04/24/21[facility] [place]07-06-2021 NotePatient Outreach (QAINDP) BERTO PARKINSON ([id number]) 1935 M Date Time Provider Department 03/20/21 ENRICO CARCAMO During your visit today, we recorded the following information about you: Enrico Carcamo RN 03/20/2021 7:59 AM Signed TRANSITION CARE MANAGEMENT (TCM) INITIAL CONTACT Call Summary: Berto Iggy discharged from [facility] on 03/16/2021. No TCM calls at this time as patient discharged to SNF. Will monitor for patient discharge home from facility and will contact as appropriate. Enrico Carcamo RN March 20, 2021 7:59 AM Allergies As of Date: 03/20/2021 (No Known Allergies) Date Reviewed: 03/16/2021 Reviewed by: Elizabeth Madera RN - Fully Assessed Reason for Visit: Registered Dental Assistant Hospital Follow Up [7927] Cmt: TCM Prescriptions as of 03/20/2021 - [...] [E4*03/11/2021 Encounter Status:Closed by ENRICO CARCAMO on 03/20/21[facility] [place]07-06-2021 NoteHNO ID: [id number] Author: Enrico Carcamo RN Service: ? Author Type: Registered Nurse Type: Progress Notes Filed: 03/20/2021 7:59 AM Note Text: TRANSITION CARE MANAGEMENT (TCM) INITIAL CONTACT Call Summary: Berto Parkinson discharged from [facility] on 03/16/2021. No TCM calls at this time as patient discharged to SNF. Will monitor for patient discharge home from facility and will contact as appropriate. Enrico Carcamo RN March 20, 2021 7:59 [facility]06-23-2021 NoteHNO ID: [id number] Author: Marquita Villavicencio MD Service: ? Author Type: Physician Type: Progress Notes Filed: 03/07/2021 1:30 PM Note Text: Assessment IMPRESSION AND PLAN: 86 year old AAM needing PEG replacement - incorrect size tube was sent. Instructions for 22Fr or 24 Fr tube sent, will reschedule HPI: Berto Parkinson is a 86 year old -[place] male,He presents for the evaluation of PEG [...] Neuro: Alert Marquita Villavicencio MD 03/07/2021 1:26 [facility] note* Diagnosis Constipation, unspecified constipation type- Primary Constipation, unspecified constipation type [facility] [place] [facility] Diagnosis Pressure ulcer of unspecified site, unspecified stage Contracture, left hand documented in this encounter [facility] Summary Purpose Family History No [...] DATE CREATED AUTHOR AUTHOR'S ORGANIZ ATION 06/27/2019 [facility] DATE CREATED AUTHOR AUTHOR'S ORGANIZ ATION 06/07/2021 [facility] DATE CREATED AUTHOR AUTHOR'S ORGANIZ ATION 10/22/2021 [facility] DATE CREATED AUTHOR AUTHOR'S ORGANIZ ATION 05/07/2022 [facility] DATE CREATED AUTHOR AUTHOR'S ORGANIZ ATION 05/16/2023 [facility] Reason for Visit (unrecogniz ed section and content) Specialty Diagnoses / Procedures Referred By Contac t Referred To Contact Diagnoses Constipation, unspecified constipation type Procedures . Dominick Rosales MD [address] [address] [facility] [address] [place] [address] Referral ID Status Reason Start Date Expiration Date Visits Re quested Visits Authorized [id number] 1 1 Specialty Diagnoses / Procedures Referred By Contac t Referred To Contact Diagnoses Pressure ulcer of unspecified site, unspecified stage Contracture, left hand Pressure ulcer of unspecified site, unspecified stage [L89.90] Contracture, left hand [M24.542] Procedures ID TDN [id number]/TR FLXR/XTNSR F/ARM&/WRST 1 EA TDN ID NEURP MAJOR PRPH NRV ARM/LEG OPN OTH/THN SPEC ID EXC NEUROMA HAND/FOOT XCP DIGITAL NERVE ID [id number] W/RMVL FM FX&/DISLC SKN SUBQ T/M/F MUSC FLEXOR TENDON TRANSFER X4, NEUROLYSIS FOREARM NERVE X2, NEURECTOMY ULNAR NERVE AT THE WRIST LEFT, DEBRIDEMENT SKIN SUBCUTANEOUS MUSCLE LEFT HAND DEBRIDEMENT SKIN/MUSCLE, OPEN FRACTURE Emilio Alvarez MD [address] [place] [address] [facility] [address] [place] [address] Referral ID Status Reason Start Date Expiration Date Visits Re quested Visits Authorized [id number] 1 1 Scheduled Active and Recently Administ [...] than 100.4 F (38 C), Starting on Evelni 12/26/22 at 0531
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 [facility] provides no warranty or guarantee of the accuracy or completeness of information in this document.
[2023-11-19 07:40] LABS: Anion Gap 5 (5-15); BUN 35 mg/dL (7-18); Chloride 105 mmol/L (98-107); Creatinine, Serum 1.13 mg/dL (0.70-1.30); EST Glomerular Filtration Rate 65 mL/min (>60); Est Glom Filt Rate - Afr Amer 79 mL/min (>60); Glucose 129 mg/dL (74-106); Potassium 4.3 mmol/L (3.5-5.1); Sodium Level 137 mmol/L (136-145)
[2023-11-19 07:49] LABS: Hematocrit 34.1 % (40-54); Mean Corp Hgb Conc 32.3 g/dL (32-36); Mean Corpuscular Hgb 25.6 pg (27.0-32.0); Mean Corpuscular Volume 79.3 fL (80-94); Mean Platelet Vol. 10.5 fl (6.2-12.0); Platelet Count 178 K/mm3 (150-450); RBC Distribution Width CV 18.8 % (11.6-14.6); RBC Distribution Width SD 53.4 fl (35.1-43.9); White Blood Count 6.7 K/mm3 (4.4-11.0)
== END ==
LOC: OLS.SANC 04:00
PROVIDERS: Referring Provider Internal Medicine; Visit Provider Internal Medicine
DX: F03.90 Unspecified dementia, unspecified severity, without behavioral disturbance, psychotic disturbance, mood disturbance, and anxiety (principal); I10 Essential (primary) hypertension; N28.9 Disorder of kidney and ureter, unspecified
CPT/HCPCS: 36415; 80048; 85027

== ENCOUNTER → 2024-01-02 05:00 | Outpatient (REF) | payer MEDICARE, MEDICAID, SELFPAY ==
[2024-01-02 08:13] LABS: Hematocrit 36.6 % (40-54); Hemoglobin 11.7 g/dL (13.0-16.5); Mean Corpuscular Hgb 26.5 pg (27.0-32.0); Mean Corpuscular Volume 82.8 fL (80-94); Mean Platelet Vol. 11.2 fl (6.2-12.0); Platelet Count 199 K/mm3 (150-450); RBC Distribution Width CV 17.8 % (11.6-14.6); RBC Distribution Width SD 53.1 fl (35.1-43.9); Red Blood Count 4.42 M/mm3 (4.6-6.2); White Blood Count 7.1 K/mm3 (4.4-11.0)
[2024-01-02 08:36] LABS: Anion Gap 7 (5-15); BUN 30 mg/dL (7-18); BUN/Creat Ratio 30.7 RATIO (10-20); Calcium,Total 9.1 mg/dL (8.5-10.1); Chloride 104 mmol/L (98-107); Creatinine, Serum 0.98 mg/dL (0.70-1.30); EST Glomerular Filtration Rate 77 mL/min (>60); Est Glom Filt Rate - Afr Amer 94 mL/min (>60); Glucose 121 mg/dL (74-106); Potassium 4.2 mmol/L (3.5-5.1); Sodium Level 137 mmol/L (136-145)
== END ==
LOC: OLS.SANC 05:00
PROVIDERS: Visit Provider Internal Medicine
DX: D64.9 Anemia, unspecified (principal); I10 Essential (primary) hypertension
CPT/HCPCS: 36415; 80048; 85027